=== PATIENT | male | born 1960 | race Caucasian/White ===

== ENCOUNTER 2017-03-17 09:36 | Inpatient (IN) | payer MEDICAID, MEDICARE ==
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
[2017-03-17] MEDS ORDERED: NORMAL SALINE 1000 ML 1,000 ML IV ONE (09:59)
[2017-03-17] MEDS ORDERED: VANCOMYCIN HCL INJ 1000 MG VIAL IV ONE (09:59)
[2017-03-17] MEDS ORDERED: PIPERACILLIN/TAZOBACTAM 3.375 GM VIAL IV ONE (10:00)
[2017-03-17 10:11] LABS: ABSOLUTE LYMPHOCYTES (AUTO) 0.8 10^3/uL (0.5-4.7); ABSOLUTE MONOCYTES (AUTO) 0.9 10^3/uL (0.1-1.4); ABSOLUTE NEUT (AUTO) 5.6 10^3/uL (1.7-8.2); BASOPHILS % (AUTO) 0.4 % (0-2); EOSINOPHILS % (AUTO) 0.5 % (0-6); HEMATOCRIT 39.9 % (37.9-51.0); HEMOGLOBIN 13.1 g/dL (13.5-17.0); LYMPHOCYTES % (AUTO) 10.9 % (13-45); MEAN CORPUSCULAR HEMOGLOBIN 31.7 pg (27.0-33.4); MEAN CORPUSCULAR HGB CONC 32.9 g/dL (32.0-36.0); MEAN CORPUSCULAR VOLUME 96 fl (80-97); MONOCYTES % (AUTO) 11.7 % (3-13); PLATELET COUNT 305 10^3/uL (150-450); RED BLOOD COUNT 4.14 10^6/uL (4.35-5.55); RED CELL DISTRIBUTION WIDTH 16.6 % (11.5-14.0); SEGMENTED NEUTROPHILS % (AUTO) 76.5 % (42-78); TOTAL CELLS COUNTED % (AUTO) 100 %; WHITE BLOOD COUNT 7.3 10^3/uL (4.0-10.5)
[2017-03-17 10:13] LABS: VENOUS BLOOD BASE EXCESS 2.6 mmol/L; VENOUS BLOOD HCO3 27.2 mmol/L (20-32); VENOUS BLOOD PCO2 41.7 mmHg (35-63); VENOUS BLOOD PH 7.43 (7.30-7.42)
--- NOTE | 2017-03-17 10:14 | RADIOLOGY REPORT (SQ) ---
EXAM DESCRIPTION: CHEST SINGLE VIEW COMPLETED DATE/TIME: 03/17/2017 10:05 am REASON FOR STUDY: bed t2 sepsis protocol COMPARISON: None. EXAM PARAMETERS: NUMBER OF VIEWS: One view. TECHNIQUE: Single frontal radiographic view of the chest acquired. RADIATION DOSE: NA LIMITATIONS: None. FINDINGS: LUNGS AND PLEURA: Elevated left hemidiaphragm. Indistinct basilar densities, particularly on the left. MEDIASTINUM AND HILAR STRUCTURES: No masses. Contour normal. HEART AND VASCULAR STRUCTURES: Heart normal in size. Normal vasculature. BONES: No acute findings. HARDWARE: Tracheostomy tube. OTHER: No other significant finding. IMPRESSION: INDISTINCT BASILAR DENSITIES, SOMEWHAT CONCERNING FOR PNEUMONIA, PARTICULARLY ON THE LEF T. TECHNICAL DOCUMENTATION: JOB ID: [id number] [employer]- All Rights Reserved
[2017-03-17 10:20] LABS: INTERNATIONAL RATION (INR) 0.98; PROTHROMBIN TIME 13.7 SEC (11.4-15.4)
[2017-03-17 10:21] LABS: APPEARANCE,URINE SLIGHTLY-CLOUDY; BILIRUBIN,URINE NEGATIVE (NEGATIVE); COLOR,URINE AMBER; GLUCOSE, URINE NEGATIVE (NEGATIVE); KETONES,URINE NEGATIVE (NEGATIVE); LEUKOCYTE ESTERASE,URINE NEGATIVE (NEGATIVE); NITRITE,URINE NEGATIVE (NEGATIVE); PROTEIN,URINE NEGATIVE (NEGATIVE); URINE SPECIFIC GRAVITY 1.031; UROBILINOGEN,URINE NEGATIVE mg/dL (<2.0)
[2017-03-17 10:33] LABS: ALANINE AMINOTRANSFERASE 213 U/L (21-72); ALBUMIN 3.3 g/dL (3.5-5.0); ALKALINE PHOSPHATASE 146 U/L (38-126); ANION GAP 13 (5-19); ASPARTATE AMINO TRANSFERASE 39 U/L (17-59); BILIRUBIN,DIRECT 0.3 mg/dL (0.0-0.4); BILIRUBIN,TOTAL 0.4 mg/dL (0.2-1.3); BLOOD UREA NITROGEN 21 mg/dL (7-20); CALCIUM 9.7 mg/dL (8.4-10.2); CARBON DIOXIDE 26 mmol/L (22-30); CHLORIDE 102 mmol/L (98-107); GLUCOSE 102 mg/dL (75-110); POTASSIUM 4.4 mmol/L (3.6-5.0); SODIUM 140.6 mmol/L (137-145); TOTAL PROTEIN 6.1 g/dL (6.3-8.2)
[2017-03-17] MEDS ORDERED: NORMAL SALINE 1000 ML 1,000 ML IV PRN (11:19)
[2017-03-17] MEDS ORDERED: ONDANSETRON HCL INJ/PF 4 MG/2 ML SDV IV PRN (11:19)
[2017-03-17] MEDS ORDERED: OXYCODONE-ACETAMINOPHEN 5-325 MG TABLET PO PRN (11:19)
[2017-03-17 11:28] LABS: A TYPE INFLUENZA AG NEGATIVE (NEGATIVE); B INFLUENZA AG NEGATIVE (NEGATIVE)
[2017-03-17] MEDS: LEVOFLOXACIN 750 MG/D5W RTU 750 MG/150 ML RTUPB IV SCH (12:33)
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
[2017-03-17 13:51] LABS: A TYPE INFLUENZA AG NEGATIVE (NEGATIVE); B INFLUENZA AG NEGATIVE (NEGATIVE)
[2017-03-17] MEDS ORDERED: ENOXAPARIN SODIUM INJ 40 MG/0.4 ML DISP.SYRIN SUBCUT ONE (14:00)
--- NOTE | 2017-03-17 15:13 | EKG REPORT ---
SEVERITY:- OTHERWISE NORMAL ECG - SINUS TACHYCARDIA : Confirmed by: Erick Bella MD 17-Mar-2017 15:12:34
[2017-03-17] MEDS ORDERED: NYSTATIN 500000 UNIT/5 ML UDCUP PO PRN (15:46)
[2017-03-17] MEDS ORDERED: (PENDING PHARMACY ID) (Cyanocobalamin (Vitamin B-12) [Vitamin B-12 100 Mcg Tablet] 100 MCG PEG SCH (16:00)
[2017-03-17] MEDS ORDERED: ARIPIPRAZOLE 5 MG TABLET PEG ONE ×2 (17:00→18:00)
[2017-03-17] MEDS: LINEZOLID 300 ML IV SCH (18:04)
[2017-03-17] MEDS: BACLOFEN 10 MG TABLET PEG PRN (18:05)
[2017-03-17] MEDS: NORMAL SALINE 1000 ML 1,000 ML IV PRN (23:53)
[2017-03-18] MEDS ORDERED: INFLUENZA ADLT QUAD (36MOS+) 2017-18 VAC 0.5 ML SYR IM PRN (00:35)
[2017-03-18 05:04] LABS: ABSOLUTE EOSINOPHILS # (AUTO) 0.1 10^3/uL (0.0-0.6); ABSOLUTE MONOCYTES (AUTO) 0.6 10^3/uL (0.1-1.4); ABSOLUTE NEUT (AUTO) 3.7 10^3/uL (1.7-8.2); BASOPHILS % (AUTO) 0.5 % (0-2); EOSINOPHILS % (AUTO) 1.6 % (0-6); HEMATOCRIT 34.7 % (37.9-51.0); HEMOGLOBIN 11.5 g/dL (13.5-17.0); LYMPHOCYTES % (AUTO) 18.4 % (13-45); MEAN CORPUSCULAR HEMOGLOBIN 31.9 pg (27.0-33.4); MEAN CORPUSCULAR HGB CONC 33.1 g/dL (32.0-36.0); MEAN CORPUSCULAR VOLUME 97 fl (80-97); MONOCYTES % (AUTO) 10.7 % (3-13); PLATELET COUNT 208 10^3/uL (150-450); RED CELL DISTRIBUTION WIDTH 16.2 % (11.5-14.0); SEGMENTED NEUTROPHILS % (AUTO) 68.8 % (42-78); TOTAL CELLS COUNTED % (AUTO) 100 %; WHITE BLOOD COUNT 5.4 10^3/uL (4.0-10.5)
[2017-03-18] MEDS: LINEZOLID 300 ML IV SCH ×2 (05:07→18:23)
[2017-03-18 05:24] LABS: ANION GAP 9 (5-19); BLOOD UREA NITROGEN 16 mg/dL (7-20); CARBON DIOXIDE 25 mmol/L (22-30); CHLORIDE 106 mmol/L (98-107); GLUCOSE 108 mg/dL (75-110); MAGNESIUM 1.8 mg/dL (1.6-2.3); POTASSIUM 4.2 mmol/L (3.6-5.0); SODIUM 139.6 mmol/L (137-145)
[2017-03-18] MEDS ORDERED: ONDANSETRON HCL INJ/PF 4 MG/2 ML SDV IV PRN (10:00)
[2017-03-18] MEDS: ENOXAPARIN SODIUM INJ 40 MG/0.4 ML DISP.SYRIN SUBCUT SCH (11:03)
[2017-03-18] MEDS: FLUOXETINE HCL 20 MG/5 ML UDCUP PEG SCH (11:04)
[2017-03-18] MEDS: ARIPIPRAZOLE 5 MG TABLET PEG SCH (11:05)
--- NOTE | 2017-03-18 12:29 | PDOC PROGRESS REPORT ---
Subjective Progress Note for:: 03/18/17 Subjective:: Sleeping in bed, opens eyes, non verbal. No overnight events per RN. Reason For Visit: BACTERIAL PNEUMONIA Physical Exam Vital Signs: Temp Pulse Resp BP Pulse Ox 98.9 F 101 H 37 H 121/65 99 03/18/17 07:57 03/18/17 07:57 03/18/17 07:57 03/18/17 07:57 03/18/17 07:57 Intake & Output 03/17/17 03/18/17 03/19/17 06:59 06:59 06:59 Intake Total 1400 Balance 1400 Weight 74.1 kg General appearance: PRESENT: no acute distress, well-developed, well-nourished Mouth exam: PRESENT: moist Throat exam: PRESENT: other - Trach in place Respiratory exam: PRESENT: rhonchi. ABSENT: wheezes Cardiovascular exam: PRESENT: +S1, +S2. ABSENT: tachycardia GI/Abdominal exam: PRESENT: soft, other - PEG in place. Neurological exam: PRESENT: awake, other - unable to perform neuro exam due history Results Laboratory Results: 03/18/17 04:15 03/18/17 04:15 03/18/17 03/18/17 04:15 04:15 WBC 5.4 RBC 3.60 L Hgb 11.5 L Hct 34.7 L MCV 97 MCH 31.9 MCHC 33.1 RDW 16.2 H Plt Count 208 Seg Neutrophils % 68.8 Lymphocytes % 18.4 Monocytes % 10.7 Eosinophils % 1.6 Basophils % 0.5 Absolute Neutrophils 3.7 Absolute Lymphocytes 1.0 Absolute Monocytes 0.6 Absolute Eosinophils 0.1 Absolute Basophils 0.0 Sodium 139.6 Potassium 4.2 Chloride 106 Carbon Dioxide 25 Anion Gap 9 BUN 16 Creatinine 0.73 Est GFR ( Amer) > 60 Est GFR (Non-Af Amer) > 60 Glucose 108 Calcium 9.0 Magnesium 1.8 Impressions: Chest X-Ray 03/17/17 09:38 IMPRESSION: INDISTINCT BASILAR DENSITIES, SOMEWHAT CONCERNING FOR PNEUMONIA, PARTICULARLY ON THE LEFT. Assessment & Plan - Diagnosis (1) Bacterial pneumonia Is this a current diagnosis for this admission?: Yes Plan: Treating for HCAP: CXR concerning for PNA. Rapid Flu negative * 2 - Currently on Zyvox and Levaquin - Blood cultures positive for GPC in clusters (1/2 bottle), sputum also positive for GPC - Will repeat cx on 03/18 at 1800 (will have received abx for 36 hours) to document clearance - Will need 14 days of antibiotics, will tailor based on speciation and sensitivities (2) Chronic respiratory failure Is this a current diagnosis for this admission?: Yes Plan: Patient on chronic tracheostomy. - Continue nebulizer treatments - Code status: DNI - Family involved with care and decision making (3) Traumatic brain injury Qualifiers: Encounter type: sequela Loss of consciousness presence/duration: with LOC of unspecified duration Qualified Code(s): S06.9X9S - Unspecified intracranial injury with loss of consciousness of unspecified duration, sequela Is this a current diagnosis for this admission?: Yes Plan: Supportive care, currently trach/PEG - Time Time Spent with patient: Less than 15 minutes Anticipated discharge: SNF - Plan Summary Plan Summary: Continue inpatient care.
[2017-03-18] MEDS: LEVOFLOXACIN 750 MG/D5W RTU 750 MG/150 ML RTUPB IV SCH (12:57)
[2017-03-19] MEDS: LINEZOLID 300 ML IV SCH ×2 (06:06→17:54)
[2017-03-19] MEDS: NORMAL SALINE 1000 ML 1,000 ML IV PRN (09:14)
[2017-03-19] MEDS: ENOXAPARIN SODIUM INJ 40 MG/0.4 ML DISP.SYRIN SUBCUT SCH (11:13)
[2017-03-19] MEDS: FLUOXETINE HCL 20 MG/5 ML UDCUP PEG SCH (11:13)
[2017-03-19] MEDS: ARIPIPRAZOLE 5 MG TABLET PEG SCH (11:14)
[2017-03-19] MEDS: LEVOFLOXACIN 750 MG/D5W RTU 750 MG/150 ML RTUPB IV SCH (12:36)
--- NOTE | 2017-03-19 15:13 | PDOC PROGRESS REPORT ---
Subjective Progress Note for:: 03/19/17 Subjective:: Patient opens his eyes but otherwise does not respond. Reason For Visit: FEVER, PNA Physical Exam Vital Signs: Temp Pulse Resp BP Pulse Ox 97.8 F 88 30 H 127/76 H 99 03/19/17 12:34 03/19/17 12:34 03/19/17 12:34 03/19/17 12:34 03/19/17 12:34 Intake & Output 03/18/17 03/19/17 03/20/17 06:59 06:59 06:59 Intake Total 1400 1650 0 Balance 1400 1650 0 Weight 74.1 kg General appearance: PRESENT: no acute distress Eye exam: PRESENT: conjunctiva pink. ABSENT: scleral icterus Mouth exam: PRESENT: moist, tongue midline Neck exam: ABSENT: JVD Respiratory exam: PRESENT: rhonchi. ABSENT: rales, wheezes Cardiovascular exam: PRESENT: RRR. ABSENT: diastolic murmur, rubs, systolic murmur GI/Abdominal exam: PRESENT: normal bowel sounds, soft. ABSENT: distended, guarding, mass, organolmegaly, rebound, tenderness Extremities exam: ABSENT: calf tenderness, clubbing, pedal edema Neurological exam: PRESENT: awake Psychiatric exam: PRESENT: flat affect Skin exam: PRESENT: dry, intact, warm. ABSENT: cyanosis, rash Results Laboratory Results: 03/18/17 04:15 03/18/17 04:15 Impressions: Chest X-Ray 03/17/17 09:38 IMPRESSION: INDISTINCT BASILAR DENSITIES, SOMEWHAT CONCERNING FOR PNEUMONIA, PARTICULARLY ON THE LEFT. Assessment & Plan - Diagnosis (1) Bacterial pneumonia Is this a current diagnosis for this admission?: Yes Plan: Patient is growing gram-positive cocci from blood culture 1 as well as sputum. 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 (3) Traumatic brain injury Qualifiers: Encounter type: sequela Loss of consciousness presence/duration: with LOC of unspecified duration Qualified Code(s): S06.9X9S - Unspecified intracranial injury with loss of consciousness of unspecified duration, sequela Is this a current diagnosis for this admission?: Yes - Time Time Spent with patient: 25-34 minutes - Inpatient Certification Medical Necessity: Need for IV Antibiotics
[2017-03-20 05:02] LABS: ABSOLUTE MONOCYTES (AUTO) 0.4 10^3/uL (0.1-1.4); ABSOLUTE NEUT (AUTO) 5.2 10^3/uL (1.7-8.2); BASOPHILS % (AUTO) 0.6 % (0-2); EOSINOPHILS % (AUTO) 0.7 % (0-6); HEMATOCRIT 38.6 % (37.9-51.0); HEMOGLOBIN 13.2 g/dL (13.5-17.0); LYMPHOCYTES % (AUTO) 15.1 % (13-45); MEAN CORPUSCULAR HEMOGLOBIN 32.2 pg (27.0-33.4); MEAN CORPUSCULAR HGB CONC 34.3 g/dL (32.0-36.0); MEAN CORPUSCULAR VOLUME 94 fl (80-97); MONOCYTES % (AUTO) 6.6 % (3-13); PLATELET COUNT 270 10^3/uL (150-450); RED CELL DISTRIBUTION WIDTH 16.1 % (11.5-14.0); TOTAL CELLS COUNTED % (AUTO) 100 %; WHITE BLOOD COUNT 6.7 10^3/uL (4.0-10.5)
[2017-03-20 05:28] LABS: ANION GAP 7 (5-19); BLOOD UREA NITROGEN 9 mg/dL (7-20); CALCIUM 9.4 mg/dL (8.4-10.2); CARBON DIOXIDE 26 mmol/L (22-30); CHLORIDE 101 mmol/L (98-107); GLUCOSE 89 mg/dL (75-110); POTASSIUM 4.4 mmol/L (3.6-5.0); SODIUM 134.4 mmol/L (137-145)
[2017-03-20] MEDS: LINEZOLID 300 ML IV SCH ×2 (05:33→17:16)
--- NOTE | 2017-03-20 10:24 | PDOC PROGRESS REPORT ---
Subjective Progress Note for:: 03/20/17 Subjective:: Patient opens his eyes but otherwise does not respond. Reason For Visit: FEVER, PNA Physical Exam Vital Signs: Temp Pulse Resp BP Pulse Ox 97.9 F 90 27 H 120/70 100 03/20/17 08:01 03/20/17 08:01 03/20/17 08:01 03/20/17 08:01 03/20/17 08:01 Intake & Output 03/19/17 03/20/17 03/21/17 06:59 06:59 06:59 Intake Total 1650 2270 Output Total 1 Balance 1650 2269 Weight 77.4 kg General appearance: PRESENT: no acute distress Eye exam: PRESENT: conjunctiva pink. ABSENT: scleral icterus Mouth exam: PRESENT: moist, tongue midline Neck exam: PRESENT: tracheostomy. ABSENT: JVD Respiratory exam: PRESENT: clear to auscultation [place]. ABSENT: rales, rhonchi, wheezes Cardiovascular exam: PRESENT: RRR. ABSENT: diastolic murmur, rubs, systolic murmur GI/Abdominal exam: PRESENT: normal bowel sounds, soft, other - G-tube present. ABSENT: distended, guarding, mass, organolmegaly, rebound, tenderness Extremities exam: ABSENT: calf tenderness, clubbing, pedal edema Neurological exam: PRESENT: awake Psychiatric exam: PRESENT: flat affect Skin exam: PRESENT: dry, intact, warm. ABSENT: cyanosis, rash Results Laboratory Results: 03/20/17 04:03 03/20/17 04:03 03/20/17 03/20/17 04:03 04:03 WBC 6.7 RBC 4.10 L Hgb 13.2 L Hct 38.6 MCV 94 MCH 32.2 MCHC 34.3 RDW 16.1 H Plt Count 270 Seg Neutrophils % 77.0 Lymphocytes % 15.1 Monocytes % 6.6 Eosinophils % 0.7 Basophils % 0.6 Absolute Neutrophils 5.2 Absolute Lymphocytes 1.0 Absolute Monocytes 0.4 Absolute Eosinophils 0.0 Absolute Basophils 0.0 Sodium 134.4 L Potassium 4.4 Chloride 101 Carbon Dioxide 26 Anion Gap 7 BUN 9 Creatinine 0.59 Est GFR ( Amer) > 60 Est GFR (Non-Af Amer) > 60 Glucose 89 Calcium 9.4 Impressions: Chest X-Ray 03/17/17 09:38 IMPRESSION: INDISTINCT BASILAR DENSITIES, SOMEWHAT CONCERNING FOR PNEUMONIA, PARTICULARLY ON THE LEFT. Assessment & Plan - Diagnosis (1) Bacterial pneumonia Is this a current diagnosis for this admission?: Yes Plan: Patient is growing staph epi from one blood culture. 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 (3) Traumatic brain injury Qualifiers: Encounter type: sequela Loss of consciousness presence/duration: with LOC of unspecified duration Qualified Code(s): S06.9X9S - Unspecified intracranial injury with loss of consciousness of unspecified duration, sequela Is this a current diagnosis for this admission?: Yes - Time Time Spent with patient: 25-34 minutes - Inpatient Certification Medical Necessity: Need for IV Antibiotics
[2017-03-20] MEDS: FLUOXETINE HCL 20 MG/5 ML UDCUP PEG SCH (11:42)
[2017-03-20] MEDS: ARIPIPRAZOLE 5 MG TABLET PEG SCH (11:42)
[2017-03-20] MEDS: ENOXAPARIN SODIUM INJ 40 MG/0.4 ML DISP.SYRIN SUBCUT SCH (11:43)
[2017-03-20] MEDS: NORMAL SALINE 1000 ML 1,000 ML IV PRN (11:58)
[2017-03-20] MEDS: LEVOFLOXACIN 750 MG/D5W RTU 750 MG/150 ML RTUPB IV SCH (12:00)
[2017-03-21] MEDS: LINEZOLID 300 ML IV SCH (05:43)
[2017-03-21] MEDS: NORMAL SALINE 1000 ML 1,000 ML IV PRN ×3 (05:44→17:57)
[2017-03-21] MEDS: FLUOXETINE HCL 20 MG/5 ML UDCUP PEG SCH (09:53)
[2017-03-21] MEDS: ENOXAPARIN SODIUM INJ 40 MG/0.4 ML DISP.SYRIN SUBCUT SCH (09:54)
[2017-03-21] MEDS: ARIPIPRAZOLE 5 MG TABLET PEG SCH (09:54)
--- NOTE | 2017-03-21 12:47 | PDOC PROGRESS REPORT ---
Subjective Progress Note for:: 03/21/17 Subjective:: Patient opens his eyes but otherwise does not respond. Reason For Visit: FEVER, PNA Physical Exam Vital Signs: Temp Pulse Resp BP Pulse Ox 99.3 F 104 H 23 H 124/74 97 03/21/17 07:25 03/21/17 07:25 03/21/17 07:25 03/21/17 07:25 03/21/17 12:12 Intake & Output 03/20/17 03/21/17 03/22/17 06:59 06:59 06:59 Intake Total 2270 1484 Output Total 1 Balance 2269 1484 Weight 77.4 kg 79.8 kg General appearance: PRESENT: no acute distress Eye exam: PRESENT: conjunctiva pink. ABSENT: scleral icterus Mouth exam: PRESENT: moist, tongue midline Neck exam: PRESENT: tracheostomy. ABSENT: JVD Respiratory exam: PRESENT: clear to auscultation [place]. ABSENT: rales, rhonchi, wheezes Cardiovascular exam: PRESENT: RRR. ABSENT: diastolic murmur, rubs, systolic murmur GI/Abdominal exam: PRESENT: normal bowel sounds, soft, other - G-tube in place. ABSENT: distended, guarding, mass, organolmegaly, rebound, tenderness Extremities exam: ABSENT: calf tenderness, clubbing, pedal edema Neurological exam: PRESENT: other - Patient does not respond or interact. Psychiatric exam: PRESENT: flat affect Skin exam: PRESENT: dry, intact, warm. ABSENT: cyanosis, rash Results Laboratory Results: 03/20/17 04:03 03/20/17 04:03 Impressions: Chest X-Ray 03/17/17 09:38 IMPRESSION: INDISTINCT BASILAR DENSITIES, SOMEWHAT CONCERNING FOR PNEUMONIA, PARTICULARLY ON THE LEFT. Assessment & Plan - Diagnosis (1) Bacterial pneumonia Is this a current diagnosis for this admission?: Yes Plan: Patient is growing staph epi from one blood culture. 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 (3) Traumatic brain injury Qualifiers: Encounter type: sequela Loss of consciousness presence/duration: with LOC of unspecified duration Qualified Code(s): S06.9X9S - Unspecified intracranial injury with loss of consciousness of unspecified duration, sequela Is this a current diagnosis for this admission?: Yes - Time Time Spent with patient: 15-24 minutes - Inpatient Certification Medical Necessity: Need for IV Antibiotics
[2017-03-21] MEDS: LEVOFLOXACIN 750 MG/D5W RTU 750 MG/150 ML RTUPB IV SCH (14:13)
[2017-03-21] MEDS: LINEZOLID 600 MG TABLET PEG SCH (17:42)
[2017-03-21] MEDS: BACLOFEN 10 MG TABLET PEG PRN (18:04)
[2017-03-21] MEDS: OXYCODONE-ACETAMINOPHEN 5-325 MG TABLET PEG PRN ×2 (18:04→23:02)
[2017-03-22] MEDS: NORMAL SALINE 1000 ML 1,000 ML IV PRN ×2 (01:59→11:52)
[2017-03-22] MEDS: BACLOFEN 10 MG TABLET PEG PRN ×2 (01:59→11:01)
[2017-03-22 05:27] LABS: ABSOLUTE EOSINOPHILS # (AUTO) 0.1 10^3/uL (0.0-0.6); ABSOLUTE LYMPHOCYTES (AUTO) 1.1 10^3/uL (0.5-4.7); ABSOLUTE MONOCYTES (AUTO) 0.4 10^3/uL (0.1-1.4); ABSOLUTE NEUT (AUTO) 3.8 10^3/uL (1.7-8.2); BASOPHILS % (AUTO) 0.4 % (0-2); EOSINOPHILS % (AUTO) 1.2 % (0-6); HEMATOCRIT 37.1 % (37.9-51.0); HEMOGLOBIN 12.6 g/dL (13.5-17.0); LYMPHOCYTES % (AUTO) 20.2 % (13-45); MEAN CORPUSCULAR VOLUME 94 fl (80-97); PLATELET COUNT 282 10^3/uL (150-450); RED BLOOD COUNT 3.95 10^6/uL (4.35-5.55); RED CELL DISTRIBUTION WIDTH 16.1 % (11.5-14.0); SEGMENTED NEUTROPHILS % (AUTO) 70.2 % (42-78); TOTAL CELLS COUNTED % (AUTO) 100 %; WHITE BLOOD COUNT 5.4 10^3/uL (4.0-10.5)
[2017-03-22] MEDS: OXYCODONE-ACETAMINOPHEN 5-325 MG TABLET PEG PRN ×4 (05:50→18:22)
[2017-03-22 05:51] LABS: ANION GAP 8 (5-19); BLOOD UREA NITROGEN 9 mg/dL (7-20); CALCIUM 9.1 mg/dL (8.4-10.2); CARBON DIOXIDE 27 mmol/L (22-30); CHLORIDE 102 mmol/L (98-107); GLUCOSE 109 mg/dL (75-110); POTASSIUM 4.4 mmol/L (3.6-5.0); SODIUM 137.2 mmol/L (137-145)
[2017-03-22] MEDS: LINEZOLID 600 MG TABLET PEG SCH ×2 (05:51→18:21)
[2017-03-22] MEDS: ARIPIPRAZOLE 5 MG TABLET PEG SCH (11:00)
[2017-03-22] MEDS: ENOXAPARIN SODIUM INJ 40 MG/0.4 ML DISP.SYRIN SUBCUT SCH (11:02)
--- NOTE | 2017-03-22 13:06 | PDOC PROGRESS REPORT ---
Subjective Progress Note for:: 03/22/17 Subjective:: Patient opens his eyes but otherwise does not respond. Reason For Visit: FEVER, PNA Physical Exam Vital Signs: Temp Pulse Resp BP Pulse Ox 98.0 F 102 H 20 129/90 H 98 03/22/17 07:52 03/22/17 07:52 03/22/17 07:52 03/22/17 07:52 03/22/17 08:00 Intake & Output 03/21/17 03/22/17 03/23/17 06:59 06:59 06:59 Intake Total 1484 2650 Balance 1484 2650 Weight 79.8 kg 82.6 kg General appearance: PRESENT: no acute distress Eye exam: PRESENT: conjunctiva pink. ABSENT: scleral icterus Ear exam: PRESENT: normal external ear exam Mouth exam: PRESENT: moist, tongue midline Neck exam: PRESENT: tracheostomy. ABSENT: JVD Respiratory exam: PRESENT: clear to auscultation [place]. ABSENT: rales, rhonchi, wheezes Cardiovascular exam: PRESENT: RRR. ABSENT: diastolic murmur, rubs, systolic murmur GI/Abdominal exam: PRESENT: normal bowel sounds, soft, other - G-tube in place. ABSENT: distended, guarding, mass, organolmegaly, rebound, tenderness Extremities exam: ABSENT: calf tenderness, clubbing, pedal edema Psychiatric exam: PRESENT: flat affect Skin exam: PRESENT: dry, intact, warm. ABSENT: cyanosis, rash Results Laboratory Results: 03/22/17 04:35 03/22/17 04:35 03/22/17 03/22/17 04:35 04:35 WBC 5.4 RBC 3.95 L Hgb 12.6 L Hct 37.1 L MCV 94 MCH 32.0 MCHC 34.0 RDW 16.1 H Plt Count 282 Seg Neutrophils % 70.2 Lymphocytes % 20.2 Monocytes % 8.0 Eosinophils % 1.2 Basophils % 0.4 Absolute Neutrophils 3.8 Absolute Lymphocytes 1.1 Absolute Monocytes 0.4 Absolute Eosinophils 0.1 Absolute Basophils 0.0 Sodium 137.2 Potassium 4.4 Chloride 102 Carbon Dioxide 27 Anion Gap 8 BUN 9 Creatinine 0.60 Est GFR ( Amer) > 60 Est GFR (Non-Af Amer) > 60 Glucose 109 Calcium 9.1 Impressions: Chest X-Ray 03/17/17 09:38 IMPRESSION: INDISTINCT BASILAR DENSITIES, SOMEWHAT CONCERNING FOR PNEUMONIA, PARTICULARLY ON THE LEFT. Assessment & Plan - Diagnosis (1) Bacterial pneumonia Is this a current diagnosis for this admission?: Yes Plan: Patient is growing staph epi from one blood culture. 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 (3) Traumatic brain injury Qualifiers: Encounter type: sequela Loss of consciousness presence/duration: with LOC of unspecified duration Qualified Code(s): S06.9X9S - Unspecified intracranial injury with loss of consciousness of unspecified duration, sequela Is this a current diagnosis for this admission?: Yes - Time Time Spent with patient: 25-34 minutes
[2017-03-22] MEDS: LEVOFLOXACIN 750 MG TABLET PEG SCH (15:40)
[2017-03-23] MEDS: OXYCODONE-ACETAMINOPHEN 5-325 MG TABLET PEG PRN ×3 (00:02→23:43)
[2017-03-23] MEDS: BACLOFEN 10 MG TABLET PEG PRN ×2 (03:00→23:43)
[2017-03-23] MEDS ORDERED: LINEZOLID IV ONE (05:33)
[2017-03-23] MEDS ORDERED: LINEZOLID 600 MG TABLET ONE (06:11)
[2017-03-23] MEDS: LINEZOLID 600 MG TABLET PEG SCH ×2 (06:54→17:55)
[2017-03-23] MEDS: ENOXAPARIN SODIUM INJ 40 MG/0.4 ML DISP.SYRIN SUBCUT SCH (09:28)
--- NOTE | 2017-03-23 10:32 | PDOC PROGRESS REPORT ---
Subjective Progress Note for:: 03/23/17 Subjective:: Patient is agitated this morning Reason For Visit: FEVER, PNA Physical Exam Vital Signs: Temp Pulse Resp BP Pulse Ox 98.2 F 103 H 20 126/68 H 93 03/23/17 07:36 03/23/17 07:36 03/23/17 07:36 03/23/17 07:36 03/23/17 08:00 Intake & Output 03/22/17 03/23/17 03/24/17 06:59 06:59 06:59 Intake Total 2650 2863 Balance 2650 2863 Weight 82.6 kg 70.1 kg General appearance: PRESENT: no acute distress Eye exam: PRESENT: conjunctiva pink. ABSENT: scleral icterus Mouth exam: PRESENT: moist, tongue midline Neck exam: PRESENT: tracheostomy. ABSENT: JVD Respiratory exam: PRESENT: rhonchi. ABSENT: rales, wheezes Cardiovascular exam: PRESENT: RRR. ABSENT: diastolic murmur, rubs, systolic murmur GI/Abdominal exam: PRESENT: normal bowel sounds, soft, other - G-tube in place.. ABSENT: distended, guarding, mass, organolmegaly, rebound, tenderness Extremities exam: ABSENT: calf tenderness, clubbing, pedal edema Neurological exam: PRESENT: awake Psychiatric exam: PRESENT: agitated Skin exam: PRESENT: dry, intact, warm. ABSENT: cyanosis, rash Results Laboratory Results: 03/22/17 04:35 03/22/17 04:35 Impressions: Chest X-Ray 03/17/17 09:38 IMPRESSION: INDISTINCT BASILAR DENSITIES, SOMEWHAT CONCERNING FOR PNEUMONIA, PARTICULARLY ON THE LEFT. Assessment & Plan - Diagnosis (1) Bacterial pneumonia Is this a current diagnosis for this admission?: Yes Plan: Patient is growing staph epi from one blood culture. 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 (3) Traumatic brain injury Qualifiers: Encounter type: sequela Loss of consciousness presence/duration: with LOC of unspecified duration Qualified Code(s): S06.9X9S - Unspecified intracranial injury with loss of consciousness of unspecified duration, sequela Is this a current diagnosis for this admission?: Yes - Time Time Spent with patient: 25-34 minutes
[2017-03-23] MEDS: ARIPIPRAZOLE 5 MG TABLET PEG SCH (12:35)
[2017-03-23] MEDS: LEVOFLOXACIN 750 MG TABLET PEG SCH (12:35)
[2017-03-24] MEDS: LINEZOLID 600 MG TABLET PEG SCH (06:44)
[2017-03-24] MEDS: NORMAL SALINE 1000 ML 1,000 ML IV PRN (06:44)
[2017-03-24] MEDS: OXYCODONE-ACETAMINOPHEN 5-325 MG TABLET PEG PRN ×3 (06:44→22:47)
[2017-03-24] MEDS: ENOXAPARIN SODIUM INJ 40 MG/0.4 ML DISP.SYRIN SUBCUT SCH (11:59)
[2017-03-24] MEDS: BACLOFEN 10 MG TABLET PEG PRN ×2 (12:00→22:47)
[2017-03-24] MEDS: ARIPIPRAZOLE 5 MG TABLET PEG SCH (12:01)
[2017-03-24] MEDS ORDERED: OXYCODONE-ACETAMINOPHEN 5-325 MG TABLET ONE (12:08)
--- NOTE | 2017-03-24 13:00 | PDOC PROGRESS REPORT ---
Subjective Progress Note for:: 03/24/17 Subjective:: Patient opens his eyes but does not otherwise interact. Reason For Visit: FEVER, PNA Physical Exam Vital Signs: Temp Pulse Resp BP Pulse Ox 97.2 F 101 H 21 H 135/88 H 99 03/24/17 11:32 03/24/17 11:32 03/24/17 11:32 03/24/17 11:32 03/24/17 11:32 Intake & Output 03/23/17 03/24/17 03/25/17 06:59 06:59 06:59 Intake Total 2863 4159 50 Balance 2863 4159 50 Weight 70.1 kg 81.6 kg General appearance: PRESENT: no acute distress Eye exam: PRESENT: conjunctiva pink. ABSENT: scleral icterus Mouth exam: PRESENT: moist, tongue midline Neck exam: PRESENT: tracheostomy. ABSENT: JVD Respiratory exam: PRESENT: rhonchi. ABSENT: rales, wheezes Cardiovascular exam: PRESENT: RRR. ABSENT: diastolic murmur, rubs, systolic murmur GI/Abdominal exam: PRESENT: normal bowel sounds, soft, other - PEG tube in place.. ABSENT: distended, guarding, mass, organolmegaly, rebound, tenderness Extremities exam: ABSENT: calf tenderness, clubbing, pedal edema Psychiatric exam: PRESENT: flat affect Skin exam: PRESENT: dry, intact, warm. ABSENT: cyanosis, rash Results Laboratory Results: 03/22/17 04:35 03/22/17 04:35 03/18/17 18:36 Blood Blood Culture - Final NO GROWTH IN 5 DAYS Impressions: Chest X-Ray 03/17/17 09:38 IMPRESSION: INDISTINCT BASILAR DENSITIES, SOMEWHAT CONCERNING FOR PNEUMONIA, PARTICULARLY ON THE LEFT. Assessment & Plan - Diagnosis (1) Bacterial pneumonia Is this a current diagnosis for this admission?: Yes Plan: Patient is growing staph epi from one blood culture. 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 (3) Traumatic brain injury Qualifiers: Encounter type: sequela Loss of consciousness presence/duration: with LOC of unspecified duration Qualified Code(s): S06.9X9S - Unspecified intracranial injury with loss of consciousness of unspecified duration, sequela Is this a current diagnosis for this admission?: Yes - Time Time Spent with patient: 25-34 minutes - Inpatient Certification Medical Necessity: Need Close Monitoring Due to Risk of Patient Decompensation
[2017-03-25 05:04] LABS: ABSOLUTE EOSINOPHILS # (AUTO) 0.1 10^3/uL (0.0-0.6); ABSOLUTE LYMPHOCYTES (AUTO) 1.2 10^3/uL (0.5-4.7); ABSOLUTE MONOCYTES (AUTO) 0.6 10^3/uL (0.1-1.4); ABSOLUTE NEUT (AUTO) 6.5 10^3/uL (1.7-8.2); BASOPHILS % (AUTO) 0.4 % (0-2); EOSINOPHILS % (AUTO) 1.1 % (0-6); HEMATOCRIT 39.6 % (37.9-51.0); HEMOGLOBIN 13.1 g/dL (13.5-17.0); LYMPHOCYTES % (AUTO) 14.2 % (13-45); MEAN CORPUSCULAR HEMOGLOBIN 31.5 pg (27.0-33.4); MEAN CORPUSCULAR VOLUME 95 fl (80-97); MONOCYTES % (AUTO) 7.1 % (3-13); PLATELET COUNT 299 10^3/uL (150-450); RED BLOOD COUNT 4.15 10^6/uL (4.35-5.55); RED CELL DISTRIBUTION WIDTH 16.1 % (11.5-14.0); SEGMENTED NEUTROPHILS % (AUTO) 77.2 % (42-78); TOTAL CELLS COUNTED % (AUTO) 100 %; WHITE BLOOD COUNT 8.5 10^3/uL (4.0-10.5)
[2017-03-25 05:26] LABS: ANION GAP 11 (5-19); BLOOD UREA NITROGEN 11 mg/dL (7-20); CALCIUM 9.7 mg/dL (8.4-10.2); CARBON DIOXIDE 25 mmol/L (22-30); CHLORIDE 100 mmol/L (98-107); GLUCOSE 95 mg/dL (75-110); POTASSIUM 4.7 mmol/L (3.6-5.0); SODIUM 135.5 mmol/L (137-145)
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
[2017-03-25] MEDS ORDERED: LINEZOLID 600 MG TABLET PO ONE (11:30)
[2017-03-25] MEDS: ENOXAPARIN SODIUM INJ 40 MG/0.4 ML DISP.SYRIN SUBCUT SCH (12:49)
[2017-03-25] MEDS: ARIPIPRAZOLE 5 MG TABLET PEG SCH (12:53)
[2017-03-25] MEDS: BACLOFEN 10 MG TABLET PEG PRN (12:53)
[2017-03-25 21:29] VITALS: BP 136/87
[2017-03-25] MEDS ORDERED: LINEZOLID 600 MG TABLET PO SCH (22:00)
== END 2017-03-25 20:50 | DRG 178 ==
LOC: ER 09:36 → EH 13:23 → 3N 18:44 → 5 03-22 21:43
PROVIDERS: ADMIT Emergency Medicine; ATTEND Emergency Medicine
DX: J15.211 Pneumonia due to Methicillin susceptible Staphylococcus aureus (principal); J96.10 Chronic respiratory failure, unspecified whether with hypoxia or hypercapnia; Z66 Do not resuscitate; F20.9 Schizophrenia, unspecified; Z87.820 Personal history of traumatic brain injury; Z93.0 Tracheostomy status
CPT/HCPCS: 36415; 71045; 80048; 80053; 81001; 82803; 82962; 83605; 83735; 85025; 85610; 87040; 87070; 87077; 87086; 87186; 87205; 87804; 93005; 93010; 96365; 96367; 99291; J1650; J1956; J2020; J2543; J3370; J3490; J7030

== ENCOUNTER 2017-03-26 09:41 | Emergency (ER) | payer MEDICAID, MEDICARE ==
[2017-03-26 10:29] LABS: ABSOLUTE EOSINOPHILS # (AUTO) 0.1 10^3/uL (0.0-0.6); ABSOLUTE LYMPHOCYTES (AUTO) 1.2 10^3/uL (0.5-4.7); ABSOLUTE MONOCYTES (AUTO) 0.7 10^3/uL (0.1-1.4); ABSOLUTE NEUT (AUTO) 5.8 10^3/uL (1.7-8.2); BASOPHILS % (AUTO) 0.6 % (0-2); HEMATOCRIT 39.6 % (37.9-51.0); HEMOGLOBIN 13.4 g/dL (13.5-17.0); LYMPHOCYTES % (AUTO) 15.1 % (13-45); MEAN CORPUSCULAR HEMOGLOBIN 31.8 pg (27.0-33.4); MEAN CORPUSCULAR HGB CONC 33.9 g/dL (32.0-36.0); MEAN CORPUSCULAR VOLUME 94 fl (80-97); MONOCYTES % (AUTO) 8.7 % (3-13); PLATELET COUNT 331 10^3/uL (150-450); RED BLOOD COUNT 4.23 10^6/uL (4.35-5.55); RED CELL DISTRIBUTION WIDTH 16.2 % (11.5-14.0); SEGMENTED NEUTROPHILS % (AUTO) 74.6 % (42-78); TOTAL CELLS COUNTED % (AUTO) 100 %; VENOUS BLOOD BASE EXCESS 7.5 mmol/L; VENOUS BLOOD HCO3 32.8 mmol/L (20-32); VENOUS BLOOD PCO2 48.9 mmHg (35-63); VENOUS BLOOD PH 7.45 (7.30-7.42); WHITE BLOOD COUNT 7.7 10^3/uL (4.0-10.5)
[2017-03-26 10:52] LABS: ALANINE AMINOTRANSFERASE 76 U/L (21-72); ALBUMIN 3.7 g/dL (3.5-5.0); ALKALINE PHOSPHATASE 119 U/L (38-126); ANION GAP 9 (5-19); ASPARTATE AMINO TRANSFERASE 46 U/L (17-59); BILIRUBIN,DIRECT 0.2 mg/dL (0.0-0.4); BILIRUBIN,TOTAL 0.5 mg/dL (0.2-1.3); BLOOD UREA NITROGEN 14 mg/dL (7-20); CALCIUM 9.8 mg/dL (8.4-10.2); CARBON DIOXIDE 29 mmol/L (22-30); CHLORIDE 97 mmol/L (98-107); GLUCOSE 100 mg/dL (75-110); POTASSIUM 4.3 mmol/L (3.6-5.0); SODIUM 134.7 mmol/L (137-145); TOTAL PROTEIN 6.7 g/dL (6.3-8.2)
--- NOTE | 2017-03-26 11:45 | RADIOLOGY REPORT (SQ) ---
EXAM DESCRIPTION: CHEST SINGLE VIEW COMPLETED DATE/TIME: 03/26/2017 11:31 am REASON FOR STUDY: sob COMPARISON: AP chest 03/17/2017 EXAM PARAMETERS: NUMBER OF VIEWS: One view. TECHNIQUE: Single frontal radiographic view of the chest acquired. RADIATION DOSE: NA LIMITATIONS: None. FINDINGS: LUNGS AND PLEURA: Minimal stable left retrocardiac airspace disease atelectasis versus pne umonia There is mild pulmonary vascular prominence. No fluffy perihilar pulmonary edema. No pleural effusi ons. MEDIASTINUM AND HILAR STRUCTURES: No masses. Contour normal. HEART AND VASCULAR STRUCTURES: No cardiomegaly BONES: Multiple old right rib fractures HARDWARE: Tracheostomy tube tip midtrachea OTHER: No other significant finding. IMPRESSION: Stable minimal left retrocardiac consolidation atelectasis versus pneumonia TECHNICAL DOCUMENTATION: JOB ID: [id number] [employer]- All Rights Reserved
--- NOTE | 2017-03-26 12:13 | ER Document Report ---
ED General - General Chief Complaint: Breathing Difficulty Stated Complaint: DIFFICULTY BREATHING Time Seen by Provider: 03/26/17 09:51 TRAVEL OUTSIDE OF THE [place] IN LAST 30 DAYS: No - HPI Patient complains to provider of: Difficulty breathing Notes: Patient was hospitalized discharged at the local [facility] facility came in today for difficulty breathing according EMS during tracheal suctioning the patient had a brief period of hypoxia therefore came into the ER for further evaluation patient has a history of a brain injury has a tracheostomy in place otherwise patient is nonverbal mostly in a catatonic state unable to give any information for his HPI - Related Data Allergies/Adverse Reactions: No Known Allergies Allergy (Verified 03/17/17 10:28) Past Medical History - Social History Smoking Status: Unknown if Ever Smoked Family History: Other - Unable to obtain secondary to patient's condition Patient has suicidal ideation: No Patient has homicidal ideation: No Renal/ Medical History: Denies: Hx Peritoneal Dialysis Psychiatric Medical History: Reports: Hx Depression Traumatic Medical History: Reports: Hx Traumatic Brain Injury Past Surgical History: Reports: Other - Tracheostomy Review of Systems - Review of Systems -: Yes ROS unobtainable due to patient's medical condition - Brain injury nonverbal Physical Exam - Vital signs Vitals: Resp BP Pulse Ox 30 H 130/90 H 100 03/26/17 09:55 03/26/17 09:55 03/26/17 09:55 - General General appearance: Appears well - HEENT Head: Normocephalic Eyes: Normal Conjunctiva: Normal Cornea: Normal Eyelashes: Normal Neck: Other - Tracheostomy placed no signs of bleeding is infection - Respiratory Respiratory status: No respiratory distress Chest status: Nontender Breath sounds: Normal Chest palpation: Normal - Cardiovascular Rhythm: Regular Heart sounds: Normal auscultation - Abdominal Inspection: Normal Distension: No distension Bowel sounds: Normal Tenderness: Nontender - Was this - Extremities General upper extremity: Normal inspection, Nontender General lower extremity: Normal inspection, Nontender - Skin Skin Temperature: Warm Skin Moisture: Dry Course - Re-evaluation Re-evalutation: 03/26/17 15:44 Patient was evaluated and monitor with no signs of hypoxia on his trach shield here in the ER. Chest x-ray showed improvement. Laboratory studies showed no acute pathology therefore patient will be sent back to his [facility] facility. - Vital Signs Vital signs: Temp Pulse Resp BP Pulse Ox 99.5 F 19 112/75 94 03/26/17 13:30 03/26/17 13:01 03/26/17 13:01 03/26/17 13:01 - Laboratory Result Diagrams: 03/26/17 10:06 03/26/17 10:06 Laboratory results interpreted by me: 03/26/17 03/26/17 03/26/17 10:06 10:06 10:06 RBC 4.23 L Hgb 13.4 L RDW 16.2 H VBG pH 7.45 H VBG HCO3 32.8 H Sodium 134.7 L Chloride 97 L ALT 76 H Discharge - Discharge Clinical Impression: Bacterial pneumonia Traumatic brain injury Qualifiers: Encounter type: initial encounter Loss of consciousness presence/duration: without LOC Qualified Code(s): S06.9X0A - Unspecified intracranial injury without loss of consciousness, initial encounter Disposition: HOME-SNF (ED ONLY) Additional Instructions: Patient was seen and evaluated today. Patient had no episodes of hypoxia while here in the ER. Blood gases does not show any signs of hypercapnia or respiratory acidosis. Patient's chest x-ray shows improvement please continue medications as directed per hospitalizations discharge instructions.. You can expect very brief periods of hypoxia with deep suctioning the patient. Please continue to clear secretions per facility protocol. Have patient follow- up primary care physician Referrals: RALEIGH GARCIA, DO [Primary Care Provider] - Follow up as needed
[2017-03-26 13:12] VITALS: BP 112/75
== END 2017-03-26 13:59 ==
LOC: ER 09:41
DX: J15.9 Unspecified bacterial pneumonia (principal); R06.02 Shortness of breath; R09.02 Hypoxemia
CPT/HCPCS: 36415; 71045; 80053; 82803; 85025; 99285

== ENCOUNTER 2017-06-15 16:27 | Inpatient (IN) | payer MEDICARE, MEDICAID ==
[~2017-06-15 16:27] MED LIST: ROCURONIUM BROMIDE INJ 50 MG/5 ML VIAL IV ONE
[2017-06-15] MEDS: PROPOFOL 100 ML IV PRN ×2 (16:32→23:44)
[2017-06-15] MEDS ORDERED: ETOMIDATE INJ/PF 20 MG/10 ML SDV IV ONE ×2 (16:36→16:38)
[2017-06-15] MEDS ORDERED: PROPOFOL 100 ML IV ONE (16:36)
[2017-06-15] MEDS ORDERED: ROCURONIUM BROMIDE INJ 50 MG/5 ML VIAL IV ONE (16:38)
[2017-06-15] MEDS ORDERED: PIPERACILLIN/TAZOBACTAM 3.375 GM VIAL IV ONE (16:38)
[2017-06-15] MEDS ORDERED: VANCOMYCIN HCL INJ 1000 MG VIAL IV ONE (16:38)
[2017-06-15] MEDS ORDERED: NORMAL SALINE 1000 ML 1,000 ML IV ONE (16:38)
[2017-06-15] MEDS ORDERED: ACETAMINOPHEN 650 MG SUPP.RECT PR ONE (16:39)
[2017-06-15] MEDS: DEXTROSE 5%-WATER 250 ML with NOREPINEPHRINE BITARTRATE 4 MG IV PRN ×2 (16:42)
[2017-06-15] MEDS ORDERED: NOREPINEPHRINE BITARTRATE INJ/PF 4 MG/4 ML SDV IV ONE ×2 (16:45→22:06)
[2017-06-15 16:58] LABS: VENOUS BLOOD BASE EXCESS 3.6 mmol/L; VENOUS BLOOD HCO3 28.7 mmol/L (20-32); VENOUS BLOOD PCO2 44.9 mmHg (35-63); VENOUS BLOOD PH 7.42 (7.30-7.42)
[2017-06-15 17:07] LABS: HEMATOCRIT 43.4 % (37.9-51.0); HEMOGLOBIN 14.4 g/dL (13.5-17.0); MEAN CORPUSCULAR HEMOGLOBIN 30.6 pg (27.0-33.4); MEAN CORPUSCULAR HGB CONC 33.1 g/dL (32.0-36.0); MEAN CORPUSCULAR VOLUME 93 fl (80-97); PLATELET COUNT 479 10^3/uL (150-450); WHITE BLOOD COUNT 23.1 10^3/uL (4.0-10.5)
--- NOTE | 2017-06-15 17:07 | ER Document Report ---
ED Respiratory Problem - General Chief Complaint: Shortness Of Breath Stated Complaint: DIFFICULTY BREATHING Time Seen by Provider: 06/15/17 16:37 Cannot obtain history due to: Unstable vital signs Notes: The patient is a 56-year-old male, past medical history TBI, presents by EMS in respiratory distress from [facility]. He was found to be tachypneic with respiratory rate of 80 and satting 77% on a nonrebreather mask when EMS arrived. He was discharged a few days ago from [facility] after he was found to be in severe sepsis from a pneumonia. He had a trach removed about 2 weeks ago and had vomiting through the small residual trach wound. Patient unable to provide any additional history. TRAVEL OUTSIDE OF THE [place] IN LAST 30 DAYS: No - Related Data Allergies/Adverse Reactions: No Known Allergies Allergy (Verified 06/06/17 07:51) Past Medical History - General Information source: Emergency Med Personnel Cannot obtain history due to: Unstable vital signs - Social History Smoking Status: Unknown if Ever Smoked Family History: Other - Unable to obtain secondary to patient's condition Pulmonary Medical History: Reports: Hx Pneumonia, Hx Respiratory Failure Renal/ Medical History: Denies: Hx Peritoneal Dialysis Psychiatric Medical History: Reports: Hx Depression Traumatic Medical History: Reports: Hx Traumatic Brain Injury Past Surgical History: Reports: Other - Tracheostomy Review of Systems - Review of Systems -: Yes ROS unobtainable due to patient's medical condition Physical Exam - Vital signs Vitals: Pulse Ox 93 06/15/17 16:30 - Notes Notes: PHYSICAL EXAMINATION: GENERAL: Severe respiratory distress. HEAD: Atraumatic, normocephalic. EYES: Pupils equal round and reactive to light, extraocular movements intact, sclera anicteric, conjunctiva are normal. ENT: nares patent, oropharynx clear without exudates. Moist mucous membranes. NECK: Trach scar with small residual opening and vomitus out of scar. LUNGS: Tachypnea. Crackles in RLL and LLL. HEART: Tachycardia, regular rhythm. ABDOMEN: Soft, nontender, normoactive bowel sounds. No guarding, no rebound. No masses appreciated. EXTREMITIES: Cyanotic peripheral extremities. SKIN: Warm, Dry, normal turgor, no rashes or lesions noted. Course - Re-evaluation Re-evalutation: Patient seen immediately on arrival due to respiratory distress and patient immediately intubated due to satting 80% on a nonrebreather mask. Blood pressure dropped after intubation and peripheral Levophed was started. He is found to have a right lower lobe pneumonia with tachycardia, tachypnea and fever. Broad-spectrum antibiotics started due to his recent hospitalization, along with 30 cc/kg IV fluids. 06/15/17 17:[address] Stephanie Bran (Hospitalist) and she will admit patient as Inpatient to ICU. - Vital Signs Vital signs: Temp Pulse Resp BP Pulse Ox 22 H 103/77 98 06/15/17 19:00 06/15/17 18:46 06/15/17 19:00 - Laboratory Result Diagrams: 06/15/17 16:18 06/15/17 16:18 Laboratory results interpreted by me: 06/15/17 06/15/17 16:18 16:18 WBC 23.1 H RDW 15.0 H Plt Count 479 H Seg Neuts % (Manual) 91 H Lymphocytes % (Manual) 3 L Abs Neuts (Manual) 21.0 H Chloride 96 L Glucose 144 H Calcium 10.3 H - Diagnostic Test Radiology reviewed: Image reviewed, Reports reviewed Radiology results interpreted by me: CXR: New diffuse right-sided airspace disease, edema versus pneumonia. Persistent left lower lobe partial collapse unchanged from 06/06/2017. Superimposed pneumonia could not be excluded Endotracheal tube, nasogastric tube in good positioning. - EKG Interpretation by Me EKG shows normal: Sinus rhythm, [place], Intervals, QRS Complexes, ST-T Waves Rate: Tachycardia Procedures - Central Line Left Internal jugular Time completed: 18:45 Consent obtained: No - Emergent consent implied Central line pre-insertion: Sterile PPE donned, Betadine prep applied, Chloraprep applied, Sterile drapes applied Central line size (Fr.): 20 Central line lumen type: Triple Anesthetic type: 1% Lidocaine mL's of anesthesia: 5 Ultrasound guided: Yes CM at insertion site: 16 Line secured with sutures: Yes Central line post-insertion: Blood return from lumens, Biopatch applied, Sutured , Sterile dressing applied, Position confirmed w/ CXR Number of attempts: 1 Complications: No - Intubation Orotracheal Time of Intubation: 16:55 Airway evaluation: Normal anatomy Mallampati Classification: Class 1 Medications: Etomidate, Other - Rocuronium Intubation method: Orotracheal Blade type: Dannie Blade size: 4 Equipment used: Glidescope ETT size: 7.5 ETT secured at: Teeth ETT secured at (cm): 25 End tidal CO2 confirmed: Yes Ventilator settings: AC Post Intubation Xray: Yes Intubation Complications: Vomited. No: O2 saturation decreased - Prior to intubation Critical Care Note - Critical Care Note Total time excluding time spent on procedures (mins): 55 Discharge - Discharge Clinical Impression: Acute respiratory failure with hypoxia, Septic shock Pneumonia Qualifiers: Pneumonia type: due to unspecified organism Laterality: right Lung location: lower lobe of lung Qualified Code(s): J18.1 - Lobar pneumonia, unspecified organism Condition: Critical Disposition: ADMITTED INPATIENT Admitting Provider: Hospitalist - May Unit Admitted: ICU
--- NOTE | 2017-06-15 17:15 | RADIOLOGY REPORT (SQ) ---
EXAM DESCRIPTION: CHEST SINGLE VIEW COMPLETED DATE/TIME: 06/15/2017 5:04 pm REASON FOR STUDY: intubated COMPARISON: Chest films 06/06/2017, 03/26/2017, 03/17/2017 EXAM PARAMETERS: NUMBER OF VIEWS: One view. TECHNIQUE: Single frontal radiographic view of the chest acquired. RADIATION DOSE: NA LIMITATIONS: None. FINDINGS: LUNGS AND PLEURA: Diffuse consolidation throughout the right lung is now present, asymmetr ic edema versus pneumonia. There is partial collapse of the left lower lobe. Superimposed pneumonia could not be excluded. Thi s is similar compared to 06/06/2017. No pleural effusions. No pneumothorax. MEDIASTINUM AND HILAR STRUCTURES: No masses. Contour normal. HEART AND VASCULAR STRUCTURES: No cardiomegaly BONES: Multiple old healed right posterior rib fractures HARDWARE: Endotracheal tube tip 3 cm above the madan. Nasogastric tube tip and side port in the sto mach. OTHER: No other significant finding. IMPRESSION: New diffuse right-sided airspace disease, edema versus pneumonia. Persistent left lower lobe partial collapse unchanged from 06/06/2017. Superimposed pneumonia could no t be excluded Endotracheal tube, nasogastric tube in good positioning. TECHNICAL DOCUMENTATION: JOB ID: [id number] [employer]- All Rights Reserved Reading location - IP/workstation name: [email or web address]
[2017-06-15 17:19] LABS: ALANINE AMINOTRANSFERASE 39 U/L (21-72); ALBUMIN 3.8 g/dL (3.5-5.0); ALKALINE PHOSPHATASE 85 U/L (38-126); ANION GAP 14 (5-19); ASPARTATE AMINO TRANSFERASE 26 U/L (17-59); BILIRUBIN,DIRECT 0.4 mg/dL (0.0-0.4); BILIRUBIN,TOTAL 0.7 mg/dL (0.2-1.3); BLOOD UREA NITROGEN 18 mg/dL (7-20); CALCIUM 10.3 mg/dL (8.4-10.2); CARBON DIOXIDE 30 mmol/L (22-30); CHLORIDE 96 mmol/L (98-107); GLUCOSE 144 mg/dL (75-110); POTASSIUM 4.8 mmol/L (3.6-5.0); SODIUM 139.5 mmol/L (137-145); TOTAL PROTEIN 6.6 g/dL (6.3-8.2)
[2017-06-15] MEDS ORDERED: FENTANYL CITRATE INJ/PF 100 MCG/2 ML AMPUL IV ONE (17:19)
[2017-06-15 17:32] LABS: ABSOLUTE LYMPHOCYTES# (MANUAL) 0.7 10^3/uL (0.5-4.7); ABSOLUTE MONOCYTES # (MANUAL) 1.4 10^3/uL (0.1-1.4); BASOPHILS % (MANUAL) 0 % (0-2); EOSINOPHILS % (MANUAL) 0 % (0-6); LYMPHOCYTES % (MANUAL) 3 % (13-45); MONOCYTES % (MANUAL) 6 % (3-13); SEGMENTED NEUTROPHILS % (MAN) 91 % (42-78); TOTAL CELLS COUNTED 100
[2017-06-15 17:35] LABS: ANISOCYTOSIS SLIGHT; PLATELET COMMENT INCREASED; POLYCHROMASIA 1+
[2017-06-15 17:36] LABS: PLATELET CLUMPS PRESENT
[2017-06-15] MEDS ORDERED: ONDANSETRON HCL INJ/PF 4 MG/2 ML SDV IV PRN (18:25)
--- NOTE | 2017-06-15 18:43 | PDOC H&P ---
History of Present Illness Admission Date/PCP: RALEIGH GARCIA, DO 06/15/17 History of Present Illness: CECILIA MARTINEZ is a 56 year old male history of traumatic brain injury who resides at [facility]. Past medical history includes Traumatic brain injury status post PEG tube. Tracheostomy, tracheostomy tube was recently discontinued. Schizophrenia Outpatient medications Prozac 40 mg daily Vitamin B12 100 mcg daily Multivitamin daily Abilify 20 mg daily Artificial tears 3 times a day Simvastatin 20 mg daily Tracheal suction every shift and as needed He was sent to the emergency room from the long-term with respiratory distress fever. Per the emergency room physician Dr. Damon, the patient had a temperature of 104 F and was satting in the 70s and was in respiratory distress and was therefore intubated. He was started on vancomycin and Zosyn for right lower lobe infiltrate seen on chest x-ray and also started on propofol and Levophed. His legal guardian is Mr. Chaka Young. I called [place] [facility] and got his phone number: [phone] and [phone]. I was unable to get through to him. Upon reviewing the patient's recent history and physical and discharge summary from earlier this month there is Acute mentation that he is a DO NOT RESUSCITATE. Upon discharge there was also documentation regarding duration for possible hospice. Past Medical History Pulmonary Medical History: Reports: Pneumonia, Respiratory Failure Psychiatric Medical History: Reports: Depression Traumatic Medical History: Reports: Traumatic Brain Injury Hematology: Reports: Anemia Past Surgical History Past Surgical History: Reports: Other - Tracheostomy Social History Smoking Status: Unknown if Ever Smoked Frequency of Alcohol Use: None Hx Recreational Drug Use: No Drugs: None Hx Prescription Drug Abuse: No - Advance Directive Surrogate healthcare decision maker:: Chaka Young, Family History Family History: Other - Unable to obtain secondary to patient's condition Parental Family History Reviewed: No - Unable to obtain, patient intubated Children Family History Reviewed: No Sibling(s) Family History Reviewed.: No Medication/Allergy Home Medications: Aripiprazole [Abilify 5 mg Tablet] 20 mg PEG DAILY 03/17/17 Baclofen [Baclofen 10 mg Tablet] 10 mg PEG Q8HP PRN 03/17/17 Cyanocobalamin (Vitamin B-12) [Vitamin B-12 100 mcg Tablet] 100 mcg PEG DAILY Fluoxetine HCl [Prozac] 40 mg PEG DAILY 03/17/17 Guaifenesin [Robitussin Syrup 200 mg/10 ml Ud Cup] 10 ml PO Q4HP PRN 03/17/17 Multivitamin [Tab-A-Joie (Multiple Vitamin) Tablet] 1 tab PEG DAILY 03/17/17 Nystatin [Mycostatin 500,000 Unit/5 ml Susp Udcup] 2 ml PO QIDP PRN 03/17/17 Simvastatin [Zocor 20 mg Tablet] 20 mg PEG QHS 03/17/17 Ipratropium/Albuterol Sulfate [Duoneb 3 ml Ampul] 3 ml NEB RTQ4HP PRN 06/06/17 Ondansetron HCl [Zofran 4 mg Tablet] 4 mg PEG Q6HP PRN 06/06/17 Polyvinyl Alcohol [Liquitears] 1 drop OU TID 06/06/17 Acetylcysteine [Mucomist 20% Soln 800 mg/4 mL] 600 mg NEB RTBID vial 06/11/17 Amox Tr/Potassium Clavulanate [Augmentin Es 600 mg-42.9 mg Susp 75 ml] 600 mg PO Q12 bottle 06/11/17 Levofloxacin [Levaquin 500 mg Tablet] 500 mg PO NOON tablet 06/11/17 Allergies/Adverse Reactions: No Known Allergies Allergy (Verified 06/06/17 07:51) Review of Systems ROS unobtainable: Due to endotracheal tube, Due to mental status Physical Exam Vital Signs: Temp Pulse Resp BP Pulse Ox 22 H 100/72 99 06/15/17 17:46 06/15/17 17:46 06/15/17 17:46 General appearance: PRESENT: disheveled Eye exam: PRESENT: PERRLA. ABSENT: scleral icterus Ear exam: PRESENT: normal external ear exam Neck exam: PRESENT: other - Tracheostomy opening with yellow phlegm discharge Respiratory exam: PRESENT: crackles, rhonchi, symmetrical Cardiovascular exam: PRESENT: RRR, tachycardia GI/Abdominal exam: PRESENT: normal bowel sounds, soft. ABSENT: tenderness Rectal exam: PRESENT: deferred Extremities exam: ABSENT: calf tenderness, pedal edema Neurological exam: PRESENT: other - sedated on vent Psychiatric exam: PRESENT: other - sedated on vent Skin exam: ABSENT: rash Results Laboratory Results: 06/15/17 16:18 06/15/17 16:18 06/15/17 06/15/17 06/15/17 16:18 16:18 16:40 WBC 23.1 H RBC 4.70 Hgb 14.4 Hct 43.4 MCV 93 MCH 30.6 MCHC 33.1 RDW 15.0 H Plt Count 479 H Seg Neutrophils % Not Reportable Lymphocytes % Not Reportable Monocytes % Not Reportable Eosinophils % Not Reportable Basophils % Not Reportable Absolute Neutrophils Not Reportable Absolute Lymphocytes Not Reportable Absolute Monocytes Not Reportable Absolute Eosinophils Not Reportable Absolute Basophils Not Reportable VBG pH VBG pCO2 VBG HCO3 VBG Base Excess Sodium 139.5 Potassium 4.8 Chloride 96 L Carbon Dioxide 30 Anion Gap 14 BUN 18 Creatinine 0.65 Est GFR ( Amer) > 60 Est GFR (Non-Af Amer) > 60 Glucose 144 H Lactic Acid 1.8 Calcium 10.3 H Total Bilirubin 0.7 AST 26 ALT 39 Alkaline Phosphatase 85 Total Protein 6.6 Albumin 3.8 06/15/17 16:40 WBC RBC Hgb Hct MCV MCH MCHC RDW Plt Count Seg Neutrophils % Lymphocytes % Monocytes % Eosinophils % Basophils % Absolute Neutrophils Absolute Lymphocytes Absolute Monocytes Absolute Eosinophils Absolute Basophils VBG pH 7.42 VBG pCO2 44.9 VBG HCO3 28.7 VBG Base Excess 3.6 Sodium Potassium Chloride Carbon Dioxide Anion Gap BUN Creatinine Est GFR ( Amer) Est GFR (Non-Af Amer) Glucose Lactic Acid Calcium Total Bilirubin AST ALT Alkaline Phosphatase Total Protein Albumin Impressions: Chest X-Ray 06/15/17 16:38 IMPRESSION: New diffuse right-sided airspace disease, edema versus pneumonia. Persistent left lower lobe partial collapse unchanged from 06/06/2017. Superimposed pneumonia could not be excluded Endotracheal tube, nasogastric tube in good positioning. Assessment & Plan - Diagnosis (1) Acute respiratory failure with hypoxia Is this a current diagnosis for this admission?: Yes Plan: Likely due to pneumonia. He was intubated in the emergency room. Tried to contact his guardian Mr. Chaka murray him phone #[phone]. There was no portable DNR. History and physical as well as discharge summary from last week mentioned that the patient is a DO NOT RESUSCITATE. We will continue current management in the ICU for sepsis with IV fluids antibiotics and pressors until we can contact his legal guardian regarding other plan of care. (2) Pneumonia Qualifiers: Pneumonia type: due to unspecified organism Laterality: right Lung location: lower lobe of lung Qualified Code(s): J18.1 - Lobar pneumonia, unspecified organism Is this a current diagnosis for this admission?: Yes Plan: Continue antibiotics. Follow-up on cultures. (3) Septic shock Is this a current diagnosis for this admission?: Yes Plan: Due to pneumonia. Continue antibiotics, IV fluids, pressors. (4) Fever Is this a current diagnosis for this admission?: Yes Plan: Due to pneumonia. (5) Tachycardia Is this a current diagnosis for this admission?: Yes Plan: Sinus tachycardia due to sepsis. - Time Critical Time spent with patient: 35 or more minutes - Inpatient Certification Medical Necessity: Need Close Monitoring Due to Risk of Patient Decompensation, Need For IV Fluids, Need For Continuous Telemetry Monitoring, Need for IV Antibiotics
[2017-06-15] MEDS ORDERED: VANCOMYCIN HCL 0 MG in DEXTROSE 5%-WATER 250 ML IV NR (18:45)
[2017-06-15] MEDS ORDERED: LEVOFLOXACIN 750 MG/D5W RTU 750 MG/150 ML RTUPB IV ONE (19:30)
--- NOTE | 2017-06-15 19:37 | RADIOLOGY REPORT (SQ) ---
EXAM DESCRIPTION: CHEST SINGLE VIEW COMPLETED DATE/TIME: 06/15/2017 7:17 pm REASON FOR STUDY: central line COMPARISON: AP chest 06/15/2017 1658 hours EXAM PARAMETERS: NUMBER OF VIEWS: One view. TECHNIQUE: Single frontal radiographic view of the chest acquired. RADIATION DOSE: NA LIMITATIONS: None. FINDINGS: Interval placement of a left-sided jugular central line with the tip in the superior vena cava. No pneumothorax. Endotracheal tube tip midtrachea. Nasogastric tube tip and side port in the stomach. LUNGS AND PLEURA: Dense consolidation in the right middle lobe and lower lobe, and left lower lobe. This is increased compared to 06/15/2017, 1658 hours. No gross pleural effusion. No pneumothorax. MEDIASTINUM AND HILAR STRUCTURES: No masses. Contour normal. HEART AND VASCULAR STRUCTURES: No cardiomegaly BONES: No acute findings. HARDWARE: As above OTHER: No other significant finding. IMPRESSION: Interval placement of a left jugular central line with the tip in the superior vena cava . No pneumothorax. Increasing consolidation in the right middle and lower lobe, and left lower lobe. TECHNICAL DOCUMENTATION: JOB ID: [id number] [employer]- All Rights Reserved Reading location - IP/workstation name: [email or web address]
[2017-06-15] MEDS ORDERED: LORAZEPAM INJ 2 MG/1 ML VIAL IV ONE (20:11)
[2017-06-15] MEDS: ALBUTEROL SULFATE 0.083% NEB 2.5 MG/3 ML AMPUL NEB SCH ×2 (20:13→23:41)
[2017-06-15 21:02] LABS: AMORPHOUS SEDIMENT,URINE TRACE /HPF; APPEARANCE,URINE CLOUDY; BILIRUBIN,URINE NEGATIVE (NEGATIVE); COLOR,URINE YELLOW; GLUCOSE, URINE NEGATIVE (NEGATIVE); KETONES,URINE NEGATIVE (NEGATIVE); LEUKOCYTE ESTERASE,URINE NEGATIVE (NEGATIVE); NITRITE,URINE NEGATIVE (NEGATIVE); PROTEIN,URINE NEGATIVE (NEGATIVE); URINE SPECIFIC GRAVITY 1.029; UROBILINOGEN,URINE NEGATIVE mg/dL (<2.0)
--- NOTE | 2017-06-15 21:34 | EKG REPORT ---
SEVERITY:- BORDERLINE ECG - SINUS TACHYCARDIA PROMINENT P WAVES, NONDIAGNOSTIC BORDERLINE PROLONGED QT INTERVAL : Confirmed by: Erick Bella MD 15-Jun-2017 21:33:59
[2017-06-16] MEDS: PANTOPRAZOLE SODIUM 40 MG VIAL IV SCH ×3 (00:19→21:30)
[2017-06-16] MEDS ORDERED: PIPERACILLIN/TAZOBACTAM 4.5 GM VIAL IV ONE (00:26)
[2017-06-16] MEDS: PIPERACILLIN SODIUM/TAZOBACTAM 4.5 GM in NORMAL SALINE 100 ML IV SCH ×4 (00:55→17:29)
[2017-06-16] MEDS: NORMAL SALINE 1000 ML 1,000 ML IV PRN ×3 (00:56→08:26)
[2017-06-16] MEDS: DEXTROSE 5%-WATER 250 ML with NOREPINEPHRINE BITARTRATE 4 MG IV PRN ×6 (00:57→17:37)
[2017-06-16] MEDS ORDERED: ACETAMINOPHEN 650 MG SUPP.RECT PR PRN (02:06)
[2017-06-16] MEDS: ALBUTEROL SULFATE 0.083% NEB 2.5 MG/3 ML AMPUL NEB SCH ×3 (03:49→11:38)
[2017-06-16] MEDS: PROPOFOL 100 ML IV PRN ×4 (04:05→21:29)
[2017-06-16] MEDS ORDERED: NOREPINEPHRINE BITARTRATE INJ/PF 4 MG/4 ML SDV IV ONE (06:07)
[2017-06-16 06:15] LABS: ARTERIAL BLOOD BASE EXCESS -0.2 mmol/L; ARTERIAL BLOOD H2CO3 1.19 mmol/L (1.05-1.35); ARTERIAL BLOOD HCO3 24.4 mmol/L (20-26); ARTERIAL BLOOD O2 SATURATION 99.8 % (94-98); ARTERIAL BLOOD PCO2 39.6 mmHg (35-45); ARTERIAL BLOOD PH 7.41 (7.35-7.45); ARTERIAL BLOOD PO2 341.4 mmHg (80-100); ARTERIAL BLOOD TOTAL CO2 25.6 mmol/L (23-27)
[2017-06-16 06:32] LABS: ABSOLUTE LYMPHOCYTES (AUTO) 1.1 10^3/uL (0.5-4.7); ABSOLUTE MONOCYTES (AUTO) 0.8 10^3/uL (0.1-1.4); ABSOLUTE NEUT (AUTO) 14.8 10^3/uL (1.7-8.2); BASOPHILS % (AUTO) 0.1 % (0-2); HEMATOCRIT 31.9 % (37.9-51.0); HEMOGLOBIN 10.6 g/dL (13.5-17.0); LYMPHOCYTES % (AUTO) 6.7 % (13-45); MEAN CORPUSCULAR HGB CONC 33.4 g/dL (32.0-36.0); MEAN CORPUSCULAR VOLUME 93 fl (80-97); MONOCYTES % (AUTO) 4.6 % (3-13); PLATELET COUNT 340 10^3/uL (150-450); RED BLOOD COUNT 3.43 10^6/uL (4.35-5.55); SEGMENTED NEUTROPHILS % (AUTO) 88.6 % (42-78); TOTAL CELLS COUNTED % (AUTO) 100 %; WHITE BLOOD COUNT 16.7 10^3/uL (4.0-10.5)
[2017-06-16 06:34] LABS: ARTERIAL BLOOD FIO2 90%
[2017-06-16 06:42] LABS: ALANINE AMINOTRANSFERASE 33 U/L (21-72); ALBUMIN 2.5 g/dL (3.5-5.0); ALKALINE PHOSPHATASE 52 U/L (38-126); ANION GAP 9 (5-19); ASPARTATE AMINO TRANSFERASE 16 U/L (17-59); BILIRUBIN,DIRECT 0.2 mg/dL (0.0-0.4); BILIRUBIN,TOTAL 0.4 mg/dL (0.2-1.3); BLOOD UREA NITROGEN 14 mg/dL (7-20); CALCIUM 8.5 mg/dL (8.4-10.2); CARBON DIOXIDE 28 mmol/L (22-30); CHLORIDE 105 mmol/L (98-107); CREATINE KINASE 90 U/L (55-170); GLUCOSE 158 mg/dL (75-110); PHOSPHORUS 3.2 mg/dL (2.5-4.5); POTASSIUM 4.1 mmol/L (3.6-5.0); SODIUM 141.7 mmol/L (137-145); TOTAL PROTEIN 4.4 g/dL (6.3-8.2)
[2017-06-16] MEDS: MAGNESIUM SULFATE/D5W 1 GM/100 ML RTUPB IV SCH ×2 (08:25→10:03)
--- NOTE | 2017-06-16 09:11 | RADIOLOGY REPORT (SQ) ---
EXAM DESCRIPTION: CHEST SINGLE VIEW COMPLETED DATE/TIME: 06/16/2017 8:46 am REASON FOR STUDY: pneumonia hypoxia COMPARISON: 06/15/2017 EXAM PARAMETERS: NUMBER OF VIEWS: One view. TECHNIQUE: Single frontal radiographic view of the chest acquired. RADIATION DOSE: NA LIMITATIONS: None. FINDINGS: LUNGS AND PLEURA: Stable multifocal airspace disease most notably involving the left lower lobe. No pneumothorax. MEDIASTINUM AND HILAR STRUCTURES: Stable in size and contour. HEART AND VASCULAR STRUCTURES: Stable. BONES: No acute findings. Multiple old right-sided rib fractures. HARDWARE: Stable. OTHER: No other significant finding. IMPRESSION: STABLE APPEARANCE OF THE CHEST WITH MULTIFOCAL AIRSPACE DISEASE IN LINES/TUBES ABOVE. TECHNICAL DOCUMENTATION: JOB ID: [id number] [employer]- All Rights Reserved Reading location - IP/workstation name: [email or web address]
[2017-06-16] MEDS: LEVOFLOXACIN 750 MG/D5W RTU 750 MG/150 ML RTUPB IV SCH (10:03)
[2017-06-16] MEDS: LACTOBACILLUS ACIDOPHILUS 250 MG TAB PEG SCH ×2 (10:04→17:29)
[2017-06-16] MEDS: ENOXAPARIN SODIUM INJ 40 MG/0.4 ML DISP.SYRIN SUBCUT SCH (10:10)
[2017-06-16] MEDS ORDERED: NORMAL SALINE 1000 ML 1,000 ML IV PRN (12:16)
[2017-06-16] MEDS ORDERED: VANCOMYCIN HCL 1,500 MG in DEXTROSE 5%-WATER 250 ML IV ONE (12:30)
--- NOTE | 2017-06-16 13:50 | PDOC PROGRESS REPORT ---
Subjective Progress Note for:: 06/16/17 Subjective:: 56 yr old male with h/o traumatic brain injury, PEG and trach lives at [facility] presented with acute hypoxic respiratory failure and sepsis due to aspiration pneumonia. He was intubated and started on IV fluids, antibiotics and Levophed gtt. I have been unable to contact his legal guardian, but paperwork on SNF papers indicate that he is a full code. Orders were updated accordingly. Tube feeds will be started and uptitrated to goal rate as tolerated. Cultures are pending Tracheostomy tube was discontinued last week Reason For Visit: SEPSIS DUE TO ASPIRATION PNEUMONIA Physical Exam Vital Signs: Temp Pulse Resp BP Pulse Ox 100.6 F H 82 18 94/61 L 97 06/16/17 04:00 06/16/17 11:37 06/16/17 11:52 06/16/17 11:52 06/16/17 11:52 Intake & Output 06/15/17 06/16/17 06/17/17 06:59 06:59 06:59 Intake Total 1948 Output Total 640 345 Balance 1308 -345 Weight 62.4 kg General appearance: PRESENT: no acute distress, other - sedated intubated, NG tube present Head exam: PRESENT: normocephalic Eye exam: ABSENT: scleral icterus Ear exam: PRESENT: normal external ear exam Neck exam: PRESENT: tracheostomy Respiratory exam: PRESENT: rhonchi, unlabored Cardiovascular exam: PRESENT: RRR GI/Abdominal exam: PRESENT: normal bowel sounds, soft, other - PEG present Rectal exam: PRESENT: deferred Extremities exam: ABSENT: calf tenderness, pedal edema Neurological exam: PRESENT: other - sedated on vent Skin exam: ABSENT: rash Results Laboratory Results: 06/16/17 05:45 06/16/17 05:45 06/15/17 06/16/17 06/16/17 20:01 05:45 05:45 WBC 16.7 H RBC 3.43 L Hgb 10.6 L D Hct 31.9 L MCV 93 MCH 31.0 MCHC 33.4 RDW 15.0 H Plt Count 340 Seg Neutrophils % 88.6 H Lymphocytes % 6.7 L Monocytes % 4.6 Eosinophils % 0.0 Basophils % 0.1 Absolute Neutrophils 14.8 H Absolute Lymphocytes 1.1 Absolute Monocytes 0.8 Absolute Eosinophils 0.0 Absolute Basophils 0.0 Carbonic Acid HCO3/H2CO3 Ratio ABG pH ABG pCO2 ABG pO2 ABG HCO3 ABG O2 Saturation ABG Base Excess FiO2 Sodium 141.7 Potassium 4.1 Chloride 105 Carbon Dioxide 28 Anion Gap 9 BUN 14 Creatinine 0.63 Est GFR ( Amer) > 60 Est GFR (Non-Af Amer) > 60 Glucose 158 H Calcium 8.5 Phosphorus 3.2 Magnesium 1.7 Total Bilirubin 0.4 AST 16 L ALT 33 Alkaline Phosphatase 52 Total Protein 4.4 L Albumin 2.5 L Triglycerides Lipase 11.0 L TSH Urine Color YELLOW Urine Appearance CLOUDY Urine pH 5.0 Ur Specific [place] 1.029 Urine Protein NEGATIVE Urine Glucose (UA) NEGATIVE Urine Ketones NEGATIVE Urine Blood NEGATIVE Urine Nitrite NEGATIVE Ur Leukocyte Esterase NEGATIVE Urine WBC (Auto) 5 Urine RBC (Auto) 4 06/16/17 06/16/17 06/16/17 05:45 05:45 05:45 WBC RBC Hgb Hct MCV MCH MCHC RDW Plt Count Seg Neutrophils % Lymphocytes % Monocytes % Eosinophils % Basophils % Absolute Neutrophils Absolute Lymphocytes Absolute Monocytes Absolute Eosinophils Absolute Basophils Carbonic Acid 1.19 HCO3/H2CO3 Ratio 20:1 ABG pH 7.41 ABG pCO2 39.6 ABG pO2 341.4 H ABG HCO3 24.4 ABG O2 Saturation 99.8 H ABG Base Excess -0.2 FiO2 90% Sodium Potassium Chloride Carbon Dioxide Anion Gap BUN Creatinine Est GFR ( Amer) Est GFR (Non-Af Amer) Glucose Calcium Phosphorus Magnesium Total Bilirubin AST ALT Alkaline Phosphatase Total Protein Albumin Triglycerides 115 Lipase TSH 1.26 Urine Color Urine Appearance Urine pH Ur Specific [place] Urine Protein Urine Glucose (UA) Urine Ketones Urine Blood Urine Nitrite Ur Leukocyte Esterase Urine WBC (Auto) Urine RBC (Auto) 06/16/17 06/16/17 05:45 05:45 Creatine Kinase 90 NT-Pro-B Natriuret Pep 168 Impressions: Chest X-Ray 06/16/17 00:00 IMPRESSION: STABLE APPEARANCE OF THE CHEST WITH MULTIFOCAL AIRSPACE DISEASE IN LINES/TUBES ABOVE. Assessment & Plan - Diagnosis (1) Acute respiratory failure with hypoxia Is this a current diagnosis for this admission?: Yes Plan: Likely due to pneumonia. He was intubated in the emergency room. Tried to contact his guardian Mr. Chaka murray him phone #[phone]. There was no portable DNR. History and physical as well as discharge summary from last week mentioned that the patient is a DO NOT RESUSCITATE. We will continue current management in the ICU for sepsis with IV fluids antibiotics and pressors until we can contact his legal guardian regarding other plan of care. (2) Pneumonia Qualifiers: Pneumonia type: due to unspecified organism Laterality: right Lung location: lower lobe of lung Qualified Code(s): J18.1 - Lobar pneumonia, unspecified organism Is this a current diagnosis for this admission?: Yes Plan: day 2 of antibiotics- vanc, Levaquin, Zosyn Follow-up on cultures. (3) Septic shock Is this a current diagnosis for this admission?: Yes Plan: Due to pneumonia. Continue antibiotics, IV fluids, pressors. (4) Fever Is this a current diagnosis for this admission?: Yes Plan: Due to pneumonia. (5) Tachycardia Is this a current diagnosis for this admission?: Yes Plan: Sinus tachycardia due to sepsis. (6) Traumatic brain injury Is this a current diagnosis for this admission?: Yes Plan: Chronic, stable - Time Time Spent with patient: 35 or more minutes
--- NOTE | 2017-06-16 15:49 | PDOC CONSULTATION ---
Consultation Consult Date: 06/16/17 Attending physician:: AJAY HILLIARD Consult reason:: pna/resp failure History of Present Illness Admission Date/PCP: 06/15/17 18:39 RALEIGH GARCIA DO History of Present Illness: CECILIA MARTINEZ is a 56 year old male resident of [facility] recently dc for pna returns today hypoxic and subsequently intubated,copious fellow phlegm per ET tube Past Medical History Pulmonary Medical History: Reports: Pneumonia, Respiratory Failure Psychiatric Medical History: Reports: Depression Traumatic Medical History: Reports: Traumatic Brain Injury Hematology: Reports: Anemia Past Surgical History Past Surgical History: Reports: Other - Tracheostomy Social History Information Source: [facility] Records Smoking Status: Unknown if Ever Smoked Frequency of Alcohol Use: None Hx Recreational Drug Use: No Drugs: None Hx Prescription Drug Abuse: No Family History Family History: Other - Unable to obtain secondary to patient's condition Parental Family History Reviewed: No Children Family History Reviewed: No Sibling(s) Family History Reviewed.: No Medication/Allergy Home Medications: Aripiprazole [Abilify 5 mg Tablet] 20 mg PEG DAILY 03/17/17 Baclofen [Baclofen 10 mg Tablet] 10 mg PEG Q8HP PRN 03/17/17 Cyanocobalamin (Vitamin B-12) [Vitamin B-12 100 mcg Tablet] 100 mcg PEG DAILY Fluoxetine HCl [Prozac] 40 mg PEG DAILY 03/17/17 Guaifenesin [Robitussin Syrup 200 mg/10 ml Ud Cup] 10 ml PO Q4HP PRN 03/17/17 Multivitamin [Tab-A-Joie (Multiple Vitamin) Tablet] 1 tab PEG DAILY 03/17/17 Nystatin [Mycostatin 500,000 Unit/5 ml Susp Udcup] 2 ml PO QIDP PRN 03/17/17 Simvastatin [Zocor 20 mg Tablet] 20 mg PEG QHS 03/17/17 Ipratropium/Albuterol Sulfate [Duoneb 3 ml Ampul] 3 ml NEB RTQ4HP PRN 06/06/17 Ondansetron HCl [Zofran 4 mg Tablet] 4 mg PEG Q6HP PRN 06/06/17 Polyvinyl Alcohol [Liquitears] 1 drop OU TID 06/06/17 Allergies/Adverse Reactions: No Known Allergies Allergy (Verified 06/06/17 07:51) Review of Systems ROS unobtainable: Due to endotracheal tube Physical Exam Vital Signs: Temp Pulse Resp BP Pulse Ox 100.6 F H 82 18 94/61 L 97 06/16/17 04:00 06/16/17 11:37 06/16/17 11:52 06/16/17 11:52 06/16/17 11:52 Intake & Output 06/15/17 06/16/17 06/17/17 06:59 06:59 06:59 Intake Total 1948 Output Total 640 345 Balance 1308 -345 Weight 62.4 kg General appearance: PRESENT: no acute distress, disheveled. ABSENT: cooperative Head exam: PRESENT: atraumatic, normocephalic Eye exam: PRESENT: conjunctiva pale. ABSENT: EOMI, nystagmus, periorbital swelling, PERRLA Mouth exam: PRESENT: dry mucosa, neck supple, tongue midline, other - ET tube Neck exam: ABSENT: carotid bruit, JVD, lymphadenopathy, thyromegaly, tracheal deviation, tracheostomy Respiratory exam: PRESENT: decreased breath sounds, prolonged expiratory phas, rales, rhonchi, symmetrical, unlabored, wheezes. ABSENT: retraction, stridor, tachypnea Cardiovascular exam: PRESENT: RRR, +S1, +S2, tachycardia Pulses: PRESENT: normal radial pulses GI/Abdominal exam: PRESENT: diminished bowel sounds, soft, other - PEG tube Extremities exam: ABSENT: clubbing, joint swelling Musculoskeletal exam: ABSENT: deformity, dislocation Neurological exam: ABSENT: awake, oriented to person Skin exam: PRESENT: dry, warm Results Laboratory Results: 06/16/17 05:45 06/16/17 05:45 06/15/17 06/16/17 06/16/17 20:01 05:45 05:45 WBC 16.7 H RBC 3.43 L Hgb 10.6 L D Hct 31.9 L MCV 93 MCH 31.0 MCHC 33.4 RDW 15.0 H Plt Count 340 Seg Neutrophils % 88.6 H Lymphocytes % 6.7 L Monocytes % 4.6 Eosinophils % 0.0 Basophils % 0.1 Absolute Neutrophils 14.8 H Absolute Lymphocytes 1.1 Absolute Monocytes 0.8 Absolute Eosinophils 0.0 Absolute Basophils 0.0 Carbonic Acid HCO3/H2CO3 Ratio ABG pH ABG pCO2 ABG pO2 ABG HCO3 ABG O2 Saturation ABG Base Excess FiO2 Sodium 141.7 Potassium 4.1 Chloride 105 Carbon Dioxide 28 Anion Gap 9 BUN 14 Creatinine 0.63 Est GFR ( Amer) > 60 Est GFR (Non-Af Amer) > 60 Glucose 158 H Calcium 8.5 Phosphorus 3.2 Magnesium 1.7 Total Bilirubin 0.4 AST 16 L ALT 33 Alkaline Phosphatase 52 Total Protein 4.4 L Albumin 2.5 L Triglycerides Lipase 11.0 L TSH Urine Color YELLOW Urine Appearance CLOUDY Urine pH 5.0 Ur Specific [place] 1.029 Urine Protein NEGATIVE Urine Glucose (UA) NEGATIVE Urine Ketones NEGATIVE Urine Blood NEGATIVE Urine Nitrite NEGATIVE Ur Leukocyte Esterase NEGATIVE Urine WBC (Auto) 5 Urine RBC (Auto) 4 06/16/17 06/16/17 06/16/17 05:45 05:45 05:45 WBC RBC Hgb Hct MCV MCH MCHC RDW Plt Count Seg Neutrophils % Lymphocytes % Monocytes % Eosinophils % Basophils % Absolute Neutrophils Absolute Lymphocytes Absolute Monocytes Absolute Eosinophils Absolute Basophils Carbonic Acid 1.19 HCO3/H2CO3 Ratio 20:1 ABG pH 7.41 ABG pCO2 39.6 ABG pO2 341.4 H ABG HCO3 24.4 ABG O2 Saturation 99.8 H ABG Base Excess -0.2 FiO2 90% Sodium Potassium Chloride Carbon Dioxide Anion Gap BUN Creatinine Est GFR ( Amer) Est GFR (Non-Af Amer) Glucose Calcium Phosphorus Magnesium Total Bilirubin AST ALT Alkaline Phosphatase Total Protein Albumin Triglycerides 115 Lipase TSH 1.26 Urine Color Urine Appearance Urine pH Ur Specific [place] Urine Protein Urine Glucose (UA) Urine Ketones Urine Blood Urine Nitrite Ur Leukocyte Esterase Urine WBC (Auto) Urine RBC (Auto) 06/16/17 06/16/17 05:45 05:45 Creatine Kinase 90 NT-Pro-B Natriuret Pep 168 Impressions: Chest X-Ray 06/16/17 00:00 IMPRESSION: STABLE APPEARANCE OF THE CHEST WITH MULTIFOCAL AIRSPACE DISEASE IN LINES/TUBES ABOVE. Assessment & Plan - Diagnosis (1) Acute respiratory failure with hypoxia Is this a current diagnosis for this admission?: Yes Plan: Labs- All tests 24 hr 06/16/17 05:45 ABG pH 7.41 ABG pCO2 39.6 ABG pO2 341.4 H ABG O2 Saturation 99.8 H FiO2 90% 06/15/17 23:10 Gram Stain - Preliminary Tracheal Aspirate Sputum Culture - Preliminary Gram Negative Rods Normal Hannah Absent (2) Pneumonia Qualifiers: Pneumonia type: due to unspecified organism Laterality: right Lung location: lower lobe of lung Qualified Code(s): J18.1 - Lobar pneumonia, unspecified organism Is this a current diagnosis for this admission?: Yes Plan: 06/15/17 23:10 Gram Stain - Preliminary Tracheal Aspirate Sputum Culture - Preliminary Gram Negative Rods Normal Hannah Absent neb tobramycin (3) Septic shock Is this a current diagnosis for this admission?: Yes (4) Traumatic brain injury Is this a current diagnosis for this admission?: Yes - Time Total Critical Time (Minutes): 55
[2017-06-16] MEDS: TOBRAMYCIN SULFATE NEB 40 MG/ML 30 ML NEB SCH (19:42)
[2017-06-16] MEDS: IPRATROPIUM/ALBUTEROL 0.5-2.5 MG/3 ML AMPUL NEB SCH (19:42)
[2017-06-16] MEDS ORDERED: TOBRAMYCIN SULFATE INJ 80 MG/2 ML VIAL NEB SCH (20:00)
[2017-06-16] MEDS: VANCOMYCIN HCL 1,000 MG in DEXTROSE 5%-WATER 250 ML IV SCH (21:27)
[2017-06-17] MEDS: PIPERACILLIN SODIUM/TAZOBACTAM 4.5 GM in NORMAL SALINE 100 ML IV SCH ×5 (00:40→23:50)
[2017-06-17] MEDS: IPRATROPIUM/ALBUTEROL 0.5-2.5 MG/3 ML AMPUL NEB SCH ×4 (02:08→20:02)
[2017-06-17] MEDS: PROPOFOL 100 ML IV PRN ×4 (02:13→21:18)
[2017-06-17 05:55] LABS: ABSOLUTE MONOCYTES (AUTO) 0.7 10^3/uL (0.1-1.4); ABSOLUTE NEUT (AUTO) 10.1 10^3/uL (1.7-8.2); BASOPHILS % (AUTO) 0.2 % (0-2); EOSINOPHILS % (AUTO) 0.2 % (0-6); HEMATOCRIT 27.2 % (37.9-51.0); HEMOGLOBIN 9.2 g/dL (13.5-17.0); LYMPHOCYTES % (AUTO) 8.2 % (13-45); MEAN CORPUSCULAR HEMOGLOBIN 31.1 pg (27.0-33.4); MEAN CORPUSCULAR HGB CONC 33.7 g/dL (32.0-36.0); MEAN CORPUSCULAR VOLUME 92 fl (80-97); MONOCYTES % (AUTO) 5.7 % (3-13); PLATELET COUNT 264 10^3/uL (150-450); RED BLOOD COUNT 2.95 10^6/uL (4.35-5.55); RED CELL DISTRIBUTION WIDTH 14.7 % (11.5-14.0); SEGMENTED NEUTROPHILS % (AUTO) 85.7 % (42-78); TOTAL CELLS COUNTED % (AUTO) 100 %; WHITE BLOOD COUNT 11.8 10^3/uL (4.0-10.5)
[2017-06-17 05:57] LABS: ARTERIAL BLOOD BASE EXCESS 1.3 mmol/L; ARTERIAL BLOOD H2CO3 1.08 mmol/L (1.05-1.35); ARTERIAL BLOOD HCO3 24.9 mmol/L (20-26); ARTERIAL BLOOD O2 SATURATION 98.4 % (94-98); ARTERIAL BLOOD PCO2 35.8 mmHg (35-45); ARTERIAL BLOOD PH 7.46 (7.35-7.45)
[2017-06-17 06:19] LABS: ARTERIAL BLOOD FIO2 45%
[2017-06-17 06:41] LABS: ANION GAP 8 (5-19); BLOOD UREA NITROGEN 6 mg/dL (7-20); CALCIUM 8.8 mg/dL (8.4-10.2); CARBON DIOXIDE 27 mmol/L (22-30); CHLORIDE 107 mmol/L (98-107); GLUCOSE 97 mg/dL (75-110); PHOSPHORUS 2.7 mg/dL (2.5-4.5); POTASSIUM 3.5 mmol/L (3.6-5.0); SODIUM 142.1 mmol/L (137-145)
--- NOTE | 2017-06-17 07:12 | RADIOLOGY REPORT (SQ) ---
EXAM DESCRIPTION: CHEST SINGLE VIEW CLINICAL HISTORY: 56 years Male, resp failure/pna COMPARISON: 06/16/17. NUMBER OF VIEWS/TECHNIQUE: 1/AP LIMITATIONS: None. FINDINGS: Moderate mixed airspace and interstitial opacity worse at the left lung base, right apical bullous disease pattern, normal cardiac silhouette, adequate appearing endotracheal tube is 2.9 cm from the madan, left jugular central line tip at the SVC, and adequate appearing enteric tube. No pneumothorax. No acute bone defect. IMPRESSION: Interval worsening includes moderate bilateral airspace opacity.
[2017-06-17] MEDS: TOBRAMYCIN SULFATE NEB 40 MG/ML 30 ML NEB SCH ×2 (08:38→20:02)
[2017-06-17] MEDS: DEXTROSE 5%-WATER 250 ML with NOREPINEPHRINE BITARTRATE 4 MG IV PRN ×2 (09:03)
[2017-06-17] MEDS: VANCOMYCIN HCL 1,000 MG in DEXTROSE 5%-WATER 250 ML IV SCH ×2 (11:13→21:18)
[2017-06-17] MEDS: LACTOBACILLUS ACIDOPHILUS 250 MG TAB PEG SCH ×2 (11:14→17:04)
[2017-06-17] MEDS: PANTOPRAZOLE SODIUM 40 MG VIAL IV SCH ×2 (11:15→21:17)
[2017-06-17] MEDS: LEVOFLOXACIN 750 MG/D5W RTU 750 MG/150 ML RTUPB IV SCH (11:16)
[2017-06-17] MEDS: ENOXAPARIN SODIUM INJ 40 MG/0.4 ML DISP.SYRIN SUBCUT SCH (11:16)
--- NOTE | 2017-06-17 11:38 | PDOC PROGRESS REPORT ---
Subjective Progress Note for:: 06/17/17 Subjective:: Intubated and sedated unchanged Reason For Visit: SEPSIS DUE TO ASPIRATION PNEUMONIA Physical Exam Vital Signs: Temp Pulse Resp BP Pulse Ox 100.6 F H 81 18 118/70 99 06/16/17 04:00 06/17/17 02:10 06/17/17 06:00 06/17/17 05:57 06/17/17 06:00 Intake & Output 06/16/17 06/17/17 06/18/17 06:59 06:59 06:59 Intake Total 1948 5637 Output Total 640 2240 Balance 1308 3397 Weight 62.4 kg 68.3 kg General appearance: PRESENT: no acute distress, disheveled, well-developed, well -nourished. ABSENT: cooperative Head exam: PRESENT: atraumatic, normocephalic Eye exam: PRESENT: conjunctiva pale. ABSENT: EOMI, nystagmus, periorbital swelling, scleral icterus Mouth exam: PRESENT: dry mucosa, neck supple, tongue midline, other - ET tube in place Neck exam: ABSENT: carotid bruit, JVD, lymphadenopathy, thyromegaly, tracheal deviation, tracheostomy Respiratory exam: PRESENT: decreased breath sounds, prolonged expiratory phas, rales, rhonchi, symmetrical, unlabored. ABSENT: retraction, stridor, tachypnea Cardiovascular exam: PRESENT: RRR, +S1, +S2, tachycardia Pulses: PRESENT: normal radial pulses GI/Abdominal exam: PRESENT: diminished bowel sounds, soft Extremities exam: ABSENT: clubbing, joint swelling, pedal edema Musculoskeletal exam: ABSENT: ambulatory Neurological exam: ABSENT: awake, oriented to person Skin exam: PRESENT: dry, warm Results Laboratory Results: 06/17/17 05:33 06/17/17 05:33 06/16/17 06/17/17 06/17/17 05:45 05:33 05:33 WBC RBC Hgb Hct MCV MCH MCHC RDW Plt Count Seg Neutrophils % Lymphocytes % Monocytes % Eosinophils % Basophils % Absolute Neutrophils Absolute Lymphocytes Absolute Monocytes Absolute Eosinophils Absolute Basophils Carbonic Acid 1.08 HCO3/H2CO3 Ratio 23:1 ABG pH 7.46 H ABG pCO2 35.8 ABG pO2 113.0 H ABG HCO3 24.9 ABG O2 Saturation 98.4 H ABG Base Excess 1.3 FiO2 45% Sodium 142.1 Potassium 3.5 L Chloride 107 Carbon Dioxide 27 Anion Gap 8 BUN 6 L Creatinine 0.54 Est GFR ( Amer) > 60 Est GFR (Non-Af Amer) > 60 Glucose 97 Calcium 8.8 Phosphorus 2.7 Magnesium 1.9 Triglycerides 115 06/17/17 05:33 WBC 11.8 H RBC 2.95 L Hgb 9.2 L Hct 27.2 L MCV 92 MCH 31.1 MCHC 33.7 RDW 14.7 H Plt Count 264 Seg Neutrophils % 85.7 H Lymphocytes % 8.2 L Monocytes % 5.7 Eosinophils % 0.2 Basophils % 0.2 Absolute Neutrophils 10.1 H Absolute Lymphocytes 1.0 Absolute Monocytes 0.7 Absolute Eosinophils 0.0 Absolute Basophils 0.0 Carbonic Acid HCO3/H2CO3 Ratio ABG pH ABG pCO2 ABG pO2 ABG HCO3 ABG O2 Saturation ABG Base Excess FiO2 Sodium Potassium Chloride Carbon Dioxide Anion Gap BUN Creatinine Est GFR ( Amer) Est GFR (Non-Af Amer) Glucose Calcium Phosphorus Magnesium Triglycerides 06/16/17 06/16/17 05:45 05:45 Creatine Kinase 90 NT-Pro-B Natriuret Pep 168 Impressions: Chest X-Ray 06/17/17 06:00 IMPRESSION: Interval worsening includes moderate bilateral airspace opacity. Assessment & Plan - Diagnosis (1) Acute respiratory failure with hypoxia Is this a current diagnosis for this admission?: Yes Plan: Improving (2) Pneumonia Qualifiers: Pneumonia type: due to unspecified organism Laterality: right Lung location: lower lobe of lung Qualified Code(s): J18.1 - Lobar pneumonia, unspecified organism Is this a current diagnosis for this admission?: Yes Plan: Continue as below 06/15/17 23:10 Gram Stain - Preliminary Tracheal Aspirate Sputum Culture - Preliminary Gram Negative Rods Normal Hannah Absent neb tobramycin (3) Septic shock Is this a current diagnosis for this admission?: Yes (4) Traumatic brain injury Is this a current diagnosis for this admission?: Yes - Time Total Critical Time (Minutes): 35
--- NOTE | 2017-06-17 11:50 | PDOC PROGRESS REPORT ---
Subjective Progress Note for:: 06/17/17 Subjective:: 56 yr old male with h/o traumatic brain injury, PEG and trach lives at [facility] presented with acute hypoxic respiratory failure and sepsis due to aspiration pneumonia. He was intubated and started on IV fluids, antibiotics and Levophed gtt. I have been unable to contact his legal guardian, but paperwork on SNF papers indicate that he is a full code. Orders were updated accordingly. Tube feeds were started and he is tolerating them well. Tracheostomy tube was discontinued last week. 1 out of 2 blood cultures growing gram-positive cocci. He is on vancomycin. Repeat blood cultures will be drawn. Sputum cultures growing gram-negative rods. Identification pending. I spoke to his guardian from [facility] [employer] Ms. Chaka Young, phone #[phone]. She told me that is to be intubated if needed but no CPR. I gave her an update on the patient's condition and plan of care. Reason For Visit: SEPSIS DUE TO ASPIRATION PNEUMONIA Physical Exam Vital Signs: Temp Pulse Resp BP Pulse Ox 100.6 F H 84 19 112/73 100 06/16/17 04:00 06/17/17 08:38 06/17/17 11:11 06/17/17 11:11 06/17/17 11:11 Intake & Output 06/16/17 06/17/17 06/18/17 06:59 06:59 06:59 Intake Total 1948 5637 Output Total 640 2240 275 Balance 1308 3397 -275 Weight 62.4 kg 68.3 kg General appearance: PRESENT: other - Intubated on vent Eye exam: ABSENT: scleral icterus Ear exam: PRESENT: normal external ear exam Neck exam: ABSENT: tracheal deviation Respiratory exam: PRESENT: rhonchi, symmetrical Cardiovascular exam: PRESENT: RRR GI/Abdominal exam: PRESENT: normal bowel sounds, soft, other - PEG tube present. ABSENT: tenderness Rectal exam: PRESENT: deferred Extremities exam: ABSENT: pedal edema Neurological exam: PRESENT: other - Sedated Skin exam: ABSENT: petechiae Results Laboratory Results: 06/17/17 05:33 06/17/17 05:33 06/17/17 06/17/17 06/17/17 05:33 05:33 05:33 WBC 11.8 H RBC 2.95 L Hgb 9.2 L Hct 27.2 L MCV 92 MCH 31.1 MCHC 33.7 RDW 14.7 H Plt Count 264 Seg Neutrophils % 85.7 H Lymphocytes % 8.2 L Monocytes % 5.7 Eosinophils % 0.2 Basophils % 0.2 Absolute Neutrophils 10.1 H Absolute Lymphocytes 1.0 Absolute Monocytes 0.7 Absolute Eosinophils 0.0 Absolute Basophils 0.0 Carbonic Acid 1.08 HCO3/H2CO3 Ratio 23:1 ABG pH 7.46 H ABG pCO2 35.8 ABG pO2 113.0 H ABG HCO3 24.9 ABG O2 Saturation 98.4 H ABG Base Excess 1.3 FiO2 45% Sodium 142.1 Potassium 3.5 L Chloride 107 Carbon Dioxide 27 Anion Gap 8 BUN 6 L Creatinine 0.54 Est GFR ( Amer) > 60 Est GFR (Non-Af Amer) > 60 Glucose 97 Calcium 8.8 Phosphorus 2.7 Magnesium 1.9 06/15/17 20:01 Catheterized Urine Urine Culture - Final NO GROWTH 2 DAYS 06/16/17 06/16/17 05:45 05:45 Creatine Kinase 90 NT-Pro-B Natriuret Pep 168 Impressions: Chest X-Ray 06/17/17 06:00 IMPRESSION: Interval worsening includes moderate bilateral airspace opacity. Assessment & Plan - Diagnosis (1) Acute respiratory failure with hypoxia Is this a current diagnosis for this admission?: Yes Plan: Likely due to pneumonia. Continue vent management His legal guardian is Ms. Chaka Young ([facility]) #[phone] (2) Pneumonia Qualifiers: Pneumonia type: due to unspecified organism Laterality: right Lung location: lower lobe of lung Qualified Code(s): J18.1 - Lobar pneumonia, unspecified organism Is this a current diagnosis for this admission?: Yes Plan: Day 3 of antibiotics- vanc, Levaquin, Zosyn Follow-up on cultures. (3) Septic shock Is this a current diagnosis for this admission?: Yes Plan: Due to pneumonia. Continue antibiotics, IV fluids, pressors. (4) Fever Is this a current diagnosis for this admission?: Yes Plan: Due to pneumonia. (5) Tachycardia Is this a current diagnosis for this admission?: Yes Plan: Sinus tachycardia due to sepsis. (6) Traumatic brain injury Is this a current diagnosis for this admission?: Yes Plan: Chronic, stable - Time Time Spent with patient: 35 or more minutes
[2017-06-17] MEDS ORDERED: ONDANSETRON HCL INJ/PF 4 MG/2 ML SDV IV PRN (14:30)
[2017-06-17] MEDS: POTASSI CL 20 MEQ/50 ML RIDER 20 MEQ/50 ML RTUPB IV SCH ×2 (14:32→16:41)
[2017-06-17] MEDS: NORMAL SALINE 1000 ML 1,000 ML IV PRN (20:25)
--- NOTE | 2017-06-17 23:53 | Progress Note ---
Provider Note Provider Note: Palliative Care Visit 06/17/17 1:00 PM Brief visit for palliative consult . Patient has traumatic brain injury and is nonresponsive. Nurse tells me he is doing better, but this is his baseline for responsiveness per history. [facility] and has a court appointed guardian. Guardian has called hospital to state instructions that use of mechanical ventilator is acceptable, but not to perform CPR on patient if his heart should stop. No symptoms to manage an no question about code status since guardian has made her directions known. Please call again if any needs arise. Nonbillable visit.
[2017-06-18] MEDS: IPRATROPIUM/ALBUTEROL 0.5-2.5 MG/3 ML AMPUL NEB SCH ×4 (02:06→19:54)
[2017-06-18] MEDS: PIPERACILLIN SODIUM/TAZOBACTAM 4.5 GM in NORMAL SALINE 100 ML IV SCH ×3 (05:23→18:02)
[2017-06-18 05:53] LABS: ABSOLUTE EOSINOPHILS # (AUTO) 0.1 10^3/uL (0.0-0.6); ABSOLUTE LYMPHOCYTES (AUTO) 0.8 10^3/uL (0.5-4.7); ABSOLUTE MONOCYTES (AUTO) 0.5 10^3/uL (0.1-1.4); ABSOLUTE NEUT (AUTO) 5.9 10^3/uL (1.7-8.2); BASOPHILS % (AUTO) 0.6 % (0-2); EOSINOPHILS % (AUTO) 0.8 % (0-6); HEMATOCRIT 26.3 % (37.9-51.0); HEMOGLOBIN 8.7 g/dL (13.5-17.0); LYMPHOCYTES % (AUTO) 11.5 % (13-45); MEAN CORPUSCULAR HEMOGLOBIN 30.8 pg (27.0-33.4); MEAN CORPUSCULAR HGB CONC 33.2 g/dL (32.0-36.0); MEAN CORPUSCULAR VOLUME 93 fl (80-97); MONOCYTES % (AUTO) 6.5 % (3-13); PLATELET COUNT 262 10^3/uL (150-450); RED BLOOD COUNT 2.84 10^6/uL (4.35-5.55); RED CELL DISTRIBUTION WIDTH 15.1 % (11.5-14.0); SEGMENTED NEUTROPHILS % (AUTO) 80.6 % (42-78); TOTAL CELLS COUNTED % (AUTO) 100 %; WHITE BLOOD COUNT 7.4 10^3/uL (4.0-10.5)
[2017-06-18 06:12] LABS: ARTERIAL BLOOD BASE EXCESS 1.8 mmol/L; ARTERIAL BLOOD H2CO3 1.18 mmol/L (1.05-1.35); ARTERIAL BLOOD O2 SATURATION 85.7 % (94-98); ARTERIAL BLOOD PCO2 39.3 mmHg (35-45); ARTERIAL BLOOD PH 7.44 (7.35-7.45); ARTERIAL BLOOD PO2 48.5 mmHg (80-100); ARTERIAL BLOOD TOTAL CO2 27.2 mmol/L (23-27)
[2017-06-18 06:14] LABS: ARTERIAL BLOOD FIO2 30%
[2017-06-18] MEDS: PROPOFOL 100 ML IV PRN (06:20)
[2017-06-18] MEDS: NORMAL SALINE 1000 ML 1,000 ML IV PRN ×2 (06:20→18:01)
[2017-06-18 06:24] LABS: ANION GAP 5 (5-19); BLOOD UREA NITROGEN 4 mg/dL (7-20); CALCIUM 8.4 mg/dL (8.4-10.2); CARBON DIOXIDE 29 mmol/L (22-30); CHLORIDE 105 mmol/L (98-107); GLUCOSE 89 mg/dL (75-110)
--- NOTE | 2017-06-18 06:27 | RADIOLOGY REPORT (SQ) ---
EXAM DESCRIPTION: CHEST SINGLE VIEW CLINICAL HISTORY: Mechanical ventilation. Respiratory failure. Endotracheal tube. COMPARISON: 06/17/2017 FINDINGS: Single frontal view of the chest. Endotracheal tube and left IJ central venous catheter are stable. Interval removal of NG tube. Leads overlie the chest. Cardia mediastinal silhouette is stable. Right upper lobe bulla is stable. Bilateral airspace opacities are stable. No acute osseous abnormalities. Upper abdominal soft tissues are unremarkable. IMPRESSION: 1. No significant interval change.
[2017-06-18] MEDS: TOBRAMYCIN SULFATE NEB 40 MG/ML 30 ML NEB SCH ×2 (08:37→19:54)
[2017-06-18] MEDS: PANTOPRAZOLE SODIUM 40 MG VIAL IV SCH ×2 (09:44→21:30)
[2017-06-18] MEDS: ENOXAPARIN SODIUM INJ 40 MG/0.4 ML DISP.SYRIN SUBCUT SCH (09:44)
[2017-06-18] MEDS: LACTOBACILLUS ACIDOPHILUS 250 MG TAB PEG SCH ×2 (09:44→18:02)
[2017-06-18] MEDS: VANCOMYCIN HCL 1,000 MG in DEXTROSE 5%-WATER 250 ML IV SCH (09:45)
[2017-06-18] MEDS: LEVOFLOXACIN 750 MG/D5W RTU 750 MG/150 ML RTUPB IV SCH (09:45)
[2017-06-18 10:54] LABS: VANCOMYCIN,TROUGH 10.7 ug/mL (5.0-20.0)
--- NOTE | 2017-06-18 17:12 | PDOC PROGRESS REPORT ---
Subjective Progress Note for:: 06/18/17 Subjective:: 56 yr old male with h/o traumatic brain injury, PEG and trach lives at [facility] presented with acute hypoxic respiratory failure and sepsis due to aspiration pneumonia. He was intubated and started on IV fluids, antibiotics and Levophed gtt. I have been unable to contact his legal guardian, but paperwork on SNF papers indicate that he is a full code. Orders were updated accordingly. Tube feeds were started and he is tolerating them well. Tracheostomy tube was discontinued last week. 1 out of 2 blood cultures growing gram-positive cocci. He is on vancomycin. Repeat blood cultures will be drawn. Sputum cultures growing gram-negative rods. Identification pending. His guardian is Ms. Chaka Young, from the [facility], phone #[phone]. She told me that is to be intubated if needed but no CPR. He continues to be sedated on the vent. No longer on pressors. Continue antibiotics and folow up on cultures Reason For Visit: SEPSIS DUE TO ASPIRATION PNEUMONIA Physical Exam Vital Signs: Temp Pulse Resp BP Pulse Ox 100.6 F H 94 18 121/71 99 06/16/17 04:00 06/18/17 13:45 06/18/17 13:45 06/18/17 09:57 06/18/17 16:04 Intake & Output 06/17/17 06/18/17 06/19/17 06:59 06:59 06:59 Intake Total 5637 4902 Output Total 2240 3255 700 Balance 3397 1647 -700 Weight 68.3 kg 69.8 kg General appearance: PRESENT: well-developed Head exam: PRESENT: normocephalic Eye exam: PRESENT: PERRLA. ABSENT: scleral icterus Ear exam: PRESENT: normal external ear exam Mouth exam: PRESENT: other - intubated Neck exam: PRESENT: tracheostomy Respiratory exam: PRESENT: rhonchi, symmetrical, wheezes Cardiovascular exam: PRESENT: RRR GI/Abdominal exam: PRESENT: normal bowel sounds, soft, other - PEG tube. ABSENT : tenderness Rectal exam: PRESENT: deferred Extremities exam: ABSENT: calf tenderness, pedal edema Neurological exam: PRESENT: other - sedated on vent Skin exam: ABSENT: petechiae, rash Results Laboratory Results: 06/18/17 05:45 06/18/17 09:43 06/18/17 06/18/17 06/18/17 05:45 05:45 05:45 WBC 7.4 RBC 2.84 L Hgb 8.7 L Hct 26.3 L MCV 93 MCH 30.8 MCHC 33.2 RDW 15.1 H Plt Count 262 Seg Neutrophils % 80.6 H Lymphocytes % 11.5 L Monocytes % 6.5 Eosinophils % 0.8 Basophils % 0.6 Absolute Neutrophils 5.9 Absolute Lymphocytes 0.8 Absolute Monocytes 0.5 Absolute Eosinophils 0.1 Absolute Basophils 0.0 Carbonic Acid 1.18 HCO3/H2CO3 Ratio 22:1 ABG pH 7.44 ABG pCO2 39.3 ABG pO2 48.5 L ABG HCO3 26.0 ABG O2 Saturation 85.7 L ABG Base Excess 1.8 FiO2 30% Sodium 139.0 Potassium 4.0 Chloride 105 Carbon Dioxide 29 Anion Gap 5 BUN 4 L Creatinine 0.60 Est GFR ( Amer) > 60 Est GFR (Non-Af Amer) > 60 Glucose 89 Calcium 8.4 Phosphorus 3.0 Magnesium 1.8 06/18/17 09:43 WBC RBC Hgb Hct MCV MCH MCHC RDW Plt Count Seg Neutrophils % Lymphocytes % Monocytes % Eosinophils % Basophils % Absolute Neutrophils Absolute Lymphocytes Absolute Monocytes Absolute Eosinophils Absolute Basophils Carbonic Acid HCO3/H2CO3 Ratio ABG pH ABG pCO2 ABG pO2 ABG HCO3 ABG O2 Saturation ABG Base Excess FiO2 Sodium Potassium Chloride Carbon Dioxide Anion Gap BUN Creatinine 0.53 Est GFR ( Amer) > 60 Est GFR (Non-Af Amer) > 60 Glucose Calcium Phosphorus Magnesium 06/15/17 23:10 Tracheal Aspirate Gram Stain - Final 06/16/17 06/16/17 05:45 05:45 Creatine Kinase 90 NT-Pro-B Natriuret Pep 168 Impressions: Chest X-Ray 06/18/17 06:00 IMPRESSION: 1. No significant interval change. Assessment & Plan - Diagnosis (1) Acute respiratory failure with hypoxia Is this a current diagnosis for this admission?: Yes Plan: Likely due to pneumonia. Continue vent management, daily sedation and vacation and trial of wean His legal guardian is Ms. Chkaa Young ([facility]) #[phone] (2) Pneumonia Qualifiers: Pneumonia type: due to unspecified organism Laterality: right Lung location: lower lobe of lung Qualified Code(s): J18.1 - Lobar pneumonia, unspecified organism Is this a current diagnosis for this admission?: Yes Plan: Day 4 of antibiotics- vanc, Levaquin, Zosyn Follow-up on cultures. (3) Septic shock Is this a current diagnosis for this admission?: Yes Plan: Due to pneumonia. Continue management as above (4) Fever Is this a current diagnosis for this admission?: Yes Plan: Due to pneumonia. (5) Tachycardia Is this a current diagnosis for this admission?: Yes Plan: Sinus tachycardia due to sepsis. (6) Traumatic brain injury Is this a current diagnosis for this admission?: Yes (7) On tube feeding diet Is this a current diagnosis for this admission?: Yes - Time Time Spent with patient: 35 or more minutes
[2017-06-18] MEDS: VANCOMYCIN HCL 1,250 MG in DEXTROSE 5%-WATER 250 ML IV SCH ×2 (18:02→21:31)
[2017-06-19] MEDS: PIPERACILLIN SODIUM/TAZOBACTAM 4.5 GM in NORMAL SALINE 100 ML IV SCH ×2 (00:26→05:38)
[2017-06-19] MEDS: VANCOMYCIN HCL 1,250 MG in DEXTROSE 5%-WATER 250 ML IV SCH ×4 (01:00→17:43)
[2017-06-19] MEDS: PROPOFOL 100 ML IV PRN ×4 (01:01→23:48)
[2017-06-19] MEDS: IPRATROPIUM/ALBUTEROL 0.5-2.5 MG/3 ML AMPUL NEB SCH ×4 (01:40→19:59)
[2017-06-19 05:36] LABS: ABSOLUTE EOSINOPHILS # (AUTO) 0.1 10^3/uL (0.0-0.6); ABSOLUTE LYMPHOCYTES (AUTO) 0.6 10^3/uL (0.5-4.7); ABSOLUTE MONOCYTES (AUTO) 0.6 10^3/uL (0.1-1.4); ABSOLUTE NEUT (AUTO) 6.5 10^3/uL (1.7-8.2); ARTERIAL BLOOD BASE EXCESS 2.1 mmol/L; ARTERIAL BLOOD FIO2 30%; ARTERIAL BLOOD H2CO3 1.15 mmol/L (1.05-1.35); ARTERIAL BLOOD HCO3 26.1 mmol/L (20-26); ARTERIAL BLOOD O2 SATURATION 97.3 % (94-98); ARTERIAL BLOOD PCO2 38.3 mmHg (35-45); ARTERIAL BLOOD PH 7.45 (7.35-7.45); ARTERIAL BLOOD PO2 90.6 mmHg (80-100); ARTERIAL BLOOD TOTAL CO2 27.3 mmol/L (23-27); BASOPHILS % (AUTO) 0.3 % (0-2); EOSINOPHILS % (AUTO) 0.8 % (0-6); HEMATOCRIT 27.5 % (37.9-51.0); HEMOGLOBIN 9.3 g/dL (13.5-17.0); LYMPHOCYTES % (AUTO) 8.2 % (13-45); MEAN CORPUSCULAR HEMOGLOBIN 31.2 pg (27.0-33.4); MEAN CORPUSCULAR HGB CONC 33.8 g/dL (32.0-36.0); MEAN CORPUSCULAR VOLUME 92 fl (80-97); MONOCYTES % (AUTO) 7.4 % (3-13); PLATELET COUNT 284 10^3/uL (150-450); RED BLOOD COUNT 2.98 10^6/uL (4.35-5.55); SEGMENTED NEUTROPHILS % (AUTO) 83.3 % (42-78); TOTAL CELLS COUNTED % (AUTO) 100 %; WHITE BLOOD COUNT 7.9 10^3/uL (4.0-10.5)
[2017-06-19 05:50] LABS: ALANINE AMINOTRANSFERASE 27 U/L (21-72); ALBUMIN 2.4 g/dL (3.5-5.0); ALKALINE PHOSPHATASE 60 U/L (38-126); ANION GAP 6 (5-19); ASPARTATE AMINO TRANSFERASE 12 U/L (17-59); BILIRUBIN,DIRECT 0.1 mg/dL (0.0-0.4); BILIRUBIN,TOTAL 0.1 mg/dL (0.2-1.3); BLOOD UREA NITROGEN 4 mg/dL (7-20); CALCIUM 8.5 mg/dL (8.4-10.2); CARBON DIOXIDE 27 mmol/L (22-30); CHLORIDE 104 mmol/L (98-107); GLUCOSE 104 mg/dL (75-110); SODIUM 136.8 mmol/L (137-145); TOTAL PROTEIN 4.7 g/dL (6.3-8.2); TRIGLYCERIDES 90 mg/dL (<150)
[2017-06-19 05:54] LABS: POTASSIUM 4.1 mmol/L (3.6-5.0)
[2017-06-19] MEDS: NORMAL SALINE 1000 ML 1,000 ML IV PRN ×2 (06:58→17:43)
--- NOTE | 2017-06-19 07:20 | RADIOLOGY REPORT (SQ) ---
EXAM DESCRIPTION: CHEST SINGLE VIEW CLINICAL HISTORY: pna COMPARISON: 06/18/2017 FINDINGS: Single frontal view of the chest. Endotracheal tube and left IJ central venous catheter are stable. Leads overlie the chest. Cardiomediastinal silhouette is stable. Right upper lobe bulla is stable. Bilateral airspace opacities are stable. No acute osseous abnormalities. Likely left pleural effusion. Upper abdominal soft tissues are unremarkable. IMPRESSION: 1. Stable appearance of the chest. Electronically signed by: Jeffry Lakhani 06/19/2017 6:18 AM
[2017-06-19] MEDS: TOBRAMYCIN SULFATE NEB 40 MG/ML 30 ML NEB SCH ×2 (08:12→19:59)
[2017-06-19] MEDS ORDERED: MAGNESIUM SULFATE/D5W 1 GM/100 ML RTUPB IV ONE (10:00)
[2017-06-19] MEDS ORDERED: VANCOMYCIN HCL 1,000 MG in NORMAL SALINE 250 ML IV SCH (10:00)
[2017-06-19] MEDS: LACTOBACILLUS ACIDOPHILUS 250 MG TAB PEG SCH ×2 (10:04→17:53)
[2017-06-19] MEDS: PANTOPRAZOLE SODIUM 40 MG VIAL IV SCH ×2 (10:04→21:15)
[2017-06-19] MEDS: MAGNESIUM OXIDE 400 MG TABLET PEG SCH (10:04)
[2017-06-19] MEDS: ENOXAPARIN SODIUM INJ 40 MG/0.4 ML DISP.SYRIN SUBCUT SCH (10:05)
[2017-06-19] MEDS: MEROPENEM 1 GM in NORMAL SALINE 50 ML IV SCH ×2 (10:30→17:43)
--- NOTE | 2017-06-19 11:21 | PDOC PROGRESS REPORT ---
Subjective Progress Note for:: 06/19/17 Subjective:: 56 yr old male with h/o traumatic brain injury, PEG and trach lives at [facility] presented with acute hypoxic respiratory failure and sepsis due to aspiration pneumonia. He was intubated and started on IV fluids, antibiotics and Levophed gtt. I have been unable to contact his legal guardian, but paperwork on SNF papers indicate that he is a full code. Orders were updated accordingly. Tube feeds were started and he is tolerating them well. Tracheostomy tube was discontinued last week. 1 out of 2 blood cultures growing gram-positive cocci. He is on vancomycin. Repeat blood cultures will be drawn. Sputum cultures growing gram-negative rods. Identification pending. His guardian is Ms. Chaka Young, from the [facility], phone #[phone]. She told me that is to be intubated if needed but no CPR. Is sedated on the Vent. 1 out of 2 sets of blood cultures on admission growing staph epidermidis. Sputum cultures growing ESBL positive E. coli. Reason For Visit: SEPSIS DUE TO ASPIRATION PNEUMONIA Physical Exam Vital Signs: Temp Pulse Resp BP Pulse Ox 98.8 F 97 21 H 124/83 97 06/19/17 10:00 06/19/17 10:00 06/19/17 10:00 06/19/17 10:00 06/19/17 10:00 Intake & Output 06/18/17 06/19/17 06/20/17 06:59 06:59 06:59 Intake Total 4902 3906 Output Total 3255 4475 550 Balance 1647 -569 -550 Weight 69.8 kg 69.2 kg General appearance: PRESENT: no acute distress Eye exam: ABSENT: scleral icterus Ear exam: PRESENT: normal external ear exam Neck exam: PRESENT: tracheostomy Respiratory exam: PRESENT: crackles, rhonchi, symmetrical Cardiovascular exam: PRESENT: RRR GI/Abdominal exam: PRESENT: normal bowel sounds, soft, other - PEG present. ABSENT: tenderness Rectal exam: PRESENT: deferred Extremities exam: ABSENT: calf tenderness Neurological exam: PRESENT: other - sedated on vent Psychiatric exam: PRESENT: other - sedated on vent Skin exam: ABSENT: petechiae Results Laboratory Results: 06/19/17 05:25 06/19/17 05:25 06/19/17 06/19/1718 05:25 05:25 05:25 WBC 7.9 RBC 2.98 L Hgb 9.3 L Hct 27.5 L MCV 92 MCH 31.2 MCHC 33.8 RDW 15.0 H Plt Count 284 Seg Neutrophils % 83.3 H Lymphocytes % 8.2 L Monocytes % 7.4 Eosinophils % 0.8 Basophils % 0.3 Absolute Neutrophils 6.5 Absolute Lymphocytes 0.6 Absolute Monocytes 0.6 Absolute Eosinophils 0.1 Absolute Basophils 0.0 Carbonic Acid 1.15 HCO3/H2CO3 Ratio 22:1 ABG pH 7.45 ABG pCO2 38.3 ABG pO2 90.6 ABG HCO3 26.1 H ABG O2 Saturation 97.3 ABG Base Excess 2.1 FiO2 30% Sodium 136.8 L Potassium 4.1 Chloride 104 Carbon Dioxide 27 Anion Gap 6 BUN 4 L Creatinine 0.54 Est GFR ( Amer) > 60 Est GFR (Non-Af Amer) > 60 Glucose 104 Calcium 8.5 Magnesium 1.7 Total Bilirubin 0.1 L AST 12 L ALT 27 Alkaline Phosphatase 60 Total Protein 4.7 L Albumin 2.4 L Triglycerides 90 06/15/17 23:10 Tracheal Aspirate Gram Stain - Final 06/15/17 23:10 Tracheal Aspirate Sputum Culture - Final Escherichia Coli Esbl Normal Hannah Absent 06/16/17 06/16/17 05:45 05:45 Creatine Kinase 90 NT-Pro-B Natriuret Pep 168 Impressions: Chest X-Ray 06/19/17 06:00 IMPRESSION: 1. Stable appearance of the chest. Assessment & Plan - Diagnosis (1) Acute respiratory failure with hypoxia Is this a current diagnosis for this admission?: Yes Plan: Due to pneumonia. Continue vent management, daily sedation and vacation and trial of wean His legal guardian is Ms. Chaka Young ([facility]) #[phone] (2) Pneumonia Qualifiers: Pneumonia type: due to unspecified organism Laterality: right Lung location: lower lobe of lung Qualified Code(s): J18.1 - Lobar pneumonia, unspecified organism Is this a current diagnosis for this admission?: Yes Plan: Day 5 of antibiotics- Changed Zosyn to Meropenem. Levaquin stopped. Continue Vanc since repeat blood cultures show GPC in clusters (3) Septic shock Is this a current diagnosis for this admission?: Yes Plan: Due to pneumonia. Continue management as above. Off pressors now. (4) Fever Is this a current diagnosis for this admission?: Yes Plan: Due to pneumonia- resolved with antibiotics (5) Tachycardia Is this a current diagnosis for this admission?: Yes Plan: Sinus tachycardia due to sepsis- resolved (6) Traumatic brain injury Is this a current diagnosis for this admission?: Yes Plan: Chronic, stable. (7) On tube feeding diet Is this a current diagnosis for this admission?: Yes - Time Time Spent with patient: 35 or more minutes
--- NOTE | 2017-06-19 17:46 | Progress Note ---
Provider Note Provider Note: ID Consult Note Asked to review the patient's chart by Pharmacy. Pt not seen and examined. Chart review perform and case discussed with pharmacist. Mr. Richmond is a 56 yo male SNF resident with pmh notable for TBI. He is s/p PEG tube placement and trach, which was removed on 06/05. He was hospitalized on 06/06 with fever, hypoxia , and CXR showing L sided basilar opacity. He was treated for pneumonia empirically with Zosyn that was then transitioned to Augmentin and Levaquin. Mr. Richmond returned to the hospital on 06/15 (current admission) with fever to 100.9 F, adventitious lung sounds, acute hypoxemic respiratory failure requiring intubation, leukocytosis to 23k. CXR read as showing new right-sided airspace disease diffusely with differential considerations including pneumonia versus edema. Described as having copious yellow secretions from ETT. He had L IJ placed for vasopressor support. While awaiting culture results, he was treated with vancomycin and Zosyn initially. Tracheal aspirate obtained on 06/15 had rare GNRs on Gram stain and grew 1+ ESBL E. coli. Zosyn was subsequently changed to Levaquin and then to meropenem plus tobramycin nebs. The ESBL E coli was reported as susceptible to amikacin, tetracycline, and Bactrim. Meropenem was also reported as susceptible, but the MACEY was 4, and resistance was reported to imipenem and ertapenem. Blood cultures from 06/15 showed growth of methicillin-resistant Staph epidermidis (MRSE) in 1 set of 2 that is also resistant to Bactrim. Repeat BCx on 06/17 show GPCs in clusters in 1 set of 2. Pt also has had Staph epi with a different susceptibility profile in 1 of 2 sets of BCx from the prior admission on 06/06. WBC count improved from 23k to normal range. Fever resolved. Pt remains intubated. Impression/Recommendations 1. ESBL E. coli pneumonia - presented with acute hypoxemic respiratory failure, leukocytosis, copious purulent secretions, fever; had recent broad spectrum antibiotic exposure that may have helped select for a resistant organism - the susceptibility profile for this isolate does not leave many options at our disposal (sensitive to Bactrim, tetracycline, amikacin) - recommend discontinuing tobramycin nebs since the isolate was resistant to tobramycin - recommend discontinuing meropenem; although reported as susceptible, isolates with an MACEY greater than or equal to 4 are actually considered resistant according to the most recent CLSI breakpoints. The fact that the meropenem MACEY is 4 and the isolate was also reported as resistant to other carbapenems ( ertapenem and imipenem) raises the possibility of this being a carbapenemase producing organism. - As the isolate was susceptible to Bactrim and the patient has a working gut and PEG tube, I recommend treating the patient with Bactrim 2 DS BID per tube. - Aim for 7-8 days treatment with Bactrim 2. Staph epidermidis bacteremia vs pseudobacteremia - Unclear if this is a contaminate. Pt had GPCs in clusters reported from 1 of 2 in a repeat set from 06/17, not only from 1 of 2 sets on admission. This may or may not be the same organism. Until this is known, continue vancomycin. - If the isolate from 06/17 is a different species of coagulase negative Staph ( other than Staph epidermidis), I think that it supports that his intial blood cultures were likely due to contamination. - If the isolate from 06/17 is the same Staph epidermidis, continue vancomycin for 7 days. Per chart review, there is no documentation that the patient has prosthetic valves, an cardiac implantable electronic device, or a alf central line/port that might be a complicating factor. - Remove CVL whenever possible Quan Ambrocio MD, [facility] Infectious Diseases pager [phone]
[2017-06-20] MEDS: VANCOMYCIN HCL 1,250 MG in DEXTROSE 5%-WATER 250 ML IV SCH ×2 (01:15→11:27)
[2017-06-20] MEDS: MEROPENEM 1 GM in NORMAL SALINE 50 ML IV SCH ×3 (01:15→18:04)
[2017-06-20] MEDS: IPRATROPIUM/ALBUTEROL 0.5-2.5 MG/3 ML AMPUL NEB SCH ×4 (02:10→19:59)
[2017-06-20] MEDS: PROPOFOL 100 ML IV PRN ×5 (04:19→23:57)
[2017-06-20] MEDS: NORMAL SALINE 1000 ML 1,000 ML IV PRN ×3 (05:50→18:03)
[2017-06-20] MEDS: TOBRAMYCIN SULFATE NEB 40 MG/ML 30 ML NEB SCH ×2 (07:52→19:59)
[2017-06-20 08:33] LABS: ARTERIAL BLOOD BASE EXCESS 2.2 mmol/L; ARTERIAL BLOOD FIO2 30%; ARTERIAL BLOOD H2CO3 1.12 mmol/L (1.05-1.35); ARTERIAL BLOOD HCO3 25.9 mmol/L (20-26); ARTERIAL BLOOD O2 SATURATION 94.8 % (94-98); ARTERIAL BLOOD PCO2 37.2 mmHg (35-45); ARTERIAL BLOOD PH 7.46 (7.35-7.45); ARTERIAL BLOOD PO2 68.9 mmHg (80-100); ARTERIAL BLOOD TOTAL CO2 27.1 mmol/L (23-27)
[2017-06-20 08:48] LABS: ABSOLUTE EOSINOPHILS # (AUTO) 0.1 10^3/uL (0.0-0.6); ABSOLUTE LYMPHOCYTES (AUTO) 1.2 10^3/uL (0.5-4.7); ABSOLUTE MONOCYTES (AUTO) 0.6 10^3/uL (0.1-1.4); BASOPHILS % (AUTO) 0.6 % (0-2); EOSINOPHILS % (AUTO) 2.2 % (0-6); HEMATOCRIT 27.7 % (37.9-51.0); HEMOGLOBIN 9.4 g/dL (13.5-17.0); LYMPHOCYTES % (AUTO) 19.9 % (13-45); MEAN CORPUSCULAR HEMOGLOBIN 31.2 pg (27.0-33.4); MEAN CORPUSCULAR HGB CONC 33.9 g/dL (32.0-36.0); MEAN CORPUSCULAR VOLUME 92 fl (80-97); MONOCYTES % (AUTO) 10.7 % (3-13); PLATELET COUNT 320 10^3/uL (150-450); RED BLOOD COUNT 3.01 10^6/uL (4.35-5.55); RED CELL DISTRIBUTION WIDTH 15.2 % (11.5-14.0); SEGMENTED NEUTROPHILS % (AUTO) 66.6 % (42-78); TOTAL CELLS COUNTED % (AUTO) 100 %
--- NOTE | 2017-06-20 09:08 | RADIOLOGY REPORT (SQ) ---
EXAM DESCRIPTION: CHEST SINGLE VIEW COMPLETED DATE/TIME: 06/20/2017 8:35 am REASON FOR STUDY: [facility] ventilator COMPARISON: 06/19/2017 NUMBER OF VIEWS: One view. TECHNIQUE: Single frontal radiographic image of the chest acquired. LIMITATIONS: None. FINDINGS: LUNGS AND PLEURA: Small pleural effusions, left greater than right with associated airspac e disease not significantly changed. Large bulla right upper lobe. No definite pneumothorax. MEDIASTINUM AND HEART: Stable heart size and mediastinal structures. SUPPORT DEVICES: Appropriate location without change. BONY STRUCTURES: No acute findings. HARDWARE: None. OTHER: No other significant finding. IMPRESSION: Pneumonia or asymmetric edema. No significant change. Reading location - IP/workstation name: [email or web address]
[2017-06-20 09:09] LABS: ANION GAP 7 (5-19); BLOOD UREA NITROGEN 5 mg/dL (7-20); CALCIUM 8.5 mg/dL (8.4-10.2); CARBON DIOXIDE 28 mmol/L (22-30); CHLORIDE 105 mmol/L (98-107); GLUCOSE 102 mg/dL (75-110); SODIUM 139.6 mmol/L (137-145)
[2017-06-20] MEDS: PANTOPRAZOLE SODIUM 40 MG VIAL IV SCH ×2 (10:46→21:16)
[2017-06-20] MEDS: ENOXAPARIN SODIUM INJ 40 MG/0.4 ML DISP.SYRIN SUBCUT SCH (10:47)
[2017-06-20] MEDS: MAGNESIUM OXIDE 400 MG TABLET PEG SCH (10:49)
[2017-06-20] MEDS: LACTOBACILLUS ACIDOPHILUS 250 MG TAB PEG SCH ×2 (10:49→18:50)
[2017-06-20 11:38] LABS: VANCOMYCIN,TROUGH 24.2 ug/mL (5.0-20.0)
--- NOTE | 2017-06-20 11:54 | PDOC PROGRESS REPORT ---
Subjective Progress Note for:: 06/20/17 Subjective:: 56 yr old male with h/o traumatic brain injury, PEG and trach lives at [facility] presented with acute hypoxic respiratory failure and sepsis due to aspiration pneumonia. He was intubated and started on IV fluids, antibiotics and Levophed gtt. I have been unable to contact his legal guardian, but paperwork on SNF papers indicate that he is a full code. Orders were updated accordingly. Tube feeds were started and he is tolerating them well. Tracheostomy tube was discontinued last week. 1 out of 2 blood cultures growing gram-positive cocci. He is on vancomycin. Repeat blood cultures will be drawn. Sputum cultures growing gram-negative rods. Identification pending. His guardian is Ms. Chaka Young, from the [facility] of [place], phone #[phone]. She told me that he is to be intubated if needed but no CPR. 1 out of 2 sets of blood cultures on admission growing staph epidermidis. Sputum cultures growing ESBL positive E. coli. Repeat blood cultures growing 1 out of 2 gram-positive cocci in clusters. He remains sedated on the vent. Not on pressors anymore. Reason For Visit: SEPSIS DUE TO ASPIRATION PNEUMONIA Physical Exam Vital Signs: Temp Pulse Resp BP Pulse Ox 98.6 F 84 24 H 99/63 L 98 06/20/17 06:00 06/20/17 10:00 06/20/17 10:30 06/20/17 10:30 06/20/17 11:32 Intake & Output 06/19/17 06/20/17 06/21/17 06:59 06:59 06:59 Intake Total 3906 4088 Output Total 1975 4215 350 Balance -569 -127 -350 Weight 69.2 kg 69.5 kg General appearance: PRESENT: other - sedated on vent Head exam: PRESENT: atraumatic Eye exam: ABSENT: scleral icterus Ear exam: PRESENT: normal external ear exam Mouth exam: PRESENT: other - sedated on vent Teeth exam: PRESENT: other - sedated on vent Neck exam: PRESENT: tracheostomy, other - sedated on vent Respiratory exam: PRESENT: rhonchi, symmetrical, unlabored Cardiovascular exam: PRESENT: RRR GI/Abdominal exam: PRESENT: normal bowel sounds, soft, other - PEG Rectal exam: PRESENT: deferred Gentrourinary exam: PRESENT: indwelling catheter Extremities exam: ABSENT: pedal edema Neurological exam: PRESENT: other - sedated on vent Psychiatric exam: PRESENT: other - sedated on vent Results Laboratory Results: 06/20/17 08:30 06/20/17 08:30 06/20/17 06/20/17 06/20/17 08:22 08:30 08:30 WBC 6.0 RBC 3.01 L Hgb 9.4 L Hct 27.7 L MCV 92 MCH 31.2 MCHC 33.9 RDW 15.2 H Plt Count 320 Seg Neutrophils % 66.6 Lymphocytes % 19.9 Monocytes % 10.7 Eosinophils % 2.2 Basophils % 0.6 Absolute Neutrophils 4.0 Absolute Lymphocytes 1.2 Absolute Monocytes 0.6 Absolute Eosinophils 0.1 Absolute Basophils 0.0 Carbonic Acid 1.12 HCO3/H2CO3 Ratio 23:1 ABG pH 7.46 H ABG pCO2 37.2 ABG pO2 68.9 L ABG HCO3 25.9 ABG O2 Saturation 94.8 ABG Base Excess 2.2 FiO2 30% Sodium 139.6 Potassium 4.0 Chloride 105 Carbon Dioxide 28 Anion Gap 7 BUN 5 L Creatinine 0.52 Est GFR ( Amer) > 60 Est GFR (Non-Af Amer) > 60 Glucose 102 Calcium 8.5 06/15/17 23:10 Tracheal Aspirate Gram Stain - Final 06/15/17 23:10 Tracheal Aspirate Sputum Culture - Final Escherichia Coli Esbl Normal Hannah Absent 06/16/17 06/16/17 05:45 05:45 Creatine Kinase 90 NT-Pro-B Natriuret Pep 168 Impressions: Chest X-Ray 06/20/17 07:56 IMPRESSION: Pneumonia or asymmetric edema. No significant change. Assessment & Plan - Diagnosis (1) Acute respiratory failure with hypoxia Is this a current diagnosis for this admission?: Yes Plan: Due to pneumonia. Continue vent management, daily sedation vacation and trial of wean His legal guardian is Ms. Chaka Young ([facility]) #[phone] (2) Pneumonia Qualifiers: Pneumonia type: due to unspecified organism Laterality: right Lung location: lower lobe of lung Qualified Code(s): J18.1 - Lobar pneumonia, unspecified organism Is this a current diagnosis for this admission?: Yes Plan: Day 6 of antibiotics- Vancomycin and Meropenem. Most likely due to aspiration (3) Septic shock Is this a current diagnosis for this admission?: Yes Plan: Due to pneumonia. Continue management as above. Off pressors now. (4) Fever Is this a current diagnosis for this admission?: Yes Plan: Due to pneumonia- resolved with antibiotics (5) Tachycardia Is this a current diagnosis for this admission?: Yes Plan: Sinus tachycardia due to sepsis- resolved (6) Traumatic brain injury Is this a current diagnosis for this admission?: Yes Plan: Chronic, stable. (7) On tube feeding diet Is this a current diagnosis for this admission?: Yes - Time Time Spent with patient: 35 or more minutes
--- NOTE | 2017-06-20 22:01 | PDOC PROGRESS REPORT ---
Subjective Progress Note for:: 06/18/17 Subjective:: Intubated and sedated unchanged Reason For Visit: SEPSIS DUE TO ASPIRATION PNEUMONIA Physical Exam Vital Signs: Temp Pulse Resp BP Pulse Ox 100.6 F H 98 18 106/62 98 06/16/17 04:00 06/18/17 02:06 06/18/17 06:00 06/18/17 05:57 06/18/17 06:00 Intake & Output 06/17/17 06/18/17 06/19/17 06:59 06:59 06:59 Intake Total 5637 4902 Output Total 2240 3255 Balance 3397 1647 Weight 68.3 kg 69.8 kg General appearance: PRESENT: no acute distress, cooperative, disheveled Head exam: PRESENT: atraumatic, normocephalic Eye exam: PRESENT: conjunctiva pale. ABSENT: EOMI, nystagmus, periorbital swelling, scleral icterus Mouth exam: PRESENT: dry mucosa, neck supple, tongue midline, other - ET tube Neck exam: PRESENT: tracheostomy - old closing wound. ABSENT: carotid bruit, JVD, lymphadenopathy, thyromegaly, tracheal deviation Respiratory exam: PRESENT: decreased breath sounds, prolonged expiratory phas, rales, rhonchi, symmetrical, unlabored, wheezes. ABSENT: stridor, tachypnea Cardiovascular exam: PRESENT: RRR, +S1, +S2, tachycardia Pulses: PRESENT: normal radial pulses GI/Abdominal exam: PRESENT: diminished bowel sounds, soft Extremities exam: ABSENT: clubbing, joint swelling Musculoskeletal exam: ABSENT: deformity, dislocation Neurological exam: ABSENT: awake, oriented to person Skin exam: PRESENT: dry, warm Results Laboratory Results: 06/18/17 05:45 06/18/17 05:45 06/18/17 06/18/17 06/18/17 05:45 05:45 05:45 WBC 7.4 RBC 2.84 L Hgb 8.7 L Hct 26.3 L MCV 93 MCH 30.8 MCHC 33.2 RDW 15.1 H Plt Count 262 Seg Neutrophils % 80.6 H Lymphocytes % 11.5 L Monocytes % 6.5 Eosinophils % 0.8 Basophils % 0.6 Absolute Neutrophils 5.9 Absolute Lymphocytes 0.8 Absolute Monocytes 0.5 Absolute Eosinophils 0.1 Absolute Basophils 0.0 Carbonic Acid 1.18 HCO3/H2CO3 Ratio 22:1 ABG pH 7.44 ABG pCO2 39.3 ABG pO2 48.5 L ABG HCO3 26.0 ABG O2 Saturation 85.7 L ABG Base Excess 1.8 FiO2 30% Sodium 139.0 Potassium 4.0 Chloride 105 Carbon Dioxide 29 Anion Gap 5 BUN 4 L Creatinine 0.60 Est GFR ( Amer) > 60 Est GFR (Non-Af Amer) > 60 Glucose 89 Calcium 8.4 Phosphorus 3.0 Magnesium 1.8 06/15/17 20:01 Catheterized Urine Urine Culture - Final NO GROWTH 2 DAYS 06/16/17 06/16/17 05:45 05:45 Creatine Kinase 90 NT-Pro-B Natriuret Pep 168 Impressions: Chest X-Ray 06/18/17 06:00 IMPRESSION: 1. No significant interval change. Assessment & Plan - Diagnosis (1) Acute respiratory failure with hypoxia Is this a current diagnosis for this admission?: Yes Plan: Improving (2) Pneumonia Qualifiers: Pneumonia type: due to unspecified organism Laterality: right Lung location: lower lobe of lung Qualified Code(s): J18.1 - Lobar pneumonia, unspecified organism Is this a current diagnosis for this admission?: Yes Plan: Continue as below 06/15/17 23:10 Gram Stain - Preliminary Tracheal Aspirate Sputum Culture - Preliminary Gram Negative Rods Normal Hannah Absent neb tobramycin (3) Septic shock Is this a current diagnosis for this admission?: Yes (4) Traumatic brain injury Is this a current diagnosis for this admission?: Yes - Time Total Critical Time (Minutes): 40
--- NOTE | 2017-06-20 22:03 | PDOC PROGRESS REPORT ---
Subjective Progress Note for:: 06/19/17 Subjective:: Intubated and sedated unchanged Reason For Visit: SEPSIS DUE TO ASPIRATION PNEUMONIA Physical Exam Vital Signs: Temp Pulse Resp BP Pulse Ox 98.6 F 95 21 H 102/67 98 06/19/17 07:51 06/19/17 07:51 06/19/17 07:51 06/19/17 07:51 06/19/17 07:51 Intake & Output 06/18/17 06/19/17 06/20/17 06:59 06:59 06:59 Intake Total 4902 3906 Output Total 3255 4475 150 Balance 1647 -569 -150 Weight 69.8 kg 69.2 kg General appearance: PRESENT: no acute distress, disheveled. ABSENT: cooperative Head exam: PRESENT: atraumatic, normocephalic Eye exam: PRESENT: conjunctiva pale. ABSENT: EOMI, nystagmus, periorbital swelling, scleral icterus Mouth exam: PRESENT: dry mucosa, neck supple, tongue midline, other - ET tube Neck exam: PRESENT: tracheostomy - old wound closing purulent. ABSENT: carotid bruit, JVD, lymphadenopathy, thyromegaly, tracheal deviation Respiratory exam: PRESENT: decreased breath sounds, prolonged expiratory phas, rales, rhonchi, symmetrical, unlabored, wheezes. ABSENT: retraction, stridor, tachypnea Cardiovascular exam: PRESENT: RRR, +S1, +S2, tachycardia Pulses: PRESENT: normal radial pulses GI/Abdominal exam: PRESENT: diminished bowel sounds, soft Extremities exam: ABSENT: clubbing, joint swelling Musculoskeletal exam: ABSENT: deformity, dislocation Neurological exam: ABSENT: awake, oriented to person Skin exam: PRESENT: dry, warm Results Laboratory Results: 06/19/17 05:25 06/19/17 05:25 06/18/17 06/19/17 06/19/17 09:43 05:25 05:25 WBC 7.9 RBC 2.98 L Hgb 9.3 L Hct 27.5 L MCV 92 MCH 31.2 MCHC 33.8 RDW 15.0 H Plt Count 284 Seg Neutrophils % 83.3 H Lymphocytes % 8.2 L Monocytes % 7.4 Eosinophils % 0.8 Basophils % 0.3 Absolute Neutrophils 6.5 Absolute Lymphocytes 0.6 Absolute Monocytes 0.6 Absolute Eosinophils 0.1 Absolute Basophils 0.0 Carbonic Acid 1.15 HCO3/H2CO3 Ratio 22:1 ABG pH 7.45 ABG pCO2 38.3 ABG pO2 90.6 ABG HCO3 26.1 H ABG O2 Saturation 97.3 ABG Base Excess 2.1 FiO2 30% Sodium Potassium Chloride Carbon Dioxide Anion Gap BUN Creatinine 0.53 Est GFR ( Amer) > 60 Est GFR (Non-Af Amer) > 60 Glucose Calcium Magnesium Total Bilirubin AST ALT Alkaline Phosphatase Total Protein Albumin Triglycerides 06/19/17 05:25 WBC RBC Hgb Hct MCV MCH MCHC RDW Plt Count Seg Neutrophils % Lymphocytes % Monocytes % Eosinophils % Basophils % Absolute Neutrophils Absolute Lymphocytes Absolute Monocytes Absolute Eosinophils Absolute Basophils Carbonic Acid HCO3/H2CO3 Ratio ABG pH ABG pCO2 ABG pO2 ABG HCO3 ABG O2 Saturation ABG Base Excess FiO2 Sodium 136.8 L Potassium 4.1 Chloride 104 Carbon Dioxide 27 Anion Gap 6 BUN 4 L Creatinine 0.54 Est GFR ( Amer) > 60 Est GFR (Non-Af Amer) > 60 Glucose 104 Calcium 8.5 Magnesium 1.7 Total Bilirubin 0.1 L AST 12 L ALT 27 Alkaline Phosphatase 60 Total Protein 4.7 L Albumin 2.4 L Triglycerides 90 06/15/17 23:10 Tracheal Aspirate Gram Stain - Final 06/15/17 23:10 Tracheal Aspirate Sputum Culture - Final Escherichia Coli Esbl Normal Hannah Absent 06/16/17 06/16/17 05:45 05:45 Creatine Kinase 90 NT-Pro-B Natriuret Pep 168 Impressions: Chest X-Ray 06/19/17 06:00 IMPRESSION: 1. Stable appearance of the chest. Assessment & Plan - Diagnosis (1) Acute respiratory failure with hypoxia Is this a current diagnosis for this admission?: Yes Plan: Improving (2) Pneumonia Qualifiers: Pneumonia type: due to unspecified organism Laterality: right Lung location: lower lobe of lung Qualified Code(s): J18.1 - Lobar pneumonia, unspecified organism Is this a current diagnosis for this admission?: Yes Plan: Continue as below 06/15/17 23:10 Gram Stain - Preliminary Tracheal Aspirate Sputum Culture - Preliminary Gram Negative Rods Normal Hannah Absent neb tobramycin (3) Septic shock Is this a current diagnosis for this admission?: Yes (4) Traumatic brain injury Is this a current diagnosis for this admission?: Yes - Time Total Critical Time (Minutes): 45
--- NOTE | 2017-06-20 22:04 | PDOC PROGRESS REPORT ---
Subjective Progress Note for:: 06/20/17 Subjective:: Intubated and sedated unchanged Reason For Visit: SEPSIS DUE TO ASPIRATION PNEUMONIA Physical Exam Vital Signs: Temp Pulse Resp BP Pulse Ox 98.6 F 84 24 H 99/63 L 95 06/20/17 06:00 06/20/17 10:00 06/20/17 10:30 06/20/17 10:30 06/20/17 10:30 Intake & Output 06/19/17 06/20/17 06/21/17 06:59 06:59 06:59 Intake Total 3906 4088 Output Total 4475 4215 350 Balance -569 -127 -350 Weight 69.2 kg 69.5 kg General appearance: PRESENT: no acute distress, disheveled, well-developed, well -nourished. ABSENT: cooperative Head exam: PRESENT: atraumatic, normocephalic Eye exam: PRESENT: conjunctiva pale. ABSENT: EOMI, nystagmus, periorbital swelling, scleral icterus Mouth exam: PRESENT: dry mucosa, neck supple, tongue midline, other - ET tube Neck exam: PRESENT: tracheostomy - old closing wound. ABSENT: carotid bruit, JVD, lymphadenopathy, thyromegaly, tracheal deviation Respiratory exam: PRESENT: decreased breath sounds, prolonged expiratory phas, rales, rhonchi, symmetrical, unlabored. ABSENT: retraction, stridor, tachypnea Cardiovascular exam: PRESENT: RRR, +S1, +S2, tachycardia Pulses: PRESENT: normal radial pulses GI/Abdominal exam: PRESENT: diminished bowel sounds, soft Extremities exam: ABSENT: clubbing, joint swelling Musculoskeletal exam: ABSENT: deformity, dislocation Neurological exam: ABSENT: awake, oriented to person Skin exam: PRESENT: dry, warm Results Laboratory Results: 06/20/17 08:30 06/20/17 08:30 06/20/17 06/20/17 06/20/17 08:22 08:30 08:30 WBC 6.0 RBC 3.01 L Hgb 9.4 L Hct 27.7 L MCV 92 MCH 31.2 MCHC 33.9 RDW 15.2 H Plt Count 320 Seg Neutrophils % 66.6 Lymphocytes % 19.9 Monocytes % 10.7 Eosinophils % 2.2 Basophils % 0.6 Absolute Neutrophils 4.0 Absolute Lymphocytes 1.2 Absolute Monocytes 0.6 Absolute Eosinophils 0.1 Absolute Basophils 0.0 Carbonic Acid 1.12 HCO3/H2CO3 Ratio 23:1 ABG pH 7.46 H ABG pCO2 37.2 ABG pO2 68.9 L ABG HCO3 25.9 ABG O2 Saturation 94.8 ABG Base Excess 2.2 FiO2 30% Sodium 139.6 Potassium 4.0 Chloride 105 Carbon Dioxide 28 Anion Gap 7 BUN 5 L Creatinine 0.52 Est GFR ( Amer) > 60 Est GFR (Non-Af Amer) > 60 Glucose 102 Calcium 8.5 06/15/17 23:10 Tracheal Aspirate Gram Stain - Final 06/15/17 23:10 Tracheal Aspirate Sputum Culture - Final Escherichia Coli Esbl Normal Hannah Absent 06/16/17 06/16/17 05:45 05:45 Creatine Kinase 90 NT-Pro-B Natriuret Pep 168 Impressions: Chest X-Ray 06/20/17 07:56 IMPRESSION: Pneumonia or asymmetric edema. No significant change. Assessment & Plan - Diagnosis (1) Acute respiratory failure with hypoxia Is this a current diagnosis for this admission?: Yes Plan: Improving (2) Pneumonia Qualifiers: Pneumonia type: due to unspecified organism Laterality: right Lung location: lower lobe of lung Qualified Code(s): J18.1 - Lobar pneumonia, unspecified organism Is this a current diagnosis for this admission?: Yes Plan: Continue as below 06/15/17 23:10 Gram Stain - Preliminary Tracheal Aspirate Sputum Culture - Preliminary Gram Negative Rods Normal Hannah Absent neb tobramycin (3) Septic shock Is this a current diagnosis for this admission?: Yes (4) Traumatic brain injury Is this a current diagnosis for this admission?: Yes - Time Total Critical Time (Minutes): 40
[2017-06-21] MEDS: IPRATROPIUM/ALBUTEROL 0.5-2.5 MG/3 ML AMPUL NEB SCH ×4 (01:37→20:17)
[2017-06-21] MEDS: MEROPENEM 1 GM in NORMAL SALINE 50 ML IV SCH ×3 (02:10→16:38)
[2017-06-21] MEDS: NORMAL SALINE 1000 ML 1,000 ML IV PRN ×2 (03:50→16:38)
[2017-06-21 04:03] LABS: HEMATOCRIT 27.2 % (37.9-51.0); HEMOGLOBIN 9.2 g/dL (13.5-17.0); MEAN CORPUSCULAR HEMOGLOBIN 30.9 pg (27.0-33.4); MEAN CORPUSCULAR HGB CONC 33.7 g/dL (32.0-36.0); MEAN CORPUSCULAR VOLUME 92 fl (80-97); PLATELET COUNT 342 10^3/uL (150-450); RED BLOOD COUNT 2.97 10^6/uL (4.35-5.55); RED CELL DISTRIBUTION WIDTH 15.2 % (11.5-14.0)
[2017-06-21 04:21] LABS: ALANINE AMINOTRANSFERASE 28 U/L (21-72); ALBUMIN 2.3 g/dL (3.5-5.0); ALKALINE PHOSPHATASE 69 U/L (38-126); ANION GAP 7 (5-19); ASPARTATE AMINO TRANSFERASE 10 U/L (17-59); BLOOD UREA NITROGEN 6 mg/dL (7-20); CALCIUM 8.6 mg/dL (8.4-10.2); CARBON DIOXIDE 26 mmol/L (22-30); CHLORIDE 107 mmol/L (98-107); GLUCOSE 91 mg/dL (75-110); PHOSPHORUS 3.4 mg/dL (2.5-4.5); SODIUM 140.2 mmol/L (137-145); TOTAL PROTEIN 4.5 g/dL (6.3-8.2)
[2017-06-21 04:26] LABS: BILIRUBIN,TOTAL < 0.1 mg/dL (0.2-1.3)
[2017-06-21] MEDS: PROPOFOL 100 ML IV PRN ×4 (05:19→20:20)
[2017-06-21 08:18] LABS: ARTERIAL BLOOD H2CO3 1.06 mmol/L (1.05-1.35); ARTERIAL BLOOD HCO3 27.1 mmol/L (20-26); ARTERIAL BLOOD O2 SATURATION 96.9 % (94-98); ARTERIAL BLOOD PCO2 35.3 mmHg (35-45); ARTERIAL BLOOD PO2 81.5 mmHg (80-100); ARTERIAL BLOOD TOTAL CO2 28.2 mmol/L (23-27)
[2017-06-21 08:20] LABS: ARTERIAL BLOOD FIO2 30%
[2017-06-21] MEDS: TOBRAMYCIN SULFATE NEB 40 MG/ML 30 ML NEB SCH ×2 (08:24→20:17)
--- NOTE | 2017-06-21 08:38 | RADIOLOGY REPORT (SQ) ---
EXAM DESCRIPTION: CHEST SINGLE VIEW COMPLETED DATE/TIME: 06/21/2017 8:29 am REASON FOR STUDY: intubated/resp. failure COMPARISON: 06/20/2017. EXAM PARAMETERS: NUMBER OF VIEWS: One view. TECHNIQUE: Single frontal radiographic view of the chest acquired. RADIATION DOSE: NA LIMITATIONS: None. FINDINGS: LUNGS AND PLEURA: Basilar densities and small pleural effusions unchanged. MEDIASTINUM AND HILAR STRUCTURES: No masses. Contour normal. HEART AND VASCULAR STRUCTURES: Heart normal in size. Normal vasculature. BONES: No acute findings. Degenerative changes in the spine with scoliosis. HARDWARE: Stable endotracheal tube and central line. Gastrostomy tube. OTHER: No other significant finding. IMPRESSION: NO CHANGE IN APPEARANCE OF THE CHEST. TECHNICAL DOCUMENTATION: JOB ID: [id number] [employer]- All Rights Reserved Reading location - IP/workstation name: [facility]-[email or web address]
[2017-06-21] MEDS: LACTOBACILLUS ACIDOPHILUS 250 MG TAB PEG SCH ×2 (09:32→16:38)
[2017-06-21] MEDS: MAGNESIUM OXIDE 400 MG TABLET PEG SCH (09:32)
[2017-06-21] MEDS: PANTOPRAZOLE SODIUM 40 MG VIAL IV SCH (09:33)
[2017-06-21] MEDS: ENOXAPARIN SODIUM INJ 40 MG/0.4 ML DISP.SYRIN SUBCUT SCH (09:34)
--- NOTE | 2017-06-21 13:41 | PDOC PROGRESS REPORT ---
Subjective Progress Note for:: 06/21/17 Subjective:: Patient has been intubated for acute respiratory failure. His vital signs are stable and his white cell count shows his leukocytosis subsided at admission it was around 17,000 today it is 6000. Reason For Visit: SEPSIS DUE TO ASPIRATION PNEUMONIA Physical Exam Vital Signs: Temp Pulse Resp BP Pulse Ox 99.0 F 94 16 106/67 97 06/21/17 12:00 06/21/17 12:00 06/21/17 12:00 06/21/17 12:00 06/21/17 12:00 Intake & Output 06/20/17 06/21/17 06/22/17 06:59 06:59 06:59 Intake Total 4088 5638 Output Total 4215 3325 1320 Balance -127 2313 -1320 Weight 69.5 kg 69.5 kg Respiratory exam: PRESENT: crackles, rhonchi - Both lung davis Cardiovascular exam: PRESENT: RRR. ABSENT: diastolic murmur, rubs, systolic murmur GI/Abdominal exam: PRESENT: other - PEG tube in situ Results Laboratory Results: 06/21/17 03:47 06/21/17 03:47 06/21/17 06/21/17 06/21/17 03:47 03:47 08:03 WBC 6.0 RBC 2.97 L Hgb 9.2 L Hct 27.2 L MCV 92 MCH 30.9 MCHC 33.7 RDW 15.2 H Plt Count 342 Carbonic Acid 1.06 HCO3/H2CO3 Ratio 25:1 ABG pH 7.50 H ABG pCO2 35.3 ABG pO2 81.5 ABG HCO3 27.1 H ABG O2 Saturation 96.9 ABG Base Excess 4.0 FiO2 30% Sodium 140.2 Potassium 4.0 Chloride 107 Carbon Dioxide 26 Anion Gap 7 BUN 6 L Creatinine 0.52 Est GFR ( Amer) > 60 Est GFR (Non-Af Amer) > 60 Glucose 91 Calcium 8.6 Phosphorus 3.4 Magnesium 1.9 Total Bilirubin < 0.1 L AST 10 L ALT 28 Alkaline Phosphatase 69 Total Protein 4.5 L Albumin 2.3 L 06/19/17 10:30 Trach Site Gram Stain - Final 06/15/17 19:27 Blood Blood Culture - Final NO GROWTH IN 5 DAYS 06/16/17 06/16/17 05:45 05:45 Creatine Kinase 90 NT-Pro-B Natriuret Pep 168 Impressions: Chest X-Ray 06/21/17 00:00 IMPRESSION: NO CHANGE IN APPEARANCE OF THE CHEST. Assessment & Plan - Diagnosis (1) Acute respiratory failure with hypoxia Is this a current diagnosis for this admission?: Yes Plan: Patient intubated and on mechanical ventilation. Gel[employer] Maker Utility is on board (2) Pneumonia Qualifiers: Pneumonia type: due to unspecified organism Laterality: right Lung location: lower lobe of lung Qualified Code(s): J18.1 - Lobar pneumonia, unspecified organism Is this a current diagnosis for this admission?: Yes Plan: Most probably this is healthcare associated pneumonia. His tracheal aspirate also grew E. coli. Patient has been on vancomycin and meropenem. (3) Septic shock Is this a current diagnosis for this admission?: Yes Plan: Resolving.
[2017-06-21] MEDS: VANCOMYCIN HCL 750 MG in DEXTROSE 5%-WATER 250 ML IV SCH (16:37)
[2017-06-22] MEDS: PROPOFOL 100 ML IV PRN ×6 (01:05→22:35)
[2017-06-22] MEDS: MEROPENEM 1 GM in NORMAL SALINE 50 ML IV SCH ×2 (01:07→10:09)
[2017-06-22] MEDS: VANCOMYCIN HCL 750 MG in DEXTROSE 5%-WATER 250 ML IV SCH ×3 (01:08→18:03)
[2017-06-22] MEDS: IPRATROPIUM/ALBUTEROL 0.5-2.5 MG/3 ML AMPUL NEB SCH ×4 (02:01→20:12)
[2017-06-22 04:24] LABS: ABSOLUTE EOSINOPHILS # (AUTO) 0.2 10^3/uL (0.0-0.6); ABSOLUTE LYMPHOCYTES (AUTO) 1.2 10^3/uL (0.5-4.7); ABSOLUTE MONOCYTES (AUTO) 0.6 10^3/uL (0.1-1.4); ABSOLUTE NEUT (AUTO) 3.9 10^3/uL (1.7-8.2); BASOPHILS % (AUTO) 0.7 % (0-2); EOSINOPHILS % (AUTO) 3.4 % (0-6); HEMATOCRIT 27.5 % (37.9-51.0); HEMOGLOBIN 9.4 g/dL (13.5-17.0); MEAN CORPUSCULAR HEMOGLOBIN 31.4 pg (27.0-33.4); MEAN CORPUSCULAR HGB CONC 34.2 g/dL (32.0-36.0); MEAN CORPUSCULAR VOLUME 92 fl (80-97); MONOCYTES % (AUTO) 9.9 % (3-13); PLATELET COUNT 313 10^3/uL (150-450); RED BLOOD COUNT 2.99 10^6/uL (4.35-5.55); RED CELL DISTRIBUTION WIDTH 15.1 % (11.5-14.0); TOTAL CELLS COUNTED % (AUTO) 100 %; WHITE BLOOD COUNT 5.9 10^3/uL (4.0-10.5)
[2017-06-22 04:37] LABS: ANION GAP 9 (5-19); BLOOD UREA NITROGEN 7 mg/dL (7-20); CALCIUM 8.7 mg/dL (8.4-10.2); CARBON DIOXIDE 27 mmol/L (22-30); CHLORIDE 104 mmol/L (98-107); GLUCOSE 107 mg/dL (75-110); PHOSPHORUS 3.4 mg/dL (2.5-4.5); POTASSIUM 3.9 mmol/L (3.6-5.0); SODIUM 140.3 mmol/L (137-145); TRIGLYCERIDES 125 mg/dL (<150)
[2017-06-22 05:26] LABS: ARTERIAL BLOOD FIO2 30%; ARTERIAL BLOOD H2CO3 1.04 mmol/L (1.05-1.35); ARTERIAL BLOOD HCO3 25.3 mmol/L (20-26); ARTERIAL BLOOD O2 SATURATION 96.6 % (94-98); ARTERIAL BLOOD PCO2 34.6 mmHg (35-45); ARTERIAL BLOOD PH 7.48 (7.35-7.45); ARTERIAL BLOOD PO2 80.1 mmHg (80-100); ARTERIAL BLOOD TOTAL CO2 26.4 mmol/L (23-27)
--- NOTE | 2017-06-22 07:23 | RADIOLOGY REPORT (SQ) ---
EXAM DESCRIPTION: CHEST SINGLE VIEW CLINICAL HISTORY: pna/resp failure. Endotracheal tube. COMPARISON: 06/21/2017 FINDINGS: Single frontal view of the chest. Endotracheal tube and left IJ central venous catheter are stable. Leads overlie the chest. Cardiomediastinal silhouette is stable. Right upper lobe bulla is stable. Bilateral airspace opacities are stable. No acute osseous abnormalities. Likely left pleural effusion. Upper abdominal soft tissues are unremarkable. IMPRESSION: 1. Stable appearance of the chest. Electronically signed by: Jeffry Lakhani 06/22/2017 6:21 AM CDT
[2017-06-22] MEDS: TOBRAMYCIN SULFATE NEB 40 MG/ML 30 ML NEB SCH ×2 (08:37→20:12)
[2017-06-22] MEDS: LACTOBACILLUS ACIDOPHILUS 250 MG TAB PEG SCH ×2 (10:08→17:53)
[2017-06-22] MEDS: ENOXAPARIN SODIUM INJ 40 MG/0.4 ML DISP.SYRIN SUBCUT SCH (10:09)
[2017-06-22] MEDS: MAGNESIUM OXIDE 400 MG TABLET PEG SCH (10:09)
[2017-06-22] MEDS: NORMAL SALINE 1000 ML 1,000 ML IV PRN (10:09)
--- NOTE | 2017-06-22 12:21 | PDOC PROGRESS REPORT ---
Subjective Progress Note for:: 06/22/17 Subjective:: Patient has been showing improvement gradually. I have seen him morning, patient still on mechanical ventilator but is awake. His only issue currently is hypertension which might be due to the propofol so the propofol will be discontinued. Reason For Visit: SEPSIS DUE TO ASPIRATION PNEUMONIA Physical Exam Vital Signs: Temp Pulse Resp BP Pulse Ox 98.6 F 73 18 90/57 L 100 06/21/17 22:00 06/22/17 08:41 06/22/17 10:31 06/22/17 10:31 06/22/17 10:31 Intake & Output 06/21/17 06/22/17 06/23/17 06:59 06:59 06:59 Intake Total 5638 4510 Output Total 3325 4045 775 Balance 2313 465 -775 Weight 69.5 kg 69.4 kg General appearance: PRESENT: no acute distress Respiratory exam: PRESENT: crackles - Both lungs, decreased breath sounds Results Laboratory Results: 06/22/17 04:02 06/22/17 04:02 06/22/17 06/22/17 06/22/17 04:02 04:02 05:17 WBC 5.9 RBC 2.99 L Hgb 9.4 L Hct 27.5 L MCV 92 MCH 31.4 MCHC 34.2 RDW 15.1 H Plt Count 313 Seg Neutrophils % 65.0 Lymphocytes % 21.0 Monocytes % 9.9 Eosinophils % 3.4 Basophils % 0.7 Absolute Neutrophils 3.9 Absolute Lymphocytes 1.2 Absolute Monocytes 0.6 Absolute Eosinophils 0.2 Absolute Basophils 0.0 Carbonic Acid 1.04 L HCO3/H2CO3 Ratio 24:1 ABG pH 7.48 H ABG pCO2 34.6 L ABG pO2 80.1 ABG HCO3 25.3 ABG O2 Saturation 96.6 ABG Base Excess 2.0 FiO2 30% Sodium 140.3 Potassium 3.9 Chloride 104 Carbon Dioxide 27 Anion Gap 9 BUN 7 Creatinine 0.53 Est GFR ( Amer) > 60 Est GFR (Non-Af Amer) > 60 Glucose 107 Calcium 8.7 Phosphorus 3.4 Magnesium 1.9 Triglycerides 125 06/17/17 09:26 Blood Blood Culture - Final NO GROWTH IN 5 DAYS 06/17/17 09:18 Blood Blood Culture - Final Staphylococcus Epidermidis 06/19/17 10:30 Trach Site Gram Stain - Final 06/19/17 10:30 Trach Site Wound Culture - Final Escherichia Coli Esbl Skin Hannah 06/16/17 06/16/17 05:45 05:45 Creatine Kinase 90 NT-Pro-B Natriuret Pep 168 Impressions: Chest X-Ray 06/22/17 06:00 IMPRESSION: 1. Stable appearance of the chest. Assessment & Plan - Diagnosis (1) Acute respiratory failure with hypoxia Is this a current diagnosis for this admission?: Yes Plan: Patient intubated and on mechanical ventilation. Back End Engineer is on board (2) Pneumonia Qualifiers: Pneumonia type: due to unspecified organism Laterality: right Lung location: lower lobe of lung Qualified Code(s): J18.1 - Lobar pneumonia, unspecified organism Is this a current diagnosis for this admission?: Yes Plan: Most probably this is healthcare associated pneumonia. His tracheal aspirate also grew E. coli. And his blood culture grew staph epidermidis and abdominal facilities through pathogen or contaminant. It is sensitive to vancomycin. (3) Septic shock Is this a current diagnosis for this admission?: Yes Plan: Resolving.
[2017-06-22] MEDS: NORMAL SALINE INJ/PF 0.9% 10 ML SDV IV PRN (14:24)
[2017-06-22 18:09] LABS: VANCOMYCIN,TROUGH 18.2 ug/mL (5.0-20.0)
[2017-06-23] MEDS: IPRATROPIUM/ALBUTEROL 0.5-2.5 MG/3 ML AMPUL NEB SCH ×4 (01:58→19:40)
[2017-06-23] MEDS: VANCOMYCIN HCL 750 MG in DEXTROSE 5%-WATER 250 ML IV SCH (02:02)
[2017-06-23] MEDS: PROPOFOL 100 ML IV PRN ×3 (04:42→22:17)
[2017-06-23] MEDS: NORMAL SALINE 1000 ML 1,000 ML IV PRN ×2 (04:43→21:30)
[2017-06-23] MEDS: NORMAL SALINE INJ/PF 0.9% 10 ML SDV IV PRN ×2 (04:44→13:18)
[2017-06-23 05:18] LABS: ARTERIAL BLOOD H2CO3 1.07 mmol/L (1.05-1.35); ARTERIAL BLOOD HCO3 25.4 mmol/L (20-26); ARTERIAL BLOOD PCO2 35.6 mmHg (35-45); ARTERIAL BLOOD PH 7.47 (7.35-7.45); ARTERIAL BLOOD PO2 75.7 mmHg (80-100); ARTERIAL BLOOD TOTAL CO2 26.5 mmol/L (23-27)
[2017-06-23 05:19] LABS: ARTERIAL BLOOD FIO2 30%
[2017-06-23 05:20] LABS: ABSOLUTE EOSINOPHILS # (AUTO) 0.2 10^3/uL (0.0-0.6); ABSOLUTE LYMPHOCYTES (AUTO) 1.3 10^3/uL (0.5-4.7); ABSOLUTE MONOCYTES (AUTO) 0.6 10^3/uL (0.1-1.4); ABSOLUTE NEUT (AUTO) 4.3 10^3/uL (1.7-8.2); BASOPHILS % (AUTO) 0.7 % (0-2); EOSINOPHILS % (AUTO) 2.7 % (0-6); HEMATOCRIT 29.8 % (37.9-51.0); HEMOGLOBIN 10.2 g/dL (13.5-17.0); LYMPHOCYTES % (AUTO) 20.1 % (13-45); MEAN CORPUSCULAR HEMOGLOBIN 31.1 pg (27.0-33.4); MEAN CORPUSCULAR HGB CONC 34.1 g/dL (32.0-36.0); MEAN CORPUSCULAR VOLUME 91 fl (80-97); PLATELET COUNT 449 10^3/uL (150-450); RED BLOOD COUNT 3.27 10^6/uL (4.35-5.55); RED CELL DISTRIBUTION WIDTH 15.1 % (11.5-14.0); SEGMENTED NEUTROPHILS % (AUTO) 67.5 % (42-78); TOTAL CELLS COUNTED % (AUTO) 100 %; WHITE BLOOD COUNT 6.4 10^3/uL (4.0-10.5)
[2017-06-23 05:35] LABS: ALANINE AMINOTRANSFERASE 22 U/L (21-72); ALBUMIN 2.6 g/dL (3.5-5.0); ALKALINE PHOSPHATASE 85 U/L (38-126); ANION GAP 9 (5-19); ASPARTATE AMINO TRANSFERASE 13 U/L (17-59); BLOOD UREA NITROGEN 7 mg/dL (7-20); CALCIUM 8.9 mg/dL (8.4-10.2); CARBON DIOXIDE 27 mmol/L (22-30); CHLORIDE 103 mmol/L (98-107); GLUCOSE 93 mg/dL (75-110); PHOSPHORUS 4.1 mg/dL (2.5-4.5); POTASSIUM 4.3 mmol/L (3.6-5.0); SODIUM 139.3 mmol/L (137-145)
[2017-06-23 05:42] LABS: BILIRUBIN,TOTAL < 0.1 mg/dL (0.2-1.3)
--- NOTE | 2017-06-23 07:02 | RADIOLOGY REPORT (SQ) ---
EXAM DESCRIPTION: CHEST SINGLE VIEW CLINICAL HISTORY: resp failure. Endotracheal tube. COMPARISON: 06/21/2017 FINDINGS: Single frontal view of the chest. Endotracheal tube and left IJ central venous catheter are stable. Leads overlie the chest. Cardiomediastinal silhouette is stable. Right upper lobe bulla is stable. Left basilar airspace opacities are stable. Bibasilar airspace opacities are slightly increased. No acute osseous abnormalities. Likely left pleural effusion. Upper abdominal soft tissues are unremarkable. IMPRESSION: 1. Slight interval increase in right basilar airspace opacity. Otherwise stable appearance of the chest. Electronically signed by: Jeffry Lakhani 06/23/2017 6:01 AM CDT
[2017-06-23] MEDS ORDERED: SUCCINYLCHOLINE CHLORIDE INJ 200 MG/10 ML VIAL ONE (07:53)
[2017-06-23] MEDS: TOBRAMYCIN SULFATE NEB 40 MG/ML 30 ML NEB SCH (08:24)
[2017-06-23] MEDS: ACETYLCYSTEINE 20% SOLN 800 MG/4 ML VIAL.NEB NEB SCH ×2 (08:26→19:40)
[2017-06-23] MEDS: ENOXAPARIN SODIUM INJ 40 MG/0.4 ML DISP.SYRIN SUBCUT SCH (09:20)
[2017-06-23] MEDS: MAGNESIUM OXIDE 400 MG TABLET PEG SCH (09:24)
[2017-06-23] MEDS: LACTOBACILLUS ACIDOPHILUS 250 MG TAB PEG SCH ×2 (09:24→18:23)
[2017-06-23] MEDS ORDERED: ERTAPENEM SODIUM 1 GM in NORMAL SALINE 50 ML IV SCH (10:00)
[2017-06-23] MEDS: MEROPENEM 1 GM in NORMAL SALINE 50 ML IV SCH ×2 (10:20→18:23)
[2017-06-23] MEDS: NYSTATIN TOPICAL POWDER 15 GM TP SCH ×2 (13:14→18:24)
[2017-06-23] MEDS ORDERED: DEXAMETHASONE SOD PHOSPHATE INJ 4 MG/1 ML VIAL IV ONE (13:30)
--- NOTE | 2017-06-23 14:16 | PDOC PROGRESS REPORT ---
Subjective Progress Note for:: 06/23/17 Subjective:: Mr. Richmond is a very pleasant but unfortunate 56 years old male patient with history of traumatic brain injury and schizophrenia brought from group home for respiratory distress. Patient has been intubated for acute respiratory failure. Currently patient has been doing well his vital signs and labs are stable. His tracheal aspirate grew 2 strains of E. coli both ESBL. One of the strain is sensitive for both meropenem and postoperative the second strain sensitive only to meropenem. Reason For Visit: SEPSIS DUE TO ASPIRATION PNEUMONIA Physical Exam Vital Signs: Temp Pulse Resp BP Pulse Ox 99.0 F 101 H 32 H 123/77 100 06/23/17 05:30 06/23/17 13:10 06/23/17 13:10 06/23/17 13:10 06/23/17 13:10 Intake & Output 06/22/17 06/23/17 06/24/17 06:59 06:59 06:59 Intake Total 4510 5281 83 Output Total 4045 4025 1260 Balance 465 1256 -1177 Weight 69.4 kg 68.2 kg General appearance: PRESENT: no acute distress Respiratory exam: PRESENT: clear to auscultation everett. ABSENT: rales, rhonchi, wheezes Cardiovascular exam: PRESENT: RRR. ABSENT: diastolic murmur, rubs, systolic murmur Neurological exam: PRESENT: awake Results Laboratory Results: 06/23/17 05:00 06/23/17 05:00 06/23/17 06/23/17 06/23/17 05:00 05:00 05:00 WBC 6.4 RBC 3.27 L Hgb 10.2 L Hct 29.8 L MCV 91 MCH 31.1 MCHC 34.1 RDW 15.1 H Plt Count 449 Seg Neutrophils % 67.5 Lymphocytes % 20.1 Monocytes % 9.0 Eosinophils % 2.7 Basophils % 0.7 Absolute Neutrophils 4.3 Absolute Lymphocytes 1.3 Absolute Monocytes 0.6 Absolute Eosinophils 0.2 Absolute Basophils 0.0 Carbonic Acid 1.07 HCO3/H2CO3 Ratio 23:1 ABG pH 7.47 H ABG pCO2 35.6 ABG pO2 75.7 L ABG HCO3 25.4 ABG O2 Saturation 96.0 ABG Base Excess 2.0 FiO2 30% Sodium 139.3 Potassium 4.3 Chloride 103 Carbon Dioxide 27 Anion Gap 9 BUN 7 Creatinine 0.49 L Est GFR ( Amer) > 60 Est GFR (Non-Af Amer) > 60 Glucose 93 Calcium 8.9 Phosphorus 4.1 Total Bilirubin < 0.1 L AST 13 L ALT 22 Alkaline Phosphatase 85 Total Protein 5.0 L Albumin 2.6 L 06/19/17 10:30 Trach Site Gram Stain - Final 06/19/17 10:30 Trach Site Wound Culture - Final Escherichia Coli Esbl Escherichia Coli Esbl#2 Skin Hannah 06/16/17 06/16/17 05:45 05:45 Creatine Kinase 90 NT-Pro-B Natriuret Pep 168 Impressions: Chest X-Ray 06/23/17 06:00 IMPRESSION: 1. Slight interval increase in right basilar airspace opacity. Otherwise stable appearance of the chest. Assessment & Plan - Diagnosis (1) Acute respiratory failure with hypoxia Is this a current diagnosis for this admission?: Yes Plan: Patient intubated and on mechanical ventilation. Access Rn is on board (2) Pneumonia Qualifiers: Pneumonia type: due to unspecified organism Laterality: right Lung location: lower lobe of lung Qualified Code(s): J18.1 - Lobar pneumonia, unspecified organism Is this a current diagnosis for this admission?: Yes Plan: Most probably this is healthcare associated pneumonia. His tracheal aspirate also grew E. coli. And his blood culture grew staph epidermidis and abdominal facilities through pathogen or contaminant. It is sensitive to vancomycin. (3) Septic shock Is this a current diagnosis for this admission?: Yes Plan: Resolving.
--- NOTE | 2017-06-23 16:07 | PDOC PROGRESS REPORT ---
Subjective Progress Note for:: 06/21/17 Subjective:: Intubated and sedated Reason For Visit: SEPSIS DUE TO ASPIRATION PNEUMONIA Physical Exam Vital Signs: Temp Pulse Resp BP Pulse Ox 99.1 F 89 17 102/66 96 06/21/17 07:52 06/21/17 07:52 06/21/17 07:52 06/21/17 07:52 06/21/17 07:52 Intake & Output 06/20/17 06/21/17 06/22/17 06:59 06:59 06:59 Intake Total 4088 5638 Output Total 4215 3325 125 Balance -127 2313 -125 Weight 69.5 kg 69.5 kg General appearance: PRESENT: no acute distress, disheveled, thin. ABSENT: cooperative Head exam: PRESENT: atraumatic, normocephalic Eye exam: PRESENT: conjunctiva pale. ABSENT: EOMI, nystagmus, periorbital swelling, scleral icterus Mouth exam: PRESENT: dry mucosa, neck supple, tongue midline, other - ET tube in place Neck exam: PRESENT: tracheostomy - Old wound still patent. Exudate. ABSENT: carotid bruit, JVD, lymphadenopathy, thyromegaly, tracheal deviation Respiratory exam: PRESENT: decreased breath sounds, prolonged expiratory phas, rales, rhonchi, symmetrical, unlabored. ABSENT: retraction, stridor, tachypnea Cardiovascular exam: PRESENT: RRR, +S1, +S2 Pulses: PRESENT: normal radial pulses GI/Abdominal exam: PRESENT: diminished bowel sounds, soft Extremities exam: ABSENT: calf tenderness, clubbing, joint swelling Musculoskeletal exam: ABSENT: deformity, dislocation Neurological exam: ABSENT: awake, oriented to person Skin exam: PRESENT: dry, warm Results Laboratory Results: 06/21/17 03:47 06/21/17 03:47 06/20/17 06/20/17 06/21/17 08:30 08:30 03:47 WBC 6.0 6.0 RBC 3.01 L 2.97 L Hgb 9.4 L 9.2 L Hct 27.7 L 27.2 L MCV 92 92 MCH 31.2 30.9 MCHC 33.9 33.7 RDW 15.2 H 15.2 H Plt Count 320 342 Seg Neutrophils % 66.6 Lymphocytes % 19.9 Monocytes % 10.7 Eosinophils % 2.2 Basophils % 0.6 Absolute Neutrophils 4.0 Absolute Lymphocytes 1.2 Absolute Monocytes 0.6 Absolute Eosinophils 0.1 Absolute Basophils 0.0 Carbonic Acid HCO3/H2CO3 Ratio ABG pH ABG pCO2 ABG pO2 ABG HCO3 ABG O2 Saturation ABG Base Excess FiO2 Sodium 139.6 Potassium 4.0 Chloride 105 Carbon Dioxide 28 Anion Gap 7 BUN 5 L Creatinine 0.52 Est GFR ( Amer) > 60 Est GFR (Non-Af Amer) > 60 Glucose 102 Calcium 8.5 Phosphorus Magnesium Total Bilirubin AST ALT Alkaline Phosphatase Total Protein Albumin 06/21/17 06/21/17 03:47 08:03 WBC RBC Hgb Hct MCV MCH MCHC RDW Plt Count Seg Neutrophils % Lymphocytes % Monocytes % Eosinophils % Basophils % Absolute Neutrophils Absolute Lymphocytes Absolute Monocytes Absolute Eosinophils Absolute Basophils Carbonic Acid 1.06 HCO3/H2CO3 Ratio 25:1 ABG pH 7.50 H ABG pCO2 35.3 ABG pO2 81.5 ABG HCO3 27.1 H ABG O2 Saturation 96.9 ABG Base Excess 4.0 FiO2 30% Sodium 140.2 Potassium 4.0 Chloride 107 Carbon Dioxide 26 Anion Gap 7 BUN 6 L Creatinine 0.52 Est GFR ( Amer) > 60 Est GFR (Non-Af Amer) > 60 Glucose 91 Calcium 8.6 Phosphorus 3.4 Magnesium 1.9 Total Bilirubin < 0.1 L AST 10 L ALT 28 Alkaline Phosphatase 69 Total Protein 4.5 L Albumin 2.3 L 06/15/17 19:27 Blood Blood Culture - Final NO GROWTH IN 5 DAYS 06/16/17 06/16/17 05:45 05:45 Creatine Kinase 90 NT-Pro-B Natriuret Pep 168 Impressions: Chest X-Ray 06/21/17 00:00 IMPRESSION: NO CHANGE IN APPEARANCE OF THE CHEST. Assessment & Plan - Diagnosis (1) Acute respiratory failure with hypoxia Is this a current diagnosis for this admission?: Yes Plan: Improving (2) Pneumonia Qualifiers: Pneumonia type: due to unspecified organism Laterality: right Lung location: lower lobe of lung Qualified Code(s): J18.1 - Lobar pneumonia, unspecified organism Is this a current diagnosis for this admission?: Yes Plan: 06/19/17 10:30 Gram Stain - Final Trach Site Wound Culture - Final Escherichia Coli Esbl Escherichia Coli Esbl#2 Skin Hannah 06/17/17 09:18 Blood Culture - Final Blood Staphylococcus Epidermidis 06/15/17 23:10 Gram Stain - Final Tracheal Aspirate Sputum Culture - Final Escherichia Coli Esbl Normal Hannah Absent 06/15/17 16:40 Blood Culture - Final Blood Staphylococcus Epidermidis (3) Septic shock Is this a current diagnosis for this admission?: Yes Plan: 06/19/17 10:30 Gram Stain - Final Trach Site Wound Culture - Final Escherichia Coli Esbl Escherichia Coli Esbl#2 Skin Hannah 06/17/17 09:18 Blood Culture - Final Blood Staphylococcus Epidermidis 06/15/17 23:10 Gram Stain - Final Tracheal Aspirate Sputum Culture - Final Escherichia Coli Esbl Normal Hannah Absent 06/15/17 16:40 Blood Culture - Final Blood Staphylococcus Epidermidis (4) Traumatic brain injury Is this a current diagnosis for this admission?: Yes - Time Total Critical Time (Minutes): 45
[2017-06-23 16:09] LABS: ARTERIAL BLOOD BASE EXCESS 3.5 mmol/L; ARTERIAL BLOOD FIO2 40%; ARTERIAL BLOOD H2CO3 1.07 mmol/L (1.05-1.35); ARTERIAL BLOOD HCO3 26.6 mmol/L (20-26); ARTERIAL BLOOD O2 SATURATION 93.6 % (94-98); ARTERIAL BLOOD PCO2 35.4 mmHg (35-45); ARTERIAL BLOOD PH 7.49 (7.35-7.45); ARTERIAL BLOOD TOTAL CO2 27.6 mmol/L (23-27)
--- NOTE | 2017-06-23 16:09 | PDOC PROGRESS REPORT ---
Subjective Progress Note for:: 06/22/17 Subjective:: Intubated and sedated Reason For Visit: SEPSIS DUE TO ASPIRATION PNEUMONIA Physical Exam Vital Signs: Temp Pulse Resp BP Pulse Ox 98.6 F 73 28 H 89/60 L 96 06/21/17 22:00 06/22/17 08:41 06/22/17 08:37 06/22/17 07:31 06/22/17 08:37 Intake & Output 06/21/17 06/22/17 06/23/17 06:59 06:59 06:59 Intake Total 5638 4510 Output Total 3325 4045 575 Balance 8937 465 -575 Weight 69.5 kg 69.4 kg General appearance: PRESENT: no acute distress, disheveled. ABSENT: cooperative Head exam: PRESENT: atraumatic, normocephalic Eye exam: PRESENT: conjunctiva pale. ABSENT: EOMI, nystagmus, periorbital swelling, scleral icterus Mouth exam: PRESENT: dry mucosa, neck supple, tongue midline, other - ET tube in place Neck exam: PRESENT: tracheostomy - Old wound patent still purulent exudate. ABSENT: carotid bruit, JVD, lymphadenopathy, thyromegaly, tracheal deviation Respiratory exam: PRESENT: decreased breath sounds, rales, rhonchi, symmetrical , unlabored. ABSENT: retraction, stridor, tachypnea Cardiovascular exam: PRESENT: RRR, +S1, +S2 Pulses: PRESENT: normal radial pulses GI/Abdominal exam: PRESENT: diminished bowel sounds, soft Extremities exam: ABSENT: clubbing, joint swelling Musculoskeletal exam: ABSENT: deformity, dislocation Neurological exam: ABSENT: awake, oriented to person Skin exam: PRESENT: dry, warm Results Laboratory Results: 06/22/17 04:02 06/22/17 04:02 06/22/17 06/22/17 06/22/17 04:02 04:02 05:17 WBC 5.9 RBC 2.99 L Hgb 9.4 L Hct 27.5 L MCV 92 MCH 31.4 MCHC 34.2 RDW 15.1 H Plt Count 313 Seg Neutrophils % 65.0 Lymphocytes % 21.0 Monocytes % 9.9 Eosinophils % 3.4 Basophils % 0.7 Absolute Neutrophils 3.9 Absolute Lymphocytes 1.2 Absolute Monocytes 0.6 Absolute Eosinophils 0.2 Absolute Basophils 0.0 Carbonic Acid 1.04 L HCO3/H2CO3 Ratio 24:1 ABG pH 7.48 H ABG pCO2 34.6 L ABG pO2 80.1 ABG HCO3 25.3 ABG O2 Saturation 96.6 ABG Base Excess 2.0 FiO2 30% Sodium 140.3 Potassium 3.9 Chloride 104 Carbon Dioxide 27 Anion Gap 9 BUN 7 Creatinine 0.53 Est GFR ( Amer) > 60 Est GFR (Non-Af Amer) > 60 Glucose 107 Calcium 8.7 Phosphorus 3.4 Magnesium 1.9 Triglycerides 125 06/17/17 09:26 Blood Blood Culture - Final NO GROWTH IN 5 DAYS 06/17/17 09:18 Blood Blood Culture - Final Staphylococcus Epidermidis 06/19/17 10:30 Trach Site Gram Stain - Final 06/19/17 10:30 Trach Site Wound Culture - Final Escherichia Coli Esbl Skin Hannah 06/16/17 06/16/17 05:45 05:45 Creatine Kinase 90 NT-Pro-B Natriuret Pep 168 Impressions: Chest X-Ray 06/22/17 06:00 IMPRESSION: 1. Stable appearance of the chest. Assessment & Plan - Diagnosis (1) Acute respiratory failure with hypoxia Is this a current diagnosis for this admission?: Yes Plan: Improving (2) Pneumonia Qualifiers: Pneumonia type: due to unspecified organism Laterality: right Lung location: lower lobe of lung Qualified Code(s): J18.1 - Lobar pneumonia, unspecified organism Is this a current diagnosis for this admission?: Yes Plan: 06/19/17 10:30 Gram Stain - Final Trach Site Wound Culture - Final Escherichia Coli Esbl Escherichia Coli Esbl#2 Skin Hannah 06/17/17 09:18 Blood Culture - Final Blood Staphylococcus Epidermidis 06/15/17 23:10 Gram Stain - Final Tracheal Aspirate Sputum Culture - Final Escherichia Coli Esbl Normal Hannah Absent 06/15/17 16:40 Blood Culture - Final Blood Staphylococcus Epidermidis (3) Septic shock Is this a current diagnosis for this admission?: Yes Plan: 06/19/17 10:30 Gram Stain - Final Trach Site Wound Culture - Final Escherichia Coli Esbl Escherichia Coli Esbl#2 Skin Hannah 06/17/17 09:18 Blood Culture - Final Blood Staphylococcus Epidermidis 06/15/17 23:10 Gram Stain - Final Tracheal Aspirate Sputum Culture - Final Escherichia Coli Esbl Normal Hannah Absent 06/15/17 16:40 Blood Culture - Final Blood Staphylococcus Epidermidis (4) Traumatic brain injury Is this a current diagnosis for this admission?: Yes - Time Total Critical Time (Minutes): 40
--- NOTE | 2017-06-23 16:12 | PDOC PROGRESS REPORT ---
Subjective Progress Note for:: 06/23/17 Subjective:: Intubated sedated arousable Reason For Visit: SEPSIS DUE TO ASPIRATION PNEUMONIA Physical Exam Vital Signs: Temp Pulse Resp BP Pulse Ox 99.0 F 88 18 102/70 98 06/23/17 05:30 06/23/17 07:29 06/23/17 06:00 06/23/17 05:57 06/23/17 06:00 Intake & Output 06/22/17 06/23/17 06/24/17 06:59 06:59 06:59 Intake Total 4510 5281 Output Total 4045 4025 Balance 465 1256 Weight 69.4 kg 68.2 kg General appearance: PRESENT: no acute distress, disheveled, obese Head exam: PRESENT: atraumatic, normocephalic Eye exam: PRESENT: conjunctiva pale, EOMI. ABSENT: nystagmus, periorbital swelling, scleral icterus Mouth exam: PRESENT: dry mucosa, neck supple, tongue midline, other - ET tube in place Neck exam: PRESENT: tracheal deviation, tracheostomy - Overall tracheostomy-year -old remains slightly patent with purulent exudate. ABSENT: carotid bruit, JVD , lymphadenopathy, thyromegaly Respiratory exam: PRESENT: decreased breath sounds, prolonged expiratory phas, rales, rhonchi, symmetrical, unlabored. ABSENT: retraction, stridor, tachypnea Cardiovascular exam: PRESENT: RRR, +S1, +S2 Pulses: PRESENT: normal radial pulses GI/Abdominal exam: PRESENT: diminished bowel sounds, soft Extremities exam: ABSENT: clubbing, joint swelling Musculoskeletal exam: ABSENT: deformity, dislocation Neurological exam: PRESENT: awake Psychiatric exam: PRESENT: flat affect Skin exam: PRESENT: dry, warm Results Laboratory Results: 06/23/17 05:00 06/23/17 05:00 06/23/17 06/23/17 06/23/17 05:00 05:00 05:00 WBC 6.4 RBC 3.27 L Hgb 10.2 L Hct 29.8 L MCV 91 MCH 31.1 MCHC 34.1 RDW 15.1 H Plt Count 449 Seg Neutrophils % 67.5 Lymphocytes % 20.1 Monocytes % 9.0 Eosinophils % 2.7 Basophils % 0.7 Absolute Neutrophils 4.3 Absolute Lymphocytes 1.3 Absolute Monocytes 0.6 Absolute Eosinophils 0.2 Absolute Basophils 0.0 Carbonic Acid 1.07 HCO3/H2CO3 Ratio 23:1 ABG pH 7.47 H ABG pCO2 35.6 ABG pO2 75.7 L ABG HCO3 25.4 ABG O2 Saturation 96.0 ABG Base Excess 2.0 FiO2 30% Sodium 139.3 Potassium 4.3 Chloride 103 Carbon Dioxide 27 Anion Gap 9 BUN 7 Creatinine 0.49 L Est GFR ( Amer) > 60 Est GFR (Non-Af Amer) > 60 Glucose 93 Calcium 8.9 Phosphorus 4.1 Total Bilirubin < 0.1 L AST 13 L ALT 22 Alkaline Phosphatase 85 Total Protein 5.0 L Albumin 2.6 L 06/19/17 10:30 Trach Site Gram Stain - Final 06/19/17 10:30 Trach Site Wound Culture - Final Escherichia Coli Esbl Escherichia Coli Esbl#2 Skin Hannah 06/17/17 09:26 Blood Blood Culture - Final NO GROWTH IN 5 DAYS 06/17/17 09:18 Blood Blood Culture - Final Staphylococcus Epidermidis 06/16/17 06/16/17 05:45 05:45 Creatine Kinase 90 NT-Pro-B Natriuret Pep 168 Impressions: Chest X-Ray 06/23/17 06:00 IMPRESSION: 1. Slight interval increase in right basilar airspace opacity. Otherwise stable appearance of the chest. Assessment & Plan - Diagnosis (1) Acute respiratory failure with hypoxia Is this a current diagnosis for this admission?: Yes Plan: Minute ventilation, respiratory rate, FiO2, airway pressures all suggest successful extubation will proceed with extubation (2) Pneumonia Qualifiers: Pneumonia type: due to unspecified organism Laterality: right Lung location: lower lobe of lung Qualified Code(s): J18.1 - Lobar pneumonia, unspecified organism Is this a current diagnosis for this admission?: Yes Plan: 06/19/17 10:30 Gram Stain - Final Trach Site Wound Culture - Final Escherichia Coli Esbl Escherichia Coli Esbl#2 Skin Hannah 06/17/17 09:18 Blood Culture - Final Blood Staphylococcus Epidermidis 06/15/17 23:10 Gram Stain - Final Tracheal Aspirate Sputum Culture - Final Escherichia Coli Esbl Normal Hannah Absent 06/15/17 16:40 Blood Culture - Final Blood Staphylococcus Epidermidis (3) Septic shock Is this a current diagnosis for this admission?: Yes Plan: 06/19/17 10:30 Gram Stain - Final Trach Site Wound Culture - Final Escherichia Coli Esbl Escherichia Coli Esbl#2 Skin Hannah 06/17/17 09:18 Blood Culture - Final Blood Staphylococcus Epidermidis 06/15/17 23:10 Gram Stain - Final Tracheal Aspirate Sputum Culture - Final Escherichia Coli Esbl Normal Hannah Absent 06/15/17 16:40 Blood Culture - Final Blood Staphylococcus Epidermidis (4) Traumatic brain injury Is this a current diagnosis for this admission?: Yes - Time Total Critical Time (Minutes): 55
[2017-06-23] MEDS ORDERED: FUROSEMIDE INJ/PF 20 MG/2 ML SDV IV ONE (17:30)
[2017-06-23] MEDS: SCOPOLAMINE HYDROBROMIDE 1.5 MG PATCH.TD72 TD SCH (18:23)
[2017-06-23] MEDS ORDERED: PROPOFOL INJ 200 MG/20 ML VIAL IV ONE (21:33)
[2017-06-23] MEDS ORDERED: PROPOFOL 100 ML IV ONE (21:35)
[2017-06-23] MEDS: GUAIFENESIN/D-METHORPHAN (200-20 MG) SYRUP 10 ML PO PRN (22:18)
--- NOTE | 2017-06-23 23:25 | RADIOLOGY REPORT (SQ) ---
EXAM DESCRIPTION: CHEST SINGLE VIEW COMPLETED DATE/TIME: 06/23/2017 9:47 pm REASON FOR STUDY: ETT placement COMPARISON: 06/23/2017 0630 hours NUMBER OF VIEWS: One view. TECHNIQUE: Single frontal radiographic image of the chest acquired. LIMITATIONS: None. FINDINGS: ENDOTRACHEAL TUBE: Appropriate location, tip overlying the mid trachea. OTHER SUPPORT DEVICES: Left IJ central venous catheter tip overlies the SVC at the level of the abbie a. CHANGES IN RADIOGRAPHIC FINDINGS: Increasing left basilar airspace disease -effusion. 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 HARDWARE: None in the chest. OTHER: No other significant finding. IMPRESSION: Increasing left basilar airspace disease -effusion. Tubes and lines are stable positio n. TECHNICAL DOCUMENTATION: JOB ID: [id number] [place]-72 2010 [employer]- All Rights Reserved Reading location - IP/workstation name: [email or web address]
[2017-06-24] MEDS: NYSTATIN TOPICAL POWDER 15 GM TP SCH ×4 (00:17→17:15)
[2017-06-24] MEDS: PROPOFOL 100 ML IV PRN ×5 (01:09→22:14)
[2017-06-24] MEDS: MEROPENEM 1 GM in NORMAL SALINE 50 ML IV SCH ×3 (01:09→17:14)
[2017-06-24] MEDS: IPRATROPIUM/ALBUTEROL 0.5-2.5 MG/3 ML AMPUL NEB SCH ×4 (01:33→20:34)
[2017-06-24] MEDS: NORMAL SALINE 1000 ML 1,000 ML IV PRN ×2 (04:59→16:34)
[2017-06-24] MEDS: NORMAL SALINE INJ/PF 0.9% 10 ML SDV IV PRN (05:00)
[2017-06-24 05:47] LABS: ABSOLUTE EOSINOPHILS # (AUTO) 0.1 10^3/uL (0.0-0.6); ABSOLUTE LYMPHOCYTES (AUTO) 1.5 10^3/uL (0.5-4.7); ABSOLUTE MONOCYTES (AUTO) 0.7 10^3/uL (0.1-1.4); BASOPHILS % (AUTO) 0.5 % (0-2); EOSINOPHILS % (AUTO) 1.3 % (0-6); HEMATOCRIT 30.1 % (37.9-51.0); HEMOGLOBIN 10.1 g/dL (13.5-17.0); LYMPHOCYTES % (AUTO) 20.4 % (13-45); MEAN CORPUSCULAR HEMOGLOBIN 30.8 pg (27.0-33.4); MEAN CORPUSCULAR HGB CONC 33.5 g/dL (32.0-36.0); MEAN CORPUSCULAR VOLUME 92 fl (80-97); PLATELET COUNT 462 10^3/uL (150-450); RED BLOOD COUNT 3.28 10^6/uL (4.35-5.55); RED CELL DISTRIBUTION WIDTH 15.6 % (11.5-14.0); SEGMENTED NEUTROPHILS % (AUTO) 68.8 % (42-78); TOTAL CELLS COUNTED % (AUTO) 100 %; WHITE BLOOD COUNT 7.3 10^3/uL (4.0-10.5)
[2017-06-24 06:05] LABS: ARTERIAL BLOOD BASE EXCESS 0.5 mmol/L; ARTERIAL BLOOD O2 SATURATION 96.9 % (94-98); ARTERIAL BLOOD PCO2 29.8 mmHg (35-45); ARTERIAL BLOOD PH 7.51 (7.35-7.45); ARTERIAL BLOOD PO2 80.7 mmHg (80-100); ARTERIAL BLOOD TOTAL CO2 23.9 mmol/L (23-27)
[2017-06-24 06:06] LABS: ARTERIAL BLOOD FIO2 30%
[2017-06-24 06:09] LABS: ANION GAP 11 (5-19); BLOOD UREA NITROGEN 8 mg/dL (7-20); CALCIUM 8.8 mg/dL (8.4-10.2); CARBON DIOXIDE 25 mmol/L (22-30); CHLORIDE 103 mmol/L (98-107); GLUCOSE 88 mg/dL (75-110); POTASSIUM 3.6 mmol/L (3.6-5.0); SODIUM 138.8 mmol/L (137-145)
--- NOTE | 2017-06-24 07:19 | CONSULTATION REPORT E ---
Consultation Report NAME: CECILIA MARTINEZ : 1960 AGE: 56Y DATE: 610 A TO: KAVEH FLETCHER M.D. FROM: AJAY LOPEZ M.D. Requesting Physician REASON FOR CONSULTATION: Impending loss of airway. HISTORY OF PRESENT ILLNESS: Patient is a 56-year-old white male, history of severe head injury, history of tracheostomy 1-1/2 years ago, resident of [facility], who had his operative tracheostomy removed in January 2017 by report. The patient was hospitalized at [facility] on 06/15/2017 for respiratory distress secondary to underlying pneumonia. Patient was orally intubated uneventfully with a 7.5. The patient remained intubated because of multiorgan pneumonia for approximately 10 days. Earlier today, 06/23, the patient was extubated. Over the course of the last 7 hours, the patient developed respiratory distress, copious secretions, and inability to maintain saturations. Dr. Saunders requested surgery and consulted for management of the airway. PAST MEDICAL AND SURGICAL HISTORY: Can be found in his medical record. REVIEW OF SYSTEMS: Could not obtained. PHYSICAL EXAMINATION: Patient is seen in room 610 [facility] ICU. VITAL SIGNS: Heart rate approximately 100, saturations 89% with patient on a face mask, humidified supplemental oxygen. NEUROLOGIC: Patient's eyes are open. There is some tracking. He does not follow commands at this time. RESPIRATORY: Obvious respiratory distress with accessory muscles respirations utilized, significant gurgling with mucous production. NECK: Dressing removed and approximately a 5-7 mm operative tracheotomy present. There is copious mucous secretions. LUNGS: Rhonchi bilaterally. HEART: Without no murmur or gallop. ABDOMEN: Slightly distended. There is a chronic indwelling PEG tube. Remainder of the physical exam is significant for varying degrees of flexor contracture of the extremities. IMPRESSION: 1. Respiratory decompensation following extubation earlier today secondary to uncontrolled airway secretions. 2. History of operative tracheostomy, with decannulation approximately 6 years ago, and non-use of the tracheotomy site. 3. History of severe closed head injury. 4. Polymicrobial pulmonary infection including ESBL. RECOMMENDATIONS: 1. I do not believe that it would be appropriate to attempt to re-cannulate the tracheostomy site at this time, at this hour of the day with inadequate respiratory support. Patient may have an element of granulation tissue false track etc., and furthermore patient received Lovenox earlier today. 2. Therefore, I have consulted the Anesthesia Services to come and intubate the patient; Mr. David Barry is now arriving at bedside and will complete the orotracheal intubation. The tracheostomy can be revisited at a later time during the light of day with adequate support likely in the operating room. DICTATING PHYSICIAN: KAVEH FLETCHER M.D. [id number] [id number] ID: [id number] JOB#: [id number] ACCT: [id number] cc:KAVEH FLETCHER M.D. >
[2017-06-24] MEDS: ACETYLCYSTEINE 20% SOLN 800 MG/4 ML VIAL.NEB NEB SCH ×2 (08:05→20:34)
[2017-06-24] MEDS ORDERED: POTASSIUM CHLORIDE 20 MEQ/15 ML UDCUP PO ONE (08:50)
--- NOTE | 2017-06-24 09:02 | RADIOLOGY REPORT (SQ) ---
EXAM DESCRIPTION: CHEST SINGLE VIEW COMPLETED DATE/TIME: 06/24/2017 6:09 am REASON FOR STUDY: pna/resp failure COMPARISON: 06/23/2017 EXAM PARAMETERS: NUMBER OF VIEWS: One view. TECHNIQUE: Single frontal radiographic view of the chest acquired. RADIATION DOSE: NA LIMITATIONS: None. FINDINGS: LUNGS AND PLEURA: Persistent left perihilar-left lower lung airspace disease and left ple ural effusion. Stable bullous emphysematous changes in the apices and slight scar/fibrosis. MEDIASTINUM AND HILAR STRUCTURES: No masses. Contour normal. HEART AND VASCULAR STRUCTURES: Heart normal in size. Normal vasculature. BONES: No change in the appearance of the healing right rib fractures. HARDWARE: Endotracheal tube and left internal jugular central venous catheter, unchanged finding. OTHER: No other significant finding. IMPRESSION: 1 No significant interval changes since the prior study dated 06/23/2017. Persistent lef t perihilar-left lower lung airspace disease. 2. Support tubes and lines are stable. TECHNICAL DOCUMENTATION: JOB ID: [id number] [employer]- All Rights Reserved Reading location - IP/workstation name: [email or web address]
[2017-06-24] MEDS: LACTOBACILLUS ACIDOPHILUS 250 MG TAB PEG SCH ×2 (09:45→17:14)
[2017-06-24] MEDS: MAGNESIUM OXIDE 400 MG TABLET PEG SCH (09:45)
[2017-06-24] MEDS: ENOXAPARIN SODIUM INJ 40 MG/0.4 ML DISP.SYRIN SUBCUT SCH (09:45)
[2017-06-24] MEDS ORDERED: NOREPINEPHRINE BITARTRATE INJ/PF 4 MG/4 ML SDV IV ONE (11:02)
[2017-06-24] MEDS: DEXTROSE 5%-WATER 250 ML with NOREPINEPHRINE BITARTRATE 4 MG IV PRN ×2 (11:10)
--- NOTE | 2017-06-24 15:48 | PDOC PROGRESS REPORT ---
Subjective Progress Note for:: 06/24/17 Subjective:: Intubated sedated failed extubation on BiPAP because of tachypnea and tachycardia Reason For Visit: SEPSIS DUE TO ASPIRATION PNEUMONIA Physical Exam Vital Signs: Temp Pulse Resp BP Pulse Ox 98.6 F 92 20 102/70 97 06/24/17 08:00 06/24/17 08:07 06/24/17 08:07 06/24/17 08:00 06/24/17 08:07 Intake & Output 06/23/17 06/24/17 06/25/17 06:59 06:59 06:59 Intake Total 5281 3311 Output Total 4025 4485 140 Balance 1256 -1174 -140 Weight 68.2 kg 65.5 kg General appearance: PRESENT: no acute distress, disheveled, well-developed, well -nourished. ABSENT: cooperative Head exam: PRESENT: atraumatic, normocephalic Eye exam: PRESENT: conjunctiva pale. ABSENT: EOMI, nystagmus, periorbital swelling, scleral icterus Mouth exam: PRESENT: dry mucosa, neck supple, tongue midline, other - ET Neck exam: PRESENT: tracheostomy - Purulent exudate from old tracheostomy wound. ABSENT: carotid bruit, JVD, lymphadenopathy, thyromegaly, tracheal deviation Respiratory exam: PRESENT: crackles, decreased breath sounds, prolonged expiratory phas, rhonchi, symmetrical, unlabored. ABSENT: retraction, stridor, tachypnea Cardiovascular exam: PRESENT: RRR, +S1, +S2, tachycardia Pulses: PRESENT: normal radial pulses GI/Abdominal exam: PRESENT: diminished bowel sounds, soft Extremities exam: ABSENT: calf tenderness, clubbing, joint swelling Musculoskeletal exam: ABSENT: deformity, dislocation Neurological exam: ABSENT: awake, oriented to person Skin exam: PRESENT: dry, warm Results Laboratory Results: 06/24/17 05:25 06/24/17 05:25 06/23/17 06/24/17 06/24/17 15:52 05:25 05:25 WBC 7.3 RBC 3.28 L Hgb 10.1 L Hct 30.1 L MCV 92 MCH 30.8 MCHC 33.5 RDW 15.6 H Plt Count 462 H Seg Neutrophils % 68.8 Lymphocytes % 20.4 Monocytes % 9.0 Eosinophils % 1.3 Basophils % 0.5 Absolute Neutrophils 5.0 Absolute Lymphocytes 1.5 Absolute Monocytes 0.7 Absolute Eosinophils 0.1 Absolute Basophils 0.0 Carbonic Acid 1.07 HCO3/H2CO3 Ratio 24:1 ABG pH 7.49 H ABG pCO2 35.4 ABG pO2 62.0 L ABG HCO3 26.6 H ABG O2 Saturation 93.6 L ABG Base Excess 3.5 FiO2 40% Sodium 138.8 Potassium 3.6 Chloride 103 Carbon Dioxide 25 Anion Gap 11 BUN 8 Creatinine 0.46 L Est GFR ( Amer) > 60 Est GFR (Non-Af Amer) > 60 Glucose 88 Calcium 8.8 Magnesium 1.8 06/24/17 05:55 WBC RBC Hgb Hct MCV MCH MCHC RDW Plt Count Seg Neutrophils % Lymphocytes % Monocytes % Eosinophils % Basophils % Absolute Neutrophils Absolute Lymphocytes Absolute Monocytes Absolute Eosinophils Absolute Basophils Carbonic Acid 0.90 L HCO3/H2CO3 Ratio 25:1 ABG pH 7.51 H ABG pCO2 29.8 L ABG pO2 80.7 ABG HCO3 23.0 ABG O2 Saturation 96.9 ABG Base Excess 0.5 FiO2 30% Sodium Potassium Chloride Carbon Dioxide Anion Gap BUN Creatinine Est GFR ( Amer) Est GFR (Non-Af Amer) Glucose Calcium Magnesium 06/16/17 06/16/17 05:45 05:45 Creatine Kinase 90 NT-Pro-B Natriuret Pep 168 Assessment & Plan - Diagnosis (1) Acute respiratory failure with hypoxia Is this a current diagnosis for this admission?: Yes Plan: Failed extubation due to tachypnea & tachycardia re-intubated please see surgical note for possible tracheostomy under anesthesia (2) Pneumonia Qualifiers: Pneumonia type: due to unspecified organism Laterality: right Lung location: lower lobe of lung Qualified Code(s): J18.1 - Lobar pneumonia, unspecified organism Is this a current diagnosis for this admission?: Yes Plan: 06/19/17 10:30 Gram Stain - Final Trach Site Wound Culture - Final Escherichia Coli Esbl Escherichia Coli Esbl#2 Skin Hannah 06/17/17 09:18 Blood Culture - Final Blood Staphylococcus Epidermidis 06/15/17 23:10 Gram Stain - Final Tracheal Aspirate Sputum Culture - Final Escherichia Coli Esbl Normal Hannah Absent 06/15/17 16:40 Blood Culture - Final Blood Staphylococcus Epidermidis (3) Septic shock Is this a current diagnosis for this admission?: Yes (4) Traumatic brain injury Is this a current diagnosis for this admission?: Yes - Time Total Critical Time (Minutes): 40
--- NOTE | 2017-06-24 16:09 | PDOC PROGRESS REPORT ---
Subjective Progress Note for:: 06/24/17 Subjective:: Unable to obtain due to mental status Review of system All organ systems evaluated and negative except as in subjective All significant laboratories and diagnostics have been reviewed Reason For Visit: SEPSIS DUE TO ASPIRATION PNEUMONIA Physical Exam Vital Signs: Temp Pulse Resp BP Pulse Ox 98.6 F 92 20 102/70 97 06/24/17 08:00 06/24/17 08:07 06/24/17 08:07 06/24/17 08:00 06/24/17 08:07 Intake & Output 06/23/17 06/24/17 06/25/17 06:59 06:59 06:59 Intake Total 5281 3311 Output Total 4025 4485 140 Balance 1256 -6624 -140 Weight 68.2 kg 65.5 kg General appearance: PRESENT: other - Sedated Head exam: PRESENT: atraumatic, normocephalic Eye exam: PRESENT: conjunctiva pink, EOMI, PERRLA Ear exam: PRESENT: normal external ear exam Mouth exam: PRESENT: moist Neck exam: ABSENT: full ROM, JVD, lymphadenopathy, tenderness Respiratory exam: PRESENT: clear to auscultation everett Cardiovascular exam: PRESENT: RRR. ABSENT: diastolic murmur, systolic murmur Vascular exam: PRESENT: normal capillary refill GI/Abdominal exam: PRESENT: normal bowel sounds, soft. ABSENT: tenderness Extremities exam: PRESENT: other - Contractures. ABSENT: full ROM Musculoskeletal exam: ABSENT: ambulatory Neurological exam: PRESENT: other - Sedated but mildly arousable Skin exam: PRESENT: normal color Results Laboratory Results: 06/24/17 05:25 06/24/17 05:25 06/23/17 06/24/17 06/24/17 15:52 05:25 05:25 WBC 7.3 RBC 3.28 L Hgb 10.1 L Hct 30.1 L MCV 92 MCH 30.8 MCHC 33.5 RDW 15.6 H Plt Count 462 H Seg Neutrophils % 68.8 Lymphocytes % 20.4 Monocytes % 9.0 Eosinophils % 1.3 Basophils % 0.5 Absolute Neutrophils 5.0 Absolute Lymphocytes 1.5 Absolute Monocytes 0.7 Absolute Eosinophils 0.1 Absolute Basophils 0.0 Carbonic Acid 1.07 HCO3/H2CO3 Ratio 24:1 ABG pH 7.49 H ABG pCO2 35.4 ABG pO2 62.0 L ABG HCO3 26.6 H ABG O2 Saturation 93.6 L ABG Base Excess 3.5 FiO2 40% Sodium 138.8 Potassium 3.6 Chloride 103 Carbon Dioxide 25 Anion Gap 11 BUN 8 Creatinine 0.46 L Est GFR ( Amer) > 60 Est GFR (Non-Af Amer) > 60 Glucose 88 Calcium 8.8 Magnesium 1.8 06/24/17 05:55 WBC RBC Hgb Hct MCV MCH MCHC RDW Plt Count Seg Neutrophils % Lymphocytes % Monocytes % Eosinophils % Basophils % Absolute Neutrophils Absolute Lymphocytes Absolute Monocytes Absolute Eosinophils Absolute Basophils Carbonic Acid 0.90 L HCO3/H2CO3 Ratio 25:1 ABG pH 7.51 H ABG pCO2 29.8 L ABG pO2 80.7 ABG HCO3 23.0 ABG O2 Saturation 96.9 ABG Base Excess 0.5 FiO2 30% Sodium Potassium Chloride Carbon Dioxide Anion Gap BUN Creatinine Est GFR ( Amer) Est GFR (Non-Af Amer) Glucose Calcium Magnesium 06/16/17 06/16/17 05:45 05:45 Creatine Kinase 90 NT-Pro-B Natriuret Pep 168 Assessment & Plan - Diagnosis (1) Acute respiratory failure with hypoxia Is this a current diagnosis for this admission?: Yes Plan: Continues necessitating ventilatory support. To have trach reinserted by surgery (2) Pneumonia Qualifiers: Pneumonia type: due to unspecified organism Laterality: right Lung location: lower lobe of lung Qualified Code(s): J18.1 - Lobar pneumonia, unspecified organism Is this a current diagnosis for this admission?: Yes Plan: Continue present management (3) Septic shock Is this a current diagnosis for this admission?: Yes Plan: Still requiring Levophed. Will add Midodrine (4) Traumatic brain injury Is this a current diagnosis for this admission?: Yes Plan: Supportive. Been informed that family is amenable for patient to be intubated only (5) Anemia Qualifiers: Anemia type: unspecified type Qualified Code(s): D64.9 - Anemia, unspecified Is this a current diagnosis for this admission?: Yes Plan: To trend - Time Time Spent with patient: 15-24 minutes Medications reviewed and adjusted accordingly: Yes Anticipated discharge: SNF - Inpatient Certification Based on my medical assessment, after consideration of the patient's comorbidities, presenting symptoms, or acuity I expect that the services needed warrant INPATIENT care.: Yes I certify that my determination is in accordance with my understanding of Medicare's requirements for reasonable and necessary INPATIENT services [42 CFR 412.3e].: Yes Medical Necessity: Need Close Monitoring Due to Risk of Patient Decompensation, Need For IV Fluids, Need For Continuous Telemetry Monitoring, Need for IV Antibiotics
[2017-06-24] MEDS: MIDODRINE HCL 5 MG TABLET PO SCH (17:14)
[2017-06-25] MEDS: NYSTATIN TOPICAL POWDER 15 GM TP SCH ×4 (00:54→17:28)
[2017-06-25] MEDS: PROPOFOL 100 ML IV PRN ×4 (02:01→19:47)
[2017-06-25] MEDS: MEROPENEM 1 GM in NORMAL SALINE 50 ML IV SCH ×2 (02:01→10:46)
[2017-06-25] MEDS: IPRATROPIUM/ALBUTEROL 0.5-2.5 MG/3 ML AMPUL NEB SCH ×4 (02:12→20:28)
[2017-06-25 05:30] LABS: ABSOLUTE BASOPHILS # (AUTO) 0.1 10^3/uL (0.0-0.2); ABSOLUTE EOSINOPHILS # (AUTO) 0.2 10^3/uL (0.0-0.6); ABSOLUTE LYMPHOCYTES (AUTO) 1.4 10^3/uL (0.5-4.7); ABSOLUTE MONOCYTES (AUTO) 0.5 10^3/uL (0.1-1.4); ABSOLUTE NEUT (AUTO) 4.2 10^3/uL (1.7-8.2); ARTERIAL BLOOD BASE EXCESS -1.2 mmol/L; ARTERIAL BLOOD H2CO3 0.96 mmol/L (1.05-1.35); ARTERIAL BLOOD HCO3 21.9 mmol/L (20-26); ARTERIAL BLOOD PCO2 31.9 mmHg (35-45); ARTERIAL BLOOD PH 7.45 (7.35-7.45); ARTERIAL BLOOD PO2 85.8 mmHg (80-100); ARTERIAL BLOOD TOTAL CO2 22.9 mmol/L (23-27); BASOPHILS % (AUTO) 1.1 % (0-2); EOSINOPHILS % (AUTO) 2.8 % (0-6); HEMATOCRIT 28.8 % (37.9-51.0); HEMOGLOBIN 9.8 g/dL (13.5-17.0); MEAN CORPUSCULAR HEMOGLOBIN 30.9 pg (27.0-33.4); MEAN CORPUSCULAR HGB CONC 34.1 g/dL (32.0-36.0); MEAN CORPUSCULAR VOLUME 91 fl (80-97); MONOCYTES % (AUTO) 7.8 % (3-13); PLATELET COUNT 452 10^3/uL (150-450); RED BLOOD COUNT 3.17 10^6/uL (4.35-5.55); SEGMENTED NEUTROPHILS % (AUTO) 66.3 % (42-78); TOTAL CELLS COUNTED % (AUTO) 100 %; WHITE BLOOD COUNT 6.3 10^3/uL (4.0-10.5)
[2017-06-25 05:31] LABS: ARTERIAL BLOOD FIO2 30%
[2017-06-25 05:49] LABS: ALANINE AMINOTRANSFERASE 24 U/L (21-72); ALBUMIN 2.5 g/dL (3.5-5.0); ALKALINE PHOSPHATASE 60 U/L (38-126); ANION GAP 12 (5-19); ASPARTATE AMINO TRANSFERASE 14 U/L (17-59); BLOOD UREA NITROGEN 6 mg/dL (7-20); CALCIUM 8.8 mg/dL (8.4-10.2); CARBON DIOXIDE 26 mmol/L (22-30); CHLORIDE 106 mmol/L (98-107); GLUCOSE 88 mg/dL (75-110); SODIUM 143.9 mmol/L (137-145); TOTAL PROTEIN 4.8 g/dL (6.3-8.2); TRIGLYCERIDES 193 mg/dL (<150)
[2017-06-25 05:59] LABS: BILIRUBIN,TOTAL < 0.1 mg/dL (0.2-1.3)
[2017-06-25] MEDS: NORMAL SALINE 1000 ML 1,000 ML IV PRN (06:35)
[2017-06-25] MEDS: ACETYLCYSTEINE 20% SOLN 800 MG/4 ML VIAL.NEB NEB SCH ×2 (08:08→20:28)
--- NOTE | 2017-06-25 08:25 | RADIOLOGY REPORT (SQ) ---
EXAM DESCRIPTION: CHEST SINGLE VIEW COMPLETED DATE/TIME: 06/25/2017 6:52 am REASON FOR STUDY: pna COMPARISON: 03/17/2017, 06/06/2017, 06/18/2017, 06/23/2017, 06/24/2017 chest films EXAM PARAMETERS: NUMBER OF VIEWS: One view. TECHNIQUE: Single frontal radiographic view of the chest acquired. RADIATION DOSE: NA LIMITATIONS: None. FINDINGS: LUNGS AND PLEURA: Persistent dense consolidation left lower lobe unchanged from previous s tudies. No significant right-sided infiltrates. No gross pleural effusion or pneumothorax. Right apical bulla or bleb is unchanged. MEDIASTINUM AND HILAR STRUCTURES: No masses. Contour normal. HEART AND VASCULAR STRUCTURES: Heart normal in size. Normal vasculature. BONES: Old right posterolateral rib fractures HARDWARE: Endotracheal tube tip 5 cm above the madan. Left jugular line tip superior vena cava OTHER: No other significant finding. IMPRESSION: Endotracheal tube, left jugular central line in good positioning Dense consolidation left lower lobe, unchanged TECHNICAL DOCUMENTATION: JOB ID: [id number] [employer]- All Rights Reserved Reading location - IP/workstation name: [facility]
[2017-06-25] MEDS: ENOXAPARIN SODIUM INJ 40 MG/0.4 ML DISP.SYRIN SUBCUT SCH (09:36)
[2017-06-25] MEDS: MIDODRINE HCL 5 MG TABLET PO SCH ×3 (10:47→17:32)
[2017-06-25] MEDS: LACTOBACILLUS ACIDOPHILUS 250 MG TAB PEG SCH ×2 (10:47→17:28)
[2017-06-25] MEDS: MAGNESIUM OXIDE 400 MG TABLET PEG SCH (10:47)
[2017-06-25] MEDS ORDERED: VANCOMYCIN HCL 0 MG in DEXTROSE 5%-WATER 250 ML IV NR (13:00)
[2017-06-25] MEDS ORDERED: BACLOFEN 10 MG TABLET PEG PRN (13:00)
--- NOTE | 2017-06-25 13:12 | PDOC PROGRESS REPORT ---
Subjective Progress Note for:: 06/25/17 Subjective:: Unable to obtain due to mental status Review of system All organ systems evaluated and negative except as in subjective All significant laboratories and diagnostics have been reviewed Reason For Visit: SEPSIS DUE TO ASPIRATION PNEUMONIA Physical Exam Vital Signs: Temp Pulse Resp BP Pulse Ox 98.1 F 86 16 106/70 97 06/25/17 05:43 06/25/17 07:40 06/25/17 06:29 06/25/17 06:29 06/25/17 06:29 Intake & Output 06/24/17 06/25/17 06/26/17 06:59 06:59 06:59 Intake Total 3311 3749 Output Total 4485 1900 Balance -1174 1849 Weight 65.5 kg 67.6 kg General appearance: PRESENT: other - sedated Head exam: PRESENT: atraumatic, normocephalic Eye exam: PRESENT: conjunctiva pink, EOMI, PERRLA Ear exam: PRESENT: normal external ear exam Mouth exam: PRESENT: moist Neck exam: ABSENT: full ROM, JVD, lymphadenopathy, tenderness Respiratory exam: PRESENT: rhonchi Cardiovascular exam: PRESENT: RRR. ABSENT: diastolic murmur, systolic murmur Vascular exam: PRESENT: normal capillary refill GI/Abdominal exam: PRESENT: normal bowel sounds, soft. ABSENT: distended Extremities exam: ABSENT: full ROM, joint swelling, pedal edema Musculoskeletal exam: ABSENT: ambulatory, deformity Neurological exam: PRESENT: other - sedated Skin exam: PRESENT: normal color Results Laboratory Results: 06/25/17 05:20 06/25/17 05:20 06/25/17 06/25/17 06/25/17 05:20 05:20 05:20 WBC 6.3 RBC 3.17 L Hgb 9.8 L Hct 28.8 L MCV 91 MCH 30.9 MCHC 34.1 RDW 15.0 H Plt Count 452 H Seg Neutrophils % 66.3 Lymphocytes % 22.0 Monocytes % 7.8 Eosinophils % 2.8 Basophils % 1.1 Absolute Neutrophils 4.2 Absolute Lymphocytes 1.4 Absolute Monocytes 0.5 Absolute Eosinophils 0.2 Absolute Basophils 0.1 Carbonic Acid 0.96 L HCO3/H2CO3 Ratio 22:1 ABG pH 7.45 ABG pCO2 31.9 L ABG pO2 85.8 ABG HCO3 21.9 ABG O2 Saturation 97.0 ABG Base Excess -1.2 FiO2 30% Sodium 143.9 Potassium 4.0 Chloride 106 Carbon Dioxide 26 Anion Gap 12 BUN 6 L Creatinine 0.44 L Est GFR ( Amer) > 60 Est GFR (Non-Af Amer) > 60 Glucose 88 Calcium 8.8 Magnesium 1.8 Total Bilirubin < 0.1 L AST 14 L ALT 24 Alkaline Phosphatase 60 Total Protein 4.8 L Albumin 2.5 L Triglycerides 193 H 06/16/17 06/16/17 05:45 05:45 Creatine Kinase 90 NT-Pro-B Natriuret Pep 168 Assessment & Plan - Diagnosis (1) Acute respiratory failure with hypoxia Is this a current diagnosis for this admission?: Yes Plan: Still requiring ventilatory support. Dr Saunders managing ventilator (2) Pneumonia Qualifiers: Pneumonia type: due to unspecified organism Laterality: right Lung location: lower lobe of lung Qualified Code(s): J18.1 - Lobar pneumonia, unspecified organism Is this a current diagnosis for this admission?: Yes Plan: Continue Meropenem and add vancomycin IV (3) Septic shock Is this a current diagnosis for this admission?: Yes Plan: Hypotension improved with Midodrine (4) Traumatic brain injury Qualifiers: Encounter type: sequela Is this a current diagnosis for this admission?: Yes Plan: Supportive. Been informed that family is amenable for patient to be intubated only (5) Anemia Qualifiers: Anemia type: unspecified type Qualified Code(s): D64.9 - Anemia, unspecified Is this a current diagnosis for this admission?: Yes Plan: Stable (6) Bacteremia due to coagulase-negative Staphylococcus Is this a current diagnosis for this admission?: Yes Plan: To start vancomycin IV since 2 blood culture bottles grew staph epidermidis - Time Time Spent with patient: 15-24 minutes Medications reviewed and adjusted accordingly: Yes Anticipated discharge: SNF Within: Other - unable to tell at this time - Inpatient Certification Based on my medical assessment, after consideration of the patient's comorbidities, presenting symptoms, or acuity I expect that the services needed warrant INPATIENT care.: Yes I certify that my determination is in accordance with my understanding of Medicare's requirements for reasonable and necessary INPATIENT services [42 CFR 412.3e].: Yes Medical Necessity: Need Close Monitoring Due to Risk of Patient Decompensation, Need for Nebulizer Therapy and Monitoring of Response, Need for IV Antibiotics
--- NOTE | 2017-06-25 14:00 | PDOC PROGRESS REPORT ---
Subjective Progress Note for:: 06/25/17 Reason For Visit: SEPSIS DUE TO ASPIRATION PNEUMONIA Physical Exam Vital Signs: Temp Pulse Resp BP Pulse Ox 98.2 F 79 16 117/71 96 06/25/17 12:00 06/25/17 12:00 06/25/17 12:00 06/25/17 12:00 06/25/17 12:00 Intake & Output 06/24/17 06/25/17 06/26/17 06:59 06:59 06:59 Intake Total 3311 3749 Output Total 4485 1900 545 Balance -1174 1849 -545 Weight 65.5 kg 67.6 kg Neck exam: PRESENT: other - old trach site present with a small tract. Results Laboratory Results: 06/25/17 05:20 06/25/17 05:20 06/25/17 06/25/17 06/25/17 05:20 05:20 05:20 WBC 6.3 RBC 3.17 L Hgb 9.8 L Hct 28.8 L MCV 91 MCH 30.9 MCHC 34.1 RDW 15.0 H Plt Count 452 H Seg Neutrophils % 66.3 Lymphocytes % 22.0 Monocytes % 7.8 Eosinophils % 2.8 Basophils % 1.1 Absolute Neutrophils 4.2 Absolute Lymphocytes 1.4 Absolute Monocytes 0.5 Absolute Eosinophils 0.2 Absolute Basophils 0.1 Carbonic Acid 0.96 L HCO3/H2CO3 Ratio 22:1 ABG pH 7.45 ABG pCO2 31.9 L ABG pO2 85.8 ABG HCO3 21.9 ABG O2 Saturation 97.0 ABG Base Excess -1.2 FiO2 30% Sodium 143.9 Potassium 4.0 Chloride 106 Carbon Dioxide 26 Anion Gap 12 BUN 6 L Creatinine 0.44 L Est GFR ( Amer) > 60 Est GFR (Non-Af Amer) > 60 Glucose 88 Calcium 8.8 Magnesium 1.8 Total Bilirubin < 0.1 L AST 14 L ALT 24 Alkaline Phosphatase 60 Total Protein 4.8 L Albumin 2.5 L Triglycerides 193 H 06/16/17 06/16/17 05:45 05:45 Creatine Kinase 90 NT-Pro-B Natriuret Pep 168 Impressions: Chest X-Ray 06/25/17 06:00 IMPRESSION: Endotracheal tube, left jugular central line in good positioning Dense consolidation left lower lobe, unchanged Assessment & Plan - Diagnosis (1) Respiratory failure, [id number] Qualifiers: Respiratory failure complication: hypoxia Qualified Code(s): J96.21 - Acute and chronic respiratory failure with hypoxia Is this a current diagnosis for this admission?: Yes Plan: pt with prior trach that was removed several wks ago. Three prior episodes of pneumonia prior to trach removal. Now back in for pneumonia and respiratory failure requiring prolonged intubation. Primary physician requesting REDO trach. potentially very hazardous procedure.Will consult ENT surgeon for this potentially complicated procedure.
[2017-06-25] MEDS: METHYLPREDNISOLONE INJ 40 MG/1 ML SDV IV SCH ×2 (14:29→22:20)
[2017-06-25] MEDS: POLYVINYL ALCOHOL 1.4% OPH SOLN 15 ML OU SCH ×2 (14:30→17:28)
[2017-06-25] MEDS ORDERED: FLUOXETINE HCL 20 MG/5 ML UDCUP PEG ONE (15:00)
[2017-06-25] MEDS: DOXYCYCLINE HYCLATE 100 MG in DEXTROSE 5%-WATER 250 ML IV SCH (17:27)
--- NOTE | 2017-06-25 18:04 | PDOC PROGRESS REPORT ---
Subjective Reason For Visit: SEPSIS DUE TO ASPIRATION PNEUMONIA Physical Exam Vital Signs: Temp Pulse Resp BP Pulse Ox 98.8 F 98 19 129/83 H 98 06/25/17 17:56 06/25/17 17:56 06/25/17 17:56 06/25/17 17:56 06/25/17 17:56 Intake & Output 06/24/17 06/25/17 06/26/17 06:59 06:59 06:59 Intake Total 3311 6239 1862 Output Total 7915 1900 1180 Balance -1174 1849 682 Weight 65.5 kg 67.6 kg Results Laboratory Results: 06/25/17 05:20 06/25/17 05:20 06/25/17 06/25/17 06/25/17 05:20 05:20 05:20 WBC 6.3 RBC 3.17 L Hgb 9.8 L Hct 28.8 L MCV 91 MCH 30.9 MCHC 34.1 RDW 15.0 H Plt Count 452 H Seg Neutrophils % 66.3 Lymphocytes % 22.0 Monocytes % 7.8 Eosinophils % 2.8 Basophils % 1.1 Absolute Neutrophils 4.2 Absolute Lymphocytes 1.4 Absolute Monocytes 0.5 Absolute Eosinophils 0.2 Absolute Basophils 0.1 Carbonic Acid 0.96 L HCO3/H2CO3 Ratio 22:1 ABG pH 7.45 ABG pCO2 31.9 L ABG pO2 85.8 ABG HCO3 21.9 ABG O2 Saturation 97.0 ABG Base Excess -1.2 FiO2 30% Sodium 143.9 Potassium 4.0 Chloride 106 Carbon Dioxide 26 Anion Gap 12 BUN 6 L Creatinine 0.44 L Est GFR ( Amer) > 60 Est GFR (Non-Af Amer) > 60 Glucose 88 Calcium 8.8 Magnesium 1.8 Total Bilirubin < 0.1 L AST 14 L ALT 24 Alkaline Phosphatase 60 Total Protein 4.8 L Albumin 2.5 L Triglycerides 193 H 06/16/17 06/16/17 05:45 05:45 Creatine Kinase 90 NT-Pro-B Natriuret Pep 168 Impressions: Chest X-Ray 06/25/17 06:00 IMPRESSION: Endotracheal tube, left jugular central line in good positioning Dense consolidation left lower lobe, unchanged Assessment & Plan - Diagnosis (1) Respiratory failure, [id number] Qualifiers: Respiratory failure complication: hypoxia Qualified Code(s): J96.21 - Acute and chronic respiratory failure with hypoxia Is this a current diagnosis for this admission?: Yes Plan: Discussed with the our ENT physician. He recommends transfer to tertiary care center for redo trach.
--- NOTE | 2017-06-25 18:29 | PDOC PROGRESS REPORT ---
Subjective Progress Note for:: 06/25/17 Subjective:: Intubated sedated Reason For Visit: SEPSIS DUE TO ASPIRATION PNEUMONIA Physical Exam Vital Signs: Temp Pulse Resp BP Pulse Ox 98.2 F 96 16 109/70 99 06/25/17 08:00 06/25/17 08:18 06/25/17 08:18 06/25/17 08:00 06/25/17 08:18 Intake & Output 06/24/17 06/25/17 06/26/17 06:59 06:59 06:59 Intake Total 3311 3749 Output Total 4485 1900 100 Balance -1174 1849 -100 Weight 65.5 kg 67.6 kg General appearance: PRESENT: no acute distress, disheveled, well-developed. ABSENT: cooperative Head exam: PRESENT: atraumatic, normocephalic Eye exam: PRESENT: conjunctiva pale. ABSENT: nystagmus, periorbital swelling, scleral icterus Mouth exam: PRESENT: dry mucosa, neck supple, tongue midline, other - ET tube in place Neck exam: PRESENT: tracheostomy - Open wound covered decreased purulent exudate. ABSENT: carotid bruit, JVD, lymphadenopathy, thyromegaly, tracheal deviation Respiratory exam: PRESENT: decreased breath sounds, prolonged expiratory phas, rales, rhonchi, unlabored. ABSENT: retraction, stridor, tachypnea Cardiovascular exam: PRESENT: RRR, +S1, +S2 Pulses: PRESENT: normal radial pulses GI/Abdominal exam: PRESENT: diminished bowel sounds, soft Extremities exam: ABSENT: calf tenderness, clubbing Musculoskeletal exam: ABSENT: deformity, dislocation Neurological exam: ABSENT: awake, oriented to person Skin exam: PRESENT: dry, warm Results Laboratory Results: 06/25/17 05:20 06/25/17 05:20 06/25/17 06/25/17 06/25/17 05:20 05:20 05:20 WBC 6.3 RBC 3.17 L Hgb 9.8 L Hct 28.8 L MCV 91 MCH 30.9 MCHC 34.1 RDW 15.0 H Plt Count 452 H Seg Neutrophils % 66.3 Lymphocytes % 22.0 Monocytes % 7.8 Eosinophils % 2.8 Basophils % 1.1 Absolute Neutrophils 4.2 Absolute Lymphocytes 1.4 Absolute Monocytes 0.5 Absolute Eosinophils 0.2 Absolute Basophils 0.1 Carbonic Acid 0.96 L HCO3/H2CO3 Ratio 22:1 ABG pH 7.45 ABG pCO2 31.9 L ABG pO2 85.8 ABG HCO3 21.9 ABG O2 Saturation 97.0 ABG Base Excess -1.2 FiO2 30% Sodium 143.9 Potassium 4.0 Chloride 106 Carbon Dioxide 26 Anion Gap 12 BUN 6 L Creatinine 0.44 L Est GFR ( Amer) > 60 Est GFR (Non-Af Amer) > 60 Glucose 88 Calcium 8.8 Magnesium 1.8 Total Bilirubin < 0.1 L AST 14 L ALT 24 Alkaline Phosphatase 60 Total Protein 4.8 L Albumin 2.5 L Triglycerides 193 H 06/16/17 06/16/17 05:45 05:45 Creatine Kinase 90 NT-Pro-B Natriuret Pep 168 Impressions: Chest X-Ray 06/25/17 06:00 IMPRESSION: Endotracheal tube, left jugular central line in good positioning Dense consolidation left lower lobe, unchanged Assessment & Plan - Diagnosis (1) Acute respiratory failure with hypoxia Is this a current diagnosis for this admission?: Yes Plan: see surgical note for possible tracheostomy under anesthesia (2) Pneumonia Qualifiers: Pneumonia type: due to unspecified organism Laterality: right Lung location: lower lobe of lung Qualified Code(s): J18.1 - Lobar pneumonia, unspecified organism Is this a current diagnosis for this admission?: Yes Plan: 06/19/17 10:30 Gram Stain - Final Trach Site Wound Culture - Final Escherichia Coli Esbl Escherichia Coli Esbl#2 Skin Hannah 06/17/17 09:18 Blood Culture - Final Blood Staphylococcus Epidermidis 06/15/17 23:10 Gram Stain - Final Tracheal Aspirate Sputum Culture - Final Escherichia Coli Esbl Normal Hannah Absent 06/15/17 16:40 Blood Culture - Final Blood Staphylococcus Epidermidis (3) Septic shock Is this a current diagnosis for this admission?: Yes (4) Traumatic brain injury Qualifiers: Encounter type: sequela Is this a current diagnosis for this admission?: Yes - Time Total Critical Time (Minutes): 40
[2017-06-25] MEDS: SIMVASTATIN 40 MG TABLET PEG SCH (22:20)
[2017-06-26] MEDS: NYSTATIN TOPICAL POWDER 15 GM TP SCH ×5 (00:01→23:42)
[2017-06-26] MEDS: PROPOFOL 100 ML IV PRN ×5 (00:01→22:39)
[2017-06-26] MEDS: IPRATROPIUM/ALBUTEROL 0.5-2.5 MG/3 ML AMPUL NEB SCH ×4 (02:22→20:17)
[2017-06-26] MEDS: METHYLPREDNISOLONE INJ 40 MG/1 ML SDV IV SCH ×3 (06:09→21:52)
[2017-06-26] MEDS: DOXYCYCLINE HYCLATE 100 MG in DEXTROSE 5%-WATER 250 ML IV SCH (06:10)
[2017-06-26 06:17] LABS: ARTERIAL BLOOD BASE EXCESS 0.2 mmol/L; ARTERIAL BLOOD H2CO3 1.04 mmol/L (1.05-1.35); ARTERIAL BLOOD HCO3 23.7 mmol/L (20-26); ARTERIAL BLOOD PCO2 34.6 mmHg (35-45); ARTERIAL BLOOD PH 7.45 (7.35-7.45); ARTERIAL BLOOD TOTAL CO2 24.8 mmol/L (23-27)
[2017-06-26 06:18] LABS: ABSOLUTE LYMPHOCYTES (AUTO) 1.1 10^3/uL (0.5-4.7); ABSOLUTE MONOCYTES (AUTO) 0.3 10^3/uL (0.1-1.4); ABSOLUTE NEUT (AUTO) 4.4 10^3/uL (1.7-8.2); BASOPHILS % (AUTO) 0.7 % (0-2); EOSINOPHILS % (AUTO) 0.1 % (0-6); HEMATOCRIT 29.2 % (37.9-51.0); HEMOGLOBIN 9.9 g/dL (13.5-17.0); LYMPHOCYTES % (AUTO) 17.9 % (13-45); MEAN CORPUSCULAR HEMOGLOBIN 30.8 pg (27.0-33.4); MEAN CORPUSCULAR HGB CONC 33.9 g/dL (32.0-36.0); MEAN CORPUSCULAR VOLUME 91 fl (80-97); MONOCYTES % (AUTO) 5.8 % (3-13); PLATELET COUNT 455 10^3/uL (150-450); RED BLOOD COUNT 3.21 10^6/uL (4.35-5.55); RED CELL DISTRIBUTION WIDTH 15.2 % (11.5-14.0); SEGMENTED NEUTROPHILS % (AUTO) 75.5 % (42-78); TOTAL CELLS COUNTED % (AUTO) 100 %; WHITE BLOOD COUNT 5.9 10^3/uL (4.0-10.5)
[2017-06-26 06:19] LABS: ARTERIAL BLOOD FIO2 30%
[2017-06-26 06:34] LABS: ANION GAP 9 (5-19); BLOOD UREA NITROGEN 6 mg/dL (7-20); CALCIUM 8.7 mg/dL (8.4-10.2); CARBON DIOXIDE 26 mmol/L (22-30); CHLORIDE 103 mmol/L (98-107); GLUCOSE 93 mg/dL (75-110); PHOSPHORUS 3.4 mg/dL (2.5-4.5); POTASSIUM 4.4 mmol/L (3.6-5.0); SODIUM 138.1 mmol/L (137-145)
--- NOTE | 2017-06-26 07:36 | RADIOLOGY REPORT (SQ) ---
EXAM DESCRIPTION: CHEST SINGLE VIEW CLINICAL HISTORY: 56 years Male, pna/resp fail COMPARISON: One day prior. NUMBER OF VIEWS/TECHNIQUE: 1/AP FINDINGS: Moderate opacity of the left lower hemithorax, mild central pulmonary edema pattern, right apical bullous disease, normal cardiac silhouette, adequate appearing endotracheal tube tip is 5 cm from the madan, left jugular central line tip at the SVC. Stable multiple right mid and lower posterior rib deformities. No pneumothorax. No acute bone defect. IMPRESSION: No significant change.
[2017-06-26] MEDS: ACETYLCYSTEINE 20% SOLN 800 MG/4 ML VIAL.NEB NEB SCH ×2 (08:40→20:17)
[2017-06-26] MEDS: SULFAMETHOXAZOLE/TRIMETHOPRIM 800-160 MG TABLET PEG SCH ×2 (09:17→21:52)
[2017-06-26] MEDS: FLUOXETINE HCL 20 MG/5 ML UDCUP PEG SCH (09:17)
[2017-06-26] MEDS: LACTOBACILLUS ACIDOPHILUS 250 MG TAB PEG SCH ×2 (09:17→18:11)
[2017-06-26] MEDS: MAGNESIUM OXIDE 400 MG TABLET PEG SCH (09:18)
[2017-06-26] MEDS: ARIPIPRAZOLE 5 MG TABLET PEG SCH (09:18)
[2017-06-26] MEDS: CYANOCOBALAMIN (VITAMIN B-12) 1,000 MCG TABLET PEG SCH (09:18)
[2017-06-26] MEDS: MIDODRINE HCL 5 MG TABLET PO SCH ×3 (09:19→18:11)
[2017-06-26] MEDS: ENOXAPARIN SODIUM INJ 40 MG/0.4 ML DISP.SYRIN SUBCUT SCH (09:19)
[2017-06-26] MEDS: POLYVINYL ALCOHOL 1.4% OPH SOLN 15 ML OU SCH ×3 (09:20→18:12)
[2017-06-26] MEDS ORDERED: (PENDING PHARMACY ID) (Cyanocobalamin (Vitamin B-12) [Vitamin B-12 100 Mcg Tablet] 100 MCG PEG SCH (10:00)
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
[2017-06-26] MEDS: FUROSEMIDE INJ/PF 20 MG/2 ML SDV IV SCH (18:10)
[2017-06-26] MEDS: SCOPOLAMINE HYDROBROMIDE 1.5 MG PATCH.TD72 TD SCH (18:11)
[2017-06-26] MEDS: SIMVASTATIN 40 MG TABLET PEG SCH (21:52)
[2017-06-27] MEDS: PROPOFOL 100 ML IV PRN ×3 (01:50→10:11)
[2017-06-27] MEDS: IPRATROPIUM/ALBUTEROL 0.5-2.5 MG/3 ML AMPUL NEB SCH ×2 (02:51→08:08)
[2017-06-27] MEDS: NYSTATIN TOPICAL POWDER 15 GM TP SCH (05:06)
[2017-06-27] MEDS: METHYLPREDNISOLONE INJ 40 MG/1 ML SDV IV SCH (05:06)
[2017-06-27] MEDS: FUROSEMIDE INJ/PF 20 MG/2 ML SDV IV SCH (05:06)
[2017-06-27 05:11] LABS: ABSOLUTE LYMPHOCYTES (AUTO) 0.8 10^3/uL (0.5-4.7); ABSOLUTE MONOCYTES (AUTO) 0.3 10^3/uL (0.1-1.4); ABSOLUTE NEUT (AUTO) 4.8 10^3/uL (1.7-8.2); BASOPHILS % (AUTO) 0.6 % (0-2); HEMATOCRIT 29.5 % (37.9-51.0); HEMOGLOBIN 9.8 g/dL (13.5-17.0); LYMPHOCYTES % (AUTO) 12.8 % (13-45); MEAN CORPUSCULAR HEMOGLOBIN 30.2 pg (27.0-33.4); MEAN CORPUSCULAR HGB CONC 33.1 g/dL (32.0-36.0); MEAN CORPUSCULAR VOLUME 91 fl (80-97); MONOCYTES % (AUTO) 5.9 % (3-13); PLATELET COUNT 473 10^3/uL (150-450); RED BLOOD COUNT 3.24 10^6/uL (4.35-5.55); RED CELL DISTRIBUTION WIDTH 15.2 % (11.5-14.0); SEGMENTED NEUTROPHILS % (AUTO) 80.7 % (42-78); TOTAL CELLS COUNTED % (AUTO) 100 %; WHITE BLOOD COUNT 5.9 10^3/uL (4.0-10.5)
[2017-06-27 05:12] LABS: ARTERIAL BLOOD BASE EXCESS 3.1 mmol/L; ARTERIAL BLOOD FIO2 30%; ARTERIAL BLOOD H2CO3 1.11 mmol/L (1.05-1.35); ARTERIAL BLOOD HCO3 26.6 mmol/L (20-26); ARTERIAL BLOOD O2 SATURATION 94.8 % (94-98); ARTERIAL BLOOD PH 7.48 (7.35-7.45); ARTERIAL BLOOD PO2 68.5 mmHg (80-100); ARTERIAL BLOOD TOTAL CO2 27.8 mmol/L (23-27)
[2017-06-27 05:37] LABS: ANION GAP 12 (5-19); BLOOD UREA NITROGEN 8 mg/dL (7-20); CALCIUM 8.9 mg/dL (8.4-10.2); CARBON DIOXIDE 27 mmol/L (22-30); CHLORIDE 105 mmol/L (98-107); GLUCOSE 116 mg/dL (75-110); POTASSIUM 4.3 mmol/L (3.6-5.0); SODIUM 143.6 mmol/L (137-145)
--- NOTE | 2017-06-27 06:44 | RADIOLOGY REPORT (SQ) ---
EXAM DESCRIPTION: CHEST SINGLE VIEW CLINICAL HISTORY: 56 years Male, pna/resp failure COMPARISON: One day prior. NUMBER OF VIEWS/TECHNIQUE: 1/AP FINDINGS: Moderate airspace opacities of the left lower lobe, possible small left effusion, prominent interstitium, normal cardiac silhouette, adequate appearing endotracheal tube, 6.6 cm right upper lobar apical bullous pattern, left jugular central line tip at the SVC, mild dextroconvexity, and right sixth, seventh, and eighth posterior rib deformities. No pneumothorax. No acute bone defect. IMPRESSION: No significant change.
[2017-06-27] MEDS: ACETYLCYSTEINE 20% SOLN 800 MG/4 ML VIAL.NEB NEB SCH (08:08)
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
[2017-06-27 10:00] VITALS: BP 104/67
[2017-06-27] MEDS: ARIPIPRAZOLE 5 MG TABLET PEG SCH (10:11)
[2017-06-27] MEDS: CYANOCOBALAMIN (VITAMIN B-12) 1,000 MCG TABLET PEG SCH (10:12)
[2017-06-27] MEDS: FLUOXETINE HCL 20 MG/5 ML UDCUP PEG SCH (10:12)
[2017-06-27] MEDS: MAGNESIUM OXIDE 400 MG TABLET PEG SCH (10:12)
[2017-06-27] MEDS: GUAIFENESIN/D-METHORPHAN (200-20 MG) SYRUP 10 ML PO PRN (10:12)
[2017-06-27] MEDS: LACTOBACILLUS ACIDOPHILUS 250 MG TAB PEG SCH (10:13)
[2017-06-27] MEDS: SULFAMETHOXAZOLE/TRIMETHOPRIM 800-160 MG TABLET PEG SCH (10:15)
[2017-06-27] MEDS: ENOXAPARIN SODIUM INJ 40 MG/0.4 ML DISP.SYRIN SUBCUT SCH (10:15)
[2017-06-27] MEDS: POLYVINYL ALCOHOL 1.4% OPH SOLN 15 ML OU SCH (10:15)
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
== END 2017-06-27 11:36 | disposition short-term general hospital (02) | DRG 870 ==
LOC: ER 16:27 → EH 18:39 → ICU 22:03
PROVIDERS: ADMIT Internal Medicine; ATTEND Internal Medicine
PROC: 5A1955Z Respiratory Ventilation, Greater than 96 Consecutive Hours (ICD-10-PCS; principal; 2017-06-15)
PROC: 0BH17EZ Insertion of Endotracheal Airway into Trachea, Via Natural or Artificial Opening (ICD-10-PCS; 2017-06-15)
PROC: 02HV33Z Insertion of Infusion Device into Superior Vena Cava, Percutaneous Approach (ICD-10-PCS; 2017-06-15)
PROC: 3E0F73Z Introduction of Anti-inflammatory into Respiratory Tract, Via Natural or Artificial Opening (ICD-10-PCS; 2017-06-15)
PROC: 5A09357 Assistance with Respiratory Ventilation, Less than 24 Consecutive Hours, Continuous Positive Airway Pressure (ICD-10-PCS; 2017-06-23)
DX: A41.9 Sepsis, unspecified organism (principal); J96.21 Acute and chronic respiratory failure with hypoxia; R65.21 Severe sepsis with septic shock; J15.5 Pneumonia due to Escherichia coli; J69.0 Pneumonitis due to inhalation of food and vomit; Z51.5 Encounter for palliative care; Z66 Do not resuscitate; D64.9 Anemia, unspecified; F20.9 Schizophrenia, unspecified; Z93.1 Gastrostomy status; Z78.1 Physical restraint status; Z79.899 Other long term (current) drug therapy
CPT/HCPCS: 31500; 36415; 71045; 80048; 80053; 80076; 80202; 81001; 82533; 82550; 82565; 82803; 82962; 83605; 83690; 83735; 83880; 84100; 84443; 84478; 85025; 85027; 85730; 87040; 87070; 87077; 87086; 87186; 87205; 87493; 93005; 93010; 94002; 94003; 94640; 94667; 94668; 96365; 96368; 99291; C1751; J0330; J1100; J1642; J1650; J1940; J1956; J2185; J2543; J2704; J2920; J3010; J3370; J3475; J3480; J3490; J7030; J7060; J7620; J7685; S0164

== ENCOUNTER 2017-09-03 10:29 | Inpatient (IN) | payer MEDICARE, MEDICAID ==
[2017-09-03] MEDS ORDERED: NORMAL SALINE 1000 ML 1,000 ML IV ONE ×2 (10:43→12:49)
[2017-09-03] MEDS ORDERED: VANCOMYCIN HCL INJ 1000 MG VIAL IV ONE (10:44)
[2017-09-03] MEDS ORDERED: PIPERACILLIN/TAZOBACTAM 3.375 GM VIAL IV ONE (10:45)
[2017-09-03] MEDS ORDERED: ACETAMINOPHEN 325 MG TABLET GT ONE (10:45)
--- NOTE | 2017-09-03 10:50 | ER Document Report ---
ED General - General Chief Complaint: Respiratory Distress Stated Complaint: BREATHING PROBLEMS Time Seen by Provider: 09/03/17 10:40 TRAVEL OUTSIDE OF THE [place] IN LAST 30 DAYS: No - Related Data Allergies/Adverse Reactions: No Known Allergies Allergy (Verified 06/06/17 07:51) Past Medical History - Social History Family History: Other - Unable to obtain secondary to patient's condition Pulmonary Medical History: Reports: Hx Pneumonia, Hx Respiratory Failure Renal/ Medical History: Denies: Hx Peritoneal Dialysis Psychiatric Medical History: Reports: Hx Depression Traumatic Medical History: Reports: Hx Traumatic Brain Injury Past Surgical History: Reports: Other - Tracheostomy Course - Laboratory Result Diagrams: 09/03/17 10:36 09/03/17 10:36 Discharge - Discharge Referrals: RALEIGH GARCIA DO [Primary Care Provider] - Follow up as needed
[2017-09-03 10:53] LABS: ABSOLUTE NEUT (AUTO) 11.3 10^3/uL (1.7-8.2); BASOPHILS % (AUTO) 0.4 % (0-2); HEMATOCRIT 41.6 % (37.9-51.0); HEMOGLOBIN 14.2 g/dL (13.5-17.0); LYMPHOCYTES % (AUTO) 7.2 % (13-45); MEAN CORPUSCULAR HEMOGLOBIN 31.5 pg (27.0-33.4); MEAN CORPUSCULAR HGB CONC 34.2 g/dL (32.0-36.0); MEAN CORPUSCULAR VOLUME 92 fl (80-97); MONOCYTES % (AUTO) 7.5 % (3-13); PLATELET COUNT 327 10^3/uL (150-450); RED BLOOD COUNT 4.51 10^6/uL (4.35-5.55); RED CELL DISTRIBUTION WIDTH 14.7 % (11.5-14.0); SEGMENTED NEUTROPHILS % (AUTO) 84.9 % (42-78); TOTAL CELLS COUNTED % (AUTO) 100 %; WHITE BLOOD COUNT 13.3 10^3/uL (4.0-10.5)
[2017-09-03] MEDS ORDERED: ACETAMINOPHEN SOLN 325 MG/10.15 ML UDCUP GT ONE (10:58)
--- NOTE | 2017-09-03 11:01 | ER Document Report ---
ED General - General Chief Complaint: Respiratory Distress Stated Complaint: BREATHING PROBLEMS Time Seen by Provider: 09/03/17 10:40 Mode of Arrival: Medic Information source: Emergency Med Personnel Notes: 57 year old Male brought to the emergency department by EMS for possible sepsis. Patient is at [facility]. He has a history of traumatic brain injury and is DNR status. [facility] nursing staff noted the patient to have an oxygen saturation in the 70s today. He does have a tracheostomy. EMS was called. Deep suction was performed. Patient's oxygen saturation then went into the mid 90s. His vital signs were remarkable for tachycardia, tachypnea, fever. No recent antibiotics. Hx of aspiration pneumonia. TRAVEL OUTSIDE OF THE [place] IN LAST 30 DAYS: No - HPI Onset: Just prior to arrival Onset/Duration: Sudden Associated symptoms: Fever Similar symptoms previously: Yes Recently seen / treated by doctor: No - Related Data Allergies/Adverse Reactions: No Known Allergies Allergy (Verified 06/06/17 07:51) Past Medical History - General Cannot obtain history due to: Mentally challenged - Social History Smoking Status: Unknown if Ever Smoked Family History: Other - Unable to obtain secondary to patient's condition Pulmonary Medical History: Reports: Hx Pneumonia, Hx Respiratory Failure Renal/ Medical History: Denies: Hx Peritoneal Dialysis Psychiatric Medical History: Reports: Hx Depression Traumatic Medical History: Reports: Hx Traumatic Brain Injury Past Surgical History: Reports: Other - Tracheostomy Review of Systems - Review of Systems -: Yes ROS unobtainable due to patient's medical condition Physical Exam - Vital signs Vitals: Pulse Ox 95 09/03/17 10:30 - Notes Notes: PHYSICAL EXAMINATION: GENERAL: Cachetic, ill appearing, Severe respiratory distress. HEAD: Atraumatic. EYES: Pupils equal round and reactive to light, extraocular movements intact, sclera anicteric, conjunctiva are normal. ENT: Nares patent. Dry mucus membranes. Tracheostomy in place. NECK: Trachestomy in place. LUNGS: Tachypneic. Breath sounds clear to auscultation bilaterally and equal. No wheezes rales or rhonchi. HEART: Tachycardic. ABDOMEN: Soft, nontender, nondistended abdomen. G tube in place. Musculoskeletal: No movement of the extremities. 2+ radial, DP/PT pulses appreciated. SKIN: Warm, Dry, no rashes or lesions noted. Course - Re-evaluation Re-evalutation: 09/03/17 13:41 Crusting around the trach. Stoma replaced. With patient being tachycardic, tachypnea, febrile, sepsis workup started. CXR shows atelectiasis. UA is unremarkable. WBC is elevated. Possible site of infection is stoma vs L lung atelectiasis. Patient given vancomycin and zosyn. 2L of fluids given. Tachycardia and tachypnea resolving. I contacted the hospitalist for admission. Patient admitted. Currently stable. - Vital Signs Vital signs: Temp Pulse Resp BP Pulse Ox 101.2 F H 152 H 46 H 111/77 97 09/03/17 10:51 09/03/17 10:40 09/03/17 12:31 09/03/17 12:31 09/03/17 12:31 - Laboratory Result Diagrams: 09/03/17 10:36 09/03/17 12:27 Laboratory results interpreted by me: 09/03/17 09/03/17 09/03/17 10:36 12:16 12:27 WBC 13.3 H RDW 14.7 H Seg Neutrophils % 84.9 H Lymphocytes % 7.2 L Absolute Neutrophils 11.3 H Chloride 108 H BUN 28 H Glucose 143 H Calcium 8.2 L Total Protein 5.3 L Albumin 3.0 L Urine Glucose (UA) 50 H Urine Ascorbic Acid 40 H - EKG Interpretation by Me Additional EKG results interpreted by me: 09/03/17 11:03 EKG: Ventricular rate 142, GA interval 112, QRS duration 76, QTc 449, sinus tachycardia. No ischemic changes. Discharge - Discharge Clinical Impression: Respiratory distress, Atelectasis Sepsis Qualifiers: Sepsis type: sepsis due to unspecified organism Qualified Code(s): A41.9 - Sepsis, unspecified organism Condition: Stable Disposition: ADMITTED INPATIENT Admitting Provider: Hospitalist Unit Admitted: IMCU Referrals: RALEIGH GARCIA DO [Primary Care Provider] - Follow up as needed
--- NOTE | 2017-09-03 11:31 | RADIOLOGY REPORT (SQ) ---
EXAM DESCRIPTION: CHEST SINGLE VIEW COMPLETED DATE/TIME: 09/03/2017 11:11 am REASON FOR STUDY: sepsis COMPARISON: 03/17/2017, 06/23/2017, 06/25/2017, 06/27/2017 chest films EXAM PARAMETERS: NUMBER OF VIEWS: One view. TECHNIQUE: Single frontal radiographic view of the chest acquired. RADIATION DOSE: NA LIMITATIONS: None. FINDINGS: LUNGS AND PLEURA: Bandlike atelectasis of the left hemidiaphragm, unchanged from prior [place] dies. Right lung well inflated and clear. No pleural effusions. No pneumothorax. MEDIASTINUM AND HILAR STRUCTURES: No masses. Contour normal. HEART AND VASCULAR STRUCTURES: Stable mild cardiomegaly BONES: Osteopenic. Old healed right posterior rib fractures. HARDWARE: Tracheostomy tube tip midtrachea. OTHER: No other significant finding. IMPRESSION: Stable left basilar bandlike scarring or atelectasis. TECHNICAL DOCUMENTATION: JOB ID: [id number] [employer]- All Rights Reserved Reading location - IP/workstation name: [facility]
[2017-09-03 12:20] LABS: ARTERIAL BLOOD BASE EXCESS -0.7 mmol/L; ARTERIAL BLOOD H2CO3 1.28 mmol/L (1.05-1.35); ARTERIAL BLOOD HCO3 24.5 mmol/L (20-26); ARTERIAL BLOOD O2 SATURATION 97.2 % (94-98); ARTERIAL BLOOD PCO2 42.5 mmHg (35-45); ARTERIAL BLOOD PH 7.38 (7.35-7.45); ARTERIAL BLOOD PO2 95.6 mmHg (80-100); ARTERIAL BLOOD TOTAL CO2 25.8 mmol/L (23-27)
[2017-09-03 12:21] LABS: ARTERIAL BLOOD FIO2 8L
[2017-09-03 12:41] LABS: AMORPHOUS SEDIMENT,URINE 3+ /HPF; APPEARANCE,URINE TURBID; BILIRUBIN,URINE NEGATIVE (NEGATIVE); COLOR,URINE YELLOW; GLUCOSE, URINE 50 mg/dL (NEGATIVE); KETONES,URINE NEGATIVE (NEGATIVE); LEUKOCYTE ESTERASE,URINE NEGATIVE (NEGATIVE); NITRITE,URINE NEGATIVE (NEGATIVE); PROTEIN,URINE NEGATIVE (NEGATIVE); URINE SPECIFIC GRAVITY 1.036; UROBILINOGEN,URINE NEGATIVE mg/dL (<2.0)
[2017-09-03 13:08] LABS: ALANINE AMINOTRANSFERASE 32 U/L (21-72); ALKALINE PHOSPHATASE 58 U/L (38-126); ANION GAP 10 (5-19); ASPARTATE AMINO TRANSFERASE 18 U/L (17-59); BILIRUBIN,DIRECT 0.4 mg/dL (0.0-0.4); BILIRUBIN,TOTAL 0.4 mg/dL (0.2-1.3); BLOOD UREA NITROGEN 28 mg/dL (7-20); CALCIUM 8.2 mg/dL (8.4-10.2); CARBON DIOXIDE 26 mmol/L (22-30); CHLORIDE 108 mmol/L (98-107); GLUCOSE 143 mg/dL (75-110); POTASSIUM 4.4 mmol/L (3.6-5.0); TOTAL PROTEIN 5.3 g/dL (6.3-8.2)
--- NOTE | 2017-09-03 13:22 | EKG REPORT ---
SEVERITY:- ABNORMAL ECG - SINUS TACHYCARDIA PROBABLE POSTERIOR INFARCT : Confirmed by: Erick Bella MD 03-Sep-2017 13:21:44
[2017-09-03] MEDS ORDERED: ACETAMINOPHEN 325 MG TABLET GT PRN (14:32)
[2017-09-03] MEDS ORDERED: IPRATROPIUM BROMIDE 0.02% NEB 0.5 MG/2.5 ML AMPUL NEB PRN (14:32)
[2017-09-03] MEDS ORDERED: IPRATROPIUM/ALBUTEROL 0.5-2.5 MG/3 ML AMPUL NEB SCH (16:00)
[2017-09-03 16:51] LABS: ARTERIAL BLOOD BASE EXCESS -2.2 mmol/L; ARTERIAL BLOOD HCO3 22.1 mmol/L (20-26); ARTERIAL BLOOD O2 SATURATION 96.4 % (94-98); ARTERIAL BLOOD PCO2 36.4 mmHg (35-45); ARTERIAL BLOOD PO2 83.8 mmHg (80-100); ARTERIAL BLOOD TOTAL CO2 23.3 mmol/L (23-27)
[2017-09-03 16:53] LABS: ARTERIAL BLOOD FIO2 30%
[2017-09-03] MEDS ORDERED: GUAIFENESIN SYRP 200 MG/10 ML UDC PO SCH (18:00)
[2017-09-03] MEDS: MEROPENEM 1 GM in NORMAL SALINE 50 ML IV SCH (18:34)
[2017-09-03] MEDS: POLYVINYL ALCOHOL 1.4% OPH SOLN 15 ML OU SCH (18:34)
[2017-09-03] MEDS: GUAIFENESIN SYRP 200 MG/10 ML UDC GT SCH ×2 (18:34→21:09)
[2017-09-03] MEDS: NORMAL SALINE 1000 ML 1,000 ML IV PRN (18:39)
[2017-09-03] MEDS: NYSTATIN 500000 UNIT/5 ML UDCUP PO SCH ×2 (19:34→21:09)
--- NOTE | 2017-09-03 20:00 | PDOC H&P ---
History of Present Illness Admission Date/PCP: 09/03/17 13:44 RALEIGH GARCIA DO History of Present Illness: CECILIA MARTINEZ is a 57 year old male with a past medical history significant for recent traumatic TBI (January 2017) resulting in chronic respiratory failure requiring tracheotomy and G-tube (nonverbal, contractures, and does not follow directions at baseline), with multiple admissions for acute respiratory failure secondary to aspiration pneumonitis/pneumonia who presented to the emergency department today with acute respiratory failure with hypoxia (initial pulse ox reading in the mid 70s per EMS) and sepsis evidenced by her (101.2) tachycardia (152), hypotension (93/67), tachypnea (48), and leukocytosis (WBCs 13.3). HPI is limited secondary to baseline mental status; recent illness obtained by EMS and emergency department records. I also spoke with the patient's [facility] publicity writer, Chaka ([phone]) who reports that the patient was discharged from [facility] approximately 2 weeks ago. The patient had remained at [facility] from the time of our transfer there on 06/27/17 for sepsis, bacteremia, PNA, and need for tracheotomy revision. He is seen while in the emergency department; he is found on trach collar with supplemental oxygen 8 L/min. He is currently maintaining oxygen saturations in the mid 90s, but remains tachypneic with a respiratory rate in the mid to high 30s and is noted to have copious purulent sputum with cough. He is referred to the hospitalist service for acute on chronic respiratory failure with hypoxia and sepsis, likely secondary to pneumonia. Past Medical History Pulmonary Medical History: Reports: Intubation, Pneumonia, Respiratory Failure EENT Medical History: Reports: None Neurological Medical History: Reports: Other - TBI Endocrine Medical History: Reports: None Renal/ Medical History: Reports: None Malignancy Medical History: Reports: None GI Medical History: Reports: Other - G-tube Musculoskeltal Medical History: Reports: None Skin Medical History: Reports: None Psychiatric Medical History: Reports: Depression Traumatic Medical History: Reports: Traumatic Brain Injury Hematology: Reports: Anemia Infectious Medical History: Reports: None Past Surgical History Past Surgical History: Reports: Other - Tracheostomy, G-tube Social History Information Source: Emergency Med Personnel, H Records, Outside Facility Records Lives with: Group Home Smoking Status: Unknown if Ever Smoked Frequency of Alcohol Use: None Hx Recreational Drug Use: No Drugs: None Hx Prescription Drug Abuse: No - Advance Directive Resuscitation Status: Do Not Resuscitate - DO intubate/ ventilate Surrogate healthcare decision maker:: [facility] publicity writerChaka, Family History Parental Family History Reviewed: No - Unable to obtain secondary to patient's condition Children Family History Reviewed: Unknown Sibling(s) Family History Reviewed.: Unknown Medication/Allergy Home Medications: Aripiprazole [Abilify] 20 mg PEG DAILY 09/03/17 Baclofen [Baclofen 10 mg Tablet] 10 mg PEG Q8HP PRN 09/03/17 Chlorhexidine Gluconate [Peridex] 15 ml PO BID 09/03/17 Cyanocobalamin (Vitamin B-12) [Vitamin B-12 100 mcg Tablet] 100 mcg PEG DAILY Enoxaparin Sodium [Lovenox Inj 40 mg/0.4 ml Disp.syrin] 40 mg SQ DAILY 09/03/17 Fluoxetine HCl [Prozac] 40 mg PEG DAILY 09/03/17 Glycopyrrolate [Robinul Forte 1 mg Tablet] 2 mg PEG Q8 09/03/17 Guaifenesin [Tussin] 200 mg PEG Q4HP PRN 09/03/17 Ipratropium/Albuterol Sulfate [Iprat-Albut 0.5-3(2.5) mg/3 ml] 3 ml NEB Q4HP PRN 09/03/17 Multivitamin [Tab-A-Joie (Multiple Vitamin) Tablet] 1 tab PEG DAILY 09/03/17 Nystatin [Mycostatin 795697 Unit/1 ml Susp 60 ml Btl] 5 ml PEG DAILYP PRN Ondansetron HCl [Zofran 4 mg Tablet] 4 mg PEG Q6HP PRN 09/03/17 Pantoprazole Sodium [Protonix] 40 mg PEG DAILY 09/03/17 Scopolamine [Transderm-Scop] 1 patch TD Q3D 09/03/17 Allergies/Adverse Reactions: No Known Allergies Allergy (Verified 06/06/17 07:51) Review of Systems ROS unobtainable: Due to mental status Physical Exam Vital Signs: Temp Pulse Resp BP Pulse Ox 98.6 F 152 H 32 H 97/69 L 96 09/03/17 14:00 09/03/17 10:40 09/03/17 14:00 09/03/17 14:00 09/03/17 14:00 General appearance: PRESENT: mild distress, thin, well-developed, other - Cachectic, Ill-appearing Head exam: PRESENT: atraumatic, normocephalic Eye exam: PRESENT: conjunctiva pink, EOMI, PERRLA. ABSENT: scleral icterus Ear exam: PRESENT: normal external ear exam Mouth exam: PRESENT: dry mucosa, tongue midline Neck exam: ABSENT: carotid bruit, JVD, lymphadenopathy, thyromegaly Respiratory exam: PRESENT: clear to auscultation [place], tachypnea, other - Tracheostomy; copious purulent sputum. ABSENT: rales, wheezes Cardiovascular exam: PRESENT: RRR, tachycardia. ABSENT: diastolic murmur, rubs , systolic murmur Pulses: PRESENT: normal dorsalis pedis pul Vascular exam: PRESENT: normal capillary refill GI/Abdominal exam: PRESENT: normal bowel sounds, soft, other - G-tube. ABSENT: distended, guarding, mass, organolmegaly, rebound, tenderness Rectal exam: PRESENT: deferred Extremities exam: PRESENT: other - Contractures bilateral upper extremity; no movement to any extremities. ABSENT: calf tenderness, clubbing, pedal edema Neurological exam: PRESENT: awake, aphasic, other - Grimaces with pain; does not follow commands withdraws to pain, no spontaneous movements. Neuro status at baseline per previous records.. ABSENT: oriented to person, oriented to place, oriented to time, oriented to situation, motor sensory deficit Psychiatric exam: ABSENT: homicidal ideation, suicidal ideation Skin exam: PRESENT: dry, intact, warm. ABSENT: cyanosis, rash Results Impressions: Chest X-Ray 09/03/17 10:41 IMPRESSION: Stable left basilar bandlike scarring or atelectasis. Assessment & Plan - Diagnosis (1) Sepsis Qualifiers: Sepsis type: sepsis due to unspecified organism Qualified Code(s): A41.9 - Sepsis, unspecified organism Is this a current diagnosis for this admission?: Yes Plan: The patient is admitted with sepsis, likely due to gram-negative pneumonia ( based on previous sputum cultures), present on admission, evidenced by fever, tachycardia, tachypnea, hypotension, hypoxia, and leukocytosis. Initial chest x-ray is negative for acute cardiopulmonary processes. Urinalysis is negative for UTI. Blood and sputum cultures are pending. The patient is admitted to ICU on continuous cardiac telemetry. He received 2 L normal saline IV bolus by emergency department; with improvement in blood pressures. We will continue maintenance IV fluids. The patient received IV Zosyn and vancomycin by emergency department provider. I did discuss with infectious disease, Dr. Ambrocio, patient's presentation and previous culture results. 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 Therefore will initiate IV meropenem for likely recurrent pneumonia (given the patient's acute respiratory failure, poor trach care noted by ED staff, frequent admissions for the same, and previous culture results). (2) Acute respiratory failure with hypoxia Is this a current diagnosis for this admission?: Yes Plan: Evidenced by tachypnea (respiratory rate is high as 48) and hypoxia noted by EMS personnel in the low 70s. He is currently maintaining oxygen saturations in the mid 90s while on supplemental oxygen via trach collar, Although remains tachypneic. ABG is reassuring; 7.40/30 6.4/80 3.8/22.1 The patient's CODE STATUS is confirmed; he is a DNR. However, patient and guardian would wish for the patient to be intubated if necessary. Therefore, as there is no availability on [facility] for a ventilator, the patient is admitted to the ICU. Pulmonology has been consulted. Supplemental oxygen is provided as needed to maintain oxygen saturations greater than 90%. He is provided scheduled and as needed nebulizer treatments. He is provided Mucomyst nebulizer treatments for copious sputum production. He is placed on Robitussin per G-tube. Chest physiotherapy twice daily per RT. Repeat CXR in AM. (3) Traumatic brain injury Qualifiers: Encounter type: sequela Is this a current diagnosis for this admission?: Yes Plan: Patient with traumatic brain injury in January 2017 resulting in baseline GCS of 6 with permanent trach, G-tube, and contractures. We will ask the registered dietitian to evaluate and make recommendations for enteral feedings. Every 2 turns. We will continue the patient's home dose baclofen for muscle spasms and Robinul and scopolamine patch for copious oral secretions. - Time Time Spent: Greater than 70 Minutes Medications reviewed and adjusted accordingly: Yes - Inpatient Certification Based on my medical assessment, after consideration of the patient's comorbidities, presenting symptoms, or acuity I expect that the services needed warrant INPATIENT care.: Yes I certify that my determination is in accordance with my understanding of Medicare's requirements for reasonable and necessary INPATIENT services [42 CFR 412.3e].: Yes Medical Necessity: Need Close Monitoring Due to Risk of Patient Decompensation, Need For IV Fluids, Need for Nebulizer Therapy and Monitoring of Response, Need for IV Antibiotics
[2017-09-03] MEDS: IPRATROPIUM/ALBUTEROL 0.5-2.5 MG/3 ML AMPUL NEB SCH (20:52)
[2017-09-03] MEDS: ACETYLCYSTEINE 20% SOLN 800 MG/4 ML VIAL.NEB NEB SCH (20:53)
[2017-09-03] MEDS ORDERED: SCOPOLAMINE HYDROBROMIDE 1.5 MG PATCH.TD72 TD SCH (21:00)
[2017-09-03] MEDS: GLYCOPYRROLATE 1 MG TABLET PEG SCH (21:09)
[2017-09-03] MEDS: HEPARIN SOD (PORCINE) 5,000 UNIT/ML 1 ML SYRINGE SUBCUT SCH (21:09)
[2017-09-04] MEDS: NORMAL SALINE 1000 ML 1,000 ML IV PRN ×3 (00:03→23:03)
[2017-09-04] MEDS: MEROPENEM 1 GM in NORMAL SALINE 50 ML IV SCH ×3 (01:39→18:35)
[2017-09-04] MEDS: IPRATROPIUM/ALBUTEROL 0.5-2.5 MG/3 ML AMPUL NEB SCH ×4 (02:08→21:20)
[2017-09-04] MEDS: BACLOFEN 10 MG TABLET PEG PRN ×2 (02:43→11:49)
[2017-09-04 04:24] LABS: ANION GAP 11 (5-19); BLOOD UREA NITROGEN 20 mg/dL (7-20); CALCIUM 8.6 mg/dL (8.4-10.2); CARBON DIOXIDE 23 mmol/L (22-30); CHLORIDE 111 mmol/L (98-107); GLUCOSE 100 mg/dL (75-110); SODIUM 144.5 mmol/L (137-145)
[2017-09-04 04:29] LABS: ABSOLUTE LYMPHOCYTES (AUTO) 0.8 10^3/uL (0.5-4.7); ABSOLUTE MONOCYTES (AUTO) 0.5 10^3/uL (0.1-1.4); ABSOLUTE NEUT (AUTO) 5.1 10^3/uL (1.7-8.2); BASOPHILS % (AUTO) 0.4 % (0-2); EOSINOPHILS % (AUTO) 0.1 % (0-6); HEMATOCRIT 31.6 % (37.9-51.0); LYMPHOCYTES % (AUTO) 12.5 % (13-45); MEAN CORPUSCULAR HEMOGLOBIN 31.8 pg (27.0-33.4); MEAN CORPUSCULAR HGB CONC 34.4 g/dL (32.0-36.0); MEAN CORPUSCULAR VOLUME 93 fl (80-97); MONOCYTES % (AUTO) 7.5 % (3-13); PLATELET COUNT 215 10^3/uL (150-450); RED BLOOD COUNT 3.41 10^6/uL (4.35-5.55); RED CELL DISTRIBUTION WIDTH 14.5 % (11.5-14.0); SEGMENTED NEUTROPHILS % (AUTO) 79.5 % (42-78); TOTAL CELLS COUNTED % (AUTO) 100 %; WHITE BLOOD COUNT 6.4 10^3/uL (4.0-10.5)
[2017-09-04 04:31] LABS: HEMOGLOBIN 10.9 g/dL (13.5-17.0)
[2017-09-04] MEDS: HEPARIN SOD (PORCINE) 5,000 UNIT/ML 1 ML SYRINGE SUBCUT SCH ×3 (05:22→23:01)
[2017-09-04] MEDS: GLYCOPYRROLATE 1 MG TABLET PEG SCH ×3 (05:22→23:02)
--- NOTE | 2017-09-04 07:52 | RADIOLOGY REPORT (SQ) ---
EXAM DESCRIPTION: CHEST SINGLE VIEW COMPLETED DATE/TIME: 09/04/2017 7:05 am REASON FOR STUDY: Acute resp failure COMPARISON: Chest films 06/15/2017, 06/26/2017, 06/27/2017, 09/03/2017 EXAM PARAMETERS: NUMBER OF VIEWS: One view. TECHNIQUE: Single frontal radiographic view of the chest acquired. RADIATION DOSE: NA LIMITATIONS: None. FINDINGS: LUNGS AND PLEURA: No right-sided acute infiltrates, pleural effusion, or pneumothorax. There is left retrocardiac consolidation atelectasis versus pneumonia unchanged. No left pleural eff usion or pneumothorax. MEDIASTINUM AND HILAR STRUCTURES: No masses. Contour normal. HEART AND VASCULAR STRUCTURES: No cardiomegaly BONES: No acute findings. HARDWARE: Tracheostomy tube tip in the upper trachea. OTHER: No other significant finding. IMPRESSION: Persistent left retrocardiac consolidation similar compared to previous exams. Tracheostomy tube tip in good positioning TECHNICAL DOCUMENTATION: JOB ID: [id number] [employer]- All Rights Reserved Reading location - IP/workstation name: [email or web address]
[2017-09-04] MEDS: ACETYLCYSTEINE 20% SOLN 800 MG/4 ML VIAL.NEB NEB SCH ×2 (08:37→21:20)
--- NOTE | 2017-09-04 11:30 | PDOC CONSULTATION ---
Consultation Consult Date: 09/04/17 Attending physician:: CHANDANA ALEXANDER Consult reason:: respiratory failure History of Present Illness Admission Date/PCP: 09/03/17 13:44 RALEIGH GARCIA DO History of Present Illness: CECILIA MARTINEZ is a unfortunate 57 year old male s/p TBI with chronic resp failure and frquent aspiration pnumonitisis ptresent to ED with tachyoneia Past Medical History Pulmonary Medical History: Reports: Intubation, Pneumonia, Respiratory Failure EENT Medical History: Reports: None Neurological Medical History: Reports: Other - TBI Endocrine Medical History: Reports: None Renal/ Medical History: Reports: None Malignancy Medical History: Reports: None GI Medical History: Reports: Other - G-tube Musculoskeltal Medical History: Reports: None Skin Medical History: Reports: None Psychiatric Medical History: Reports: Depression Traumatic Medical History: Reports: Traumatic Brain Injury Hematology: Reports: Anemia Infectious Medical History: Reports: None Past Surgical History Past Surgical History: Reports: Other - Tracheostomy, G-tube Social History Information Source: [facility] Records Lives with: [facility] Smoking Status: Unknown if Ever Smoked Frequency of Alcohol Use: None Hx Recreational Drug Use: No Drugs: None Hx Prescription Drug Abuse: No - Advance Directive Resuscitation Status: Do Not Resuscitate - DO intubate/ ventilate Family History Family History: Other - Unable to obtain secondary to patient's condition Parental Family History Reviewed: No Children Family History Reviewed: No Sibling(s) Family History Reviewed.: No Medication/Allergy Home Medications: Aripiprazole [Abilify] 20 mg PEG DAILY 09/03/17 Baclofen [Baclofen 10 mg Tablet] 10 mg PEG Q8HP PRN 09/03/17 Chlorhexidine Gluconate [Peridex] 15 ml PO BID 09/03/17 Cyanocobalamin (Vitamin B-12) [Vitamin B-12 100 mcg Tablet] 100 mcg PEG DAILY Enoxaparin Sodium [Lovenox Inj 40 mg/0.4 ml Disp.syrin] 40 mg SQ DAILY 09/03/17 Fluoxetine HCl [Prozac] 40 mg PEG DAILY 09/03/17 Glycopyrrolate [Robinul Forte 1 mg Tablet] 2 mg PEG Q8 09/03/17 Guaifenesin [Tussin] 200 mg PEG Q4HP PRN 09/03/17 Ipratropium/Albuterol Sulfate [Iprat-Albut 0.5-3(2.5) mg/3 ml] 3 ml NEB Q4HP PRN 09/03/17 Multivitamin [Tab-A-Joie (Multiple Vitamin) Tablet] 1 tab PEG DAILY 09/03/17 Nystatin [Mycostatin [id number] Unit/1 ml Susp 60 ml Btl] 5 ml PEG DAILYP PRN Ondansetron HCl [Zofran 4 mg Tablet] 4 mg PEG Q6HP PRN 09/03/17 Pantoprazole Sodium [Protonix] 40 mg PEG DAILY 09/03/17 Scopolamine [Transderm-Scop] 1 patch TD Q3D 09/03/17 Allergies/Adverse Reactions: No Known Allergies Allergy (Unverified 09/04/17 08:51) Review of Systems ROS unobtainable: Due to mental status Physical Exam Vital Signs: Temp Pulse Resp BP Pulse Ox 97.9 F 110 H 21 H 120/78 97 09/03/17 19:43 09/04/17 02:10 09/04/17 06:01 09/04/17 06:01 09/04/17 06:01 Intake & Output 09/03/17 09/04/17 09/05/17 06:59 06:59 06:59 Intake Total 1585 Output Total 500 Balance 1085 Weight 60.3 kg General appearance: PRESENT: no acute distress, disheveled, thin. ABSENT: cooperative Head exam: PRESENT: normocephalic Eye exam: PRESENT: conjunctiva pale. ABSENT: nystagmus, periorbital swelling, scleral icterus Mouth exam: PRESENT: dry mucosa, neck supple, tongue midline Neck exam: PRESENT: tracheostomy. ABSENT: carotid bruit, JVD, lymphadenopathy, thyromegaly, tracheal deviation Respiratory exam: PRESENT: decreased breath sounds, prolonged expiratory phas, rales, rhonchi, unlabored, wheezes. ABSENT: retraction, stridor, tachypnea Cardiovascular exam: PRESENT: RRR, +S1, +S2 Pulses: PRESENT: normal radial pulses GI/Abdominal exam: PRESENT: hypoactive bowel sounds, soft Extremities exam: ABSENT: calf tenderness, clubbing, joint swelling Neurological exam: PRESENT: awake. ABSENT: oriented to person, oriented to place, oriented to time, oriented to situation Skin exam: PRESENT: dry, warm Results Laboratory Results: 09/04/17 03:55 09/04/17 03:55 09/03/17 09/04/17 09/04/17 16:30 03:55 03:55 WBC 6.4 RBC 3.41 L Hgb 10.9 L D Hct 31.6 L MCV 93 MCH 31.8 MCHC 34.4 RDW 14.5 H Plt Count 215 Seg Neutrophils % 79.5 H Lymphocytes % 12.5 L Monocytes % 7.5 Eosinophils % 0.1 Basophils % 0.4 Absolute Neutrophils 5.1 Absolute Lymphocytes 0.8 Absolute Monocytes 0.5 Absolute Eosinophils 0.0 Absolute Basophils 0.0 Carbonic Acid 1.10 HCO3/H2CO3 Ratio 20:1 ABG pH 7.40 ABG pCO2 36.4 ABG pO2 83.8 ABG HCO3 22.1 ABG O2 Saturation 96.4 ABG Base Excess -2.2 FiO2 30% Sodium 144.5 Potassium 4.0 Chloride 111 H Carbon Dioxide 23 Anion Gap 11 BUN 20 Creatinine 0.51 L Est GFR ( Amer) > 60 Est GFR (Non-Af Amer) > 60 Glucose 100 Calcium 8.6 Impressions: Chest X-Ray 09/04/17 06:00 IMPRESSION: Persistent left retrocardiac consolidation similar compared to previous exams. Tracheostomy tube tip in good positioning Assessment & Plan - Diagnosis (1) Respiratory distress Is this a current diagnosis for this admission?: Yes Plan: tachypnea (2) Respiratory failure, [id number] Qualifiers: Respiratory failure complication: hypoxia Qualified Code(s): J96.21 - Acute and chronic respiratory failure with hypoxia Is this a current diagnosis for this admission?: Yes (3) Traumatic brain injury Qualifiers: Encounter type: sequela Is this a current diagnosis for this admission?: Yes Plan: trach/PEG - Time Total Critical Time (Minutes): 55
[2017-09-04] MEDS: CHLORHEXIDINE GLUCONATE 0.12% ORAL RINSE 15 ML UDC PO SCH ×2 (11:48→18:37)
[2017-09-04] MEDS: GUAIFENESIN SYRP 200 MG/10 ML UDC GT SCH ×4 (11:51→23:01)
[2017-09-04] MEDS: PANTOPRAZOLE SODIUM 40 MG VIAL IV SCH (11:52)
[2017-09-04] MEDS: NYSTATIN 500000 UNIT/5 ML UDCUP PO SCH ×3 (11:52→23:02)
[2017-09-04] MEDS: POLYVINYL ALCOHOL 1.4% OPH SOLN 15 ML OU SCH ×3 (11:56→18:37)
[2017-09-04] MEDS ORDERED: OXYCODONE-ACETAMINOPHEN 5-325 MG TABLET ONE (16:00)
--- NOTE | 2017-09-04 17:55 | PDOC PROGRESS REPORT ---
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 Patient is seen on morning rounds. He is currently receiving supplemental oxygen via trach collar and maintaining oxygen saturations in the mid 90s, however remains tachypneic with a respiratory rate in the high 20s to low 30s and tachycardia at 110. He is sleeping when I enter the room, but does open his eyes when I say his name. He does not appear to make eye contact and it is difficult to tell whether or not his blinking and hand twitching are intentional attempts to communicate or simply reflexive. He is nonverbal and does not follow commands. Reason For Visit: ACUTE RESPIRATORY FAILURE WITH HYPOXIA, SEPSIS Physical Exam Vital Signs: Temp Pulse Resp BP Pulse Ox 98.8 F 107 H 31 H 120/76 97 09/04/17 08:00 09/04/17 08:38 09/04/17 16:01 09/04/17 16:01 09/04/17 16:01 Intake & Output 09/03/17 09/04/17 09/05/17 06:59 06:59 06:59 Intake Total 1585 Output Total 500 270 Balance 1085 -270 Weight 60.3 kg General appearance: PRESENT: mild distress, thin, well-developed Head exam: PRESENT: atraumatic, normocephalic Eye exam: PRESENT: conjunctiva pink, EOMI, PERRLA. ABSENT: scleral icterus Ear exam: PRESENT: normal external ear exam Mouth exam: PRESENT: moist, tongue midline Neck exam: ABSENT: carotid bruit, JVD, lymphadenopathy, thyromegaly Respiratory exam: PRESENT: crackles - Bibasilar, decreased breath sounds, rhonchi, symmetrical, tachypnea, other - Tracheostomy; continues to have copious purulent sputum. ABSENT: rales, wheezes Cardiovascular exam: PRESENT: RRR, +S1, +S2, tachycardia. ABSENT: diastolic murmur, rubs, systolic murmur Pulses: PRESENT: normal dorsalis pedis pul Vascular exam: PRESENT: normal capillary refill GI/Abdominal exam: PRESENT: normal bowel sounds, soft. ABSENT: distended, guarding, mass, organolmegaly, rebound, tenderness Rectal exam: PRESENT: deferred Extremities exam: PRESENT: other - Contractures all 4 extremities. ABSENT: calf tenderness, clubbing, pedal edema Musculoskeletal exam: ABSENT: ambulatory Neurological exam: PRESENT: alert, awake, aphasic, other - Grimaces with pain; does not follow commands or make clearly intentional movements. Neuro status appears to be at baseline per previous records.. ABSENT: motor sensory deficit Skin exam: PRESENT: dry, intact, warm. ABSENT: cyanosis, rash Results Laboratory Results: 09/04/17 03:55 09/04/17 03:55 09/04/17 09/04/17 03:55 03:55 WBC 6.4 RBC 3.41 L Hgb 10.9 L D Hct 31.6 L MCV 93 MCH 31.8 MCHC 34.4 RDW 14.5 H Plt Count 215 Seg Neutrophils % 79.5 H Lymphocytes % 12.5 L Monocytes % 7.5 Eosinophils % 0.1 Basophils % 0.4 Absolute Neutrophils 5.1 Absolute Lymphocytes 0.8 Absolute Monocytes 0.5 Absolute Eosinophils 0.0 Absolute Basophils 0.0 Sodium 144.5 Potassium 4.0 Chloride 111 H Carbon Dioxide 23 Anion Gap 11 BUN 20 Creatinine 0.51 L Est GFR ( Amer) > 60 Est GFR (Non-Af Amer) > 60 Glucose 100 Calcium 8.6 Impressions: Chest X-Ray 09/04/17 06:00 IMPRESSION: Persistent left retrocardiac consolidation similar compared to previous exams. Tracheostomy tube tip in good positioning Assessment & Plan - Diagnosis (1) Sepsis Qualifiers: Sepsis type: sepsis due to unspecified organism Qualified Code(s): A41.9 - Sepsis, unspecified organism Is this a current diagnosis for this admission?: Yes Plan: Improved; leukocytosis has resolved, T-max last 24 hours is 99.9, heart rate is trending down although remains tachycardic (110-120). He does remain tachypneic and with increased oxygen requirement. Blood pressures have normalized. The patient is admitted with sepsis, likely due to gram-negative pneumonia ( based on previous sputum cultures), present on admission, evidenced by fever, tachycardia, tachypnea, hypotension, hypoxia, and leukocytosis. Initial chest x-ray is negative for acute cardiopulmonary processes. Repeat chest x-ray today shows left retrocardiac consolidation suggestive of atelectasis versus pneumonia. Urinalysis is negative for UTI. Blood cultures have no growth at 24 hours. Sputum cultures growing gram-negative rods. The patient is admitted to ICU on continuous cardiac telemetry. He received 2 L normal saline IV bolus by emergency department; with improvement in blood pressures. We will continue maintenance IV fluids. The patient received IV Zosyn and vancomycin by emergency department provider. Infectious disease consulted yesterday; appreciate Dr. Ambrocio's assistance. 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 Continue IV meropenem for likely recurrent pneumonia (given the patient's acute respiratory failure, poor trach care noted by ED staff, frequent admissions for the same, and previous culture results). (2) Acute respiratory failure with hypoxia Is this a current diagnosis for this admission?: Yes Plan: Slight improvement today; leukocytosis and fever have resolved, tachycardia is somewhat improved, however, patient remains tachypneic with increased oxygen demand. ABG on trach collar is reassuring; 7.40/30 6.4/80 3.8/22.1 Chest x-ray demonstrating left retrocardiac consolidation. Blood cultures negative at 24 hours. Sputum culture growing gram-negative rods. Patient initially admitted to ICU; now stable for downgrade to IMCU. The patient's CODE STATUS is confirmed; he is a DNR. However, family and guardian would wish for the patient to be intubated if necessary. Pulmonology has been consulted. Supplemental oxygen is provided as needed to maintain oxygen saturations greater than 90%. He is provided scheduled and as needed nebulizer treatments. He is provided Mucomyst nebulizer treatments for copious sputum production. He is placed on Robitussin per G-tube. Chest physiotherapy twice daily per RT. Con IV meropenem based on previous sputum culture results. (3) Pneumonia Qualifiers: Pneumonia type: due to other aerobic Gram-negative bacteria Laterality: left Lung location: unspecified part of lung Qualified Code(s): J15.6 - Pneumonia due to other Gram-negative bacteria Is this a current diagnosis for this admission?: Yes Plan: Plan as above. (4) Traumatic brain injury Qualifiers: Encounter type: sequela Is this a current diagnosis for this admission?: Yes Plan: Patient with traumatic brain injury in January 2017 resulting in baseline GCS of 6 with permanent trach, G-tube, and contractures. We have resumed tube feedings. Every 2 turns; strict aspiration precautions. We will continue the patient's home dose baclofen for muscle spasms and Robinul and scopolamine patch for copious oral secretions. Resumed patient's home dosed abilify and prozac. Discussed with discharge planning; recommend LTAC at discharge is the patient's guardian confirms that he has not had successful stays at SNF (readmitted to acute inpatient hospital within 1-2 weeks of discharge to SNF). (5) Tachycardia Is this a current diagnosis for this admission?: Yes Plan: Likely secondary to acute on chronic respiratory failure. Sinus tachycardia on EKG; no evidence of ST segment elevation or depression. Initial troponin was negative. We will address respiratory status and continue to monitor on telemetry. - Time Time Spent with patient: 25-34 minutes Medications reviewed and adjusted accordingly: Yes Anticipated discharge: Other - LTAC
[2017-09-04] MEDS: OXYCODONE-ACETAMINOPHEN 5-325 MG TABLET PEG PRN (23:03)
[2017-09-05] MEDS: MEROPENEM 1 GM in NORMAL SALINE 50 ML IV SCH ×2 (02:01→16:55)
[2017-09-05] MEDS: IPRATROPIUM/ALBUTEROL 0.5-2.5 MG/3 ML AMPUL NEB SCH ×4 (02:48→20:06)
[2017-09-05] MEDS: HEPARIN SOD (PORCINE) 5,000 UNIT/ML 1 ML SYRINGE SUBCUT SCH ×3 (05:08→22:40)
[2017-09-05] MEDS: OXYCODONE-ACETAMINOPHEN 5-325 MG TABLET PEG PRN ×2 (05:10→11:43)
[2017-09-05] MEDS: LANSOPRAZOLE 30 MG TAB.RAP.DR PO SCH (05:11)
[2017-09-05] MEDS: GLYCOPYRROLATE 1 MG TABLET PEG SCH ×3 (05:11→22:40)
[2017-09-05 06:43] LABS: ABSOLUTE LYMPHOCYTES (AUTO) 0.8 10^3/uL (0.5-4.7); ABSOLUTE MONOCYTES (AUTO) 0.4 10^3/uL (0.1-1.4); ABSOLUTE NEUT (AUTO) 4.7 10^3/uL (1.7-8.2); BASOPHILS % (AUTO) 0.2 % (0-2); EOSINOPHILS % (AUTO) 0.2 % (0-6); HEMATOCRIT 29.6 % (37.9-51.0); HEMOGLOBIN 10.3 g/dL (13.5-17.0); LYMPHOCYTES % (AUTO) 13.9 % (13-45); MEAN CORPUSCULAR HEMOGLOBIN 32.3 pg (27.0-33.4); MEAN CORPUSCULAR HGB CONC 34.9 g/dL (32.0-36.0); MEAN CORPUSCULAR VOLUME 93 fl (80-97); MONOCYTES % (AUTO) 6.8 % (3-13); PLATELET COUNT 207 10^3/uL (150-450); SEGMENTED NEUTROPHILS % (AUTO) 78.9 % (42-78); TOTAL CELLS COUNTED % (AUTO) 100 %; WHITE BLOOD COUNT 5.9 10^3/uL (4.0-10.5)
[2017-09-05 06:54] LABS: ANION GAP 7 (5-19); BLOOD UREA NITROGEN 13 mg/dL (7-20); CALCIUM 8.5 mg/dL (8.4-10.2); CARBON DIOXIDE 26 mmol/L (22-30); CHLORIDE 107 mmol/L (98-107); GLUCOSE 90 mg/dL (75-110); POTASSIUM 3.7 mmol/L (3.6-5.0); SODIUM 140.4 mmol/L (137-145)
[2017-09-05] MEDS: ACETYLCYSTEINE 20% SOLN 800 MG/4 ML VIAL.NEB NEB SCH ×2 (08:31→20:06)
[2017-09-05] MEDS: POLYVINYL ALCOHOL 1.4% OPH SOLN 15 ML OU SCH ×3 (10:00→16:55)
[2017-09-05] MEDS: ARIPIPRAZOLE 5 MG TABLET PEG SCH (10:00)
[2017-09-05] MEDS: CHLORHEXIDINE GLUCONATE 0.12% ORAL RINSE 15 ML UDC PO SCH ×2 (10:00→16:58)
[2017-09-05] MEDS: PANTOPRAZOLE SODIUM 40 MG VIAL IV SCH (10:00)
[2017-09-05] MEDS: FLUOXETINE HCL 20 MG CAPSULE PEG SCH (10:00)
--- NOTE | 2017-09-05 11:02 | PDOC PROGRESS REPORT ---
Subjective Progress Note for:: 09/05/17 Subjective:: Unchanged Reason For Visit: ACUTE RESPIRATORY FAILURE WITH HYPOXIA, SEPSIS Physical Exam Vital Signs: Temp Pulse Resp BP Pulse Ox 98.1 F 93 24 H 101/65 100 09/05/17 08:00 09/05/17 08:00 09/05/17 08:00 09/05/17 08:00 09/05/17 08:00 Intake & Output 09/04/17 09/05/17 09/06/17 06:59 06:59 06:59 Intake Total 1585 2068 Output Total 500 970 100 Balance 1085 1098 -100 Weight 60.3 kg 61.1 kg General appearance: PRESENT: no acute distress, disheveled. ABSENT: cooperative Head exam: PRESENT: atraumatic, normocephalic Eye exam: PRESENT: conjunctiva pale. ABSENT: nystagmus, periorbital swelling, scleral icterus Mouth exam: PRESENT: dry mucosa, neck supple, tongue midline Neck exam: PRESENT: tracheostomy. ABSENT: carotid bruit, JVD, lymphadenopathy, thyromegaly, tracheal deviation Respiratory exam: PRESENT: decreased breath sounds, prolonged expiratory phas, rales, rhonchi, unlabored. ABSENT: crackles, retraction, stridor Cardiovascular exam: PRESENT: irregular rhythm Pulses: PRESENT: normal radial pulses GI/Abdominal exam: PRESENT: normal bowel sounds, soft Gentrourinary exam: PRESENT: indwelling catheter Extremities exam: ABSENT: calf tenderness, clubbing, joint swelling Musculoskeletal exam: ABSENT: deformity, dislocation Neurological exam: ABSENT: awake, oriented to person, oriented to place Skin exam: PRESENT: dry, warm Results Laboratory Results: 09/05/17 06:30 09/05/17 06:30 09/05/17 09/05/17 09/05/17 05:25 06:30 06:30 WBC 5.9 RBC 3.20 L Hgb 10.3 L Hct 29.6 L MCV 93 MCH 32.3 MCHC 34.9 RDW 14.0 Plt Count 207 Seg Neutrophils % 78.9 H Lymphocytes % 13.9 Monocytes % 6.8 Eosinophils % 0.2 Basophils % 0.2 Absolute Neutrophils 4.7 Absolute Lymphocytes 0.8 Absolute Monocytes 0.4 Absolute Eosinophils 0.0 Absolute Basophils 0.0 Sodium Cancelled 140.4 Potassium Cancelled 3.7 Chloride Cancelled 107 Carbon Dioxide Cancelled 26 Anion Gap Cancelled 7 BUN Cancelled 13 Creatinine Cancelled 0.43 L Est GFR ( Amer) Cancelled > 60 Est GFR (Non-Af Amer) Cancelled > 60 Glucose Cancelled 90 Calcium Cancelled 8.5 Impressions: Chest X-Ray 09/04/17 06:00 IMPRESSION: Persistent left retrocardiac consolidation similar compared to previous exams. Tracheostomy tube tip in good positioning Assessment & Plan - Diagnosis (1) Respiratory distress Is this a current diagnosis for this admission?: Yes Plan: Significantly improved 09/03/17 10:36 Gram Stain - Preliminary Tracheal Aspirate Sputum Culture - Preliminary Gram Negative Rods Start nebulized tobramycin (2) Respiratory failure, [id number] Qualifiers: Respiratory failure complication: hypoxia Qualified Code(s): J96.21 - Acute and chronic respiratory failure with hypoxia Is this a current diagnosis for this admission?: Yes Plan: Probably near baseline (3) Traumatic brain injury Qualifiers: Encounter type: sequela Is this a current diagnosis for this admission?: Yes - Time Total Critical Time (Minutes): 45
[2017-09-05] MEDS ORDERED: TOBRAMYCIN SULFATE INJ 80 MG/2 ML VIAL NEB SCH (11:15)
[2017-09-05] MEDS: BACLOFEN 10 MG TABLET PEG PRN (11:43)
[2017-09-05] MEDS ORDERED: TOBRAMYCIN SULFATE NEB 40 MG/ML 30 ML NEB ONE (13:00)
[2017-09-05] MEDS ORDERED: ACETYLCYSTEINE 10% NEB 400 MG/4 ML VIAL NEB SCH (14:00)
[2017-09-05] MEDS: NYSTATIN 500000 UNIT/5 ML UDCUP PO SCH ×3 (14:00→22:40)
[2017-09-05] MEDS: TOBRAMYCIN SULFATE NEB 40 MG/ML 30 ML NEB SCH (20:06)
--- NOTE | 2017-09-05 21:00 | PDOC PROGRESS REPORT ---
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 The patient was seen this morning on rounds. Eyes open spontaneously. Purposeful movement with RUE, does not follow commands. Contracted in all other extremities. Lung sounds coarse in all davis. Nursing staff reports thick/ tenacious secretions, but only requires suctioning ~ twice per shift. Oxygen requirements have not changed, still remains on 35% trach collar. Leukocytosis resolved. Patient remains afebrile. Reason For Visit: ACUTE RESPIRATORY FAILURE WITH HYPOXIA, SEPSIS Physical Exam Vital Signs: Temp Pulse Resp BP Pulse Ox 99.2 F 111 H 24 H 134/74 H 97 09/05/17 20:09 09/05/17 20:09 09/05/17 20:09 09/05/17 20:09 09/05/17 20:14 Pulse Oximeter Continuous Start: 09/03/17 14: 34 Freq: RTQ4 Status: Active Document 09/05/17 20:06 CMI (Rec: 09/05/17 20:19 [email or web address] [email or web address]) Pulse Oximetry Assessment Oxygen Saturation (92-100) 97 Oxygen Flow Rate (L/min) 7 Oxygen Delivery Method Trach Collar Fraction of Inspired Oxygen (FIO2) 35 Equipment Usage Equipment in Use Continuous Pulse Oximeter 24 Hour Charge Charge Now Continuous SpO2 Machine # 9 Intake & Output 09/04/17 09/05/17 09/06/17 06:59 06:59 06:59 Intake Total 1585 2068 Output Total 500 970 250 Balance 1085 1098 -250 Weight 60.3 kg 61.1 kg General appearance: PRESENT: no acute distress, thin Eye exam: PRESENT: conjunctiva pink, PERRLA Mouth exam: PRESENT: moist Neck exam: PRESENT: tracheostomy. ABSENT: full ROM Respiratory exam: PRESENT: decreased breath sounds, symmetrical, other - coarse lung sounds Cardiovascular exam: PRESENT: +S1, +S2 Pulses: PRESENT: normal radial pulses, +1 pedal pulses bilateral Vascular exam: PRESENT: pallor GI/Abdominal exam: PRESENT: normal bowel sounds, soft, other - enteral feeding via PEG Rectal exam: PRESENT: deferred Gentrourinary exam: PRESENT: indwelling catheter Extremities exam: ABSENT: full ROM - limited ROM to RUE +spontaneous movement. All other extremities contracted. Musculoskeletal exam: ABSENT: ambulatory, full ROM Neurological exam: PRESENT: awake. ABSENT: oriented to person, oriented to place, oriented to time, oriented to situation Skin exam: PRESENT: dry, pallor, warm Results Laboratory Results: 09/05/17 06:30 09/05/17 06:30 09/05/17 09/05/17 09/05/17 05:25 06:30 06:30 WBC 5.9 RBC 3.20 L Hgb 10.3 L Hct 29.6 L MCV 93 MCH 32.3 MCHC 34.9 RDW 14.0 Plt Count 207 Seg Neutrophils % 78.9 H Lymphocytes % 13.9 Monocytes % 6.8 Eosinophils % 0.2 Basophils % 0.2 Absolute Neutrophils 4.7 Absolute Lymphocytes 0.8 Absolute Monocytes 0.4 Absolute Eosinophils 0.0 Absolute Basophils 0.0 Sodium Cancelled 140.4 Potassium Cancelled 3.7 Chloride Cancelled 107 Carbon Dioxide Cancelled 26 Anion Gap Cancelled 7 BUN Cancelled 13 Creatinine Cancelled 0.43 L Est GFR ( Amer) Cancelled > 60 Est GFR (Non-Af Amer) Cancelled > 60 Glucose Cancelled 90 Calcium Cancelled 8.5 Impressions: Chest X-Ray 09/04/17 06:00 IMPRESSION: Persistent left retrocardiac consolidation similar compared to previous exams. Tracheostomy tube tip in good positioning Status: Imported from PACS Assessment & Plan - Diagnosis (1) Sepsis Qualifiers: Sepsis type: sepsis due to unspecified organism Qualified Code(s): A41.9 - Sepsis, unspecified organism Is this a current diagnosis for this admission?: Yes Plan: Improved; leukocytosis has resolved, T-max last 24 hours is 99.9, heart rate is trending down although remains tachycardic (110-120). He does remain tachypneic. Blood pressures have normalized. The patient is admitted with sepsis, likely due to gram-negative pneumonia ( based on previous sputum cultures), present on admission, evidenced by fever, tachycardia, tachypnea, hypotension, hypoxia, and leukocytosis. Initial chest x-ray is negative for acute cardiopulmonary processes. Repeat chest x-ray today shows left retrocardiac consolidation suggestive of atelectasis versus pneumonia. Urinalysis negative for UTI. Blood cultures have no growth at 48 hours. Sputum cultures growing gram-negative rods. The patient is admitted to ICU on continuous cardiac telemetry. Continue maintenance IV fluids. Infectious disease consulted yesterday; appreciate Dr. Ambrocio's assistance. 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 Continue IV meropenem for likely recurrent pneumonia (given the patient's acute respiratory failure, poor trach care noted by ED staff, frequent admissions for the same, and previous culture results). (2) Acute respiratory failure with hypoxia Is this a current diagnosis for this admission?: Yes Plan: Slight improvement today; leukocytosis and fever have resolved, tachycardia is somewhat improved, however, patient remains tachypneic with increased oxygen demand. Chest x-ray demonstrating left retrocardiac consolidation. Blood cultures negative at 48 hours. Sputum culture growing gram-negative rods. Patient initially admitted to ICU; downgraded to IMCU. The patient's CODE STATUS is confirmed; he is a DNR. Family and guardian would wish for the patient to be intubated if necessary - clearly need to be educated about trach/permanent airway negates the need for an ETT Pulmonology has been consulted. Supplemental oxygen is provided as needed to maintain oxygen saturations greater than 90%. He is provided scheduled and as needed nebulizer treatments. He is provided Mucomyst nebulizer treatments for copious sputum production. Chest physiotherapy twice daily per RT. Continue IV meropenem based on previous sputum culture results. (3) Pneumonia Qualifiers: Pneumonia type: due to other aerobic Gram-negative bacteria Laterality: left Lung location: unspecified part of lung Qualified Code(s): J15.6 - Pneumonia due to other Gram-negative bacteria Is this a current diagnosis for this admission?: Yes Plan: Plan as above. (4) Traumatic brain injury Qualifiers: Encounter type: sequela Is this a current diagnosis for this admission?: Yes Plan: Patient with traumatic brain injury in January 2017 resulting in baseline GCS of 6 with permanent trach, G-tube, and contractures. We have resumed tube feedings. Every 2 turns; strict aspiration precautions. We will continue the patient's home dose baclofen for muscle spasms and Robinul and scopolamine patch for copious oral secretions. Resumed patient's home dosed abilify and prozac. Discussed with discharge planning; recommend LTAC at discharge is the patient's guardian confirms that he has not had successful stays at SNF (readmitted to acute inpatient hospital within 1-2 weeks of discharge to SNF). (5) Tachycardia Is this a current diagnosis for this admission?: Yes Plan: Likely secondary to acute on chronic respiratory failure. Sinus tachycardia on EKG; no evidence of ST segment elevation or depression. Serial troponin < 0.012, no longer trending We will address respiratory status (plan as above) and continue to monitor on telemetry. - Time Time Spent with patient: 15-24 minutes Medications reviewed and adjusted accordingly: Yes Anticipated discharge: Acute Rehab - Inpatient Certification Based on my medical assessment, after consideration of the patient's comorbidities, presenting symptoms, or acuity I expect that the services needed warrant INPATIENT care.: Yes I certify that my determination is in accordance with my understanding of Medicare's requirements for reasonable and necessary INPATIENT services [42 CFR 412.3e].: Yes Medical Necessity: Need for IV Antibiotics, Risk of Complication if Not Cared For in Hospital
[2017-09-05] MEDS ORDERED: GLYCOPYRROLATE 1 MG TABLET ONE (22:28)
[2017-09-05] MEDS: NORMAL SALINE 1000 ML 1,000 ML IV PRN (22:40)
[2017-09-06] MEDS: IPRATROPIUM/ALBUTEROL 0.5-2.5 MG/3 ML AMPUL NEB SCH ×4 (02:03→19:54)
[2017-09-06] MEDS: MEROPENEM 1 GM in NORMAL SALINE 50 ML IV SCH ×3 (03:04→17:36)
[2017-09-06] MEDS ORDERED: GLYCOPYRROLATE 1 MG TABLET ONE (05:17)
[2017-09-06] MEDS: GLYCOPYRROLATE 1 MG TABLET PEG SCH ×2 (06:13→15:27)
[2017-09-06] MEDS: LANSOPRAZOLE 30 MG TAB.RAP.DR PO SCH (06:14)
[2017-09-06] MEDS: HEPARIN SOD (PORCINE) 5,000 UNIT/ML 1 ML SYRINGE SUBCUT SCH ×2 (06:14→15:28)
[2017-09-06] MEDS: NORMAL SALINE 1000 ML 1,000 ML IV PRN (07:52)
[2017-09-06] MEDS: TOBRAMYCIN SULFATE NEB 40 MG/ML 30 ML NEB SCH ×2 (08:14→19:54)
[2017-09-06] MEDS: ACETYLCYSTEINE 20% SOLN 800 MG/4 ML VIAL.NEB NEB SCH ×2 (08:15→19:54)
[2017-09-06] MEDS: FLUOXETINE HCL 20 MG CAPSULE PEG SCH (10:08)
[2017-09-06] MEDS: POLYVINYL ALCOHOL 1.4% OPH SOLN 15 ML OU SCH ×3 (10:08→17:35)
[2017-09-06] MEDS: CHLORHEXIDINE GLUCONATE 0.12% ORAL RINSE 15 ML UDC PO SCH ×2 (10:09→17:36)
[2017-09-06] MEDS: NYSTATIN 500000 UNIT/5 ML UDCUP PO SCH ×3 (10:09→17:36)
[2017-09-06] MEDS: ARIPIPRAZOLE 5 MG TABLET PEG SCH (10:09)
[2017-09-06 11:59] LABS: ALANINE AMINOTRANSFERASE 21 U/L (21-72); ALBUMIN 2.7 g/dL (3.5-5.0); ALKALINE PHOSPHATASE 58 U/L (38-126); ANION GAP 12 (5-19); ASPARTATE AMINO TRANSFERASE 14 U/L (17-59); BILIRUBIN,DIRECT 0.4 mg/dL (0.0-0.4); BILIRUBIN,TOTAL 0.5 mg/dL (0.2-1.3); BLOOD UREA NITROGEN 7 mg/dL (7-20); CALCIUM 8.5 mg/dL (8.4-10.2); CARBON DIOXIDE 24 mmol/L (22-30); CHLORIDE 101 mmol/L (98-107); GLUCOSE 90 mg/dL (75-110); POTASSIUM 3.9 mmol/L (3.6-5.0); SODIUM 136.9 mmol/L (137-145)
[2017-09-06 12:16] LABS: HEMATOCRIT 29.9 % (37.9-51.0); HEMOGLOBIN 10.3 g/dL (13.5-17.0); MEAN CORPUSCULAR HEMOGLOBIN 31.6 pg (27.0-33.4); MEAN CORPUSCULAR HGB CONC 34.3 g/dL (32.0-36.0); MEAN CORPUSCULAR VOLUME 92 fl (80-97); PLATELET COUNT 234 10^3/uL (150-450); RED BLOOD COUNT 3.26 10^6/uL (4.35-5.55); RED CELL DISTRIBUTION WIDTH 14.1 % (11.5-14.0); WHITE BLOOD COUNT 6.7 10^3/uL (4.0-10.5)
--- NOTE | 2017-09-06 14:05 | Progress Note ---
Provider Note Provider Note: ID Consult Note Asked to review chart today by Pharmacy. Also spoke with Nataliya Mead NP, on day of admission regarding empiric therapy. Mr Richmond is a 57 year old man who is nonverbal and bedbound since TBI since 2017, s/p trach and PEG, and has had multiple prior admissions secondary to aspiration pneumonitis/pneumonia. He presented on 09/03 to the [facility] with hypoxia, fever up to 101.2 F, tachycardia , hypotension, tachypnea and leukocytosis. Pt was noted to have copious purulent sputum and cough. Pt has a recent history of ESBL infection or colonization. The patient initially had CXR that was negative for acute cardiopulmonary process, but repeat CXR showed a L retrocardiac consolidation suggestive of atelectasis vs. pneumonia, that in the patient's clinical setting is suspicious for pneumonia. He was empirically treated with meropenem given the history of ESBL colonization, while awaiting results of microbiological studies. His blood cultures have been negative. His tracheal aspirate grew 3+ Proteus mirabilis (resistant to Cipro, Levaquin and Bactrim) and 2+ Pseudomonas aeruginosa that was sensitive to all agents tested. Pt has had no further fever. His WBC count has normalized at this point. He is no longer tachypneic. Respiratory distress has resolved. Impression/Recommendations Healthcare associated pneumonia due to Proteus and Pseudomonas aeruginosa - Empirically pt was treated with meropenem given hx of ESBL colonization or infection in the past, but now that susceptibility results are available, his antibiotic therapy can be streamlined to either Zosyn or cefepime to complete the remainder of 7 days of therapy (today is a day 3). - If the patient is otherwise well enough for discharge before completing therapy with either IV Zosyn or cefepime, he could receive Cipro 750 mg BID per tube (tube feeds would have to be held around the time of administration of Cipro for an hour before and after) for the Pseudomonas aeruginosa and amoxicillin 500 mg TID per tube for the Proteus mirabilis. Quna Ambrocio MD [facility] Infectious Diseases pager [phone]
--- NOTE | 2017-09-06 16:16 | PDOC TRANSFER SUMMARY ---
General Admission Date/PCP: 09/03/17 13:44 RALEIGH Coral GARCIA, DO Admission Date: 09/03/17 Transfer Date: 09/06/17 Accepting Facility: Other (Comments) - [facility] Accepting Physician: Dr. Donato Resuscitation Status: Do Not Resuscitate - Transfer Diagnosis (1) Sepsis Is this a current diagnosis for this admission?: Yes Diagnosis Summary: The patient is admitted with sepsis, likely due to gram-negative pneumonia ( based on previous sputum cultures), present on admission, evidenced by fever, tachycardia, tachypnea, hypotension, hypoxia, and leukocytosis. Initial chest x-ray is negative for acute cardiopulmonary processes. Repeat chest x-ray 09/04 shows left retrocardiac consolidation suggestive of atelectasis versus pneumonia. Urinalysis negative for UTI. Blood cultures have no growth Sputum cultures growing MDR pseudomonas and proteus. Maintenance IV fluids. Infectious disease consulted 09/04, recommend meropenem given the patient's history of multiple resistance patterns, but sensitivity to meropenem Recommend continuing IV antibiotics for 11 more days, for a total of 14 days of treatment (final treatment 09/17/2017 @ 2359) (2) Acute respiratory failure with hypoxia Is this a current diagnosis for this admission?: Yes Diagnosis Summary: Patient presented with tachypnea, dyspnea, and rhonci in L lung davis. Chest x-ray demonstrating left retrocardiac consolidation. Blood cultures negative Sputum culture growing MDR pseudomonas and proteus Patient initially admitted to ICU; downgraded to IMCU. The patient's CODE STATUS is confirmed; he is a DNR. Family and guardian would wish for the patient to be placed on a ventilator if necessary, but do not want CPR. Of note, the patient is a moreira of the [facility]. His family can call court appointed medical decision maker and make requests, but the POA is court appointed. Scheduled and as needed nebulizer treatments. Mucomyst nebulizer treatments for copious sputum production. Chest physiotherapy twice daily per RT. Continue IV meropenem based cultures and sensitivities. 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 Every 2hr turns; no evidence of skin breakdown Strict aspiration precautions. Continue the patient's home dose baclofen for muscle spasms Robinul and scopolamine patch for copious oral secretions. Continue home dosed abilify and prozac. Recommend LTAC for placement. The patient's guardian confirms that he has not had successful stays at SNF (readmitted to acute inpatient hospital within 1-2 weeks of discharge to SNF). (5) Tachycardia Is this a current diagnosis for this admission?: Yes Diagnosis Summary: Likely secondary to acute on chronic respiratory failure and sepsis Sinus tachycardia on initial EKG; no evidence of ST segment elevation or depression. Serial troponin < 0.012 Following appropriate treatment with IV fluids and antibiotics, the patient is no longer tachycardic - Transfer Medications Transfer Medications: Current Medications Acetaminophen (Tylenol 325 Mg Tablet) 650 mg GT Q4HP PRN PRN Reason: pain or temp greater than 101F Stop: 10/03/17 14:31 Last Admin: 09/04/17 03:01 Dose: 650 mg Acetylcysteine (Mucomist 20% Soln 800 Mg/4 Ml) 600 mg NEB RTBID TON Stop: 10/03/17 19:59 Last Admin: 09/06/17 08:15 Dose: 600 mg Albuterol/Ipratropium (Duoneb 3 Ml Ampul) 3 ml NEB RTQ6 TON Stop: 10/03/17 19:59 Last Admin: 09/06/17 13:18 Dose: 3 ml Aripiprazole (Abilify 5 Mg Tablet) 10 mg PEG DAILY TON Stop: 10/05/17 09:59 Last Admin: 09/06/17 10:09 Dose: 10 mg Artificial Tears (Liquitears 1.4% Ophth Soln 15 Ml) 1 drop OU TID TON Stop: 10/03/17 17:59 Last Admin: 09/06/17 15:27 Dose: 1 drop Baclofen (Baclofen 10 Mg Tablet) 10 mg PEG Q8HP PRN PRN Reason: FOR MUSCLE SPASMS Stop: 10/03/17 19:55 Last Admin: 09/05/17 11:43 Dose: 10 mg Chlorhexidine Gluconate (Periogard 0.12% Oral Rinse 15 Ml) 15 ml PO BID TON Stop: 10/04/17 09:59 Last Admin: 09/06/17 10:09 Dose: 15 ml Fluoxetine HCl (Prozac 20 Mg Capsule) 40 mg PEG DAILY [facility] Stop: 10/05/17 09:59 Last Admin: 09/06/17 10:08 Dose: 40 mg Glycopyrrolate (Robinul Forte 1 Mg Tablet) 2 mg PEG Q8 [facility] Stop: 10/03/17 21:59 Last Admin: 09/06/17 15:27 Dose: 2 mg Heparin Sodium (Porcine) (Heparin Inj 5,000 Units/Ml 1 Ml Syringe) 5,000 unit SUBCUT Q8 [facility] Stop: 10/03/17 21:59 Last Admin: 09/06/17 15:28 Dose: 5,000 unit Meropenem 1 gm/ Sodium (Chloride) 50 mls @ 100 mls/hr IV Q8A [facility] Stop: 09/10/17 17:59 Last Admin: 09/06/17 10:08 Dose: 1 gm Sodium Chloride (Nacl 0.9% 1000 Ml Iv Soln) 1,000 mls @ 125 mls/hr IV CONTINUOUS PRN PRN Reason: THIS MED IS NOT "PRN" Stop: 10/03/17 14:31 Last Admin: 09/06/17 07:52 Dose: 1,000 ml Ipratropium [place] (Atrovent 0.02% Neb 0.5 Mg/2.5 Ml Ampul) 0.5 mg NEB RTQ4HP PRN PRN Reason: SHORTNESS OF BREATH Stop: 10/03/17 14:31 Lansoprazole (Prevacid 30 Mg Odt Tablet) 30 mg PO Q6AM [facility] Stop: 10/05/17 05:59 Last Admin: 09/06/17 06:14 Dose: 30 mg Nystatin (Mycostatin 500,000 Unit/5 Ml Susp Udcup) 500,000 unit PO QID [facility] Stop: 09/10/17 17:59 Last Admin: 09/06/17 15:27 Dose: 500,000 unit Oxycodone/Acetaminophen (Percocet 5-325 Mg Tablet) 1 tab PEG Q4HP PRN PRN Reason: FOR PAIN SCALE 1-3 Stop: 09/11/17 16:07 Last Admin: 09/05/17 11:43 Dose: 1 tab Pantoprazole Sodium (Protonix Iv Inj 40 Mg Vial) 40 mg IV DAILY [facility] Stop: 09/10/17 09:59 Scopolamine HBr (Transderm-Scop 1.5 Mg Patch) 1 each TD Q3D TON Stop: 10/03/17 20:59 Tobramycin Sulfate (Tobramycin Neb 40 Mg/Ml 30 Ml Vial) 300 mg NEB RTQ12 TON Stop: 09/12/17 19:59 Last Admin: 09/06/17 08:14 Dose: 300 mg - Allergies Allergies/Adverse Reactions: No Known Allergies Allergy (Unverified 09/04/17 08:51) Hospital Course Hospital Course: CECILIA MARTINEZ is a 57 year old male with a past medical history significant for recent traumatic TBI (January 2017) resulting in chronic respiratory failure requiring tracheotomy and G-tube (nonverbal, contractures, and does not follow directions at baseline), with multiple admissions for acute respiratory failure secondary to aspiration pneumonitis/pneumonia who presented to the emergency department today with acute respiratory failure with hypoxia (initial pulse ox reading in the mid 70s per EMS) and sepsis evidenced by her (101.2) tachycardia (152), hypotension (93/67), tachypnea (48), and leukocytosis (WBCs 13.3). Admission HPI is limited secondary to baseline mental status; recent illness obtained by EMS and emergency department records. DSS ed teacher, Chaka ), contacted who reports that the patient was discharged from [facility]) in [place], [place] approximately 2 weeks ago. The patient had remained at [facility] from the time of our transfer there on for sepsis, bacteremia, PNA, and need for tracheotomy revision. The patient was re-admitted to [facility] for tachypnea and respiratory distress. He is referred to the hospitalist service for acute on chronic respiratory failure with hypoxia and sepsis, likely secondary to pneumonia. Of note, the patient has a history of multiple hospital admissions for recurrent pneumonia. Previous records indicate a history of ESBL E. coli with multiple resistance patterns, sensitive to meropenem. The patient was empirically started on meropenem for healthcare associated pneumonia. Sputum cultures and sensitivities confirmed MDR Pseudomonas, sensitive to meropenem. Over the 72 hours of his inpatient admission, the patient's clinical picture began to improve. His leukocytosis has resolved, tachycardia has also resolved, he is no longer febrile, and blood pressure is within normal range. Nursing staff reports the patient only requires trach suctioning twice per shift. He is tolerating his enteral feeding. At this time, he is appropriate for LTAC level of care. Dr. Donato at [facility] has graciously accepted the patient. Plan for transfer later this afternoon. Please read above for a more detailed account of his individual diagnoses. Physical Exam Vital Signs: Temp Pulse Resp BP Pulse Ox 98.1 F 100 16 131/83 H 97 09/06/17 11:41 09/06/17 13:18 09/06/17 13:18 09/06/17 11:41 09/06/17 13:18 Pulse Oximeter Continuous Start: 09/03/17 14: 34 Freq: RTQ4 Status: Active Document 09/06/17 12:41 [employer] (Rec: 09/06/17 12:42 [employer] [email or web address]) Pulse Oximetry Assessment Oxygen Saturation (92-100) 96 Oxygen Flow Rate (L/min) 10 Oxygen Delivery Method Trach Collar Fraction of Inspired Oxygen (FIO2) 35 Equipment Usage Equipment in Use Continuous SpO2 Machine # 9 Intake & Output 09/05/17 09/06/17 09/07/17 06:59 06:59 06:59 Intake Total 2068 1645 0 Output Total 970 1100 400 Balance 1098 545 -400 Weight 61.1 kg 60.4 kg General appearance: PRESENT: thin Eye exam: PRESENT: conjunctiva pink, PERRLA Mouth exam: PRESENT: dry mucosa Teeth exam: PRESENT: poor dentation Neck exam: ABSENT: full ROM, JVD Respiratory exam: PRESENT: symmetrical, unlabored, other - TRACH. CURRENTLY ON TRACH COLLAR 35% FIO2. ABSENT: accessory muscle use Cardiovascular exam: PRESENT: +S1, +S2 Pulses: PRESENT: normal radial pulses, +1 pedal pulses bilateral GI/Abdominal exam: PRESENT: soft, other - ENTERAL FEEDING VIA PEG. ABSENT: tenderness Rectal exam: PRESENT: deferred Gentrourinary exam: PRESENT: indwelling catheter Extremities exam: PRESENT: pedal edema, +1 edema. ABSENT: full ROM, joint swelling Musculoskeletal exam: ABSENT: ambulatory, full ROM Neurological exam: PRESENT: awake, aphasic. ABSENT: oriented to person, oriented to place, oriented to time, oriented to situation Psychiatric exam: PRESENT: appropriate affect Skin exam: PRESENT: dry, intact, normal color, warm Results Laboratory Results: 09/06/17 11:00 09/06/17 11:00 09/06/17 09/06/17 11:00 11:00 WBC 6.7 RBC 3.26 L Hgb 10.3 L Hct 29.9 L MCV 92 MCH 31.6 MCHC 34.3 RDW 14.1 H Plt Count 234 Sodium 136.9 L Potassium 3.9 Chloride 101 Carbon Dioxide 24 Anion Gap 12 BUN 7 Creatinine 0.45 L Est GFR ( Amer) > 60 Est GFR (Non-Af Amer) > 60 Glucose 90 Calcium 8.5 Total Bilirubin 0.5 AST 14 L ALT 21 Alkaline Phosphatase 58 Total Protein 5.0 L Albumin 2.7 L Impressions: Chest X-Ray 09/04/17 06:00 IMPRESSION: Persistent left retrocardiac consolidation similar compared to previous exams. Tracheostomy tube tip in good positioning Status: Imported from PACS Plan Discharge Plan: PATIENT IS A MOREIRA OF THE [facility]. CURRENTLY DNR. TRANSFER FROM [facility] TO LTAC FOR CONTINUED MANAGEMENT OF MDR PNEUMONIA Time Spent: Less than 30 Minutes
[2017-09-06 20:35] VITALS: BP 112/69
[2017-09-07] MEDS ORDERED: PANTOPRAZOLE SODIUM 40 MG VIAL IV SCH (10:00)
== END 2017-09-06 21:08 | DRG 871 ==
LOC: ER 10:29 → EH 13:44 → ICU 16:55 → 3W 09-05 17:51
PROVIDERS: ADMIT Internal Medicine; ATTEND Internal Medicine
PROC: 3E0F73Z Introduction of Anti-inflammatory into Respiratory Tract, Via Natural or Artificial Opening (ICD-10-PCS; principal; 2017-09-03)
DX: A41.9 Sepsis, unspecified organism (principal); J96.21 Acute and chronic respiratory failure with hypoxia; J15.6 Pneumonia due to other Gram-negative bacteria; J15.1 Pneumonia due to Pseudomonas; Z66 Do not resuscitate; Z93.1 Gastrostomy status; Z79.899 Other long term (current) drug therapy; Z87.820 Personal history of traumatic brain injury; F20.9 Schizophrenia, unspecified; Z93.0 Tracheostomy status; F32.9 Major depressive disorder, single episode, unspecified; D64.9 Anemia, unspecified; S06.2X9S Diffuse traumatic brain injury with loss of consciousness of unspecified duration, sequela; V89.2XXS Person injured in unspecified motor-vehicle accident, traffic, sequela; R00.0 Tachycardia, unspecified; Z74.01 Bed confinement status
CPT/HCPCS: 36415; 51701; 51702; 71045; 80048; 80053; 81001; 82803; 83605; 84484; 85025; 85027; 87040; 87070; 87077; 87186; 87205; 93005; 93010; 94640; 94668; 94762; 96365; 96367; 99285; J1644; J2185; J2543; J3370; J3490; J7030; J7620; J7685; S0164

== ENCOUNTER 2017-10-12 12:52 | Inpatient (IN) | payer MEDICARE, MEDICAID ==
[2017-10-12 13:44] LABS: HEMATOCRIT 37.3 % (37.9-51.0); HEMOGLOBIN 12.2 g/dL (13.5-17.0); MEAN CORPUSCULAR HGB CONC 32.6 g/dL (32.0-36.0); MEAN CORPUSCULAR VOLUME 92 fl (80-97); PLATELET COUNT 565 10^3/uL (150-450); RED BLOOD COUNT 4.05 10^6/uL (4.35-5.55); RED CELL DISTRIBUTION WIDTH 15.6 % (11.5-14.0); WHITE BLOOD COUNT 27.8 10^3/uL (4.0-10.5)
[2017-10-12 13:47] LABS: INTERNATIONAL RATION (INR) 1.22
[2017-10-12 13:48] LABS: VENOUS BLOOD BASE EXCESS 5.4 mmol/L; VENOUS BLOOD HCO3 32.1 mmol/L (20-32); VENOUS BLOOD PCO2 55.8 mmHg (35-63); VENOUS BLOOD PH 7.38 (7.30-7.42)
[2017-10-12 13:53] LABS: ALANINE AMINOTRANSFERASE 45 U/L (21-72); ALBUMIN 3.6 g/dL (3.5-5.0); ALKALINE PHOSPHATASE 124 U/L (38-126); ANION GAP 12 (5-19); ASPARTATE AMINO TRANSFERASE 49 U/L (17-59); BILIRUBIN,DIRECT 0.3 mg/dL (0.0-0.4); BILIRUBIN,TOTAL 0.6 mg/dL (0.2-1.3); BLOOD UREA NITROGEN 21 mg/dL (7-20); CALCIUM 9.6 mg/dL (8.4-10.2); CARBON DIOXIDE 30 mmol/L (22-30); CHLORIDE 100 mmol/L (98-107); GLUCOSE 140 mg/dL (75-110); POTASSIUM 4.2 mmol/L (3.6-5.0); SODIUM 142.2 mmol/L (137-145); TOTAL PROTEIN 7.2 g/dL (6.3-8.2)
[2017-10-12 14:00] LABS: ABSOLUTE LYMPHOCYTES# (MANUAL) 1.7 10^3/uL (0.5-4.7); ABSOLUTE MONOCYTES # (MANUAL) 0.8 10^3/uL (0.1-1.4); BASOPHILS % (MANUAL) 0 % (0-2); EOSINOPHILS % (MANUAL) 1 % (0-6); LYMPHOCYTES % (MANUAL) 6 % (13-45); MONOCYTES % (MANUAL) 3 % (3-13); SEGMENTED NEUTROPHILS % (MAN) 90 % (42-78); TOTAL CELLS COUNTED 100
[2017-10-12 14:01] LABS: ANISOCYTOSIS SLIGHT; PLATELET CLUMPS PRESENT; PLATELET COMMENT ADEQUATE; PLATELET GIANT PRESENT; PLATELET LARGE PRESENT
[2017-10-12] MEDS ORDERED: LORAZEPAM INJ 2 MG/1 ML VIAL ONE (14:07)
[2017-10-12] MEDS ORDERED: LORAZEPAM INJ 2 MG/1 ML VIAL IV ONE (14:07)
--- NOTE | 2017-10-12 14:08 | ER Document Report ---
ED General - General Chief Complaint: Respiratory Distress Stated Complaint: DIFFICULTY BREATHING Time Seen by Provider: 10/12/17 13:12 Notes: Patient brought in from a local long term for respiratory distress. Patient was just transferred yesterday to this local facility from the [facility] in [place]. He was sent to [facility] for long-term hospitalization by this hospital staff during the first week of September. 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 He is a [facility] and is a DNR patient. There are no family members here. Patient is unable to provide any information. History provided by EMS personnel who transported the patient here. Patient has a tracheostomy and a feeding tube. He appears to be congested with a cough. Reportedly has had a fever, as well. Admitting vital signs show a heart rate of 145, respiratory rate of 40, blood pressure 100/76, and O2 sat of 85% with attempted bagging of his tracheostomy. TRAVEL OUTSIDE OF THE [place] IN LAST 30 DAYS: No - Related Data Allergies/Adverse Reactions: No Known Allergies Allergy (Unverified 09/04/17 08:51) Past Medical History - Social History Smoking Status: Unknown if Ever Smoked Family History: Reviewed & Not Pertinent, Other - Unable to obtain secondary to patient's condition Patient has suicidal ideation: No Patient has homicidal ideation: No Pulmonary Medical History: Reports: Hx Pneumonia, Hx Intubation, Hx Respiratory Failure Psychiatric Medical History: Reports: Hx Depression Traumatic Medical History: Reports: Hx Traumatic Brain Injury Past Surgical History: Reports: Other - Tracheostomy, G-tube Review of Systems - Review of Systems -: Yes ROS unobtainable due to patient's medical condition Physical Exam - Vital signs Vitals: Resp 24 H 10/12/17 12:55 Interpretation: Hypoxic, Tachypneic - Notes Notes: PHYSICAL EXAMINATION: GENERAL: Patient is unable to follow any commands or answer any questions. He has a tracheostomy and EMSs assisting his ventilations with a bag valve mask. After learning that the patient is a DNR patient, I asked that they stop providing that assistance. HEAD: Atraumatic, normocephalic. EYES: Pupils equal round and reactive to light, extraocular movements intact. ENT: oropharynx clear without exudates. Moist mucous membranes. Tracheostomy.. NECK: Normal range of motion, supple. LUNGS: Breath sounds with rhonchi and a few rales bilaterally. No significant wheezes heard. HEART: Regular rate and rhythm without murmurs. Heart rate of about 150 at bedside by me. ABDOMEN: Soft, nontender. No guarding or rebound. No masses. Feeding G-tube in the left abdomen BACK: No tenderness throughout entire back. EXTREMITIES: Normal range of motion without pain. Contractures of his extremities. NEUROLOGICAL: Unable to assess. Patient looks as if he is awake but that is about his only sign of life. PSYCH: Normal mood, normal affect. SKIN: Warm, dry, no rashes. Course - Re-evaluation Re-evalutation: 10/12/17 14:08 Patient appears to be having a seizure. We will give him 2 mg of Ativan IV. - Vital Signs Vital signs: Temp Pulse Resp BP Pulse Ox 99.5 F 112 H 16 105/59 L 98 10/12/17 19:30 10/12/17 20:39 10/12/17 20:39 10/12/17 19:31 10/12/17 20:39 - Laboratory Result Diagrams: 10/12/17 12:56 10/12/17 12:56 Laboratory results interpreted by me: 10/12/17 10/12/17 10/12/17 12:56 12:56 12:56 WBC 27.8 H RBC 4.05 L Hgb 12.2 L Hct 37.3 L RDW 15.6 H Plt Count 565 H Seg Neuts % (Manual) 90 H Lymphocytes % (Manual) 6 L Abs Neuts (Manual) 25.0 H PT 16.0 H VBG HCO3 BUN 21 H Glucose 140 H POC Glucose Lactic Acid Urine Ketones Urine Urobilinogen Ur Leukocyte Esterase Urine Ascorbic Acid 10/12/17 10/12/17 10/12/17 12:56 12:56 13:30 WBC RBC Hgb Hct RDW Plt Count Seg Neuts % (Manual) Lymphocytes % (Manual) Abs Neuts (Manual) PT VBG HCO3 32.1 H BUN Glucose POC Glucose 136 H Lactic Acid 2.8 H Urine Ketones Urine Urobilinogen Ur Leukocyte Esterase Urine Ascorbic Acid 10/12/17 14:47 WBC RBC Hgb Hct RDW Plt Count Seg Neuts % (Manual) Lymphocytes % (Manual) Abs Neuts (Manual) PT VBG HCO3 BUN Glucose POC Glucose Lactic Acid Urine Ketones TRACE H Urine Urobilinogen 2.0 H Ur Leukocyte Esterase LARGE H Urine Ascorbic Acid 40 H - Diagnostic Test Radiology results interpreted by me: 10/12/17 20:51 Chest x-ray reveals almost complete opacification of the left side of the chest. Tracheostomy tube appears to be in the proper location. Critical Care Note - Critical Care Note Total time excluding time spent on procedures (mins): 30 Discharge - Discharge Clinical Impression: Tachycardia, Respiratory distress, DNR (do not resuscitate) Pneumonia Qualifiers: Pneumonia type: due to other aerobic Gram-negative bacteria Laterality: left Lung location: unspecified part of lung Qualified Code(s): J15.6 - Pneumonia due to other Gram-negative bacteria Condition: Serious Disposition: ADMITTED INPATIENT Admitting Provider: Hospitalist Unit Admitted: Medical Floor
--- NOTE | 2017-10-12 14:24 | RADIOLOGY REPORT (SQ) ---
EXAM DESCRIPTION: CHEST SINGLE VIEW COMPLETED DATE/TIME: 10/12/2017 2:09 pm REASON FOR STUDY: Congested, hypoxia, Hx pneumonia, trach COMPARISON: 09/04/2017 EXAM PARAMETERS: NUMBER OF VIEWS: One view. TECHNIQUE: Single frontal radiographic view of the chest acquired. RADIATION DOSE: NA LIMITATIONS: None. FINDINGS: LUNGS AND PLEURA: Near complete opacification of the left hemithorax. The right lung is c lear and evenly aerated. No pneumothorax. MEDIASTINUM AND HILAR STRUCTURES: Poorly evaluated given pulmonary findings. HEART AND VASCULAR STRUCTURES: Poorly evaluated given pulmonary findings. Right-sided central vascul ature appears normal. BONES: No acute findings. HARDWARE: Tracheostomy sheath projects in the midline overlying the tracheal air shadow. OTHER: No other significant finding. IMPRESSION: Near complete opacification of the left hemithorax. Given patient history, favor progre ssion versus recurrent left-sided pneumonia. TECHNICAL DOCUMENTATION: JOB ID: [id number] [email or web address]- All Rights Reserved Reading location - IP/workstation name: [email or web address]
[2017-10-12] MEDS ORDERED: CEFTRIAXONE 1 GM/D5W RTU 1 GM/50 ML RTUPB IV ONE (14:34)
[2017-10-12] MEDS: NORMAL SALINE 1000 ML 1,000 ML IV PRN ×2 (14:44→15:20)
[2017-10-12] MEDS ORDERED: CEFTRIAXONE INJ 1000 MG VIAL ONE (14:45)
[2017-10-12 15:17] LABS: AMORPHOUS SEDIMENT,URINE TRACE /HPF; APPEARANCE,URINE CLOUDY; BILIRUBIN,URINE NEGATIVE (NEGATIVE); COLOR,URINE YELLOW; GLUCOSE, URINE NEGATIVE (NEGATIVE); KETONES,URINE TRACE mg/dL (NEGATIVE); LEUKOCYTE ESTERASE,URINE LARGE (NEGATIVE); NITRITE,URINE NEGATIVE (NEGATIVE); PROTEIN,URINE NEGATIVE (NEGATIVE); URINE SPECIFIC GRAVITY 1.021
[2017-10-12] MEDS ORDERED: ACETAMINOPHEN 650 MG SUPP.RECT PR ONE (16:00)
[2017-10-12] MEDS ORDERED: METOPROLOL TARTRATE PF/INJ 5 MG/5 ML SDV IV ONE ×2 (16:00→17:20)
[2017-10-12] MEDS ORDERED: VANCOMYCIN HCL 0 MG in DEXTROSE 5%-WATER 250 ML IV NR (16:00)
[2017-10-12] MEDS ORDERED: IPRATROPIUM/ALBUTEROL 0.5-2.5 MG/3 ML AMPUL NEB PRN (16:15)
--- NOTE | 2017-10-12 16:15 | PDOC H&P ---
History of Present Illness Admission Date/PCP: acute respiratory failure with hypoxia. RALEIGH GARCIA DO History of Present Illness: CECILIA MARTINEZ is a 57 year old male. Pt received from [facility] for acute respiratory failure. pt in ed is tachycardic and tachypneic and hypotensive altered mental status. pt is septic with worsening pneumonia on chest x-ray. Patient was admitted [facility] by Dr. Gross for multidrug-resistant pneumonia and transferred to [facility] where patient was further evaluated and found to have multiple PEs. Patient was treated with Lovenox and changed to Eliquis. Med list sent from facility is not clear, looks blank. We will contact facility and obtain current med list. Currently we will treat patient with antibiotics and continue Eliquis. Fortunately patient is a [facility] of the [facility] he has had recurrent pneumonia And PEs which are recently diagnosed putting him at a high risk for survival during this admission. Past Medical History Pulmonary Medical History: Reports: Intubation, Pneumonia, Respiratory Failure Psychiatric Medical History: Reports: Depression Traumatic Medical History: Reports: Traumatic Brain Injury Hematology: Reports: Anemia Past Surgical History Past Surgical History: Reports: Other - Tracheostomy, G-tube Social History Smoking Status: Unknown if Ever Smoked Frequency of Alcohol Use: None Hx Recreational Drug Use: No Drugs: None Hx Prescription Drug Abuse: No - Advance Directive Resuscitation Status: Do Not Resuscitate Family History Family History: Other - Unable to obtain secondary to patient's condition Parental Family History Reviewed: No Children Family History Reviewed: NA Sibling(s) Family History Reviewed.: NA Medication/Allergy Home Medications: Acetylcysteine [Mucomist 20% Soln 800 mg/4 mL] 600 mg NEB RTBID vial 09/06/17 Aripiprazole [Abilify] 20 mg PEG DAILY #30 09/06/17 Baclofen [Baclofen 10 mg Tablet] 10 mg PEG Q8HP PRN #30 09/06/17 Chlorhexidine Gluconate [Peridex] 15 ml PO BID #60 09/06/17 Cyanocobalamin (Vitamin B-12) [Vitamin B-12 100 mcg Tablet] 100 mcg PEG DAILY # 30 tablet 09/06/17 Enoxaparin Sodium [Lovenox Inj 40 mg/0.4 ml Disp.syrin] 40 mg SQ DAILY #30 disp.syrin 09/06/17 Fluoxetine HCl [Prozac] 40 mg PEG DAILY #30 09/06/17 Glycopyrrolate [Robinul Forte 1 mg Tablet] 2 mg PEG Q8 #30 09/06/17 Guaifenesin [Tussin] 200 mg PEG Q4HP PRN #30 liquid 09/06/17 Ipratropium/Albuterol Sulfate [Duoneb 3 ml Ampul] 3 ml NEB RTQ6 vial.neb Ipratropium/Albuterol Sulfate [Iprat-Albut 0.5-3(2.5) mg/3 ml] 3 ml NEB Q4HP PRN #100 ampul.neb 09/06/17 Meropenem 1 gm IV Q8H #33 vial 09/06/17 Multivitamin [Tab-A-Joie (Multiple Vitamin) Tablet] 1 tab PEG DAILY 1 Days #30 tablet 09/06/17 Nystatin [Mycostatin 743285 Unit/1 ml Susp 60 ml Btl] 5 ml PEG DAILYP PRN #30 ml 09/06/17 Ondansetron HCl [Zofran 4 mg Tablet] 4 mg PEG Q6HP PRN #30 tablet 09/06/17 Pantoprazole Sodium [Protonix] 40 mg PEG DAILY #30 tablet. 09/06/17 Scopolamine [Transderm-Scop] 1 patch TD Q3D #5 patch.td.3 09/06/17 Tobramycin Sulfate [Tobramycin Neb 40 mg/ml 30 ml Vial] 300 mg NEB RTQ12 ml 08/19 Tobramycin Sulfate [Tobramycin Neb 40 mg/ml 30 ml Vial] 300 mg NEB RTQ12 #28 ml 09/06/17 Allergies/Adverse Reactions: No Known Allergies Allergy (Unverified 09/04/17 08:51) Review of Systems ROS unobtainable: Due to endotracheal tube, Due to mental status Physical Exam Vital Signs: Temp Pulse Resp BP Pulse Ox 100.8 F H 55 H 112/71 80 L 10/12/17 13:21 10/12/17 13:31 10/12/17 13:31 10/12/17 13:31 Intake & Output 10/11/17 10/12/17 10/13/17 06:59 06:59 06:59 Weight 122 lb 2.177 oz Results Laboratory Results: 10/12/17 12:56 10/12/17 12:56 10/12/17 10/12/17 10/12/17 12:56 12:56 12:56 WBC 27.8 H RBC 4.05 L Hgb 12.2 L Hct 37.3 L MCV 92 MCH 30.0 MCHC 32.6 RDW 15.6 H Plt Count 565 H Seg Neutrophils % Not Reportable Lymphocytes % Not Reportable Monocytes % Not Reportable Eosinophils % Not Reportable Basophils % Not Reportable Absolute Neutrophils Not Reportable Absolute Lymphocytes Not Reportable Absolute Monocytes Not Reportable Absolute Eosinophils Not Reportable Absolute Basophils Not Reportable VBG pH VBG pCO2 VBG HCO3 VBG Base Excess Sodium 142.2 Potassium 4.2 Chloride 100 Carbon Dioxide 30 Anion Gap 12 BUN 21 H Creatinine 0.61 Est GFR ( Amer) > 60 Est GFR (Non-Af Amer) > 60 Glucose 140 H Lactic Acid 2.8 H Calcium 9.6 Total Bilirubin 0.6 AST 49 ALT 45 Alkaline Phosphatase 124 Total Protein 7.2 Albumin 3.6 Urine Color Urine Appearance Urine pH Ur Specific [place] Urine Protein Urine Glucose (UA) Urine Ketones Urine Blood Urine Nitrite Ur Leukocyte Esterase Urine WBC (Auto) Urine RBC (Auto) 10/12/17 10/12/17 12:56 14:47 WBC RBC Hgb Hct MCV MCH MCHC RDW Plt Count Seg Neutrophils % Lymphocytes % Monocytes % Eosinophils % Basophils % Absolute Neutrophils Absolute Lymphocytes Absolute Monocytes Absolute Eosinophils Absolute Basophils VBG pH 7.38 VBG pCO2 55.8 VBG HCO3 32.1 H VBG Base Excess 5.4 Sodium Potassium Chloride Carbon Dioxide Anion Gap BUN Creatinine Est GFR ( Amer) Est GFR (Non-Af Amer) Glucose Lactic Acid Calcium Total Bilirubin AST ALT Alkaline Phosphatase Total Protein Albumin Urine Color YELLOW Urine Appearance CLOUDY Urine pH 7.0 Ur Specific [place] 1.021 Urine Protein NEGATIVE Urine Glucose (UA) NEGATIVE Urine Ketones TRACE H Urine Blood NEGATIVE Urine Nitrite NEGATIVE Ur Leukocyte Esterase LARGE H Urine WBC (Auto) 17 Urine RBC (Auto) 2 Impressions: Chest X-Ray 10/12/17 13:33 IMPRESSION: Near complete opacification of the left hemithorax. Given patient history, favor progression versus recurrent left-sided pneumonia. Assessment & Plan - Diagnosis (1) Acute and chronic respiratory failure with hypoxia Is this a current diagnosis for this admission?: Yes Plan: Patient has a history of gram-negative pneumonia sensitive to meropenem. Attribute acute onset due to aspiration pneumonia as patient has a PEG tube. Patient also has pulmonary embolisms and is on medical regulation with Eliquis. LTAC placement was advised on previous discharge. We will continue oxygen to keep sats above 90 with tracheal care. Patient to receive meropenem and vancomycin. (2) Sepsis Qualifiers: Sepsis type: sepsis due to unspecified organism Qualified Code(s): A41.9 - Sepsis, unspecified organism (3) Traumatic brain injury Qualifiers: Encounter type: sequela Is this a current diagnosis for this admission?: Yes Plan: Patient has traumatic brain injury in January 2017. Patient has contractures. Patient has skin breakdown. (4) Sacral decubitus ulcer Is this a current diagnosis for this admission?: Yes Plan: Continue turning every 2 hours. Barrier cream and hospital bed. (5) Pulmonary embolism Qualifiers: Pulmonary embolism type: other Chronicity: unspecified Is this a current diagnosis for this admission?: Yes Plan: Patient continued on his Eliquis. Patient is at risk for PEs . - Time Critical Time spent with patient: 15-24 minutes Anticipated discharge: Other - Inpatient Certification Based on my medical assessment, after consideration of the patient's comorbidities, presenting symptoms, or acuity I expect that the services needed warrant INPATIENT care.: Yes I certify that my determination is in accordance with my understanding of Medicare's requirements for reasonable and necessary INPATIENT services [42 CFR 412.3e].: Yes Medical Necessity: Need For IV Fluids, Need For Continuous Telemetry Monitoring , Need for Nebulizer Therapy and Monitoring of Response, Need for IV Antibiotics
[2017-10-12] MEDS ORDERED: BACLOFEN 10 MG TABLET PEG PRN (16:27)
[2017-10-12] MEDS ORDERED: (PENDING PHARMACY ID) (Ondansetron Hcl [Zofran 4 Mg Tablet] 4 MG) PEG PRN (16:27)
[2017-10-12] MEDS ORDERED: (PENDING PHARMACY ID) (Nystatin 5 ML) PEG PRN (16:27)
[2017-10-12] MEDS ORDERED: GUAIFENESIN SYRP 200 MG/10 ML UDC PEG PRN (16:27)
[2017-10-12] MEDS ORDERED: (PENDING PHARMACY ID) (Cyanocobalamin (Vitamin B-12) [Vitamin B-12 100 Mcg Tablet] 100 MCG PEG SCH ×2 (16:30→17:00)
[2017-10-12] MEDS ORDERED: (PENDING PHARMACY ID) (Aripiprazole [Abilify] 20 MG) PEG SCH (16:30)
[2017-10-12] MEDS ORDERED: ALBUTEROL SULFATE 0.083% NEB 2.5 MG/3 ML AMPUL NEB ONE (17:00)
[2017-10-12] MEDS ORDERED: FLUOXETINE HCL 20 MG CAPSULE PEG ONE (17:00)
[2017-10-12] MEDS ORDERED: PANTOPRAZOLE SODIUM 40 MG VIAL IV SCH (17:00)
[2017-10-12] MEDS ORDERED: ONDANSETRON ODT 4 MG TAB (6 TAB/ER DISP) PEG PRN (17:01)
[2017-10-12] MEDS ORDERED: ONDANSETRON 4 MG TAB.RAPDIS PEG PRN (17:30)
[2017-10-12 17:51] LABS: PHOSPHORUS 3.8 mg/dL (2.5-4.5)
[2017-10-12] MEDS ORDERED: SENNOSIDES/DOCUSATE 8.6-50 MG 1 EACH TABLET NG PRN (18:15)
[2017-10-12] MEDS: VANCOMYCIN HCL 1,000 MG in DEXTROSE 5%-WATER 250 ML IV SCH (18:23)
[2017-10-12] MEDS: MEROPENEM 1 GM in NORMAL SALINE 50 ML IV SCH (18:44)
[2017-10-12] MEDS: DEXTROSE 5%-NORMAL SALINE 1,000 ML IV PRN (18:56)
[2017-10-12 19:30] LABS: FREE T4 (FREE THYROXINE) 1.65 ng/dL (0.78-2.19)
[2017-10-12 19:44] LABS: THYROID STIMULATING HORMONE 1.86 uIU/mL (0.47-4.68)
[2017-10-12] MEDS ORDERED: ACETYLCYSTEINE 20% SOLN 800 MG/4 ML VIAL.NEB NEB SCH (20:00)
[2017-10-12] MEDS: ALBUTEROL SULFATE 0.083% NEB 2.5 MG/3 ML AMPUL NEB SCH (20:39)
--- NOTE | 2017-10-12 21:06 | EKG REPORT ---
SEVERITY:- BORDERLINE ECG - SINUS TACHYCARDIA BORDERLINE R WAVE PROGRESSION, ANTERIOR LEADS BORDERLINE T ABNORMALITIES, INFERIOR LEADS : Confirmed by: Anastasia Scott MD 12-Oct-2017 21:05:53
[2017-10-12] MEDS ORDERED: GLYCOPYRROLATE 1 MG TABLET ONE (21:09)
[2017-10-12] MEDS: FAMOTIDINE 20 MG TABLET GT SCH (22:43)
[2017-10-12] MEDS: APIXABAN 5 MG TABLET GT SCH (22:43)
[2017-10-12] MEDS: GLYCOPYRROLATE 1 MG TABLET PEG SCH (22:43)
[2017-10-12] MEDS: SCOPOLAMINE HYDROBROMIDE 1.5 MG PATCH.TD72 TD SCH (22:44)
[2017-10-13] MEDS: MEROPENEM 1 GM in NORMAL SALINE 50 ML IV SCH ×2 (02:43→09:56)
[2017-10-13] MEDS: VANCOMYCIN HCL 1,000 MG in DEXTROSE 5%-WATER 250 ML IV SCH ×2 (05:13→16:48)
[2017-10-13] MEDS: GLYCOPYRROLATE 1 MG TABLET PEG SCH (05:13)
[2017-10-13 07:44] LABS: CREATINE KINASE MB 1.14 ng/mL (<4.55)
[2017-10-13 07:52] LABS: TROPONIN I < 0.012 ng/mL
[2017-10-13] MEDS: ALBUTEROL SULFATE 0.083% NEB 2.5 MG/3 ML AMPUL NEB SCH ×4 (08:53→20:37)
[2017-10-13] MEDS: APIXABAN 5 MG TABLET GT SCH ×2 (09:53→22:17)
[2017-10-13] MEDS: FAMOTIDINE 20 MG TABLET GT SCH ×2 (09:53→22:17)
[2017-10-13] MEDS ORDERED: NYSTATIN SUSP 100000 UNIT/1 ML 60 ML BOTTLE PO SCH (10:00)
[2017-10-13] MEDS ORDERED: FLUOXETINE HCL 20 MG CAPSULE PEG SCH (10:00)
[2017-10-13] MEDS ORDERED: ARIPIPRAZOLE 5 MG TABLET PEG SCH (10:00)
[2017-10-13] MEDS ORDERED: ACETYLCYSTEINE 20% SOLN 800 MG/4 ML VIAL.NEB IH ONE (10:30)
[2017-10-13 12:11] LABS: ARTERIAL BLOOD H2CO3 1.24 mmol/L (1.05-1.35); ARTERIAL BLOOD HCO3 27.4 mmol/L (20-26); ARTERIAL BLOOD PCO2 41.1 mmHg (35-45); ARTERIAL BLOOD PH 7.44 (7.35-7.45); ARTERIAL BLOOD PO2 104.9 mmHg (80-100); ARTERIAL BLOOD TOTAL CO2 28.6 mmol/L (23-27)
[2017-10-13 12:12] LABS: ARTERIAL BLOOD FIO2 6L
[2017-10-13 12:22] LABS: ABSOLUTE MONOCYTES (AUTO) 0.7 10^3/uL (0.1-1.4); ABSOLUTE NEUT (AUTO) 13.4 10^3/uL (1.7-8.2); BASOPHILS % (AUTO) 0.3 % (0-2); EOSINOPHILS % (AUTO) 0.1 % (0-6); HEMATOCRIT 26.7 % (37.9-51.0); LYMPHOCYTES % (AUTO) 6.6 % (13-45); MEAN CORPUSCULAR HEMOGLOBIN 30.2 pg (27.0-33.4); MEAN CORPUSCULAR HGB CONC 33.3 g/dL (32.0-36.0); MEAN CORPUSCULAR VOLUME 91 fl (80-97); MONOCYTES % (AUTO) 4.9 % (3-13); PLATELET COUNT 337 10^3/uL (150-450); RED BLOOD COUNT 2.95 10^6/uL (4.35-5.55); RED CELL DISTRIBUTION WIDTH 15.2 % (11.5-14.0); SEGMENTED NEUTROPHILS % (AUTO) 88.1 % (42-78); TOTAL CELLS COUNTED % (AUTO) 100 %; WHITE BLOOD COUNT 15.2 10^3/uL (4.0-10.5)
[2017-10-13 12:26] LABS: ALANINE AMINOTRANSFERASE 35 U/L (21-72); ALBUMIN 2.4 g/dL (3.5-5.0); ALKALINE PHOSPHATASE 81 U/L (38-126); ANION GAP 7 (5-19); ASPARTATE AMINO TRANSFERASE 18 U/L (17-59); BILIRUBIN,DIRECT 0.2 mg/dL (0.0-0.4); BILIRUBIN,TOTAL 0.6 mg/dL (0.2-1.3); BLOOD UREA NITROGEN 19 mg/dL (7-20); CALCIUM 8.3 mg/dL (8.4-10.2); CARBON DIOXIDE 25 mmol/L (22-30); CHLORIDE 106 mmol/L (98-107); GLUCOSE 100 mg/dL (75-110); PHOSPHORUS 2.8 mg/dL (2.5-4.5); POTASSIUM 4.4 mmol/L (3.6-5.0); SODIUM 137.8 mmol/L (137-145); TOTAL PROTEIN 4.8 g/dL (6.3-8.2)
[2017-10-13 12:28] LABS: HEMOGLOBIN 8.9 g/dL (13.5-17.0)
[2017-10-13] MEDS: DEXTROSE 5%-NORMAL SALINE 1,000 ML IV PRN (13:23)
--- NOTE | 2017-10-13 15:18 | PDOC PROGRESS REPORT ---
Subjective Progress Note for:: 10/13/17 Subjective:: Patient is a 57-year-old male with a complicated past medical history admitted with pneumonia. Patient is nonverbal at baseline. Has been started on meropenem for treatment of his pneumonia. Vitals are improving white count has decreased. Mucomyst at home regimen was restarted for tracheal secretions glycopyrrolate discontinued. Ongoing tracheal care per RT. Tobramycin inhalation Q12. Patient's clinical condition is guarded and prognosis is poor. Reason For Visit: PNEUMONIA/ACUTE ON CHRONIC RESPIRATORY FAILURE Physical Exam Vital Signs: Temp Pulse Resp BP Pulse Ox 97.9 F 103 H 20 102/64 100 10/13/17 12:07 10/13/17 12:07 10/13/17 12:07 10/13/17 12:07 10/13/17 12:07 Intake & Output 10/12/17 10/13/17 10/14/17 06:59 06:59 06:59 Intake Total 426 1224 Output Total 400 Balance 26 1224 Weight 274 lb 11.135 oz General appearance: PRESENT: no acute distress Head exam: PRESENT: atraumatic, normocephalic Neck exam: PRESENT: tracheostomy Respiratory exam: PRESENT: rhonchi, wheezes Cardiovascular exam: PRESENT: RRR, tachycardia GI/Abdominal exam: PRESENT: normal bowel sounds, soft Musculoskeletal exam: PRESENT: other - Contractures Neurological exam: PRESENT: altered Results Laboratory Results: 10/13/17 11:39 10/13/17 11:39 10/12/17 10/13/17 10/13/17 18:00 11:39 11:39 WBC 15.2 H RBC 2.95 L Hgb 8.9 L D Hct 26.7 L MCV 91 MCH 30.2 MCHC 33.3 RDW 15.2 H Plt Count 337 Seg Neutrophils % 88.1 H Lymphocytes % 6.6 L Monocytes % 4.9 Eosinophils % 0.1 Basophils % 0.3 Absolute Neutrophils 13.4 H Absolute Lymphocytes 1.0 Absolute Monocytes 0.7 Absolute Eosinophils 0.0 Absolute Basophils 0.0 Carbonic Acid HCO3/H2CO3 Ratio ABG pH ABG pCO2 ABG pO2 ABG HCO3 ABG O2 Saturation ABG Base Excess FiO2 Sodium 137.8 Potassium 4.4 Chloride 106 Carbon Dioxide 25 Anion Gap 7 BUN 19 Creatinine 0.41 L Est GFR ( Amer) > 60 Est GFR (Non-Af Amer) > 60 Glucose 100 Lactic Acid 1.4 Calcium 8.3 L Phosphorus 2.8 Magnesium 1.7 Total Bilirubin 0.6 AST 18 ALT 35 Alkaline Phosphatase 81 Total Protein 4.8 L Albumin 2.4 L 10/13/17 11:44 WBC RBC Hgb Hct MCV MCH MCHC RDW Plt Count Seg Neutrophils % Lymphocytes % Monocytes % Eosinophils % Basophils % Absolute Neutrophils Absolute Lymphocytes Absolute Monocytes Absolute Eosinophils Absolute Basophils Carbonic Acid 1.24 HCO3/H2CO3 Ratio 22:1 ABG pH 7.44 ABG pCO2 41.1 ABG pO2 104.9 H ABG HCO3 27.4 H ABG O2 Saturation 98.0 ABG Base Excess 3.0 FiO2 6L Sodium Potassium Chloride Carbon Dioxide Anion Gap BUN Creatinine Est GFR ( Amer) Est GFR (Non-Af Amer) Glucose Lactic Acid Calcium Phosphorus Magnesium Total Bilirubin AST ALT Alkaline Phosphatase Total Protein Albumin 10/13/17 10/13/17 10/13/17 06:53 06:53 11:39 Creatine Kinase 80 CK-MB (CK-2) 1.14 Troponin I < 0.012 NT-Pro-B Natriuret Pep 183 Impressions: Chest X-Ray 10/12/17 13:33 IMPRESSION: Near complete opacification of the left hemithorax. Given patient history, favor progression versus recurrent left-sided pneumonia. Assessment & Plan - Diagnosis (1) Acute and chronic respiratory failure with hypoxia Is this a current diagnosis for this admission?: Yes Plan: Patient has a history of gram-negative pneumonia sensitive to meropenem. Attribute acute onset due to aspiration pneumonia as patient has a PEG tube. Patient also has pulmonary embolisms and is on medical regulation with [place]. LTAC placement was advised on previous discharge. We will continue oxygen to keep sats above 90 with tracheal care. Patient to receive meropenem and vancomycin. 10/13/17 Patient seen today for follow-up acute respiratory failure. Patient continued on meropenem. Patient started on tobramycin inhalations every 12. Patient started on Mucomyst. (2) Sepsis Qualifiers: Sepsis type: sepsis due to unspecified organism Qualified Code(s): A41.9 - Sepsis, unspecified organism Is this a current diagnosis for this admission?: Yes Plan: Continue current antibiotic therapy with supportive care. Continue tracheal care. Cultures showing gram-positive cocci in blood, gram-negative Rods in urine. We will continue vancomycin and meropenem. (3) Sacral decubitus ulcer Is this a current diagnosis for this admission?: Yes Plan: Continue turning every 2 hours. Barrier cream and hospital bed. (4) Pulmonary embolism Qualifiers: Pulmonary embolism type: other Chronicity: unspecified Is this a current diagnosis for this admission?: Yes Plan: Patient continued on his Eliquis. Patient is at risk for PEs . (5) Traumatic brain injury Qualifiers: Encounter type: sequela Is this a current diagnosis for this admission?: Yes Plan: Patient has traumatic brain injury in January 2017. Patient has contractures. Patient has skin breakdown.
[2017-10-13] MEDS: MEROPENEM 1 GM in NORMAL SALINE 100 ML IV SCH (18:12)
[2017-10-13] MEDS ORDERED: TOBRAMYCIN SULFATE INJ 80 MG/2 ML VIAL NEB SCH (20:00)
[2017-10-13] MEDS ORDERED: ACETYLCYSTEINE 20% SOLN 800 MG/4 ML VIAL.NEB IH SCH (20:00)
[2017-10-13] MEDS: TOBRAMYCIN SULFATE NEB 40 MG/ML 30 ML NEB SCH (20:37)
[2017-10-13] MEDS: ACETYLCYSTEINE 20% SOLN 800 MG/4 ML VIAL.NEB IH SCH (20:38)
[2017-10-14] MEDS: MEROPENEM 1 GM in NORMAL SALINE 100 ML IV SCH ×3 (01:54→18:41)
[2017-10-14] MEDS: DEXTROSE 5%-NORMAL SALINE 1,000 ML IV PRN ×2 (05:22→21:44)
[2017-10-14] MEDS: VANCOMYCIN HCL 1,000 MG in DEXTROSE 5%-WATER 250 ML IV SCH (05:22)
[2017-10-14 06:09] LABS: VANCOMYCIN,TROUGH 10.1 ug/mL (5.0-20.0)
[2017-10-14] MEDS: TOBRAMYCIN SULFATE NEB 40 MG/ML 30 ML NEB SCH ×2 (07:58→19:37)
[2017-10-14] MEDS: ALBUTEROL SULFATE 0.083% NEB 2.5 MG/3 ML AMPUL NEB SCH ×4 (07:58→19:38)
[2017-10-14] MEDS: ACETYLCYSTEINE 20% SOLN 800 MG/4 ML VIAL.NEB IH SCH ×2 (07:58→19:37)
[2017-10-14] MEDS: APIXABAN 5 MG TABLET GT SCH ×2 (10:30→21:43)
[2017-10-14] MEDS: FAMOTIDINE 20 MG TABLET GT SCH ×2 (10:30→21:43)
[2017-10-14] MEDS: VANCOMYCIN HCL 750 MG in DEXTROSE 5%-WATER 250 ML IV SCH ×2 (15:35→21:43)
--- NOTE | 2017-10-14 22:27 | PDOC PROGRESS REPORT ---
Subjective Progress Note for:: 10/14/17 Subjective:: Patient is a 57-year-old male with a complicated past medical history admitted with pneumonia. Patient is nonverbal at baseline. Has been started on meropenem for treatment of his pneumonia. Vitals are improving white count has decreased. Mucomyst at home regimen was restarted for tracheal secretions glycopyrrolate discontinued. Ongoing tracheal care per RT. Tobramycin inhalation Q12. Patient's clinical condition is guarded and prognosis is poor. 10/14/17. pt is seen today for f/u of aspiration pneumonia and sepsis. condition is stable. pulmonology consulted. pt is continued on vancomycin and meropenam. pt is afebrile and his tempreture and heart rate and RR is much better. Reason For Visit: PNEUMONIA/ACUTE ON CHRONIC RESPIRATORY FAILURE Physical Exam Vital Signs: Temp Pulse Resp BP Pulse Ox 97.9 F 83 23 H 116/68 100 10/14/17 19:53 10/14/17 19:53 10/14/17 19:53 10/14/17 19:53 10/14/17 19:53 Intake & Output 10/13/17 10/14/17 10/15/17 06:59 06:59 06:59 Intake Total 426 2924 1350 Output Total 400 560 500 Balance 26 2364 850 Weight 274 lb 11.135 oz 292 lb 12.382 oz 133 lb General appearance: PRESENT: no acute distress, other - pt is nonverbal and has trach however is opening his eyes to touch. Head exam: PRESENT: atraumatic, normocephalic Respiratory exam: PRESENT: rhonchi, wheezes. ABSENT: chest wall tenderness Cardiovascular exam: PRESENT: RRR GI/Abdominal exam: PRESENT: normal bowel sounds, soft Neurological exam: PRESENT: altered. ABSENT: alert, awake Results Laboratory Results: 10/13/17 11:39 10/13/17 11:39 10/13/17 10/13/17 10/13/17 06:53 06:53 11:39 Creatine Kinase 80 CK-MB (CK-2) 1.14 Troponin I < 0.012 NT-Pro-B Natriuret Pep 183 Impressions: Chest X-Ray 10/12/17 13:33 IMPRESSION: Near complete opacification of the left hemithorax. Given patient history, favor progression versus recurrent left-sided pneumonia. Assessment & Plan - Diagnosis (1) Acute and chronic respiratory failure with hypoxia Is this a current diagnosis for this admission?: Yes Plan: Patient has a history of gram-negative pneumonia sensitive to meropenem. Attribute acute onset due to aspiration pneumonia as patient has a PEG tube. Patient also has pulmonary embolisms and is on medical regulation with Eliquis. LTAC placement was advised on previous discharge. We will continue oxygen to keep sats above 90 with tracheal care. Patient to receive meropenem and vancomycin. 10/13/17 Patient seen today for follow-up acute respiratory failure. Patient continued on meropenem. Patient started on tobramycin inhalations every 12. Patient started on Mucomyst. 10/14/17 pt continued on antibiotics. plan same as above. 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 (2) Sepsis Qualifiers: Sepsis type: sepsis due to unspecified organism Qualified Code(s): A41.9 - Sepsis, unspecified organism Is this a current diagnosis for this admission?: Yes Plan: Continue current antibiotic therapy with supportive care. Continue tracheal care. Cultures showing gram-positive cocci in blood, gram-negative Rods in urine. We will continue vancomycin and meropenem. So far urine has shows Proteus mirabilis that is sensitive to meropenem. Blood cultures have shown gram-positive cocci in clusters, tracheal aspirate Showing gram-negative rods culture and sensitivities are pending other cultures (3) Sacral decubitus ulcer Is this a current diagnosis for this admission?: Yes Plan: Continue turning every 2 hours. Barrier cream and hospital bed. (4) Pulmonary embolism Qualifiers: Pulmonary embolism type: other Chronicity: unspecified Is this a current diagnosis for this admission?: Yes Plan: Patient continued on his Eliquis. Patient is at risk for PEs . (5) Traumatic brain injury Qualifiers: Encounter type: sequela Is this a current diagnosis for this admission?: Yes Plan: Patient has traumatic brain injury in January 2017. Patient has contractures. Patient has skin breakdown.
[2017-10-14] MEDS ORDERED: PANTOPRAZOLE SODIUM 40 MG VIAL IV ONE (23:00)
[2017-10-14 23:47] LABS: ABSOLUTE EOSINOPHILS # (AUTO) 0.1 10^3/uL (0.0-0.6); ABSOLUTE MONOCYTES (AUTO) 0.5 10^3/uL (0.1-1.4); ABSOLUTE NEUT (AUTO) 6.1 10^3/uL (1.7-8.2); BASOPHILS % (AUTO) 0.5 % (0-2); EOSINOPHILS % (AUTO) 1.1 % (0-6); HEMATOCRIT 26.9 % (37.9-51.0); HEMOGLOBIN 9.2 g/dL (13.5-17.0); LYMPHOCYTES % (AUTO) 13.1 % (13-45); MEAN CORPUSCULAR HEMOGLOBIN 30.4 pg (27.0-33.4); MEAN CORPUSCULAR HGB CONC 34.1 g/dL (32.0-36.0); MEAN CORPUSCULAR VOLUME 89 fl (80-97); RED BLOOD COUNT 3.02 10^6/uL (4.35-5.55); RED CELL DISTRIBUTION WIDTH 14.9 % (11.5-14.0); SEGMENTED NEUTROPHILS % (AUTO) 78.3 % (42-78); TOTAL CELLS COUNTED % (AUTO) 100 %; WHITE BLOOD COUNT 7.8 10^3/uL (4.0-10.5)
[2017-10-14 23:57] LABS: ALANINE AMINOTRANSFERASE 27 U/L (21-72); ALBUMIN 2.6 g/dL (3.5-5.0); ALKALINE PHOSPHATASE 82 U/L (38-126); ANION GAP 11 (5-19); ASPARTATE AMINO TRANSFERASE 12 U/L (17-59); BILIRUBIN,DIRECT 0.2 mg/dL (0.0-0.4); BILIRUBIN,TOTAL 0.4 mg/dL (0.2-1.3); BLOOD UREA NITROGEN 8 mg/dL (7-20); CALCIUM 8.5 mg/dL (8.4-10.2); CARBON DIOXIDE 25 mmol/L (22-30); CHLORIDE 100 mmol/L (98-107); GLUCOSE 95 mg/dL (75-110); POTASSIUM 3.4 mmol/L (3.6-5.0); SODIUM 135.9 mmol/L (137-145); TOTAL PROTEIN 5.1 g/dL (6.3-8.2)
[2017-10-15 00:09] LABS: PLATELET COUNT 291 10^3/uL (150-450)
[2017-10-15] MEDS: MEROPENEM 1 GM in NORMAL SALINE 100 ML IV SCH ×3 (03:08→17:01)
[2017-10-15 05:38] LABS: ABSOLUTE BASOPHILS # (AUTO) 0.1 10^3/uL (0.0-0.2); ABSOLUTE LYMPHOCYTES (AUTO) 0.6 10^3/uL (0.5-4.7); ABSOLUTE MONOCYTES (AUTO) 0.6 10^3/uL (0.1-1.4); ABSOLUTE NEUT (AUTO) 6.9 10^3/uL (1.7-8.2); BASOPHILS % (AUTO) 0.8 % (0-2); EOSINOPHILS % (AUTO) 0.3 % (0-6); HEMATOCRIT 28.5 % (37.9-51.0); HEMOGLOBIN 9.7 g/dL (13.5-17.0); LYMPHOCYTES % (AUTO) 7.7 % (13-45); MEAN CORPUSCULAR HEMOGLOBIN 30.1 pg (27.0-33.4); MEAN CORPUSCULAR HGB CONC 33.9 g/dL (32.0-36.0); MEAN CORPUSCULAR VOLUME 89 fl (80-97); MONOCYTES % (AUTO) 6.8 % (3-13); PLATELET COUNT 315 10^3/uL (150-450); RED BLOOD COUNT 3.22 10^6/uL (4.35-5.55); SEGMENTED NEUTROPHILS % (AUTO) 84.4 % (42-78); TOTAL CELLS COUNTED % (AUTO) 100 %; WHITE BLOOD COUNT 8.2 10^3/uL (4.0-10.5)
[2017-10-15 06:00] LABS: ALANINE AMINOTRANSFERASE 31 U/L (21-72); ALBUMIN 2.6 g/dL (3.5-5.0); ALKALINE PHOSPHATASE 86 U/L (38-126); ANION GAP 8 (5-19); ASPARTATE AMINO TRANSFERASE 12 U/L (17-59); BILIRUBIN,DIRECT 0.3 mg/dL (0.0-0.4); BILIRUBIN,TOTAL 0.4 mg/dL (0.2-1.3); BLOOD UREA NITROGEN 6 mg/dL (7-20); CALCIUM 8.7 mg/dL (8.4-10.2); CARBON DIOXIDE 28 mmol/L (22-30); CHLORIDE 102 mmol/L (98-107); GLUCOSE 95 mg/dL (75-110); PHOSPHORUS 2.8 mg/dL (2.5-4.5); SODIUM 137.5 mmol/L (137-145); TOTAL PROTEIN 5.2 g/dL (6.3-8.2)
[2017-10-15] MEDS: VANCOMYCIN HCL 750 MG in DEXTROSE 5%-WATER 250 ML IV SCH ×3 (06:06→21:11)
[2017-10-15] MEDS: ALBUTEROL SULFATE 0.083% NEB 2.5 MG/3 ML AMPUL NEB SCH ×4 (08:07→20:06)
[2017-10-15] MEDS: TOBRAMYCIN SULFATE NEB 40 MG/ML 30 ML NEB SCH ×2 (08:07→20:05)
[2017-10-15] MEDS: ACETYLCYSTEINE 20% SOLN 800 MG/4 ML VIAL.NEB IH SCH ×2 (08:07→20:05)
[2017-10-15] MEDS: FAMOTIDINE 20 MG TABLET GT SCH ×2 (11:08→21:11)
[2017-10-15] MEDS: APIXABAN 5 MG TABLET GT SCH ×2 (11:08→21:11)
[2017-10-15] MEDS: PANTOPRAZOLE SODIUM 40 MG VIAL IV SCH ×2 (11:09→21:11)
[2017-10-15] MEDS: DEXTROSE 5%-NORMAL SALINE 1,000 ML IV PRN (17:01)
[2017-10-15] MEDS: SCOPOLAMINE HYDROBROMIDE 1.5 MG PATCH.TD72 TD SCH (17:02)
--- NOTE | 2017-10-15 18:43 | PDOC PROGRESS REPORT ---
Subjective Progress Note for:: 10/15/17 Subjective:: The patient is awake. He cannot communicate or speak. Review of systems could not be obtained. There were no family members at the bedside. Reason For Visit: PNEUMONIA/ACUTE ON CHRONIC RESPIRATORY FAILURE Physical Exam Vital Signs: Temp Pulse Resp BP Pulse Ox 98.3 F 92 16 133/85 H 98 10/15/17 11:36 10/15/17 14:00 10/15/17 11:50 10/15/17 11:36 10/15/17 11:50 Intake & Output 10/14/17 10/15/17 10/16/17 06:59 06:59 06:59 Intake Total 2924 1800 1350 Output Total 560 1325 Balance 2364 475 1350 Weight 132.8 kg 61.3 kg General appearance: PRESENT: thin, other - This is an ill-appearing 57-year-old male. He has contractures and a trach in place. His eyes are open but he does not follow commands or track. He is a phasic Head exam: PRESENT: other - He has bitemporal muscle wasting Eye exam: PRESENT: conjunctiva pink, EOMI, PERRLA. ABSENT: scleral icterus Ear exam: PRESENT: normal external ear exam Throat exam: PRESENT: other - He has a trach collar in place Neck exam: ABSENT: carotid bruit, JVD, lymphadenopathy, thyromegaly Respiratory exam: PRESENT: rhonchi - Coarse upper airway rhonchi bilaterally Cardiovascular exam: PRESENT: RRR. ABSENT: diastolic murmur, rubs, systolic murmur Pulses: PRESENT: normal dorsalis pedis pul Vascular exam: PRESENT: normal capillary refill GI/Abdominal exam: PRESENT: normal bowel sounds, soft, other - He is receiving tube feedings. ABSENT: distended, guarding, mass, organolmegaly, rebound, tenderness Rectal exam: PRESENT: deferred Extremities exam: PRESENT: full ROM. ABSENT: calf tenderness, clubbing, pedal edema Neurological exam: PRESENT: awake, aphasic. ABSENT: alert, oriented to person, oriented to place, oriented to time, oriented to situation, CN II-XII grossly intact, motor sensory deficit Psychiatric exam: ABSENT: agitated Skin exam: PRESENT: dry, intact, warm. ABSENT: cyanosis, rash Results Laboratory Results: 10/15/17 05:00 10/15/17 05:00 10/14/17 10/14/17 10/14/17 22:20 23:25 23:25 WBC 7.8 RBC 3.02 L Hgb 9.2 L Hct 26.9 L MCV 89 MCH 30.4 MCHC 34.1 RDW 14.9 H Plt Count 291 Seg Neutrophils % 78.3 H Lymphocytes % 13.1 Monocytes % 7.0 Eosinophils % 1.1 Basophils % 0.5 Absolute Neutrophils 6.1 Absolute Lymphocytes 1.0 Absolute Monocytes 0.5 Absolute Eosinophils 0.1 Absolute Basophils 0.0 Sodium 135.9 L Potassium 3.4 L Chloride 100 Carbon Dioxide 25 Anion Gap 11 BUN 8 Creatinine 0.39 L Est GFR ( Amer) > 60 Est GFR (Non-Af Amer) > 60 Glucose 95 Calcium 8.5 Phosphorus Magnesium Total Bilirubin 0.4 AST 12 L ALT 27 Alkaline Phosphatase 82 Total Protein 5.1 L Albumin 2.6 L Stool Occult Blood NEGATIVE Blood Type Antibody Screen 10/14/17 10/15/17 10/15/17 23:25 05:00 05:00 WBC 8.2 RBC 3.22 L Hgb 9.7 L Hct 28.5 L MCV 89 MCH 30.1 MCHC 33.9 RDW 15.0 H Plt Count 315 Seg Neutrophils % 84.4 H Lymphocytes % 7.7 L Monocytes % 6.8 Eosinophils % 0.3 Basophils % 0.8 Absolute Neutrophils 6.9 Absolute Lymphocytes 0.6 Absolute Monocytes 0.6 Absolute Eosinophils 0.0 Absolute Basophils 0.1 Sodium 137.5 Potassium 4.0 Chloride 102 Carbon Dioxide 28 Anion Gap 8 BUN 6 L Creatinine 0.40 L Est GFR ( Amer) > 60 Est GFR (Non-Af Amer) > 60 Glucose 95 Calcium 8.7 Phosphorus 2.8 Magnesium 1.6 Total Bilirubin 0.4 AST 12 L ALT 31 Alkaline Phosphatase 86 Total Protein 5.2 L Albumin 2.6 L Stool Occult Blood Blood Type B POSITIVE Antibody Screen NEGATIVE 10/13/17 12:30 Tracheal Aspirate Gram Stain - Final 10/13/17 12:30 Tracheal Aspirate Sputum Culture - Final Proteus Mirabilis Corynebacterium Striatum Greatly Reduced Normal Hannah 10/13/17 10/13/17 10/13/17 06:53 06:53 11:39 Creatine Kinase 80 CK-MB (CK-2) 1.14 Troponin I < 0.012 NT-Pro-B Natriuret Pep 183 Impressions: Chest X-Ray 10/12/17 13:33 IMPRESSION: Near complete opacification of the left hemithorax. Given patient history, favor progression versus recurrent left-sided pneumonia. Assessment & Plan - Diagnosis (1) Acute and chronic respiratory failure with hypoxia Is this a current diagnosis for this admission?: Yes Plan: Continue additional support as needed. His respiratory failure is due to significant pneumonia. (2) Sepsis Is this a current diagnosis for this admission?: Yes Plan: Present on admission secondary to pneumonia and urinary tract infection. Continue treatment as outlined below. His sepsis symptoms have improved. He has 1 out of 2 blood cultures positive for gram-positive cocci. Repeat cultures have not been obtained. This is likely a contaminant. We will repeat blood cultures just to be on the safe side. (3) Pneumonia Is this a current diagnosis for this admission?: Yes Plan: He has Proteus growing in his sputum as well as Corynebacterium. He will continue IV meropenem. Currently his tube feedings are on hold (4) Urinary tract infection Is this a current diagnosis for this admission?: Yes Plan: He has a Proteus urinary tract infection adequately covered with the current regimen. (5) Sacral decubitus ulcer, stage III Is this a current diagnosis for this admission?: Yes Plan: Continue local wound care. If there is any infection he is adequately covered on the current regimen of vancomycin and meropenem. (6) Stage II pressure ulcer of heel Is this a current diagnosis for this admission?: Yes Plan: Continue local wound care (7) Pulmonary embolus Is this a current diagnosis for this admission?: Yes Plan: Continue Eliquis for now (8) Traumatic brain injury Is this a current diagnosis for this admission?: Yes Plan: He unfortunately is a salas of the [facility]. (9) Anemia Is this a current diagnosis for this admission?: Yes Plan: He has an anemia of chronic disease. He is also had a precipitous drop in his hemoglobin due to hemodilution. (11) Hypokalemia Is this a current diagnosis for this admission?: Yes Plan: Repleted and resolved (12) Do not resuscitate Is this a current diagnosis for this admission?: Yes - Time Time Spent with patient: 25-34 minutes - Inpatient Certification Medical Necessity: Need For IV Fluids, Need for IV Antibiotics, Other - Inpatient hospitalization remains necessary. I am going to repeat a chest x- ray today to see what the status of his pneumonia is. Overall he has stabilized somewhat but his prognosis is quite poor. We will try to get in touch with his guardian tomorrow for further discussions. This gentleman is not going to do well no matter what we do. We will likely try to reinitiate some tube feeds tomorrow.
[2017-10-16] MEDS: MEROPENEM 1 GM in NORMAL SALINE 100 ML IV SCH ×3 (05:15→17:52)
[2017-10-16] MEDS: VANCOMYCIN HCL 750 MG in DEXTROSE 5%-WATER 250 ML IV SCH ×3 (05:55→21:49)
[2017-10-16 06:11] LABS: ABSOLUTE LYMPHOCYTES (AUTO) 0.7 10^3/uL (0.5-4.7); ABSOLUTE MONOCYTES (AUTO) 0.5 10^3/uL (0.1-1.4); ABSOLUTE NEUT (AUTO) 4.6 10^3/uL (1.7-8.2); BASOPHILS % (AUTO) 0.5 % (0-2); EOSINOPHILS % (AUTO) 0.8 % (0-6); HEMATOCRIT 26.4 % (37.9-51.0); HEMOGLOBIN 9.2 g/dL (13.5-17.0); LYMPHOCYTES % (AUTO) 11.8 % (13-45); MEAN CORPUSCULAR HEMOGLOBIN 30.9 pg (27.0-33.4); MEAN CORPUSCULAR HGB CONC 34.9 g/dL (32.0-36.0); MEAN CORPUSCULAR VOLUME 89 fl (80-97); MONOCYTES % (AUTO) 8.7 % (3-13); PLATELET COUNT 339 10^3/uL (150-450); RED BLOOD COUNT 2.97 10^6/uL (4.35-5.55); SEGMENTED NEUTROPHILS % (AUTO) 78.2 % (42-78); TOTAL CELLS COUNTED % (AUTO) 100 %; WHITE BLOOD COUNT 5.9 10^3/uL (4.0-10.5)
[2017-10-16 06:39] LABS: VANCOMYCIN,TROUGH 17.3 ug/mL (5.0-20.0)
[2017-10-16 06:57] LABS: ANION GAP 9 (5-19); BLOOD UREA NITROGEN 3 mg/dL (7-20); CALCIUM 8.6 mg/dL (8.4-10.2); CARBON DIOXIDE 26 mmol/L (22-30); CHLORIDE 102 mmol/L (98-107); GLUCOSE 98 mg/dL (75-110); POTASSIUM 3.4 mmol/L (3.6-5.0); SODIUM 137.1 mmol/L (137-145)
[2017-10-16] MEDS: TOBRAMYCIN SULFATE NEB 40 MG/ML 30 ML NEB SCH (07:51)
[2017-10-16] MEDS: ACETYLCYSTEINE 20% SOLN 800 MG/4 ML VIAL.NEB IH SCH ×2 (07:51→20:07)
[2017-10-16] MEDS: ALBUTEROL SULFATE 0.083% NEB 2.5 MG/3 ML AMPUL NEB SCH ×4 (07:51→20:07)
[2017-10-16] MEDS: APIXABAN 5 MG TABLET GT SCH ×2 (09:33→21:47)
[2017-10-16] MEDS: PANTOPRAZOLE SODIUM 40 MG VIAL IV SCH ×2 (09:33→21:48)
[2017-10-16] MEDS: FAMOTIDINE 20 MG TABLET GT SCH ×2 (09:33→21:49)
--- NOTE | 2017-10-16 15:27 | PDOC PROGRESS REPORT ---
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 He has a chronic tracheostomy in place. He is nonverbal and non-responsive does not interact. He does have a stage III decubitus ulcer on his sacrum and a stage II pressure ulcer on his heel. He has had a pulmonary embolus for which he is maintained on Eliquis. He resides at a local nursing facility. He was brought to the emergency room with increasing respiratory distress. He was found to have acute on chronic respiratory failure and evidence of a sepsis felt to be secondary to probable pneumonia as well as a urinary tract infection. He is being maintained on IV vancomycin and meropenem. He is stabilizing somewhat. Initially his tube feedings were held but they are being reinitiated today. The patient is awake. He cannot communicate or speak. Review of systems could not be obtained. There were no family members at the bedside. Reason For Visit: PNEUMONIA/ACUTE ON CHRONIC RESPIRATORY FAILURE Physical Exam Vital Signs: Temp Pulse Resp BP Pulse Ox 98.8 F 84 18 117/70 98 10/16/17 04:40 10/16/17 11:59 10/16/17 11:59 10/16/17 04:40 10/16/17 11:59 Intake & Output 10/15/17 10/16/17 10/17/17 06:59 06:59 06:59 Intake Total 1800 2050 350 Output Total 1325 2375 Balance 475 -325 350 Weight 61.3 kg 60 kg General appearance: PRESENT: no acute distress, thin Head exam: PRESENT: atraumatic, other - He has bitemporal muscle wasting Mouth exam: PRESENT: moist Neck exam: PRESENT: tracheostomy Respiratory exam: PRESENT: other - He has course upper airway rhonchi. Otherwise his lungs sound fairly clear. This is somewhat limited exam as he does not cooperate to take a deep breath Cardiovascular exam: PRESENT: RRR. ABSENT: diastolic murmur, rubs, systolic murmur Pulses: PRESENT: normal dorsalis pedis pul GI/Abdominal exam: PRESENT: normal bowel sounds, soft, other - He has a PEG tube in place.. ABSENT: distended, guarding, mass, organolmegaly, rebound, tenderness Rectal exam: PRESENT: deferred Extremities exam: PRESENT: full ROM. ABSENT: calf tenderness, clubbing, pedal edema Musculoskeletal exam: PRESENT: other - He has contractures in all of his extremities. ABSENT: ambulatory Neurological exam: PRESENT: awake, aphasic, other - He has contractures in all 4 of his extremities.. ABSENT: alert, altered, oriented to person, oriented to place, oriented to time, oriented to situation Psychiatric exam: PRESENT: other - Unable to assess Skin exam: PRESENT: dry, intact, warm, other - His sacrum was not examined today.. ABSENT: cyanosis, rash Results Laboratory Results: 10/16/17 05:53 10/16/17 05:53 10/16/17 10/16/17 05:53 05:53 WBC 5.9 RBC 2.97 L Hgb 9.2 L Hct 26.4 L MCV 89 MCH 30.9 MCHC 34.9 RDW 15.0 H Plt Count 339 Seg Neutrophils % 78.2 H Lymphocytes % 11.8 L Monocytes % 8.7 Eosinophils % 0.8 Basophils % 0.5 Absolute Neutrophils 4.6 Absolute Lymphocytes 0.7 Absolute Monocytes 0.5 Absolute Eosinophils 0.0 Absolute Basophils 0.0 Sodium 137.1 Potassium 3.4 L Chloride 102 Carbon Dioxide 26 Anion Gap 9 BUN 3 L Creatinine 0.38 L Est GFR ( Amer) > 60 Est GFR (Non-Af Amer) > 60 Glucose 98 Calcium 8.6 Magnesium 1.6 10/13/17 12:30 Tracheal Aspirate Gram Stain - Final 10/13/17 12:30 Tracheal Aspirate Sputum Culture - Final Proteus Mirabilis Corynebacterium Striatum Greatly Reduced Normal Hannah 10/13/17 10/13/17 10/13/17 06:53 06:53 11:39 Creatine Kinase 80 CK-MB (CK-2) 1.14 Troponin I < 0.012 NT-Pro-B Natriuret Pep 183 Impressions: Chest X-Ray 10/12/17 13:33 IMPRESSION: Near complete opacification of the left hemithorax. Given patient history, favor progression versus recurrent left-sided pneumonia. Assessment & Plan - Diagnosis (1) Acute and chronic respiratory failure with hypoxia Is this a current diagnosis for this admission?: Yes Plan: Continue current plan of care. Continue additional oxygen support as needed. He will continue Mucomyst and albuterol breathing treatments. I am going to stop his tobramycin breathing treatments as his sputum culture is not growing Pseudomonas. His respiratory failure is due to significant pneumonia. (2) Sepsis Is this a current diagnosis for this admission?: Yes Plan: Present on admission secondary to pneumonia and urinary tract infection. Continue treatment as outlined below. His sepsis symptoms have improved. He has 1 out of 2 blood cultures positive for gram-positive cocci. Repeat cultures have not been obtained. This is likely a contaminant. We will repeat blood cultures just to be on the safe side. (3) Pneumonia Is this a current diagnosis for this admission?: Yes Plan: He has Proteus growing in his sputum as well as Corynebacterium. He will continue IV meropenem and IV vancomycin. (4) Urinary tract infection Is this a current diagnosis for this admission?: Yes Plan: He has a Proteus urinary tract infection adequately covered with the current regimen. (5) Sacral decubitus ulcer, stage III Is this a current diagnosis for this admission?: Yes Plan: Continue local wound care. If there is any infection he is adequately covered on the current regimen of vancomycin and meropenem. (6) Stage II pressure ulcer of heel Is this a current diagnosis for this admission?: Yes Plan: Continue local wound care (7) Pulmonary embolus Is this a current diagnosis for this admission?: Yes Plan: Continue Eliquis for now (8) Traumatic brain injury Is this a current diagnosis for this admission?: Yes Plan: He unfortunately is a salas of the [facility]. (9) Anemia Is this a current diagnosis for this admission?: Yes Plan: He has an anemia of chronic disease. He has also had a precipitous drop in his hemoglobin due to hemodilution. (10) Hyponatremia Is this a current diagnosis for this admission?: Yes Plan: Resolved at this point. (11) Hypokalemia Is this a current diagnosis for this admission?: Yes Plan: Repleted and resolved (12) Do not resuscitate Is this a current diagnosis for this admission?: Yes - Time Time Spent with patient: 25-34 minutes - Inpatient Certification Medical Necessity: Significant Comorbidiites Make Outpatient Treatment Too Risky , Need for Nebulizer Therapy and Monitoring of Response, Need for IV Antibiotics , Other - Inpatient hospitalization remains necessary. Overall the patient is somewhat stabilizing. His prognosis is still quite guarded. He needs ongoing parenteral antibiotics for his pneumonia and urinary tract infection. All of this could have been caused by some aspiration. We are going to cautiously restart his tube feedings today. Timing of disposition will be determined by his clinical course.
[2017-10-17] MEDS: MEROPENEM 1 GM in NORMAL SALINE 100 ML IV SCH ×3 (02:34→10:09)
[2017-10-17] MEDS: DEXTROSE 5%-NORMAL SALINE 1,000 ML IV PRN ×2 (03:25→20:12)
[2017-10-17] MEDS: VANCOMYCIN HCL 750 MG in DEXTROSE 5%-WATER 250 ML IV SCH ×3 (05:23→22:00)
[2017-10-17 06:43] LABS: ABSOLUTE LYMPHOCYTES (AUTO) 0.8 10^3/uL (0.5-4.7); ABSOLUTE MONOCYTES (AUTO) 0.7 10^3/uL (0.1-1.4); ABSOLUTE NEUT (AUTO) 5.1 10^3/uL (1.7-8.2); BASOPHILS % (AUTO) 0.4 % (0-2); EOSINOPHILS % (AUTO) 0.6 % (0-6); HEMOGLOBIN 10.6 g/dL (13.5-17.0); LYMPHOCYTES % (AUTO) 11.7 % (13-45); MEAN CORPUSCULAR HEMOGLOBIN 31.3 pg (27.0-33.4); MEAN CORPUSCULAR HGB CONC 35.3 g/dL (32.0-36.0); MEAN CORPUSCULAR VOLUME 89 fl (80-97); MONOCYTES % (AUTO) 10.8 % (3-13); PLATELET COUNT 377 10^3/uL (150-450); RED BLOOD COUNT 3.38 10^6/uL (4.35-5.55); SEGMENTED NEUTROPHILS % (AUTO) 76.5 % (42-78); TOTAL CELLS COUNTED % (AUTO) 100 %; WHITE BLOOD COUNT 6.7 10^3/uL (4.0-10.5)
[2017-10-17 07:09] LABS: ANION GAP 10 (5-19); BLOOD UREA NITROGEN 2 mg/dL (7-20); CALCIUM 8.4 mg/dL (8.4-10.2); CARBON DIOXIDE 28 mmol/L (22-30); CHLORIDE 101 mmol/L (98-107); GLUCOSE 115 mg/dL (75-110); POTASSIUM 3.1 mmol/L (3.6-5.0); SODIUM 138.5 mmol/L (137-145)
[2017-10-17] MEDS: ACETYLCYSTEINE 20% SOLN 800 MG/4 ML VIAL.NEB IH SCH ×2 (07:45→20:04)
[2017-10-17] MEDS: ALBUTEROL SULFATE 0.083% NEB 2.5 MG/3 ML AMPUL NEB SCH ×4 (07:46→20:04)
[2017-10-17] MEDS: PANTOPRAZOLE SODIUM 40 MG VIAL IV SCH ×2 (10:06→22:00)
[2017-10-17] MEDS: FAMOTIDINE 20 MG TABLET GT SCH ×2 (10:06→22:00)
[2017-10-17] MEDS: APIXABAN 5 MG TABLET GT SCH ×2 (10:06→22:00)
[2017-10-17] MEDS ORDERED: POTASSIUM CHLORIDE 20 MEQ/15 ML UDCUP PO ONE (14:30)
[2017-10-17] MEDS: MEROPENEM 1 GM in NORMAL SALINE 50 ML IV SCH (18:21)
[2017-10-18] MEDS: MEROPENEM 1 GM in NORMAL SALINE 50 ML IV SCH ×3 (01:56→17:44)
[2017-10-18] MEDS: VANCOMYCIN HCL 750 MG in DEXTROSE 5%-WATER 250 ML IV SCH ×2 (05:07→13:47)
[2017-10-18 06:23] LABS: ABSOLUTE MONOCYTES (AUTO) 0.8 10^3/uL (0.1-1.4); ABSOLUTE NEUT (AUTO) 5.8 10^3/uL (1.7-8.2); BASOPHILS % (AUTO) 0.4 % (0-2); EOSINOPHILS % (AUTO) 0.5 % (0-6); HEMATOCRIT 31.7 % (37.9-51.0); HEMOGLOBIN 10.7 g/dL (13.5-17.0); LYMPHOCYTES % (AUTO) 12.7 % (13-45); MEAN CORPUSCULAR HEMOGLOBIN 30.4 pg (27.0-33.4); MEAN CORPUSCULAR HGB CONC 33.7 g/dL (32.0-36.0); MEAN CORPUSCULAR VOLUME 90 fl (80-97); MONOCYTES % (AUTO) 10.9 % (3-13); PLATELET COUNT 371 10^3/uL (150-450); RED BLOOD COUNT 3.52 10^6/uL (4.35-5.55); RED CELL DISTRIBUTION WIDTH 15.1 % (11.5-14.0); SEGMENTED NEUTROPHILS % (AUTO) 75.5 % (42-78); TOTAL CELLS COUNTED % (AUTO) 100 %; WHITE BLOOD COUNT 7.7 10^3/uL (4.0-10.5)
[2017-10-18 06:38] LABS: ANION GAP 10 (5-19); BLOOD UREA NITROGEN 4 mg/dL (7-20); CALCIUM 8.8 mg/dL (8.4-10.2); CARBON DIOXIDE 28 mmol/L (22-30); CHLORIDE 99 mmol/L (98-107); GLUCOSE 111 mg/dL (75-110)
[2017-10-18 06:48] LABS: POTASSIUM 4.1 mmol/L (3.6-5.0)
[2017-10-18] MEDS: ALBUTEROL SULFATE 0.083% NEB 2.5 MG/3 ML AMPUL NEB SCH ×4 (08:06→19:57)
[2017-10-18] MEDS: ACETYLCYSTEINE 20% SOLN 800 MG/4 ML VIAL.NEB IH SCH ×2 (08:06→19:57)
[2017-10-18] MEDS: FAMOTIDINE 20 MG TABLET GT SCH ×2 (10:33→21:38)
[2017-10-18] MEDS: APIXABAN 5 MG TABLET GT SCH ×2 (10:33→21:38)
--- NOTE | 2017-10-18 16:26 | PDOC PROGRESS REPORT ---
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 He has a chronic tracheostomy in place. He is nonverbal and non-responsive does not interact. He does have a stage III decubitus ulcer on his sacrum and a stage II pressure ulcer on his heel. He has had a pulmonary embolus for which he is maintained on Eliquis. He resides at a local nursing facility. He was brought to the emergency room with increasing respiratory distress. He was found to have acute on chronic respiratory failure and evidence of a sepsis felt to be secondary to probable pneumonia as well as a urinary tract infection. He is being maintained on IV vancomycin and meropenem. He is stabilizing somewhat. Initially his tube feedings were held but they are being reinitiated today. 08/17/17 The patient is awake. He cannot communicate or speak. He does not appear to be in any distress. RN reports that family members planning on visiting from [place] over the weekend. Reason For Visit: PNEUMONIA/ACUTE ON CHRONIC RESPIRATORY FAILURE Physical Exam Vital Signs: Temp Pulse Resp BP Pulse Ox 98.7 F 102 H 18 113/73 96 10/17/17 08:15 10/17/17 11:51 10/17/17 11:51 10/17/17 08:15 10/17/17 11:51 Intake & Output 10/16/17 10/17/17 10/18/17 06:59 06:59 06:59 Intake Total 3050 1316 20 Output Total 2375 3050 400 Balance 185 -7408 -380 Weight 60 kg 60.8 kg GEN: NAD, chronically ill-appearing NECK: s/p tracheostomy CV: RRR, NL S1S2 LUNGS: Patient has colitis bilateral upper airways rhonchi ABDOMEN Soft, NT, +BS EXTERMITIES: He has 1+ edema of his feet, he has contractures all 4 extremities NEURO: Awake, aphasic Results Laboratory Results: 10/17/17 05:52 10/17/17 05:52 10/17/17 10/17/17 05:52 05:52 WBC 6.7 RBC 3.38 L Hgb 10.6 L Hct 30.0 L MCV 89 MCH 31.3 MCHC 35.3 RDW 15.0 H Plt Count 377 Seg Neutrophils % 76.5 Lymphocytes % 11.7 L Monocytes % 10.8 Eosinophils % 0.6 Basophils % 0.4 Absolute Neutrophils 5.1 Absolute Lymphocytes 0.8 Absolute Monocytes 0.7 Absolute Eosinophils 0.0 Absolute Basophils 0.0 Sodium 138.5 Potassium 3.1 L Chloride 101 Carbon Dioxide 28 Anion Gap 10 BUN 2 L Creatinine 0.39 L Est GFR ( Amer) > 60 Est GFR (Non-Af Amer) > 60 Glucose 115 H Calcium 8.4 Magnesium 1.6 10/13/17 10/13/17 10/13/17 06:53 06:53 11:39 Creatine Kinase 80 CK-MB (CK-2) 1.14 Troponin I < 0.012 NT-Pro-B Natriuret Pep 183 Impressions: Chest X-Ray 10/12/17 13:33 IMPRESSION: Near complete opacification of the left hemithorax. Given patient history, favor progression versus recurrent left-sided pneumonia. Assessment & Plan - Plan Summary Plan Summary: (1) Acute and chronic respiratory failure with hypoxia Is this a current diagnosis for this admission?: Yes Plan: This is secondary to significant pneumonia. Continue current plan of care and antibiotics as in pneumonia below. Continue oxygen support as needed. We will continue Mucomyst and albuterol breathing treatments. His tobramycin breathing treatments was discontinued 10/16/17 as his sputum culture is not growing Pseudomonas. Besides pseudomonas in urine sensitive to imipenem. (2) Sepsis Is this a current diagnosis for this admission?: Yes Plan: Present on admission secondary to pneumonia and urinary tract infection. Continue treatment as outlined below. His sepsis symptoms have improved. He has 1 out of 2 blood cultures positive for Streptococcus capitis. He is concerned that this may be contaminated, it is sensitive to Vanco. We will continue Vanco for now. Repeat blood cultures pending. (3) Pneumonia Is this a current diagnosis for this admission?: Yes Plan: He has Proteus growing in his sputum as well as Corynebacterium. The corynebacterium is thought to likely be contaminant. We will continue IV meropenem. We will also continue IV vancomycin for now. (4) Urinary tract infection Is this a current diagnosis for this admission?: Yes Plan: He has a Proteus urinary tract infection adequately covered with the current regimen. (5) Sacral decubitus ulcer, stage III Is this a current diagnosis for this admission?: Yes Plan: Continue local wound care. If there is any infection he is adequately covered on the current regimen of vancomycin and meropenem. (6) Stage II pressure ulcer of heel Is this a current diagnosis for this admission?: Yes Plan: Continue local wound care (7) Pulmonary embolus Is this a current diagnosis for this admission?: Yes Plan: Continue Eliquis for now (8) Traumatic brain injury Is this a current diagnosis for this admission?: Yes Plan: He is a salas of the [facility]. Family planning to visit from [place]. (9) Anemia Is this a current diagnosis for this admission?: Yes Plan: He has an anemia of chronic disease. He has also had a precipitous drop in his hemoglobin due to hemodilution. (10) Hyponatremia Is this a current diagnosis for this admission?: Yes Plan: Resolved at this point. (11) Hypokalemia Is this a current diagnosis for this admission?: Yes Plan: Will replete and follow-up level (12) Do not resuscitate Is this a current diagnosis for this admission?: Yes
--- NOTE | 2017-10-18 16:50 | PDOC PROGRESS REPORT ---
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 He has a chronic tracheostomy in place. He is nonverbal and non-responsive does not interact. He does have a stage III decubitus ulcer on his sacrum and a stage II pressure ulcer on his heel. He has had a pulmonary embolus for which he is maintained on Eliquis. He resides at a local nursing facility. He was brought to the emergency room with increasing respiratory distress. He was found to have acute on chronic respiratory failure and evidence of a sepsis felt to be secondary to probable pneumonia as well as a urinary tract infection. He is being maintained on IV vancomycin and meropenem. He is stabilizing somewhat. Initially his tube feedings were held but they are being reinitiated today. 08/17/17 The patient is awake. He cannot communicate or speak. He does not appear to be in any distress. RN reports that family members planning on visiting from [place] over the weekend. 08/18/17 Opens eyes, not responsive to questioning. He is a no apparent distress. Again , patient is a stable, but family apparently visiting from [place] over the weekend. Reason For Visit: PNEUMONIA/ACUTE ON CHRONIC RESPIRATORY FAILURE Physical Exam Vital Signs: Temp Pulse Resp BP Pulse Ox 98.7 F 91 15 113/69 96 10/18/17 11:08 10/18/17 16:04 10/18/17 16:04 10/18/17 11:08 10/18/17 16:04 Intake & Output 10/17/17 10/18/17 10/19/17 06:59 06:59 06:59 Intake Total 1566 3145 170 Output Total 3050 2100 600 Balance -1484 1045 -430 Weight 60.8 kg 60.4 kg GEN: NAD, chronically ill-appearing NECK: s/p tracheostomy CV: RRR, NL S1S2 LUNGS: Patient has bilateral upper airways rhonchi ABDOMEN Soft, NT, +BS EXTERMITIES: He has 2+ edema of his feet, he has contractures all 4 extremities NEURO: Awake, aphasic Results Laboratory Results: 10/18/17 05:41 10/18/17 05:41 10/18/17 10/18/17 05:41 05:41 WBC 7.7 RBC 3.52 L Hgb 10.7 L Hct 31.7 L MCV 90 MCH 30.4 MCHC 33.7 RDW 15.1 H Plt Count 371 Seg Neutrophils % 75.5 Lymphocytes % 12.7 L Monocytes % 10.9 Eosinophils % 0.5 Basophils % 0.4 Absolute Neutrophils 5.8 Absolute Lymphocytes 1.0 Absolute Monocytes 0.8 Absolute Eosinophils 0.0 Absolute Basophils 0.0 Sodium 137.0 Potassium 4.1 D Chloride 99 Carbon Dioxide 28 Anion Gap 10 BUN 4 L Creatinine 0.39 L Est GFR ( Amer) > 60 Est GFR (Non-Af Amer) > 60 Glucose 111 H Calcium 8.8 10/13/17 10/13/17 10/13/17 06:53 06:53 11:39 Creatine Kinase 80 CK-MB (CK-2) 1.14 Troponin I < 0.012 NT-Pro-B Natriuret Pep 183 Impressions: Chest X-Ray 10/12/17 13:33 IMPRESSION: Near complete opacification of the left hemithorax. Given patient history, favor progression versus recurrent left-sided pneumonia. Assessment & Plan - Plan Summary Plan Summary: (1) Acute and chronic respiratory failure with hypoxia Is this a current diagnosis for this admission?: Yes Plan: This is secondary to significant pneumonia. Continue current plan of care and antibiotics as in pneumonia below. Continue oxygen support as needed. We will continue Mucomyst and albuterol breathing treatments. His tobramycin breathing treatments was discontinued 10/16/17 as his sputum culture is not growing Pseudomonas. Besides pseudomonas in urine sensitive to imipenem. (2) Sepsis Is this a current diagnosis for this admission?: Yes Plan: Present on admission secondary to pneumonia and urinary tract infection. Continue treatment as outlined below. His sepsis symptoms have improved. He has 1 out of 2 blood cultures positive for Streptococcus capitis. There is concerned that this may be contaminated, it is sensitive to Vanco. Repeat blood cultures negative 48 hours. We will discontinue Vanco. (3) Pneumonia Is this a current diagnosis for this admission?: Yes Plan: He has Proteus growing in his sputum as well as Corynebacterium. The corynebacterium is thought to likely be contaminant. We will continue IV meropenem. (4) Urinary tract infection Is this a current diagnosis for this admission?: Yes Plan: He has a Proteus urinary tract infection adequately covered with the current regimen. (5) Sacral decubitus ulcer, stage III Is this a current diagnosis for this admission?: Yes Plan: Continue local wound care. (6) Stage II pressure ulcer of heel Is this a current diagnosis for this admission?: Yes Plan: Continue local wound care (7) Pulmonary embolus Is this a current diagnosis for this admission?: Yes Plan: Continue Eliquis for now (8) Traumatic brain injury Is this a current diagnosis for this admission?: Yes Plan: He is a salas of the [facility]. Family planning to visit from [place] over the weekend. (9) Anemia Is this a current diagnosis for this admission?: Yes Plan: He has an anemia of chronic disease. H&H stable. (10) Hyponatremia Is this a current diagnosis for this admission?: Yes Plan: Resolved at this point. (11) Hypokalemia Is this a current diagnosis for this admission?: Yes Plan: Was repleted and has resolved at this time (12) Do not resuscitate Is this a current diagnosis for this admission?: Yes
[2017-10-18] MEDS: SCOPOLAMINE HYDROBROMIDE 1.5 MG PATCH.TD72 TD SCH (17:44)
[2017-10-18] MEDS: DEXTROSE 5%-NORMAL SALINE 1,000 ML IV PRN (18:43)
[2017-10-19] MEDS: MEROPENEM 1 GM in NORMAL SALINE 50 ML IV SCH ×2 (04:27→11:32)
[2017-10-19] MEDS: ALBUTEROL SULFATE 0.083% NEB 2.5 MG/3 ML AMPUL NEB SCH ×4 (07:56→20:17)
[2017-10-19] MEDS: ACETYLCYSTEINE 20% SOLN 800 MG/4 ML VIAL.NEB IH SCH ×2 (07:56→20:17)
[2017-10-19] MEDS: DEXTROSE 5%-NORMAL SALINE 1,000 ML IV PRN ×2 (09:03→22:59)
[2017-10-19] MEDS: APIXABAN 5 MG TABLET GT SCH ×2 (11:32→21:44)
[2017-10-19] MEDS: FAMOTIDINE 20 MG TABLET GT SCH ×2 (11:32→21:44)
--- NOTE | 2017-10-19 13:53 | PDOC PROGRESS REPORT ---
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 He has a chronic tracheostomy in place. He is nonverbal and non-responsive does not interact. He does have a stage III decubitus ulcer on his sacrum and a stage II pressure ulcer on his heel. He has had a pulmonary embolus for which he is maintained on Eliquis. He resides at a local nursing facility. He was brought to the emergency room with increasing respiratory distress. He was found to have acute on chronic respiratory failure and evidence of a sepsis felt to be secondary to probable pneumonia as well as a urinary tract infection. He is being maintained on IV vancomycin and meropenem. He is stabilizing somewhat. Initially his tube feedings were held but they are being reinitiated today. Reason For Visit: PNEUMONIA/ACUTE ON CHRONIC RESPIRATORY FAILURE Physical Exam Vital Signs: Temp Pulse Resp BP Pulse Ox 98.8 F 98 28 H 108/63 100 10/19/17 11:41 10/19/17 11:41 10/19/17 11:41 10/19/17 11:41 10/19/17 11:41 Intake & Output 10/18/17 10/19/17 10/20/17 06:59 06:59 06:59 Intake Total 3145 1520 1050 Output Total 2100 2900 1200 Balance 1045 -1380 -150 Weight 60.4 kg 58.8 kg General appearance: PRESENT: no acute distress Head exam: PRESENT: atraumatic Neck exam: PRESENT: tracheostomy Respiratory exam: PRESENT: crackles, rhonchi Cardiovascular exam: PRESENT: RRR. ABSENT: diastolic murmur, rubs, systolic murmur GI/Abdominal exam: PRESENT: normal bowel sounds, soft, other - PEG. ABSENT: distended, guarding, mass, organolmegaly, rebound, tenderness Rectal exam: PRESENT: deferred Musculoskeletal exam: ABSENT: ambulatory Neurological exam: PRESENT: other - non verbal. ABSENT: oriented to person, oriented to place, oriented to situation Skin exam: PRESENT: other - sacral decubitus ulcer stage 4 Heel ulcer Results Laboratory Results: 10/18/17 05:41 10/18/17 05:41 10/13/17 10/13/17 10/13/17 06:53 06:53 11:39 Creatine Kinase 80 CK-MB (CK-2) 1.14 Troponin I < 0.012 NT-Pro-B Natriuret Pep 183 Impressions: Chest X-Ray 10/12/17 13:33 IMPRESSION: Near complete opacification of the left hemithorax. Given patient history, favor progression versus recurrent left-sided pneumonia. Assessment & Plan - Time Time Spent with patient: 15-24 minutes Medications reviewed and adjusted accordingly: Yes Anticipated discharge: SNF - Inpatient Certification Based on my medical assessment, after consideration of the patient's comorbidities, presenting symptoms, or acuity I expect that the services needed warrant INPATIENT care.: Yes Medical Necessity: Need Close Monitoring Due to Risk of Patient Decompensation, Need for IV Antibiotics, Risk of Complication if Not Cared For in Hospital - Plan Summary Plan Summary: Acute on chronic respiratory failure with hypoxia currently on antibiotics as well as Mucomyst and bronchodilators 2. Sepsis secondary to pneumonia and urinary tract infection. He does have bacteremia positive for Streptococcus capitis although there may be a question of contamination. Repeat blood cultures have been negative and vancomycin discontinued 3. Pneumonia with Proteus as well as corynebacterium which is likely contaminant patient is currently on meropenem 4. Urinary tract infection secondary to Proteus 5. Sacral decubitus ulcer as well as stage II pressure ulcer of heel will continue local wound care 6. Pulmonary embolus currently on Eliquis 7. Traumatic brain injury patient is apparently what of the state 8. Anemia secondary to chronic disease. H&H stable 9. Hyponatremia resolved 10. Hypokalemia 11. Patient is a DO NOT RESUSCITATE
[2017-10-20] MEDS: ALBUTEROL SULFATE 0.083% NEB 2.5 MG/3 ML AMPUL NEB SCH ×4 (08:02→20:27)
[2017-10-20] MEDS: ACETYLCYSTEINE 20% SOLN 800 MG/4 ML VIAL.NEB IH SCH ×2 (08:02→20:27)
[2017-10-20] MEDS: FAMOTIDINE 20 MG TABLET GT SCH ×2 (09:32→22:08)
[2017-10-20] MEDS: APIXABAN 5 MG TABLET GT SCH ×2 (09:32→22:08)
[2017-10-20] MEDS: DEXTROSE 5%-NORMAL SALINE 1,000 ML IV PRN (12:19)
--- NOTE | 2017-10-20 15:20 | PDOC PROGRESS REPORT ---
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 He has a chronic tracheostomy in place. He is nonverbal and non-responsive does not interact. He does have a stage III decubitus ulcer on his sacrum and a stage II pressure ulcer on his heel. He has had a pulmonary embolus for which he is maintained on Eliquis. He resides at a local nursing facility. He was brought to the emergency room with increasing respiratory distress. He was found to have acute on chronic respiratory failure and evidence of a sepsis felt to be secondary to probable pneumonia as well as a urinary tract infection. He is off all antibiotics Reason For Visit: PNEUMONIA/ACUTE ON CHRONIC RESPIRATORY FAILURE Physical Exam Vital Signs: Temp Pulse Resp BP Pulse Ox 98.7 F 81 16 129/61 H 99 10/20/17 11:03 10/20/17 11:33 10/20/17 11:33 10/20/17 11:03 10/20/17 11:33 Intake & Output 10/19/17 10/20/17 10/21/17 06:59 06:59 06:59 Intake Total 1520 3737 1000 Output Total 2900 3225 700 Balance -1380 512 300 Weight 58.8 kg 61.6 kg General appearance: PRESENT: no acute distress, other - chronically ill looking Head exam: PRESENT: atraumatic Respiratory exam: PRESENT: crackles. ABSENT: accessory muscle use Cardiovascular exam: PRESENT: RRR. ABSENT: diastolic murmur, rubs, systolic murmur GI/Abdominal exam: PRESENT: other - PEG tube Rectal exam: PRESENT: deferred Neurological exam: PRESENT: awake Psychiatric exam: PRESENT: other - unable to evaluate Skin exam: PRESENT: other - sacral decubitus and hell ulcer Results Laboratory Results: 10/18/17 05:41 10/18/17 05:41 10/13/17 10/13/17 10/13/17 06:53 06:53 11:39 Creatine Kinase 80 CK-MB (CK-2) 1.14 Troponin I < 0.012 NT-Pro-B Natriuret Pep 183 Impressions: Chest X-Ray 10/12/17 13:33 IMPRESSION: Near complete opacification of the left hemithorax. Given patient history, favor progression versus recurrent left-sided pneumonia. Assessment & Plan - Time Time Spent with patient: 15-24 minutes Medications reviewed and adjusted accordingly: Yes Anticipated discharge: SNF Within: within 72 hours - Inpatient Certification Based on my medical assessment, after consideration of the patient's comorbidities, presenting symptoms, or acuity I expect that the services needed warrant INPATIENT care.: Yes Medical Necessity: Significant Comorbidiites Make Outpatient Treatment Too Risky , Risk of Complication if Not Cared For in Hospital - Plan Summary Plan Summary: 1.Acute on chronic respiratory failure with hypoxia completed 2. Sepsis secondary to pneumonia and urinary tract infection. He does have bacteremia positive for Streptococcus capitis although there may be a question of contamination. Repeat blood cultures have been negative and vancomycin discontinued 3. Pneumonia with Proteus as well as corynebacterium which is likely contaminant p 4. Urinary tract infection secondary to Proteus 5. Sacral decubitus ulcer as well as stage II pressure ulcer of heel will continue local wound care 6. Pulmonary embolus currently on Eliquis 7. Traumatic brain injury patient is apparently what of the state 8. Anemia secondary to chronic disease. H&H stable 9. Hyponatremia resolved 10. Hypokalemia 11. Patient is a DO NOT RESUSCITATE
[2017-10-20] MEDS: NYSTATIN TOPICAL POWDER 15 GM TP SCH (19:14)
[2017-10-21] MEDS: DEXTROSE 5%-NORMAL SALINE 1,000 ML IV PRN ×2 (01:22→14:38)
[2017-10-21] MEDS: ACETYLCYSTEINE 20% SOLN 800 MG/4 ML VIAL.NEB IH SCH ×2 (09:37→20:46)
[2017-10-21] MEDS: ALBUTEROL SULFATE 0.083% NEB 2.5 MG/3 ML AMPUL NEB SCH ×3 (09:37→16:18)
[2017-10-21] MEDS: APIXABAN 5 MG TABLET GT SCH ×2 (11:32→22:03)
[2017-10-21] MEDS: NYSTATIN TOPICAL POWDER 15 GM TP SCH ×2 (11:32→17:29)
[2017-10-21] MEDS: FAMOTIDINE 20 MG TABLET GT SCH ×2 (11:32→22:03)
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
[2017-10-21] MEDS: BACITRACIN ZINC OINTMENT 15 GM TP SCH (17:29)
[2017-10-21] MEDS: SCOPOLAMINE HYDROBROMIDE 1.5 MG PATCH.TD72 TD SCH (18:50)
[2017-10-22] MEDS: DEXTROSE 5%-NORMAL SALINE 1,000 ML IV PRN (03:49)
[2017-10-22] MEDS: APIXABAN 5 MG TABLET GT SCH (09:16)
[2017-10-22] MEDS: FAMOTIDINE 20 MG TABLET GT SCH (09:16)
[2017-10-22] MEDS: BACITRACIN ZINC OINTMENT 15 GM TP SCH (09:18)
[2017-10-22] MEDS: NYSTATIN TOPICAL POWDER 15 GM TP SCH (09:19)
[2017-10-22] MEDS: ALBUTEROL SULFATE 0.083% NEB 2.5 MG/3 ML AMPUL NEB SCH ×3 (09:22→12:48)
[2017-10-22] MEDS: ACETYLCYSTEINE 20% SOLN 800 MG/4 ML VIAL.NEB IH SCH (09:22)
[2017-10-22 11:53] VITALS: BP 141/77
--- NOTE | 2017-10-22 11:58 | PDOC DISCHARGE SUMMARY ---
General - Admit/Disc Date/PCP Admission Date/Primary Care Provider: 10/12/17 16:36 RALEIGH GARCIA, DO Discharge Date: 10/22/17 - Discharge Diagnosis (1) Acute and chronic respiratory failure with hypoxia Is this a current diagnosis for this admission?: Yes (2) Pneumonia Is this a current diagnosis for this admission?: Yes (3) Sacral decubitus ulcer, stage III Is this a current diagnosis for this admission?: Yes (4) Sepsis Is this a current diagnosis for this admission?: Yes (5) Urinary tract infection Is this a current diagnosis for this admission?: Yes (6) Traumatic brain injury Is this a current diagnosis for this admission?: Yes (7) Chronic respiratory failure Is this a current diagnosis for this admission?: Yes (8) Pulmonary embolism Is this a current diagnosis for this admission?: Yes - Additional Information Resuscitation Status: Do Not Resuscitate Discharge Diet: Tube Feeding (Comments) Discharge Activity: Bedrest Home Medications: Glycopyrrolate [Robinul Forte 1 mg Tablet] 2 mg PEG Q8 #30 09/06/17 Ipratropium/Albuterol Sulfate [Duoneb 3 ml Ampul] 3 ml NEB RTQ6 vial.neb Scopolamine [Transderm-Scop] 1 patch TD Q3D #5 patch.td.3 09/06/17 Apixaban [Eliquis 5 mg Tablet] 5 mg PEG BID 10/12/17 Dextran 70/Hypromellose [Artificial Tears] 1 drop OU TID 10/12/17 Famotidine [Pepcid 20 mg Tablet] 20 mg PEG BID 10/12/17 Lactose-Reduced Food/Fiber [Isosource 1.5 Claude Tube Feed Lq] 50 ml PEG CONTINUOUS PRN 10/12/17 Sennosides [Senokot] 17.2 mg PEG BID 10/12/17 Insulin Regular, Human [Novolin R (Reg) Insulin 100 unit/mL] 0 unit SUBCUT Q6 Sodium Bicarbonate [Sodium Bicarbonate 650 mg Tablet] 650 mg PEG PRN PRN Acetylcysteine [Mucomist 20% Soln 800 mg/4 mL] 600 mg IH RTBID vial 10/22/17 Albuterol Sulfate [Ventolin 0.083% Neb 2.5 mg/3 mL Ampul] 2.5 mg NEB [id number] vial.neb 10/22/17 Bacitracin Zinc [Bacitracin Oint 15 gm] 1 applic TP BID tube 10/22/17 Nystatin [Mycostatin Topical Powder 15 gm] 1 applic TP BID bottle 10/22/17 History of Present Illness History of Present Illness: CECILIA MARTINEZ is a 57 year old male Patient was admitted with acute respiratory failure secondary to pneumonia. He was also found to be septic Hospital Course Hospital Course: Patient was admitted with acute respiratory failure secondary to pneumonia. He was also found to be septic. Patient has a chronic respiratory failure with the use of tracheostomy and is a debilitated and at risk for frequent infections. He actually did pretty well in the hospital and responded to his antibiotic regimen. He was also treated for a urinary tract infection secondary to Proteus and Pseudomonas and patient has completed his course of antibiotics at this time. Sputum culture was positive for Proteus as well as urine culture and although he did not grow Staphylococcus capitis in blood this is felt to be a contaminant. Patient has completed his antibiotic course and he has remained hemodynamically stable. Of course he remains at high risk for repeated infections. Physical Exam Vital Signs: Temp Pulse Resp BP Pulse Ox 98.8 F 99 22 H 141/77 H 98 10/22/17 11:06 10/22/17 11:06 10/22/17 11:06 10/22/17 11:06 10/22/17 11:06 Intake & Output 10/21/17 10/22/17 10/23/17 06:59 06:59 06:59 Intake Total 3949 4136 0 Output Total 2250 2150 800 Balance 1699 1985 - Weight 61.2 kg 58 kg General appearance: PRESENT: no acute distress, other - chronically ill looking Head exam: PRESENT: atraumatic Neck exam: PRESENT: tracheostomy Respiratory exam: PRESENT: crackles, unlabored. ABSENT: wheezes Cardiovascular exam: PRESENT: RRR, +S1, +S2. ABSENT: diastolic murmur, rubs, systolic murmur GI/Abdominal exam: PRESENT: normal bowel sounds, soft, other - PEG Tube. ABSENT : distended, guarding, mass, organolmegaly, rebound, tenderness Rectal exam: PRESENT: deferred Extremities exam: PRESENT: other - contractures both extremities resting tremors Neurological exam: PRESENT: alert, awake Skin exam: PRESENT: other - Sacral decubitus ulcer L blister between 4 and 5th toes Results Laboratory Results: 10/18/17 05:41 10/18/17 05:41 10/16/17 15:35 Blood Blood Culture - Final NO GROWTH IN 5 DAYS 10/16/17 14:14 Blood Blood Culture - Final NO GROWTH IN 5 DAYS 10/13/17 10/13/17 10/13/17 06:53 06:53 11:39 Creatine Kinase 80 CK-MB (CK-2) 1.14 Troponin I < 0.012 NT-Pro-B Natriuret Pep 183 Impressions: Chest X-Ray 10/12/17 13:33 IMPRESSION: Near complete opacification of the left hemithorax. Given patient history, favor progression versus recurrent left-sided pneumonia. Qualifiers - * PATIENT BEING DISCHARGED WITH ANY OF THE FOLLOWING DIAGNOSIS: No Plan Time Spent: Greater than 30 Minutes
== END 2017-10-22 14:59 | DRG 870 ==
LOC: ER 12:52 → EH 16:36 → 3W 19:53
PROVIDERS: ADMIT Internal Medicine; ATTEND Internal Medicine
PROC: 3E0F73Z Introduction of Anti-inflammatory into Respiratory Tract, Via Natural or Artificial Opening (ICD-10-PCS; 2017-10-12)
PROC: 5A1955Z Respiratory Ventilation, Greater than 96 Consecutive Hours (ICD-10-PCS; principal; 2017-10-13)
DX: A41.9 Sepsis, unspecified organism (principal); J96.21 Acute and chronic respiratory failure with hypoxia; L89.153 Pressure ulcer of sacral region, stage 3; J18.9 Pneumonia, unspecified organism; I26.99 Other pulmonary embolism without acute cor pulmonale; G82.50 Quadriplegia, unspecified; N39.0 Urinary tract infection, site not specified; E87.1 Hypo-osmolality and hyponatremia; Z66 Do not resuscitate; B96.4 Proteus (mirabilis) (morganii) as the cause of diseases classified elsewhere; B96.5 Pseudomonas (aeruginosa) (mallei) (pseudomallei) as the cause of diseases classified elsewhere; S90.425A Blister (nonthermal), left lesser toe(s), initial encounter; X58.XXXA Exposure to other specified factors, initial encounter; F32.9 Major depressive disorder, single episode, unspecified; D64.9 Anemia, unspecified; L89.602 Pressure ulcer of unspecified heel, stage 2; E87.6 Hypokalemia; D63.8 Anemia in other chronic diseases classified elsewhere; Z87.820 Personal history of traumatic brain injury; Z79.899 Other long term (current) drug therapy; Z93.1 Gastrostomy status
CPT/HCPCS: 36415; 51702; 71045; 80048; 80053; 80202; 81001; 82272; 82550; 82553; 82803; 82962; 83605; 83735; 83880; 84100; 84439; 84443; 84484; 85025; 85610; 86850; 86900; 86901; 87040; 87070; 87077; 87086; 87088; 87186; 87205; 87493; 93005; 93010; 94640; 94667; 94668; 96361; 96374; 96375; 99291; J0696; J2060; J2185; J3370; J3490; J7030; J7060; J7620; J7685; S0164

== ENCOUNTER 2017-10-24 06:20 | Inpatient (IN) | payer MEDICARE, MEDICAID ==
--- NOTE | 2017-10-24 06:57 | ER Document Report ---
ED General - General Mode of Arrival: Ambulatory Information source: Patient TRAVEL OUTSIDE OF THE [place] IN LAST 30 DAYS: No <ALTHEA GREENE - Last Filed: 10/24/17 07:18> <MYNOR COX - Last Filed: 10/24/17 10:00> - General Chief Complaint: Fever Stated Complaint: FEVER Time Seen by Provider: 10/24/17 06:50 Notes: Patient is a 57 year old male with a history of TBI, in a subsequent vegetative state, was sent to the emergency department via EMS from [facility] complaining of a fever and low oxygen rate. Patient was recently hospitalized on 10/12/2017 for pneumonia and COPD and discharged on 10/22/2017. According to correction, patient had a fever of 102.6 and an oxygen saturation rate of 89% and was sent to this ED. According to ED nursing staff, they were able to suction a copious amount of thick light yellowish sputum from tracheostomy. At bedside patient oxygen rate is 100% on 6L of oxygen. Patient is normally on 6L of oxygen at home. (ALTHEA GREENE) - Related Data Allergies/Adverse Reactions: No Known Allergies Allergy (Unverified 09/04/17 08:51) Past Medical History - General Information source: Emergency Med Personnel, [facility] Records - Social History Smoking Status: Unknown if Ever Smoked Family History: Reviewed & Not Pertinent, Other - Unable to obtain secondary to patient's condition Patient has suicidal ideation: No Patient has homicidal ideation: No Pulmonary Medical History: Reports: Hx Pneumonia, Hx Intubation, Hx Respiratory Failure Psychiatric Medical History: Reports: Hx Depression Traumatic Medical History: Reports: Hx Traumatic Brain Injury Past Surgical History: Reports: Other - Tracheostomy, G-tube <ALTHEA GREENE - Last Filed: 10/24/17 07:18> Review of Systems - Review of Systems Constitutional: Fever - Per correction EENT: No symptoms reported Cardiovascular: No symptoms reported Respiratory: See HPI Gastrointestinal: No symptoms reported Genitourinary: No symptoms reported Male Genitourinary: No symptoms reported Musculoskeletal: No symptoms reported Skin: No symptoms reported Hematologic/Lymphatic: No symptoms reported Neurological/Psychological: No symptoms reported -: Yes All other systems reviewed and negative <ALTHEA GREENE - Last Filed: 10/24/17 07:18> <MYNOR COX - Last Filed: 10/24/17 10:00> - Review of Systems Notes: ROS obtained from [facility] staff due to patient's vegetative state. (ALTHEA GREENE) Physical Exam <ALTHEA GREENE - Last Filed: 10/24/17 07:18> <MYNOR COX - Last Filed: 10/24/17 10:00> - Vital signs Vitals: Temp Pulse Resp BP Pulse Ox 101.0 F H 124 H 28 H 117/67 95 10/24/17 06:20 10/24/17 06:20 10/24/17 06:20 10/24/17 06:20 10/24/17 06:20 - Notes Notes: GENERAL: Alert. In a vegetative state. No acute distress. HEAD: Normocephalic, atraumatic. EYES: Pupils equal, round, and reactive to light. Extraocular movements intact. ENT: Oral mucosa moist, tongue midline. NECK: Full range of motion. Supple. Trachea midline. Tracheostomy. LUNGS: Rhonchi, ED nursing staff obtained copious amounts of light yellow sputum from tracheostomy. On 6L of oxygen. No respiratory distress. HEART: Regular rate and rhythm. No murmurs, gallops, or rubs. EXTREMITIES: Contractures of the BUE. NEUROLOGICAL: In a vegetative state. PSYCH: In a vegetative state. SKIN: Warm, dry, normal turgor. No rashes or lesions noted. (ALTHEA GREENE) Course - Laboratory Result Diagrams: 10/24/17 07:30 10/24/17 08:51 - Diagnostic Test Radiology reviewed: Image reviewed, Reports reviewed - Chest x-ray shows a left lower lobe pneumonia with possible cavitary lesion - EKG Interpretation by [facility] EKG shows normal: Sinus rhythm, [place], Intervals, QRS Complexes, ST-T Waves Rate: Tachycardia - 120 <MYNOR COX - Last Filed: 10/24/17 10:00> - Vital Signs Vital signs: Temp Pulse Resp BP Pulse Ox 101.0 F H 124 H 28 H 117/67 95 10/24/17 06:20 10/24/17 06:20 10/24/17 06:20 10/24/17 06:20 10/24/17 06:20 - Laboratory Laboratory results interpreted by me: 10/24/17 10/24/17 10/24/17 07:30 07:30 08:51 WBC 23.5 H RBC 4.01 L Hgb 12.1 L Hct 35.9 L RDW 15.6 H Plt Count 568 H Seg Neuts % (Manual) 92 H Lymphocytes % (Manual) 4 L Abs Neuts (Manual) 21.6 H Potassium 5.1 H Creatinine 0.48 L Glucose 116 H AST 14 L Alkaline Phosphatase 127 H Creatine Kinase 31 L Total Protein 6.0 L Albumin 3.1 L Urine Protein 30 H Ur Leukocyte Esterase LARGE H Urine Ascorbic Acid 40 H Critical Care Note - Critical Care Note Total time excluding time spent on procedures (mins): 40 <MYNOR COX - Last Filed: 10/24/17 10:00> Discharge <ALTHEA GREENE - Last Filed: 10/24/17 07:18> - Discharge Admitting Provider: Hospitalist Unit Admitted: IMCU <MYNOR COX - Last Filed: 10/24/17 10:00> - Discharge Clinical Impression: Bacterial pneumonia, Tachycardia, Acute and chronic respiratory failure with hypoxia, Respiratory distress Fever Qualifiers: Fever type: unspecified Qualified Code(s): R50.9 - Fever, unspecified Urinary tract infection Qualifiers: Urinary tract infection type: catheter-associated UTI Indwelling urinary catheter type: indwelling urethral catheter Encounter type: initial encounter Qualified Code(s): T83.511A - Infection and inflammatory reaction due to indwelling urethral catheter, initial encounter Condition: Fair Disposition: ADMITTED INPATIENT Referrals: RALEIGH GARCIA DO [Primary Care Provider] - Follow up as needed Scribe Attestation: 10/24/17 08:41 I personally performed the services described in the documentation, reviewed and edited the documentation which was dictated to the scribe in my presence, and it accurately records my words and actions. (MYNOR COX) Scribe Documentation - Scribe Written by Noemy:: Noemy Sim, 10/24/2017 07:16 acting as scribe for :: Laurie <ALTHEA GREENE - Last Filed: 10/24/17 07:18>
[2017-10-24] MEDS ORDERED: RINGERS SOLUTION,LACTATED 1,000 ML IV ONE (07:12)
[2017-10-24] MEDS ORDERED: ACETAMINOPHEN 650 MG SUPP.RECT PR ONE ×2 (07:35→07:43)
[2017-10-24 07:51] LABS: HEMATOCRIT 35.9 % (37.9-51.0); HEMOGLOBIN 12.1 g/dL (13.5-17.0); MEAN CORPUSCULAR HEMOGLOBIN 30.1 pg (27.0-33.4); MEAN CORPUSCULAR HGB CONC 33.6 g/dL (32.0-36.0); MEAN CORPUSCULAR VOLUME 90 fl (80-97); PLATELET COUNT 568 10^3/uL (150-450); RED BLOOD COUNT 4.01 10^6/uL (4.35-5.55); RED CELL DISTRIBUTION WIDTH 15.6 % (11.5-14.0); WHITE BLOOD COUNT 23.5 10^3/uL (4.0-10.5)
[2017-10-24] MEDS ORDERED: PIPERACILLIN/TAZOBACTAM 3.375 GM VIAL IV ONE ×2 (08:03→08:11)
[2017-10-24] MEDS ORDERED: VANCOMYCIN HCL INJ 1000 MG VIAL IV ONE (08:03)
[2017-10-24 08:23] LABS: ABSOLUTE LYMPHOCYTES# (MANUAL) 0.9 10^3/uL (0.5-4.7); ABSOLUTE MONOCYTES # (MANUAL) 0.9 10^3/uL (0.1-1.4); ABSOLUTE NEUTROPHILS# (MANUAL) 21.6 10^3/uL (1.7-8.2); BASOPHILS % (MANUAL) 0 % (0-2); EOSINOPHILS % (MANUAL) 0 % (0-6); LYMPHOCYTES % (MANUAL) 4 % (13-45); MONOCYTES % (MANUAL) 4 % (3-13); SEGMENTED NEUTROPHILS % (MAN) 92 % (42-78); TOTAL CELLS COUNTED 100
[2017-10-24 08:24] LABS: ANISOCYTOSIS SLIGHT; OVALOCYTES SLIGHT; PLATELET COMMENT INCREASED; POIKILOCYTOSIS 1+; POLYCHROMASIA SLIGHT; STOMATOCYTES 1+
[2017-10-24 08:39] LABS: AMORPHOUS SEDIMENT,URINE TRACE /HPF; APPEARANCE,URINE TURBID; BILIRUBIN,URINE NEGATIVE (NEGATIVE); GLUCOSE, URINE NEGATIVE (NEGATIVE); KETONES,URINE NEGATIVE (NEGATIVE); LEUKOCYTE ESTERASE,URINE LARGE (NEGATIVE); NITRITE,URINE NEGATIVE (NEGATIVE); PROTEIN,URINE 30 mg/dL (NEGATIVE); URINE SPECIFIC GRAVITY 1.019; UROBILINOGEN,URINE NEGATIVE mg/dL (<2.0)
[2017-10-24 08:42] LABS: COLOR,URINE YELLOW
--- NOTE | 2017-10-24 08:51 | RADIOLOGY REPORT (SQ) ---
EXAM DESCRIPTION: CHEST SINGLE VIEW COMPLETED DATE/TIME: 10/24/2017 7:17 am REASON FOR STUDY: fever, hypoxic COMPARISON: 10/12/2017 NUMBER OF VIEWS: One view. TECHNIQUE: Single frontal radiographic image of the chest acquired. LIMITATIONS: Left costophrenic angle cropped from the film. FINDINGS: LUNGS AND PLEURA: Segmental airspace disease left lower lobe. Gas lucencies overlying lef t heart border with visualized medial aspect of the left diaphragm. This could represent a hernia or pneumonia with cavitation. MEDIASTINUM AND HEART: Stable heart size and mediastinal structures. SUPPORT DEVICES: Appropriate location without change. BONY STRUCTURES: No acute findings. HARDWARE: None. OTHER: No other significant finding. IMPRESSION: Recurrent left lower lobe pneumonia. Possible cavitation. Consider noncontrast chest C T. Reading location - IP/workstation name: [email or web address]
[2017-10-24 09:22] LABS: ALANINE AMINOTRANSFERASE 35 U/L (21-72); ALBUMIN 3.1 g/dL (3.5-5.0); ALKALINE PHOSPHATASE 127 U/L (38-126); ANION GAP 12 (5-19); ASPARTATE AMINO TRANSFERASE 14 U/L (17-59); BILIRUBIN,DIRECT 0.2 mg/dL (0.0-0.4); BILIRUBIN,TOTAL 0.8 mg/dL (0.2-1.3); BLOOD UREA NITROGEN 17 mg/dL (7-20); CALCIUM 9.5 mg/dL (8.4-10.2); CARBON DIOXIDE 25 mmol/L (22-30); CHLORIDE 101 mmol/L (98-107); CREATINE KINASE 31 U/L (55-170); GLUCOSE 116 mg/dL (75-110); POTASSIUM 5.1 mmol/L (3.6-5.0)
[2017-10-24 09:34] LABS: CREATINE KINASE MB 0.82 ng/mL (<4.55)
[2017-10-24 09:36] LABS: TROPONIN I < 0.012 ng/mL
[2017-10-24] MEDS ORDERED: VANCOMYCIN HCL INJ 1000 MG VIAL ONE (09:39)
[2017-10-24] MEDS ORDERED: NORMAL SALINE 1000 ML 1,000 ML IV ONE (10:00)
[2017-10-24 10:28] LABS: VENOUS BLOOD BASE EXCESS 4.9 mmol/L; VENOUS BLOOD HCO3 29.2 mmol/L (20-32); VENOUS BLOOD PH 7.46 (7.30-7.42)
[2017-10-24] MEDS ORDERED: PROMETHAZINE HCL INJ 25 MG/1 ML VIAL IV PRN ×2 (10:33→13:30)
[2017-10-24] MEDS ORDERED: ACETAMINOPHEN 325 MG TABLET PEG PRN (10:33)
[2017-10-24] MEDS ORDERED: VANCOMYCIN HCL 0 MG in DEXTROSE 5%-WATER 250 ML IV NR (10:45)
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
[2017-10-24] MEDS ORDERED: SCOPOLAMINE HYDROBROMIDE 1.5 MG PATCH.TD72 TD SCH (13:00)
[2017-10-24] MEDS ORDERED: LEVOFLOXACIN 750 MG/D5W RTU 750 MG/150 ML RTUPB IV ONE (13:02)
[2017-10-24] MEDS: LEVOFLOXACIN 750 MG/D5W RTU 750 MG/150 ML RTUPB IV SCH (13:05)
[2017-10-24] MEDS ORDERED: VANCOMYCIN HCL 750 MG in DEXTROSE 5%-WATER 250 ML IV SCH (14:00)
[2017-10-24] MEDS: GLYCOPYRROLATE 1 MG TABLET PEG SCH ×2 (14:38→22:45)
[2017-10-24] MEDS: SCOPOLAMINE HYDROBROMIDE 1.5 MG PATCH.TD72 TD SCH (14:38)
[2017-10-24] MEDS: PIPERACILLIN SODIUM/TAZOBACTAM 4.5 GM in NORMAL SALINE 100 ML IV SCH ×2 (14:39→21:40)
[2017-10-24] MEDS: BACITRACIN ZINC OINTMENT 15 GM TP SCH (17:56)
[2017-10-24] MEDS: NYSTATIN TOPICAL POWDER 15 GM TP SCH (17:57)
[2017-10-24] MEDS: VANCOMYCIN HCL 750 MG in DEXTROSE 5%-WATER 250 ML IV SCH (17:58)
[2017-10-24] MEDS: APIXABAN 5 MG TABLET PEG SCH (17:58)
[2017-10-24] MEDS ORDERED: (PENDING PHARMACY ID) (Sennosides [Senokot] 17.2 MG) PEG SCH (18:00)
[2017-10-24] MEDS: ACETYLCYSTEINE 20% SOLN 800 MG/4 ML VIAL.NEB IH SCH (20:13)
[2017-10-24] MEDS: IPRATROPIUM/ALBUTEROL 0.5-2.5 MG/3 ML AMPUL NEB PRN (20:13)
[2017-10-24] MEDS: FAMOTIDINE 20 MG TABLET PEG SCH (22:45)
[2017-10-25] MEDS: VANCOMYCIN HCL 750 MG in DEXTROSE 5%-WATER 250 ML IV SCH ×3 (01:45→18:18)
[2017-10-25] MEDS: PIPERACILLIN SODIUM/TAZOBACTAM 4.5 GM in NORMAL SALINE 100 ML IV SCH ×4 (03:40→21:14)
[2017-10-25] MEDS: GLYCOPYRROLATE 1 MG TABLET PEG SCH ×3 (05:30→21:16)
[2017-10-25 05:40] LABS: ABSOLUTE BASOPHILS # (AUTO) 0.1 10^3/uL (0.0-0.2); ABSOLUTE LYMPHOCYTES (AUTO) 1.1 10^3/uL (0.5-4.7); ABSOLUTE MONOCYTES (AUTO) 0.9 10^3/uL (0.1-1.4); ABSOLUTE NEUT (AUTO) 13.1 10^3/uL (1.7-8.2); BASOPHILS % (AUTO) 0.5 % (0-2); EOSINOPHILS % (AUTO) 0.2 % (0-6); HEMATOCRIT 27.6 % (37.9-51.0); LYMPHOCYTES % (AUTO) 7.4 % (13-45); MEAN CORPUSCULAR HEMOGLOBIN 30.6 pg (27.0-33.4); MEAN CORPUSCULAR HGB CONC 34.4 g/dL (32.0-36.0); MEAN CORPUSCULAR VOLUME 89 fl (80-97); MONOCYTES % (AUTO) 5.7 % (3-13); PLATELET COUNT 424 10^3/uL (150-450); RED BLOOD COUNT 3.11 10^6/uL (4.35-5.55); RED CELL DISTRIBUTION WIDTH 15.7 % (11.5-14.0); SEGMENTED NEUTROPHILS % (AUTO) 86.2 % (42-78); TOTAL CELLS COUNTED % (AUTO) 100 %; WHITE BLOOD COUNT 15.2 10^3/uL (4.0-10.5)
[2017-10-25 05:41] LABS: HEMOGLOBIN 9.5 g/dL (13.5-17.0)
[2017-10-25 05:52] LABS: ANION GAP 9 (5-19); BLOOD UREA NITROGEN 16 mg/dL (7-20); CALCIUM 8.6 mg/dL (8.4-10.2); CARBON DIOXIDE 26 mmol/L (22-30); CHLORIDE 100 mmol/L (98-107); GLUCOSE 106 mg/dL (75-110); POTASSIUM 4.6 mmol/L (3.6-5.0); SODIUM 135.2 mmol/L (137-145)
[2017-10-25] MEDS: ACETYLCYSTEINE 20% SOLN 800 MG/4 ML VIAL.NEB IH SCH ×2 (08:14→19:59)
[2017-10-25] MEDS: IPRATROPIUM/ALBUTEROL 0.5-2.5 MG/3 ML AMPUL NEB PRN ×2 (08:14→19:59)
--- NOTE | 2017-10-25 08:57 | EKG REPORT ---
SEVERITY:- OTHERWISE NORMAL ECG - SINUS TACHYCARDIA : Confirmed by: Obi Swanson 25-Oct-2017 08:57:00
[2017-10-25] MEDS ORDERED: ENOXAPARIN SODIUM INJ 40 MG/0.4 ML DISP.SYRIN SUBCUT SCH (10:00)
[2017-10-25] MEDS: NYSTATIN TOPICAL POWDER 15 GM TP SCH ×2 (10:40→18:17)
[2017-10-25] MEDS: FAMOTIDINE 20 MG TABLET PEG SCH ×2 (10:40→21:15)
[2017-10-25] MEDS: APIXABAN 5 MG TABLET PEG SCH ×2 (10:40→18:16)
[2017-10-25] MEDS: RINGERS SOLUTION,LACTATED 1,000 ML IV PRN (10:47)
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
[2017-10-25 11:31] LABS: VANCOMYCIN,TROUGH 14.1 ug/mL (5.0-20.0)
[2017-10-25] MEDS: BACITRACIN ZINC OINTMENT 15 GM TP SCH ×2 (12:03→18:17)
[2017-10-25] MEDS: LEVOFLOXACIN 750 MG/D5W RTU 750 MG/150 ML RTUPB IV SCH (12:07)
[2017-10-26] MEDS: VANCOMYCIN HCL 750 MG in DEXTROSE 5%-WATER 250 ML IV SCH ×2 (03:29→11:47)
[2017-10-26] MEDS: PIPERACILLIN SODIUM/TAZOBACTAM 4.5 GM in NORMAL SALINE 100 ML IV SCH ×4 (03:30→22:59)
[2017-10-26] MEDS: GLYCOPYRROLATE 1 MG TABLET PEG SCH ×3 (05:33→22:59)
[2017-10-26 06:04] LABS: ABSOLUTE LYMPHOCYTES (AUTO) 0.9 10^3/uL (0.5-4.7); ABSOLUTE MONOCYTES (AUTO) 0.7 10^3/uL (0.1-1.4); ABSOLUTE NEUT (AUTO) 6.1 10^3/uL (1.7-8.2); BASOPHILS % (AUTO) 0.5 % (0-2); EOSINOPHILS % (AUTO) 0.6 % (0-6); HEMATOCRIT 25.8 % (37.9-51.0); HEMOGLOBIN 8.6 g/dL (13.5-17.0); LYMPHOCYTES % (AUTO) 11.5 % (13-45); MEAN CORPUSCULAR HEMOGLOBIN 29.9 pg (27.0-33.4); MEAN CORPUSCULAR HGB CONC 33.4 g/dL (32.0-36.0); MEAN CORPUSCULAR VOLUME 90 fl (80-97); MONOCYTES % (AUTO) 8.6 % (3-13); PLATELET COUNT 326 10^3/uL (150-450); RED BLOOD COUNT 2.88 10^6/uL (4.35-5.55); RED CELL DISTRIBUTION WIDTH 15.9 % (11.5-14.0); SEGMENTED NEUTROPHILS % (AUTO) 78.8 % (42-78); TOTAL CELLS COUNTED % (AUTO) 100 %; WHITE BLOOD COUNT 7.7 10^3/uL (4.0-10.5)
[2017-10-26 06:09] LABS: ANION GAP 8 (5-19); BLOOD UREA NITROGEN 9 mg/dL (7-20); CALCIUM 8.7 mg/dL (8.4-10.2); CARBON DIOXIDE 29 mmol/L (22-30); CHLORIDE 101 mmol/L (98-107); GLUCOSE 115 mg/dL (75-110); SODIUM 137.5 mmol/L (137-145)
[2017-10-26] MEDS: IPRATROPIUM/ALBUTEROL 0.5-2.5 MG/3 ML AMPUL NEB PRN ×2 (08:20→20:19)
[2017-10-26] MEDS: ACETYLCYSTEINE 20% SOLN 800 MG/4 ML VIAL.NEB IH SCH ×2 (08:20→20:19)
[2017-10-26] MEDS: NYSTATIN TOPICAL POWDER 15 GM TP SCH ×2 (10:47→17:47)
[2017-10-26] MEDS: BACITRACIN ZINC OINTMENT 15 GM TP SCH ×2 (10:47→17:46)
[2017-10-26] MEDS: LEVOFLOXACIN 750 MG/D5W RTU 750 MG/150 ML RTUPB IV SCH (10:51)
[2017-10-26] MEDS: FAMOTIDINE 20 MG TABLET PEG SCH ×2 (10:51→22:58)
[2017-10-26] MEDS: APIXABAN 5 MG TABLET PEG SCH ×2 (10:51→17:46)
[2017-10-26] MEDS: RINGERS SOLUTION,LACTATED 1,000 ML IV PRN (13:50)
[2017-10-26] MEDS ORDERED: RINGERS SOLUTION,LACTATED 1,000 ML IV PRN (13:50)
--- NOTE | 2017-10-26 16:26 | PROGRESS NOTE E ---
Progress Note NAME: CECILIA MARTINEZ : 1960 AGE: 57Y DATE: 10/26/2017 ROOM: 308 SUBJECTIVE: The patient is currently lying in bed. The patient appears to be at his baseline. He is unable to voice any concerns at this time. No reported episodes of vomiting or diarrhea. The patient has been afebrile. His blood pressure has been in an acceptable range, and the patient is unable to voice any other specific concern at this time. REVIEW OF SYSTEMS: The rest of the review of systems are unobtainable given the patient's mental status. MEDICATIONS: Medications have been reviewed. OBJECTIVE: GENERAL: The patient is a 67-year-old male who is awake, alert. Unable to fully assess orientation. He does not appear to be distressed. VITAL SIGNS: As follows: Temperature is 98.7, pulse 84, respirations 16, blood pressure is 98/78, oxygen saturation is 100% on 50% FIO2 by Trach collar. SKIN: Pale, dry. No rash. Not diaphoretic. HEENT: Pupils are fixed. The patient is not tracking at this time. NECK: No evidence of JVP. CARDIOVASCULAR SYSTEM: Heart is regular. No rub. CHEST: Diminished, symmetrical, unlabored. ABDOMEN: Soft. EXTREMITIES: Contracted. No evidence of edema. All 4 extremities are appropriately warm to the touch. PSYCHIATRIC: Unable to assess. DIAGNOSTICS: Lab values are as follows: Hematology obtained on 10/26/2017; WBCs are 7.7, hemoglobin is 8.6, hematocrit is 25.8, platelet count is 326,000. Chemistry obtained on 10/26/2017: Sodium is 137, potassium 4.0, chloride is 101, carbon dioxide 29, BUN 9, creatinine is 0.47, glucose 115, calcium is 8.7. IMPRESSION AND PLAN: 1. ASPIRATION PNEUMONIA. Will decrease coverage to Zosyn for now. Will await sputum culture and follow. 2. SEPSIS. Secondary to number 1. The patient appears to be improving. 3. ACUTE ON CHRONIC HYPOXEMIC RESPIRATORY FAILURE. Will continue O2 via Trach collar. 4. SACRAL DECUBITUS ULCER STAGE 3. Continue current wound care measures and rotation. 5. STATUS POST TRAUMATIC BRAIN INJURY. The patient is at baseline. 6. ANEMIA. Possibly of underlying chronic disease. It appears the patient's hemoglobin at baseline is in the 9 range. Will follow. DISPOSITION: The patient is a DO NOT RESUSCITATE/DO NOT INTUBATE. Pending patient's symptomatology and diagnostic findings, will re-evaluate as needed, and the patient's prognosis is extremely grim. Time spent on this followup including assessment, plan, physical examination, patient education, and review of records is 25 minutes. DICTATING PHYSICIAN: CECILIA GOLDMAN NP [id number] PHY#: [id number] ID: [id number] JOB#: [id number] ACCT: [id number] cc:CECILIA GOLDMAN NP >
[2017-10-27] MEDS: PIPERACILLIN SODIUM/TAZOBACTAM 4.5 GM in NORMAL SALINE 100 ML IV SCH ×2 (04:46→09:50)
[2017-10-27] MEDS: GLYCOPYRROLATE 1 MG TABLET PEG SCH ×2 (05:49→13:03)
[2017-10-27 05:55] LABS: ABSOLUTE LYMPHOCYTES (AUTO) 0.9 10^3/uL (0.5-4.7); ABSOLUTE MONOCYTES (AUTO) 0.5 10^3/uL (0.1-1.4); ABSOLUTE NEUT (AUTO) 4.4 10^3/uL (1.7-8.2); BASOPHILS % (AUTO) 0.6 % (0-2); EOSINOPHILS % (AUTO) 0.8 % (0-6); HEMATOCRIT 26.3 % (37.9-51.0); HEMOGLOBIN 9.3 g/dL (13.5-17.0); LYMPHOCYTES % (AUTO) 15.7 % (13-45); MEAN CORPUSCULAR HEMOGLOBIN 31.4 pg (27.0-33.4); MEAN CORPUSCULAR HGB CONC 35.2 g/dL (32.0-36.0); MEAN CORPUSCULAR VOLUME 89 fl (80-97); MONOCYTES % (AUTO) 8.7 % (3-13); PLATELET COUNT 343 10^3/uL (150-450); RED BLOOD COUNT 2.95 10^6/uL (4.35-5.55); RED CELL DISTRIBUTION WIDTH 15.5 % (11.5-14.0); SEGMENTED NEUTROPHILS % (AUTO) 74.2 % (42-78); TOTAL CELLS COUNTED % (AUTO) 100 %
[2017-10-27 06:27] LABS: ANION GAP 10 (5-19); BLOOD UREA NITROGEN 7 mg/dL (7-20); CALCIUM 8.1 mg/dL (8.4-10.2); CARBON DIOXIDE 26 mmol/L (22-30); CHLORIDE 100 mmol/L (98-107); GLUCOSE 96 mg/dL (75-110); POTASSIUM 4.5 mmol/L (3.6-5.0); SODIUM 135.5 mmol/L (137-145)
[2017-10-27] MEDS: ACETYLCYSTEINE 20% SOLN 800 MG/4 ML VIAL.NEB IH SCH ×2 (08:14→20:10)
[2017-10-27] MEDS: IPRATROPIUM/ALBUTEROL 0.5-2.5 MG/3 ML AMPUL NEB PRN ×2 (08:14→20:10)
[2017-10-27] MEDS: APIXABAN 5 MG TABLET PEG SCH ×2 (09:49→18:51)
[2017-10-27] MEDS: SCOPOLAMINE HYDROBROMIDE 1.5 MG PATCH.TD72 TD SCH (09:49)
[2017-10-27] MEDS: FAMOTIDINE 20 MG TABLET PEG SCH (09:49)
[2017-10-27] MEDS: BACITRACIN ZINC OINTMENT 15 GM TP SCH ×2 (09:50→18:52)
[2017-10-27] MEDS: NYSTATIN TOPICAL POWDER 15 GM TP SCH ×2 (09:51→18:51)
[2017-10-27] MEDS: MEROPENEM 1 GM in NORMAL SALINE 50 ML IV SCH ×2 (12:46→18:51)
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
[2017-10-28] MEDS: GLYCOPYRROLATE 1 MG TABLET PEG SCH ×4 (00:15→23:22)
[2017-10-28] MEDS: FAMOTIDINE 20 MG TABLET PEG SCH ×3 (00:16→23:22)
[2017-10-28] MEDS: MEROPENEM 1 GM in NORMAL SALINE 50 ML IV SCH ×3 (01:50→18:29)
[2017-10-28] MEDS: IPRATROPIUM/ALBUTEROL 0.5-2.5 MG/3 ML AMPUL NEB PRN ×2 (08:09→19:45)
[2017-10-28] MEDS: ACETYLCYSTEINE 20% SOLN 800 MG/4 ML VIAL.NEB IH SCH ×2 (08:09→19:45)
[2017-10-28] MEDS: BACITRACIN ZINC OINTMENT 15 GM TP SCH ×2 (10:50→18:29)
[2017-10-28] MEDS: APIXABAN 5 MG TABLET PEG SCH ×2 (10:51→18:29)
[2017-10-28] MEDS: NYSTATIN TOPICAL POWDER 15 GM TP SCH ×2 (10:51→18:30)
[2017-10-28] MEDS: SENNOSIDES/DOCUSATE 8.6-50 MG 1 EACH TABLET PEG SCH ×2 (10:52→18:29)
--- NOTE | 2017-10-28 17:19 | PDOC PROGRESS REPORT ---
Subjective Progress Note for:: 10/28/17 Subjective:: Patient is an vegetative state Eyes open but not participating or responsive Very cachectic with his limb contractures Reason For Visit: ACUTE RESPIRATORY FAILURE,PNEUMONIA,SEPSIS Physical Exam Vital Signs: Temp Pulse Resp BP Pulse Ox 99.2 F 93 33 H 121/72 98 10/28/17 15:17 10/28/17 15:17 10/28/17 15:17 10/28/17 15:17 10/28/17 16:07 Intake & Output 10/27/17 10/28/17 10/29/17 06:59 06:59 06:59 Intake Total 2444 848 Output Total 2075 3100 300 Balance 369 -6312 -300 General appearance: PRESENT: thin Eye exam: ABSENT: conjunctival injection Ear exam: ABSENT: bleeding, drainage Neck exam: ABSENT: meningismus, thyromegaly Respiratory exam: PRESENT: clear to auscultation everett. ABSENT: accessory muscle use Cardiovascular exam: PRESENT: RRR GI/Abdominal exam: PRESENT: normal bowel sounds, soft Extremities exam: PRESENT: other - Contractures. ABSENT: pedal edema Neurological exam: PRESENT: other - Nonresponsive Results Laboratory Results: 10/27/17 05:23 10/27/17 05:23 10/24/17 18:15 Tracheal Aspirate Gram Stain - Final 10/24/17 18:15 Tracheal Aspirate Sputum Culture - Final Escherichia Coli Esbl Proteus Mirabilis Corynebacterium Striatum Greatly Reduced Normal Hannah 10/25/17 04:38 NT-Pro-B Natriuret Pep 128 Impressions: Chest X-Ray 10/24/17 06:57 IMPRESSION: Recurrent left lower lobe pneumonia. Possible cavitation. Consider noncontrast chest CT. Assessment & Plan - Diagnosis (1) Acute and chronic respiratory failure with hypoxia Is this a current diagnosis for this admission?: Yes (2) Bacterial pneumonia Is this a current diagnosis for this admission?: Yes (3) Anemia Qualifiers: Anemia type: unspecified type Qualified Code(s): D64.9 - Anemia, unspecified Is this a current diagnosis for this admission?: Yes (6) Sepsis Qualifiers: Sepsis type: sepsis due to unspecified organism Qualified Code(s): A41.9 - Sepsis, unspecified organism Is this a current diagnosis for this admission?: Yes (7) Traumatic brain injury Qualifiers: Encounter type: sequela Is this a current diagnosis for this admission?: Yes - Plan Summary Plan Summary: Sputum culture positive for ESBL E. coli and Proteus Antibiotics switched to meropenem He will need to continue IV meropenem for 7-10 days Otherwise continue current management Patient is stable and can be discharged to a facility that can administer IV antibiotics
[2017-10-28] MEDS ORDERED: LORAZEPAM INJ 2 MG/1 ML VIAL IV PRN (18:54)
--- NOTE | 2017-10-28 21:25 | RADIOLOGY REPORT (SQ) ---
EXAM DESCRIPTION: CT HEAD WITHOUT COMPLETED DATE/TIME: 10/28/2017 9:15 pm REASON FOR STUDY: seizure COMPARISON: None. TECHNIQUE: Axial images acquired through the brain without intravenous contrast. Images reviewed wi th bone, brain and subdural windows. Images stored on PACS. All CT scanners at this facility use dose modulation, iterative reconstruction, and/or weight based d osing when appropriate to reduce radiation dose to as low as reasonably achievable (ALARA). [facility]: Dose Right [facility]: CareDose [facility]: Dose Right [facility]: Teradose 4D [facility]: Smart BAROnova RADIATION DOSE: CT Rad equipment meets quality standard of care and radiation dose reduction techniq ues were employed. CTDIvol: 23.9 mGy. DLP: 518 mGy-cm.mGy. LIMITATIONS: None. FINDINGS: VENTRICLES: Prominent. CEREBRUM: No hemorrhage. No midline shift. Bilateral frontal lobe atrophy. Areas of low density i n the white matter most likely due to chronic micro-vascular ischemic change. No evidence for acute infarction. CEREBELLUM: No masses. No hemorrhage. No alteration of density. No evidence for acute infarction. EXTRAAXIAL SPACES: Age-related involutional change. No fluid collections. No masses. ORBITS AND GLOBE: No intra- or extraconal masses. Normal contour of globe without masses. CALVARIUM: No fracture. PARANASAL SINUSES: No fluid or mucosal thickening. SOFT TISSUES: No mass or hematoma. OTHER: No other significant finding. IMPRESSION: Hydrocephalus, chronic appearing.No hemorrhage. No midline shift. Bilateral frontal lo be atrophy. Areas of low density in the white matter most likely due to chronic micro-vascular ische karin change. No evidence for acute infarction. EVIDENCE OF ACUTE STROKE: NO. TECHNICAL DOCUMENTATION: JOB ID: [id number] [place]-72 Quality ID # 436: Final reports with documentation of one or more dose reduction techniques (e.g., Au tomated exposure control, adjustment of the mA and/or kV according to patient size, use of iterative reconstruction technique) 2010 [employer]- All Rights Reserved Reading location - IP/workstation name: [email or web address]
[2017-10-29] MEDS: MEROPENEM 1 GM in NORMAL SALINE 50 ML IV SCH ×3 (03:15→17:49)
[2017-10-29] MEDS: GLYCOPYRROLATE 1 MG TABLET PEG SCH ×2 (05:53→14:01)
[2017-10-29] MEDS: ACETYLCYSTEINE 20% SOLN 800 MG/4 ML VIAL.NEB IH SCH ×2 (10:39→20:20)
[2017-10-29] MEDS: IPRATROPIUM/ALBUTEROL 0.5-2.5 MG/3 ML AMPUL NEB PRN ×2 (10:39→20:20)
[2017-10-29] MEDS: FAMOTIDINE 20 MG TABLET PEG SCH (10:47)
[2017-10-29] MEDS: APIXABAN 5 MG TABLET PEG SCH ×2 (10:47→17:52)
[2017-10-29] MEDS: SENNOSIDES/DOCUSATE 8.6-50 MG 1 EACH TABLET PEG SCH ×2 (10:50→17:52)
[2017-10-29] MEDS: NYSTATIN TOPICAL POWDER 15 GM TP SCH ×2 (10:54→17:51)
[2017-10-29] MEDS: BACITRACIN ZINC OINTMENT 15 GM TP SCH ×2 (10:54→17:51)
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
[2017-10-29] MEDS ORDERED: LEVETIRACETAM 500 MG TABLET PO SCH (14:00)
[2017-10-29 20:30] VITALS: BP 122/85
--- NOTE | 2017-10-30 08:08 | RADIOLOGY REPORT (SQ) ---
EXAM DESCRIPTION: PICC INSERTION; U/S GUIDE FOR VASCULAR ACCESS COMPLETED DATE/TIME: 10/29/2017 5:38 pm REASON FOR STUDY: IV abx; IV ABX COMPARISON: AP chest 10/24/2017, 10/12/2017 FLUOROSCOPY TIME: No fluoroscopy time. Study was performed bedside 1 chest film and 1 ultrasound images saved to PACS. TECHNIQUE: Bedside ultrasound guided PICC placement. LIMITATIONS: None. PROCEDURE: After written consent and assessment were obtained, the patient was brought into the fluo roscopy room and place supine on the table. Ultrasound evaluation of potential access sites were perf ormed. After successfully identifying a patent left basilic vein, the left arm was prepped and draped in a sterile fashion along with the ultrasound probe. The entry site was anesthetized with 1% lidoca ine. A 21 gauge 7 cm needle was advanced through the skin and into the basilic vein under live ultras ound guidance. An ultrasound image was saved to PACS confirming access site. A .018 guide wire was then inserted through the needle and into the venous system. The needle was the removed and an 11 jodi de scalpel was used to make a 1cm skin incision. A 5 fr peel-away sheath was advanced over the wire and into the venous system. A measurement was then made using the existing wire and live fluoroscopic guidance. The wire was then removed and the trimmed. The PICC was advanced through the peel-away she ath and into the venous system. The peel-away sheath was removed and the catheter was adhered to the patients arm with a stat lock. The catheter was then aspirated and flushed and a sterile bandage was placed over the access site. A post procedure chest film image was saved to PACS confirming the cath eter tip within the superior vena cava. Post procedure chest film demonstrates left lower lobe colla pse and consolidation with elevation of the left hemidiaphragm unchanged from prior film IMPRESSION: SUCCESSFUL PLACEMENT OF A 5 FR DUAL LUMEN 38 CM PICC IN THE LEFT BASILIC VEIN. COMMENT: Patient medication list reviewed: Yes- Quality ID# 130:Eligible professional attests to doc umenting in the medical record they obtained, updated, or reviewed the patient's current medications. . Quality ID 145: Final reports for procedures using fluoroscopy that document radiation exposure leon jose, or exposure time and number of fluorographic images (if radiation exposure indices are not avail able) Quality ID #76: The patient was prepped and draped using maximum sterile barrier technique including cap, mask, sterile gown, sterile gloves, a large sterile sheet, hand hygiene, and 2% Chlorhexidine fo r cutaneous antisepsis. When ultrasound is used, sterile ultrasound techniques are followed requiring sterile gel and sterile probes. TECHNICAL DOCUMENTATION: JOB ID: [id number] [email or web address]- All Rights Reserved rev-07/19 Reading location - IP/workstation name: [email or web address] [id number]
--- NOTE | 2017-10-30 09:27 | EEG PRO FEE REPORT ---
EEG INTERPRETATION PATIENT NAME: CECILIA MARTINEZ ROOM#: [id number] ORDER#: [id number] DATE OF STUDY: 10/29/2017 : 1960 REFERRING MD: Purvi Merritt MD MEDICATIONS: Mucomyst, Eliquis, Bacitracin ointment, Pepcid, Robinul, Ativan, Nystatin, Transderm Scop, Senna, Docusate sodium History This is 57 year old man with a history of traumatic brain injury, tracheostomy, depression, G-tube, pneumonia with a seizure yesterday. This EEG was requested for seizure. EEG Interpretation This EEG was recorded in the awake state only. The awake EEG is characterized by a disorganized background consisting of a mix of theta and beta with some delta. There was no reactivity to passive eye opening or closing. There was no posterior dominant rhythm noted. Photic stimulation resulted in no significant changes. The patient was noted to have repetitive hand, head, mouth movement throughout much of the recording without any epileptic EEG correlate. There was significant muscle and movement artifact however. There were no epileptiform abnormalities. The EKG showed a regular rhythm in the 120's for the majority of the recording. EEG Classification 1. Disorganization 2. Generalized background slowing 3. Tachycardia EEG Impression This EEG is abnormal and is consistent with diffuse cerebral dysfunction. Beta activity can be seen with certain medications {e.g. Benzodiazepines}. There was no epileptic EEG correlate with repetitive patient movement. There was no epileptiform activity. INTERPRETING PHYSICIAN: PAO PURI M.D. /: MTEFADELA TT: [id number] ID: [id number] /: [id number] TD: [id number] JOB: [id number] cc:Samantha MORALES M.D. > MTDD
== END 2017-10-29 21:04 | DRG 871 ==
LOC: ER 06:20 → EH 10:05 → 3N 12:11
PROVIDERS: ADMIT Internal Medicine; ATTEND Internal Medicine
PROC: 02HV33Z Insertion of Infusion Device into Superior Vena Cava, Percutaneous Approach (ICD-10-PCS; principal; 2017-10-29)
PROC: B548ZZA Ultrasonography of Superior Vena Cava, Guidance (ICD-10-PCS; 2017-10-29)
DX: A41.9 Sepsis, unspecified organism (principal); J15.5 Pneumonia due to Escherichia coli; L89.153 Pressure ulcer of sacral region, stage 3; J96.21 Acute and chronic respiratory failure with hypoxia; J69.0 Pneumonitis due to inhalation of food and vomit; J15.6 Pneumonia due to other Gram-negative bacteria; R40.3 Persistent vegetative state; R64 Cachexia; Z66 Do not resuscitate; F32.9 Major depressive disorder, single episode, unspecified; D64.9 Anemia, unspecified; G40.909 Epilepsy, unspecified, not intractable, without status epilepticus; Z16.12 Extended spectrum beta lactamase (ESBL) resistance; Z87.820 Personal history of traumatic brain injury; Z79.899 Other long term (current) drug therapy; Z93.1 Gastrostomy status; V89.2XXS Person injured in unspecified motor-vehicle accident, traffic, sequela
CPT/HCPCS: 36415; 36569; 70450; 71045; 76937; 77001; 80048; 80053; 80202; 81001; 82550; 82553; 82803; 82962; 83605; 83880; 84484; 85025; 87040; 87070; 87077; 87186; 87205; 93005; 93010; 94640; 95819; 96365; 96367; 99291; J1642; J1956; J2185; J2543; J3370; J3490; J7030; J7060; J7120; J7620

== ENCOUNTER 2017-10-31 15:29 | Emergency (ER) | payer MEDICARE, MEDICAID ==
--- NOTE | 2017-10-31 15:38 | ER Document Report ---
ED General - General Stated Complaint: FEVER Time Seen by Provider: 10/31/17 15:37 Notes: Patient is a 57-year-old male with complex history including tracheostomy, recent diagnosis of sepsis and pneumonia that returns to the emergency department today via EMS for fever, tachycardia, and increased work of breathing at his nursing facility. Patient is unable to provide any significant history, as he has a traumatic brain injury, and has tracheostomy placed. Per nursing report, the patient was noted to have increased work of breathing, noted have a fever of 102, he was given Tylenol prior to ED arrival, and received a dose of antibiotics. According to EMS. TRAVEL OUTSIDE OF THE [place] IN LAST 30 DAYS: No - Related Data Allergies/Adverse Reactions: No Known Allergies Allergy (Verified 10/31/17 17:40) Past Medical History - General Information source: Emergency Med Personnel, Outside Facility Records - Social History Smoking Status: Unknown if Ever Smoked Frequency of alcohol use: None Drug Abuse: None Lives with: Group Home Family History: Reviewed & Not Pertinent, Other - Unable to obtain secondary to patient's condition Pulmonary Medical History: Reports: Hx Pneumonia, Hx Intubation, Hx Respiratory Failure Renal/ Medical History: Denies: Hx Peritoneal Dialysis Psychiatric Medical History: Reports: Hx Depression Traumatic Medical History: Reports: Hx Traumatic Brain Injury Past Surgical History: Reports: Other - Tracheostomy, G-tube Review of Systems - Review of Systems -: Yes ROS unobtainable due to patient's medical condition - Patient is nonverbal at baseline. Physical Exam - Vital signs Vitals: BP 108/75 10/31/17 15:31 - Notes Notes: PHYSICAL EXAMINATION: Vital signs reviewed, nursing notes reviewed. GENERAL: Chronically ill-appearing, in moderate respiratory distress, tachypneic HEAD: Atraumatic, normocephalic. EYES: Pupils equal round and reactive to light, extraocular movements intact, sclera anicteric, conjunctiva are normal. ENT: nares patent, oropharynx clear without exudates. Dry mucous membranes NECK: supple without lymphadenopathy LUNGS: Coarse lung sounds throughout, scattered rhonchi bilaterally. Increased work of breathing, tachypneic HEART: Tachycardic, regular rhythm, sinus tachycardia noted on telemetry, no audible murmurs. ABDOMEN: Soft, not apparently tender, normoactive bowel sounds. No guarding, no rebound. No masses appreciated. PEG tube present, no signs of infection at the site EXTREMITIES: Normal range of motion, no pitting or edema. No cyanosis. Left upper extremity PICC line present, no signs of infection at the site NEUROLOGICAL: Chronic flexion contractures of the upper and lower extremities, at the patient's baseline mental status, which is nonverbal, does not follow commands. PSYCH: Nonverbal, at baseline SKIN: Warm, Dry, normal turgor, no rashes or lesions noted. Course - Re-evaluation Re-evalutation: 10/31/17 15:38 Patient seen and examined, vital signs reviewed. Patient appears critically ill , tachycardic, tachypneic, diaphoretic, with significant increased work of breathing, trach collar on, thick white yellow sputum removed and sent for culture. Sepsis workup and evaluation, suspected source of pneumonia, given recent diagnosis of pneumonia and recent discharge, will start the patient on broad- spectrum antibiotics with vancomycin and meropenem, and bolus the patient with IV lactated Ringer's Blood work reviewed, demonstrated elevated lactic of 2.2, patient already received IV fluids, he is still febrile, therefore we will give the patient 600 mg of Motrin through his PEG tube, his renal function is stable and within normal limits at this time. He did receive Tylenol prior to ED arrival. Patient noted to have markedly elevated leukocytosis, and increased from his discharge level recently. Patient continues to have increased work of breathing, he does have an advanced directive with him, that states he would not like to be placed on the ventilator , or receiving ICU care however was okay with IV antibiotics, and treatment for infection, and artificial nutritional replacement if needed. Patient critically ill from sepsis, secondary to pneumonia, patient will require admission for further evaluation and management, and IV antibiotics and continued fluids, call was placed to the hospitalist for admission. Case discussed with the hospitalist, who recently admitted the patient, we reviewed the patient's prior sputum cultures that grew ESBL producing E. coli, Proteus, and Corynebacterium, given that the patient had worsened despite being on broad-spectrum antibiotics IV after discharge, the hospitalist felt that the patient would be better served to be transferred to a tertiary facility with infectious disease. Patient had been seen at [facility] in the past, this where he had his initial tracheostomy where he was seen after his traumatic brain injury , this was discussed with the caser, who is familiar with the patient, and they agreed with this transfer. A call was placed the transfer center, pending discussion with the hospitalist at [facility]. 10/31/171811 This was discussed with the resident physician Dr. Jane Franklin, who accepted the patient to the stepdown unit, she will discuss this with her attending physician, requested rapid transport due to the patient's borderline hypertension, and severe sepsis, patient accepted to Dr. Lupis Albright service. - Vital Signs Vital signs: Temp Pulse Resp BP Pulse Ox 101.2 F H 34 H 102/63 95 10/31/17 18:04 10/31/17 18:26 10/31/17 18:26 10/31/17 18:26 - Laboratory Result Diagrams: 10/31/17 15:45 10/31/17 15:45 Laboratory results interpreted by me: 10/31/17 10/31/17 10/31/17 15:45 15:45 15:45 WBC 17.4 H RBC 4.04 L Hgb 11.9 L Hct 36.4 L RDW 16.7 H Plt Count 599 H Seg Neuts % (Manual) 82 H Lymphocytes % (Manual) 6 L Abs Neuts (Manual) 14.3 H Abs Monocytes (Manual) 2.1 H PT 16.6 H BUN 21 H Glucose 141 H Lactic Acid Albumin 3.4 L Urine Protein Urine Glucose (UA) Urine Blood Urine Ascorbic Acid 10/31/17 10/31/17 15:45 16:52 WBC RBC Hgb Hct RDW Plt Count Seg Neuts % (Manual) Lymphocytes % (Manual) Abs Neuts (Manual) Abs Monocytes (Manual) PT BUN Glucose Lactic Acid 2.2 H Albumin Urine Protein 30 H Urine Glucose (UA) 50 H Urine Blood LARGE H Urine Ascorbic Acid 40 H - Diagnostic Test Radiology reviewed: Image reviewed - Demonstrates left lower lobe pneumonia, Reports reviewed - Demonstrates left lower lobe pneumonia - EKG Interpretation by Me Additional EKG results interpreted by me: 10/31/17 16:52 EKG demonstrates sinus tachycardia with a ventricular rate of 136 bpm, normal axis, normal intervals, no evidence of acute ischemia, this compared with prior EKG from 10/24/2017, without significant change at that time. Critical Care Note - Critical Care Note Total time excluding time spent on procedures (mins): 45 Comments: Critical care time 45 minutes exclusive from separate billable procedures, for patient is critically ill with severe sepsis, and pneumonia, respiratory distress, discussion with multiple physicians, and multiple reassessments of the patient. Complex medical decision making, and high potential for clinical deterioration, from a cardiovascular, pulmonary standpoint. Discharge - Discharge Clinical Impression: Severe sepsis, Elevated lactic acid level, Tachycardia, Respiratory distress Pneumonia Qualifiers: Pneumonia type: due to unspecified organism Laterality: left Lung location: lower lobe of lung Qualified Code(s): J18.1 - Lobar pneumonia, unspecified organism Leukocytosis Qualifiers: Leukocytosis type: unspecified Qualified Code(s): D72.829 - Elevated white blood cell count, unspecified Condition: Serious Disposition: [facility] Referrals: RALEIGH GARCIA DO [Primary Care Provider] - Follow up as needed
[2017-10-31] MEDS ORDERED: RINGERS SOLUTION,LACTATED 1,000 ML IV ONE ×2 (15:40→15:53)
[2017-10-31] MEDS ORDERED: VANCOMYCIN HCL INJ 1000 MG VIAL IV ONE (15:53)
[2017-10-31] MEDS ORDERED: MEROPENEM 1 GM VIAL IV ONE (15:54)
[2017-10-31 16:19] LABS: VENOUS BLOOD BASE EXCESS 1.9 mmol/L; VENOUS BLOOD HCO3 26.8 mmol/L (20-32); VENOUS BLOOD PCO2 43.1 mmHg (35-63); VENOUS BLOOD PH 7.41 (7.30-7.42)
[2017-10-31 16:21] LABS: HEMATOCRIT 36.4 % (37.9-51.0); HEMOGLOBIN 11.9 g/dL (13.5-17.0); MEAN CORPUSCULAR HEMOGLOBIN 29.6 pg (27.0-33.4); MEAN CORPUSCULAR HGB CONC 32.8 g/dL (32.0-36.0); MEAN CORPUSCULAR VOLUME 90 fl (80-97); PLATELET COUNT 599 10^3/uL (150-450); RED BLOOD COUNT 4.04 10^6/uL (4.35-5.55); RED CELL DISTRIBUTION WIDTH 16.7 % (11.5-14.0); WHITE BLOOD COUNT 17.4 10^3/uL (4.0-10.5)
[2017-10-31 16:24] LABS: INTERNATIONAL RATION (INR) 1.28; PROTHROMBIN TIME 16.6 SEC (11.4-15.4)
--- NOTE | 2017-10-31 16:35 | RADIOLOGY REPORT (SQ) ---
EXAM DESCRIPTION: CHEST SINGLE VIEW COMPLETED DATE/TIME: 10/31/2017 4:25 pm REASON FOR STUDY: bed 18 sepsis protocol COMPARISON: 10/29/2017 EXAM PARAMETERS: NUMBER OF VIEWS: One view. TECHNIQUE: Single frontal radiographic view of the chest acquired. RADIATION DOSE: NA LIMITATIONS: None. FINDINGS: LUNGS AND PLEURA: Elevation the left hemidiaphragm. Residual opacification in the left ba se. There is overall improvement in the appearance of the left lung compared to the earlier study. MEDIASTINUM AND HILAR STRUCTURES: No masses. Contour normal. HEART AND VASCULAR STRUCTURES: Heart normal in size. Normal vasculature. BONES: No acute findings. HARDWARE: None in the chest. OTHER: No other significant finding. IMPRESSION: Residual airspace disease in the left base with improvement in the appearance of the lef t lung. TECHNICAL DOCUMENTATION: JOB ID: [id number] [employer]- All Rights Reserved Reading location - IP/workstation name: [email or web address]
[2017-10-31 16:36] LABS: BLOOD UREA NITROGEN 21 mg/dL (7-20); CALCIUM 9.2 mg/dL (8.4-10.2); GLUCOSE 141 mg/dL (75-110)
[2017-10-31 16:37] LABS: ALANINE AMINOTRANSFERASE 24 U/L (21-72); ALBUMIN 3.4 g/dL (3.5-5.0); ALKALINE PHOSPHATASE 113 U/L (38-126); ANION GAP 14 (5-19); ASPARTATE AMINO TRANSFERASE 20 U/L (17-59); BILIRUBIN,DIRECT 0.3 mg/dL (0.0-0.4); BILIRUBIN,TOTAL 0.4 mg/dL (0.2-1.3); CARBON DIOXIDE 25 mmol/L (22-30); CHLORIDE 101 mmol/L (98-107); POTASSIUM 4.9 mmol/L (3.6-5.0); SODIUM 139.6 mmol/L (137-145); TOTAL PROTEIN 6.5 g/dL (6.3-8.2)
[2017-10-31] MEDS ORDERED: IBUPROFEN 600 MG TABLET PEG ONE (16:41)
[2017-10-31 16:48] LABS: ABSOLUTE MONOCYTES # (MANUAL) 2.1 10^3/uL (0.1-1.4); ABSOLUTE NEUTROPHILS# (MANUAL) 14.3 10^3/uL (1.7-8.2); ANISOCYTOSIS 1+; BASOPHILS % (MANUAL) 0 % (0-2); EOSINOPHILS % (MANUAL) 0 % (0-6); LYMPHOCYTES % (MANUAL) 6 % (13-45); MONOCYTES % (MANUAL) 12 % (3-13); PLATELET COMMENT INCREASED; SEGMENTED NEUTROPHILS % (MAN) 82 % (42-78); TOTAL CELLS COUNTED 100; TOXIC GRANULATION SLIGHT
[2017-10-31 17:08] LABS: APPEARANCE,URINE CLOUDY; BILIRUBIN,URINE NEGATIVE (NEGATIVE); COLOR,URINE YELLOW; GLUCOSE, URINE 50 mg/dL (NEGATIVE); KETONES,URINE NEGATIVE (NEGATIVE); LEUKOCYTE ESTERASE,URINE NEGATIVE (NEGATIVE); NITRITE,URINE NEGATIVE (NEGATIVE); PROTEIN,URINE 30 mg/dL (NEGATIVE); URINE SPECIFIC GRAVITY 1.023; UROBILINOGEN,URINE NEGATIVE mg/dL (<2.0)
--- NOTE | 2017-10-31 17:51 | EKG REPORT ---
SEVERITY:- BORDERLINE ECG - SINUS TACHYCARDIA BORDERLINE T ABNORMALITIES, INFERIOR LEADS : Confirmed by: Erick Bella MD 31-Oct-2017 17:50:22
[2017-10-31] MEDS ORDERED: NORMAL SALINE 1000 ML 1,000 ML IV ONE (18:59)
[2017-11-01 06:30] VITALS: BP 99/66
== END 2017-10-31 22:00 | disposition short-term general hospital (02) ==
LOC: ER 15:29
DX: A41.9 Sepsis, unspecified organism (principal); R65.20 Severe sepsis without septic shock; J15.6 Pneumonia due to other Gram-negative bacteria; J15.5 Pneumonia due to Escherichia coli; Z16.12 Extended spectrum beta lactamase (ESBL) resistance; Z93.0 Tracheostomy status; Z93.1 Gastrostomy status; Z87.820 Personal history of traumatic brain injury
CPT/HCPCS: 93005; 99291; 96361; 51702; 96365; 96368; 36415; 87040; 87070; 87086; 87205; 82962; 83605 ×2; 85025; 85610; 87077; 80053; 81001; 87186; 82803; 71045; 93010; A9270; J7030; J7120; J3370; J2185

== ENCOUNTER 2017-11-14 21:15 | Inpatient (IN) | payer MEDICARE, MEDICAID ==
[2017-11-14] MEDS ORDERED: NORMAL SALINE 1000 ML 1,000 ML IV ONE (21:36)
--- NOTE | 2017-11-14 21:44 | ER Document Report ---
ED General - General Stated Complaint: RESPIRATORY DISTRESS Time Seen by Provider: 11/14/17 21:34 Cannot obtain history due to: Mentally challenged Notes: Patient is a 57yoM w/ a PMHx of traumatic brain injury, trach dependent, presents from [facility] with concerns of apparently not have enough oxygen at the facility but was also noted to be febrile at time of arrival. The patient is nonverbal, unable to provide additional history. He does have a most form with him that limited intervention but does allow for IV fluids and IV antibiotics. TRAVEL OUTSIDE OF THE [place] IN LAST 30 DAYS: No - Related Data Allergies/Adverse Reactions: No Known Allergies Allergy (Verified 11/14/17 22:59) Past Medical History - General Information source: Transfer Record Cannot obtain history due to: Mentally challenged - Social History Smoking Status: Unknown if Ever Smoked Lives with: Residential Family History: Reviewed & Not Pertinent, Other - Unable to obtain secondary to patient's condition Pulmonary Medical History: Reports: Hx Pneumonia, Hx Intubation, Hx Respiratory Failure Renal/ Medical History: Denies: Hx Peritoneal Dialysis Psychiatric Medical History: Reports: Hx Depression Traumatic Medical History: Reports: Hx Traumatic Brain Injury Past Surgical History: Reports: Other - Tracheostomy, G-tube Review of Systems - Review of Systems -: Yes ROS unobtainable due to patient's medical condition Physical Exam - Vital signs Vitals: Temp Pulse Resp BP Pulse Ox 101.7 F H 130 H 33 H 100/72 96 11/14/17 21:25 11/14/17 21:25 11/14/17 21:25 11/14/17 21:25 11/14/17 21:25 Interpretation: Tachycardic, Tachypneic, Febrile Notes: PHYSICAL EXAMINATION: GENERAL: Frail, emaciated, chronically ill in appearance. HEAD: Atraumatic, normocephalic. EYES: Pupils equal round and reactive to light, sclera anicteric, conjunctiva are normal. ENT: nares patent, oropharynx clear without exudates. Dry mucous membranes. NECK: supple without lymphadenopathy LUNGS: Moderate tachypnea, no overt respiratory distress, trach collar in place. Thick, yellow-green sputum from tracheostomy HEART: Regular tachycardia without murmurs ABDOMEN: Limited exam secondary to contractures. Soft, no obvious rebound or guarding. No rigidity. EXTREMITIES: Diffuse contractures in all extremities NEUROLOGICAL: Patient does not move any extremities spontaneously or on command PSYCH: Nonverbal SKIN: Warm, Dry, normal turgor, no rashes or lesions noted. Course - Re-evaluation Re-evalutation: 11/14/17 21:40 Patient presents septic with fever, tachycardia, tachypnea, although apparently per the shelter he is both tachypneic and tachycardic at baseline. Multiple considerations for sources including a possible pneumonia versus a catheter associated urinary tract infection. Patient is a DNR, DNI, limited intervention candidate but does allow for IV antibiotics and IV fluids. I have initiated a liter of fluids, will obtain cultures, lactate, venous blood gas, chest x-ray, urinalysis from a new Colon catheter. - Vital Signs Vital signs: Temp Pulse Resp BP Pulse Ox 99.4 F 114 H 34 H 97/68 L 97 11/14/17 23:30 11/14/17 23:30 11/14/17 23:30 11/14/17 23:30 11/14/17 23:30 - Laboratory Result Diagrams: 11/14/17 23:17 11/14/17 22:11 Laboratory results interpreted by me: 11/14/17 11/14/17 11/14/17 22:11 23:17 23:17 RBC 3.41 L Hgb 10.2 L Hct 30.7 L RDW 18.3 H Plt Count 465 H Lymphocytes % 11.9 L VBG pH 7.44 H Potassium 5.6 H BUN 29 H Creatinine 0.51 L - Diagnostic Test Radiology reviewed: Image reviewed, Reports reviewed Radiology results interpreted by me: 11/15/17 00:19 CXR: LL pneumonia Discharge - Discharge Clinical Impression: DNR (do not resuscitate) Sepsis Qualifiers: Sepsis type: sepsis due to unspecified organism Qualified Code(s): A41.9 - Sepsis, unspecified organism Left lower lobe pneumonia Qualifiers: Pneumonia type: due to unspecified organism Qualified Code(s): J18.1 - Lobar pneumonia, unspecified organism Chronic respiratory failure Qualifiers: Respiratory failure complication: unspecified whether with hypoxia or hypercapnia Qualified Code(s): J96.10 - Chronic respiratory failure, unspecified whether with hypoxia or hypercapnia Condition: Fair Disposition: ADMITTED INPATIENT Referrals: RALEIGH GARCIA DO [Primary Care Provider] - Follow up as needed
[2017-11-14 22:50] LABS: ALANINE AMINOTRANSFERASE 23 U/L (21-72); ALBUMIN 3.5 g/dL (3.5-5.0); ALKALINE PHOSPHATASE 95 U/L (38-126); ANION GAP 11 (5-19); ASPARTATE AMINO TRANSFERASE 40 U/L (17-59); BILIRUBIN,DIRECT 0.4 mg/dL (0.0-0.4); BILIRUBIN,TOTAL 0.7 mg/dL (0.2-1.3); BLOOD UREA NITROGEN 29 mg/dL (7-20); CALCIUM 9.7 mg/dL (8.4-10.2); CARBON DIOXIDE 28 mmol/L (22-30); CHLORIDE 99 mmol/L (98-107); GLUCOSE 106 mg/dL (75-110); POTASSIUM 5.6 mmol/L (3.6-5.0); SODIUM 137.6 mmol/L (137-145)
--- NOTE | 2017-11-14 23:18 | RADIOLOGY REPORT (SQ) ---
EXAM DESCRIPTION: XR CHEST 1 VIEW COMPLETED DATE/TME: 11/14/2017 21:34 CLINICAL HISTORY: 57 years Male, sob, fever COMPARISON: One day prior. NUMBER OF VIEWS/TECHNIQUE: 1/AP FINDINGS: Moderate elevation left hemidiaphragm, moderate left lower retrocardiac opacity-effusion, normal cardiac silhouette, tracheostomy, scoliotic curvature, multiple right mid and lower lateral rib deformities. No pneumothorax. Stable bony thorax. IMPRESSION: Moderate left lower lobar opacity. Interval worsening. Differential etiologies include infectious, inflammatory, and neoplastic processes.
[2017-11-14 23:30] LABS: VENOUS BLOOD BASE EXCESS 3.7 mmol/L; VENOUS BLOOD HCO3 28.2 mmol/L (20-32); VENOUS BLOOD PCO2 42.5 mmHg (35-63); VENOUS BLOOD PH 7.44 (7.30-7.42)
[2017-11-14] MEDS ORDERED: PIPERACILLIN/TAZOBACTAM 3.375 GM VIAL IV ONE (23:40)
[2017-11-14] MEDS ORDERED: VANCOMYCIN HCL INJ 1000 MG VIAL IV ONE (23:40)
[2017-11-14] MEDS ORDERED: AZITHROMYCIN INJ 500 MG VIAL IV ONE (23:42)
[2017-11-14 23:50] LABS: ABSOLUTE BASOPHILS # (AUTO) 0.1 10^3/uL (0.0-0.2); ABSOLUTE LYMPHOCYTES (AUTO) 1.2 10^3/uL (0.5-4.7); ABSOLUTE NEUT (AUTO) 7.5 10^3/uL (1.7-8.2); BASOPHILS % (AUTO) 0.8 % (0-2); HEMATOCRIT 30.7 % (37.9-51.0); HEMOGLOBIN 10.2 g/dL (13.5-17.0); LYMPHOCYTES % (AUTO) 11.9 % (13-45); MEAN CORPUSCULAR HEMOGLOBIN 29.8 pg (27.0-33.4); MEAN CORPUSCULAR HGB CONC 33.1 g/dL (32.0-36.0); MEAN CORPUSCULAR VOLUME 90 fl (80-97); MONOCYTES % (AUTO) 10.1 % (3-13); PLATELET COUNT 465 10^3/uL (150-450); RED BLOOD COUNT 3.41 10^6/uL (4.35-5.55); RED CELL DISTRIBUTION WIDTH 18.3 % (11.5-14.0); SEGMENTED NEUTROPHILS % (AUTO) 77.2 % (42-78); TOTAL CELLS COUNTED % (AUTO) 100 %; WHITE BLOOD COUNT 9.7 10^3/uL (4.0-10.5)
[2017-11-14] MEDS ORDERED: RINGERS SOLUTION,LACTATED 1,000 ML IV ONE (23:59)
[2017-11-15] MEDS ORDERED: IPRATROPIUM/ALBUTEROL 0.5-2.5 MG/3 ML AMPUL NEB PRN (00:31)
[2017-11-15] MEDS ORDERED: ACETAMINOPHEN 325 MG TABLET PO PRN (00:31)
[2017-11-15] MEDS ORDERED: SCOPOLAMINE HYDROBROMIDE 1.5 MG PATCH.TD72 TD SCH (00:45)
[2017-11-15] MEDS ORDERED: NORMAL SALINE 1000 ML 1,000 ML IV SCH (00:45)
[2017-11-15] MEDS ORDERED: VANCOMYCIN HCL 0 MG in DEXTROSE 5%-WATER 250 ML IV NR (00:45)
[2017-11-15] MEDS ORDERED: VANCOMYCIN HCL INJ 1000 MG VIAL IV ONE (01:00)
[2017-11-15] MEDS ORDERED: LACTULOSE SYRUP 20 GM/30 ML UDCUP PEG ONE (01:02)
[2017-11-15] MEDS: IPRATROPIUM/ALBUTEROL 0.5-2.5 MG/3 ML AMPUL NEB SCH ×4 (03:57→20:22)
[2017-11-15] MEDS: PIPERACILLIN SODIUM/TAZOBACTAM 4.5 GM in NORMAL SALINE 100 ML IV SCH ×3 (05:06→17:39)
[2017-11-15] MEDS: NORMAL SALINE 1000 ML 1,000 ML IV PRN ×3 (05:17→14:09)
[2017-11-15 05:30] LABS: ABSOLUTE BASOPHILS # (AUTO) 0.1 10^3/uL (0.0-0.2); ABSOLUTE LYMPHOCYTES (AUTO) 1.4 10^3/uL (0.5-4.7); ABSOLUTE MONOCYTES (AUTO) 1.4 10^3/uL (0.1-1.4); ABSOLUTE NEUT (AUTO) 7.5 10^3/uL (1.7-8.2); BASOPHILS % (AUTO) 0.6 % (0-2); EOSINOPHILS % (AUTO) 0.2 % (0-6); HEMATOCRIT 28.3 % (37.9-51.0); HEMOGLOBIN 9.3 g/dL (13.5-17.0); LYMPHOCYTES % (AUTO) 13.5 % (13-45); MEAN CORPUSCULAR HEMOGLOBIN 30.1 pg (27.0-33.4); MEAN CORPUSCULAR HGB CONC 32.9 g/dL (32.0-36.0); MEAN CORPUSCULAR VOLUME 92 fl (80-97); MONOCYTES % (AUTO) 13.1 % (3-13); PLATELET COUNT 440 10^3/uL (150-450); RED CELL DISTRIBUTION WIDTH 17.6 % (11.5-14.0); SEGMENTED NEUTROPHILS % (AUTO) 72.6 % (42-78); TOTAL CELLS COUNTED % (AUTO) 100 %; WHITE BLOOD COUNT 10.4 10^3/uL (4.0-10.5)
[2017-11-15 05:35] LABS: ANION GAP 7 (5-19); BLOOD UREA NITROGEN 25 mg/dL (7-20); CALCIUM 9.3 mg/dL (8.4-10.2); CARBON DIOXIDE 28 mmol/L (22-30); CHLORIDE 103 mmol/L (98-107); GLUCOSE 97 mg/dL (75-110); SODIUM 137.9 mmol/L (137-145)
[2017-11-15 05:36] LABS: POTASSIUM 4.5 mmol/L (3.6-5.0)
--- NOTE | 2017-11-15 06:44 | PDOC H&P ---
History of Present Illness Admission Date/PCP: 11/15/17 00:43 RALEIGH GARCIA DO Patient complains of: Respiratory distress History of Present Illness: CECILIA MARTINEZ is a 57 year old male [facility] resident with a past medical history of a remote traumatic brain injury, subsequent PEG and trach dependent with flexion contractures 4. He is noted by [facility] staff to have respiratory distress and brought to the emergency room for evaluation where he is found to be poorly responsive with tachypnea and purulent exudate about the tracheostomy, leukocytosis and a left-sided infiltrate on x-ray. He started on empiric antibiotics and referred to the hospitalist for admission. Patient is a nazario of the [facility], unable to provide history. He is also noted to have a large unstageable decubitus eschar to the sacrum. Past Medical History Pulmonary Medical History: Reports: Intubation, Pneumonia, Respiratory Failure Neurological Medical History: Reports: Seizures, Other - Traumatic brain injury with profound debility and unable to protect airway Endocrine Medical History: Reports: None Renal/ Medical History: Reports: None Malignancy Medical History: Reports: None GI Medical History: Reports: None Musculoskeltal Medical History: Reports: Other - Contractures 4 Skin Medical History: Reports: Other - Sacral decubiti Psychiatric Medical History: Reports: Depression Traumatic Medical History: Reports: Traumatic Brain Injury Hematology: Reports: Anemia Past Surgical History Past Surgical History: Reports: Other - Tracheostomy, G-tube Social History Information Source: [facility] Records Lives with: Alf Smoking Status: Unknown if Ever Smoked Frequency of Alcohol Use: None Hx Recreational Drug Use: No Drugs: None Hx Prescription Drug Abuse: No - Advance Directive Resuscitation Status: Do Not Resuscitate Family History Family History: Other - Unable to obtain secondary to patient's condition Parental Family History Reviewed: Yes Children Family History Reviewed: Yes Sibling(s) Family History Reviewed.: Yes Medication/Allergy Home Medications: Scopolamine [Transderm-Scop] 1 patch TD Q3D #5 patch.td.3 09/06/17 Apixaban [Eliquis 5 mg Tablet] 5 mg PEG Q12 10/12/17 Dextran 70/Hypromellose [Artificial Tears] 1 drop OU TID 10/12/17 Sennosides [Senokot] 17.2 mg PEG BID 10/12/17 Sodium Bicarbonate [Sodium Bicarbonate 650 mg Tablet] 650 mg PEG PRN PRN Acetylcysteine [Mucomist 20% Soln 800 mg/4 mL] 600 mg IH RTBID vial 10/22/17 Albuterol Sulfate [Ventolin 0.083% Neb 2.5 mg/3 mL Ampul] 2.5 mg NEB [id number] vial.neb 10/22/17 Bacitracin Zinc [Bacitracin Oint 15 gm] 1 applic TP BID tube 10/22/17 Nystatin [Mycostatin Topical Powder 15 gm] 1 applic TP BID bottle 10/22/17 Famotidine [Pepcid 20 mg Tablet] 20 mg PEG Q12 tablet 10/29/17 Acetaminophen [Tylenol 325 mg Tablet] 650 mg PEG Q4HP PRN 11/14/17 Glycopyrrolate [Robinul Forte] 2 mg GT Q8 11/14/17 Ipratropium/Albuterol Sulfate [Duoneb 3 ml Ampul] 3 ml NEB RTQ6HP PRN 11/14/17 Levetiracetam [Keppra 500 mg Tablet] 500 mg GT Q12 11/14/17 Allergies/Adverse Reactions: No Known Allergies Allergy (Verified 11/14/17 22:59) Review of Systems ROS unobtainable: Due to mental status, Other - Unobtainable Physical Exam Vital Signs: Temp Pulse Resp BP Pulse Ox 98.6 F 94 16 96/59 L 97 11/15/17 02:15 11/15/17 02:15 11/15/17 02:15 11/15/17 02:15 11/15/17 04:25 Intake & Output 11/13/17 11/14/17 11/15/17 11:59 11:59 11:59 Intake Total 1100 Balance 1100 Weight 54.4 kg General appearance: PRESENT: disheveled, mild distress, other - Poorly responsive, profoundly cachectic with temporal wasting Head exam: PRESENT: atraumatic, normocephalic Eye exam: PRESENT: conjunctiva pink, EOMI, PERRLA. ABSENT: scleral icterus Ear exam: PRESENT: normal external ear exam Mouth exam: PRESENT: dry mucosa Neck exam: PRESENT: tracheostomy - Purulent exudate Respiratory exam: PRESENT: accessory muscle use, crackles, rales, tachypnea Cardiovascular exam: PRESENT: +S1, +S2, tachycardia Pulses: PRESENT: normal dorsalis pedis pul Vascular exam: PRESENT: normal capillary refill GI/Abdominal exam: PRESENT: normal bowel sounds, soft. ABSENT: distended, guarding, mass, organolmegaly, rebound, tenderness Rectal exam: PRESENT: deferred Extremities exam: PRESENT: full ROM. ABSENT: calf tenderness, clubbing, pedal edema Neurological exam: PRESENT: alert, altered, oriented to place, CN II-XII grossly intact. ABSENT: motor sensory deficit Psychiatric exam: PRESENT: appropriate affect, normal mood. ABSENT: homicidal ideation, suicidal ideation Skin exam: PRESENT: other - Large sacral eschar Results Laboratory Results: 11/15/17 05:03 11/15/17 05:03 11/15/17 11/15/17 05:03 05:03 WBC 10.4 RBC 3.10 L Hgb 9.3 L Hct 28.3 L MCV 92 MCH 30.1 MCHC 32.9 RDW 17.6 H Plt Count 440 Seg Neutrophils % 72.6 Lymphocytes % 13.5 Monocytes % 13.1 H Eosinophils % 0.2 Basophils % 0.6 Absolute Neutrophils 7.5 Absolute Lymphocytes 1.4 Absolute Monocytes 1.4 Absolute Eosinophils 0.0 Absolute Basophils 0.1 Sodium 137.9 Potassium 4.5 D Chloride 103 Carbon Dioxide 28 Anion Gap 7 BUN 25 H Creatinine 0.57 Est GFR ( Amer) > 60 Est GFR (Non-Af Amer) > 60 Glucose 97 Calcium 9.3 Impressions: Chest X-Ray 11/14/17 21:34 IMPRESSION: Moderate left lower lobar opacity. Interval worsening. Differential etiologies include infectious, inflammatory, and neoplastic processes. Assessment & Plan - Diagnosis (1) Chronic respiratory failure Qualifiers: Respiratory failure complication: unspecified whether with hypoxia or hypercapnia Qualified Code(s): J96.10 - Chronic respiratory failure, unspecified whether with hypoxia or hypercapnia Is this a current diagnosis for this admission?: Yes Plan: Complicated by pneumonia, unable to participate in pulmonary toilet, oxygen mask to trach (2) Do not resuscitate Is this a current diagnosis for this admission?: Yes Plan: Exceedingly poor prognosis anticipate despite aggressive measures, contact [facility] for consideration of comfort measures (3) Left lower lobe pneumonia Qualifiers: Pneumonia type: due to unspecified organism Qualified Code(s): J18.1 - Lobar pneumonia, unspecified organism Is this a current diagnosis for this admission?: Yes Plan: Pneumonia care set, supplemental oxygen, follow-up CBC and blood culture (4) Sepsis Qualifiers: Sepsis type: sepsis due to unspecified organism Qualified Code(s): A41.9 - Sepsis, unspecified organism Is this a current diagnosis for this admission?: Yes Plan: Secondary to pneumonia, complicated by history. IV fluid challenge, follow-up chemistry - Time Time Spent: 50 to 70 Minutes - Inpatient Certification Medical Necessity: Need Close Monitoring Due to Risk of Patient Decompensation
[2017-11-15] MEDS ORDERED: POLYVINYL ALCOHOL 1.4% OPH SOLN 15 ML OU SCH (10:00)
[2017-11-15] MEDS ORDERED: VANCOMYCIN HCL 750 MG in DEXTROSE 5%-WATER 250 ML IV SCH (10:00)
[2017-11-15] MEDS ORDERED: LEVETIRACETAM 500 MG TABLET PO SCH (10:00)
[2017-11-15] MEDS ORDERED: APIXABAN 5 MG TABLET ONE (10:24)
[2017-11-15] MEDS ORDERED: LEVETIRACETAM ORAL SOLN 500 MG/5 ML UDCUP ONE (10:24)
[2017-11-15] MEDS: NYSTATIN TOPICAL POWDER 15 GM TP SCH ×2 (11:05→17:38)
[2017-11-15] MEDS: APIXABAN 5 MG TABLET PEG SCH ×2 (11:05→22:52)
[2017-11-15] MEDS: SCOPOLAMINE HYDROBROMIDE 1.5 MG PATCH.TD72 TD SCH (11:06)
[2017-11-15] MEDS: SENNOSIDES/DOCUSATE 8.6-50 MG 1 EACH TABLET PEG SCH ×2 (11:06→17:40)
[2017-11-15] MEDS: LEVETIRACETAM ORAL SOLN 500 MG/5 ML UDCUP PEG SCH ×2 (11:08→22:52)
[2017-11-15] MEDS ORDERED: IPRATROPIUM/ALBUTEROL 0.5-2.5 MG/3 ML AMPUL NEB ONE (11:59)
[2017-11-15] MEDS ORDERED: SULFAMETHOXAZOLE/TRIMETHOPRIM 320 MG in DEXTROSE 5%-WATER 500 ML IV SCH (12:00)
[2017-11-15] MEDS: DEXTROSE 5% IV SCH ×2 (12:33→18:42)
[2017-11-15] MEDS: WATER IV SCH ×2 (12:33→18:42)
[2017-11-15] MEDS: TRIMETHOPRIM IV SCH ×2 (12:33→18:42)
[2017-11-15] MEDS: SULFAMETHOXAZOLE IV SCH ×2 (12:33→18:42)
[2017-11-15] MEDS: CARBOXYMETHYLCELLULOSE SOD 0.5% 0.4 ML DROPERETTE OU SCH ×2 (14:07→18:41)
[2017-11-15] MEDS: ACETYLCYSTEINE 10% NEB 400 MG/4 ML VIAL NEB SCH ×2 (14:12→20:22)
[2017-11-15] MEDS ORDERED: LIDOCAINE 2% URO-JET 5 ML KIT MM ONE (15:30)
--- NOTE | 2017-11-15 15:40 | OPERATIVE REPORT E ---
Operative Report NAME: CECILIA MARTINEZ : 1960 AGE: 57Y DATE OF SURGERY: 11/15/2017 ROOM: 326 PREOPERATIVE DIAGNOSIS: Failure to place a Colon catheter by the nurses and has some blood clots. POSTOPERATIVE DIAGNOSIS: Failure to place a Colon catheter by the nurses and has some blood clots. OPERATION: Placement of a three-way Colon catheter, Norwegian 18. SURGEON: BINA RUDD M.D. DESCRIPTION OF PROCEDURE: With the patient in the supine position, the penile area was instilled with Uro-Jet for anesthesia through the meatus. Next, a sterile 18 Norwegian three-way Colon catheter was then inserted through the meatus down towards the bladder. It was pushed all the way through the hub . The balloon was then instilled with 5 mL of sterile saline. Next, the main opening of the Colon catheter was then irrigated with 60 mL of saline, and aspirated 60 mL of saline also. Aspirate is just slightly blood tinged. Further aspiration of urine, about 200 mL, was removed through the Colon catheter. The Colon was then connected to a Colon bag. It appears that the patient does not need any irrigation at this time. The third opening of the Colon catheter was then blocked. The patient tolerated the procedure well. DICTATING PHYSICIAN: BINA RUDD M.D. [id number] PHY#: [id number] ID: [id number] JOB#: [id number] ACCT: [id number] cc:BINA RUDD M.D. > [facility]
[2017-11-15 16:29] LABS: APPEARANCE,URINE TURBID; BILIRUBIN,URINE NEGATIVE (NEGATIVE); COLOR,URINE DARK YELLOW; GLUCOSE, URINE NEGATIVE (NEGATIVE); KETONES,URINE NEGATIVE (NEGATIVE); LEUKOCYTE ESTERASE,URINE LARGE (NEGATIVE); NITRITE,URINE NEGATIVE (NEGATIVE); PROTEIN,URINE 30 mg/dL (NEGATIVE); URINE SPECIFIC GRAVITY 1.025; UROBILINOGEN,URINE NEGATIVE mg/dL (<2.0)
--- NOTE | 2017-11-15 17:21 | PDOC PROGRESS REPORT ---
Subjective Progress Note for:: 11/15/17 Subjective:: The patient is a 57-year-old male with a past medical history of remote traumatic brain injury, now PEG and trach dependent is with flexion contractures 4, seizure disorder, sacral decubitus ulcer, depression, and anemia who was admitted 11/15/17 for sepsis due to LLL pneumonia. The patient was seen on morning rounds. He was found resting in bed on supplemental oxygen via trach mask having just received nebulizer treatment. He was noted to still be slightly tachypneic with a respiratory rate of 20-24 and rhonchi throughout. He was noted to have purulent sputum when coughing requiring suctioning by the respiratory therapist to clear. He was also noted to have copious amounts of watery diarrhea while he was in the room. He is awake, but poorly responsive. ROS is limited due to baseline mental status. Nursing is concerned about large blood clots to Colon catheter; difficult to reposition and flush catheter. Reason For Visit: SEPSIS PNEUMONIA Physical Exam Vital Signs: Temp Pulse Resp BP Pulse Ox 98.1 F 79 20 108/63 96 11/15/17 11:25 11/15/17 14:12 11/15/17 14:12 11/15/17 11:25 11/15/17 14:12 Intake & Output 11/14/17 11/15/17 11/16/17 06:59 06:59 06:59 Intake Total 1100 2242.375 Balance 1100 2242.375 Weight 54.4 kg General appearance: PRESENT: disheveled, mild distress, well-developed - Cachectic, other Head exam: PRESENT: atraumatic, normocephalic Eye exam: PRESENT: conjunctiva pink, EOMI, PERRLA. ABSENT: scleral icterus Mouth exam: PRESENT: moist Neck exam: PRESENT: full ROM, tracheostomy - Purulent sputum. ABSENT: carotid bruit, JVD, lymphadenopathy Respiratory exam: PRESENT: decreased breath sounds - Bibasilar, rhonchi - Throughout, symmetrical, tachypnea, other Cardiovascular exam: PRESENT: +S1, +S2, tachycardia Pulses: PRESENT: normal dorsalis pedis pul GI/Abdominal exam: PRESENT: normal bowel sounds, soft. ABSENT: distended, guarding, mass, organolmegaly, rebound, tenderness Rectal exam: PRESENT: deferred Extremities exam: PRESENT: other - Flexion contractures 4 Musculoskeletal exam: ABSENT: ambulatory Neurological exam: PRESENT: awake, aphasic, other - Appears to be at baseline alertness and mental status Skin exam: PRESENT: dry, warm, other - Sacral decubitus ulcer. ABSENT: cyanosis , rash Results Laboratory Results: 11/15/17 05:03 11/15/17 05:03 11/15/17 11/15/17 11/15/17 05:03 05:03 08:44 WBC 10.4 RBC 3.10 L Hgb 9.3 L Hct 28.3 L MCV 92 MCH 30.1 MCHC 32.9 RDW 17.6 H Plt Count 440 Seg Neutrophils % 72.6 Lymphocytes % 13.5 Monocytes % 13.1 H Eosinophils % 0.2 Basophils % 0.6 Absolute Neutrophils 7.5 Absolute Lymphocytes 1.4 Absolute Monocytes 1.4 Absolute Eosinophils 0.0 Absolute Basophils 0.1 Sodium 137.9 Potassium 4.5 D Chloride 103 Carbon Dioxide 28 Anion Gap 7 BUN 25 H Creatinine 0.57 Est GFR ( Amer) > 60 Est GFR (Non-Af Amer) > 60 Glucose 97 Lactic Acid 1.2 Calcium 9.3 Urine Color Urine Appearance Urine pH Ur Specific [place] Urine Protein Urine Glucose (UA) Urine Ketones Urine Blood Urine Nitrite Ur Leukocyte Esterase Urine WBC (Auto) Urine RBC (Auto) Stool for White Cells 11/15/17 11/15/17 09:00 16:08 WBC RBC Hgb Hct MCV MCH MCHC RDW Plt Count Seg Neutrophils % Lymphocytes % Monocytes % Eosinophils % Basophils % Absolute Neutrophils Absolute Lymphocytes Absolute Monocytes Absolute Eosinophils Absolute Basophils Sodium Potassium Chloride Carbon Dioxide Anion Gap BUN Creatinine Est GFR ( Amer) Est GFR (Non-Af Amer) Glucose Lactic Acid Calcium Urine Color DARK YELLOW Urine Appearance TURBID Urine pH 5.0 Ur Specific [place] 1.025 Urine Protein 30 H Urine Glucose (UA) NEGATIVE Urine Ketones NEGATIVE Urine Blood LARGE H Urine Nitrite NEGATIVE Ur Leukocyte Esterase LARGE H Urine WBC (Auto) >182 Urine RBC (Auto) >182 Stool for White Cells NO WBCs SEEN Impressions: Chest X-Ray 11/14/17 21:34 IMPRESSION: Moderate left lower lobar opacity. Interval worsening. Differential etiologies include infectious, inflammatory, and neoplastic processes. Assessment & Plan - Diagnosis (1) Sepsis Qualifiers: Sepsis type: sepsis due to unspecified organism Qualified Code(s): A41.9 - Sepsis, unspecified organism Is this a current diagnosis for this admission?: Yes Plan: Sepsis due to HAP and UTI, present on arrival, evidenced by fever (101.7), hypotension (94/52), tachypnea (40), and left lower lobe pneumonia by chest x- ray. The patient is admitted to [facility] on continuous cardiac telemetry. He is provided IV fluids. He did receive IV azithromycin, Zosyn, and vancomycin by the ED provider. Antibiotics are adjusted to continue IV Zosyn and Bactrim based upon previous sputum and urine culture results. The patient has multidrug resistant E. coli; only sensitive to amikacin, tetracycline, and Bactrim. Repeat blood, urine, sputum cultures are pending; will adjust antibiotics as a result. Will consult infectious disease. (2) Left lower lobe pneumonia Qualifiers: Pneumonia type: due to unspecified organism Qualified Code(s): J18.1 - Lobar pneumonia, unspecified organism Is this a current diagnosis for this admission?: Yes Plan: The patient presented with acute worsening of his chronic respiratory failure. He was found to have a fever, tachypnea, and purulent sputum. CXR reveals moderate left lower pneumonia. Blood and sputum cultures are pending. The patient did receive IV azithromycin, vancomycin, and Zosyn by ED provider. His antibiotic's are adjusted to IV Zosyn and IV Bactrim based upon previous sputum culture results (Sputum culture from 10/2017 revealed multidrug-resistant E. coli sensitive only to amikacin and bactrim). Will consult Infectious Disease. He is provided supplemental oxygen as needed to maintain oxygen saturations. Trach care as needed. Continued scheduled and as needed nebulizer treatments. Mucinex twice daily. Chest physiotherapy by RT. (3) UTI (urinary tract infection) Qualifiers: Urinary tract infection type: catheter-associated UTI Indwelling urinary catheter type: indwelling urethral catheter Is this a current diagnosis for this admission?: Yes Plan: Urinalysis is positive for UTI. Urine cultures pending. Colon catheter has been replaced. The patient has been empirically placed on IV Zosyn based upon previous urine culture results. (4) Hematuria Qualifiers: Hematuria type: gross Qualified Code(s): R31.0 - Gross hematuria Is this a current diagnosis for this admission?: Yes Plan: Likely secondary to traumatic Colon insertion although urinalysis is positive for UTI. Urine culture is pending. Nursing was unable to flush the catheter. Catheter was removed and attempts to replace were unsuccessful. Surgery was consulted; Dr. Roy was able to place a three-way catheter should the patient require CBI. Fortunately it does not appear that he has persistent hematuria at this time. We will continue to monitor and institute CBI as necessary. (5) Diarrhea Qualifiers: Diarrhea type: unspecified type Qualified Code(s): R19.7 - Diarrhea, unspecified Is this a current diagnosis for this admission?: Yes Plan: The patient has had copious, watery stools. Possibly secondary to lactulose provided overnight. C. difficile is negative. Stool WBCs are negative. Stool culture is pending. A rectal tube has been placed due to the volume of watery stools the patient has been having. (6) Chronic respiratory failure Qualifiers: Respiratory failure complication: unspecified whether with hypoxia or hypercapnia Qualified Code(s): J96.10 - Chronic respiratory failure, unspecified whether with hypoxia or hypercapnia Is this a current diagnosis for this admission?: Yes Plan: Poor prognosis; multiple recent admissions for sepsis r/t pneumonia. Will need to discuss with [place] regarding possible transfer to higher level of care at discharge (may benefit from LTAC) versus transition to Hospice services. - Time Time Spent with patient: 25-34 minutes Medications reviewed and adjusted accordingly: Yes Anticipated discharge: SNF - Inpatient Certification Based on my medical assessment, after consideration of the patient's comorbidities, presenting symptoms, or acuity I expect that the services needed warrant INPATIENT care.: Yes I certify that my determination is in accordance with my understanding of Medicare's requirements for reasonable and necessary INPATIENT services [42 CFR 412.3e].: Yes Medical Necessity: Significant Comorbidiites Make Outpatient Treatment Too Risky , Need For IV Fluids, Need For Continuous Telemetry Monitoring, Need for Nebulizer Therapy and Monitoring of Response, Need for IV Antibiotics
[2017-11-15] MEDS: LINEZOLID 600 MG/300 ML RTUPB IV SCH (22:52)
[2017-11-16] MEDS: PIPERACILLIN SODIUM/TAZOBACTAM 4.5 GM in NORMAL SALINE 100 ML IV SCH ×4 (01:00→17:52)
[2017-11-16] MEDS: IPRATROPIUM/ALBUTEROL 0.5-2.5 MG/3 ML AMPUL NEB SCH ×4 (02:02→20:22)
[2017-11-16 05:03] LABS: ABSOLUTE LYMPHOCYTES (AUTO) 1.2 10^3/uL (0.5-4.7); ABSOLUTE MONOCYTES (AUTO) 0.6 10^3/uL (0.1-1.4); ABSOLUTE NEUT (AUTO) 3.7 10^3/uL (1.7-8.2); BASOPHILS % (AUTO) 0.5 % (0-2); EOSINOPHILS % (AUTO) 0.6 % (0-6); HEMATOCRIT 23.9 % (37.9-51.0); LYMPHOCYTES % (AUTO) 21.1 % (13-45); MEAN CORPUSCULAR HEMOGLOBIN 30.3 pg (27.0-33.4); MEAN CORPUSCULAR HGB CONC 33.5 g/dL (32.0-36.0); MEAN CORPUSCULAR VOLUME 91 fl (80-97); MONOCYTES % (AUTO) 10.6 % (3-13); PLATELET COUNT 358 10^3/uL (150-450); RED BLOOD COUNT 2.64 10^6/uL (4.35-5.55); RED CELL DISTRIBUTION WIDTH 17.6 % (11.5-14.0); SEGMENTED NEUTROPHILS % (AUTO) 67.2 % (42-78); TOTAL CELLS COUNTED % (AUTO) 100 %; WHITE BLOOD COUNT 5.6 10^3/uL (4.0-10.5)
[2017-11-16] MEDS: NORMAL SALINE 1000 ML 1,000 ML IV PRN (05:23)
[2017-11-16 05:26] LABS: BLOOD UREA NITROGEN 14 mg/dL (7-20); CALCIUM 8.6 mg/dL (8.4-10.2); CARBON DIOXIDE 27 mmol/L (22-30); CHLORIDE 106 mmol/L (98-107); GLUCOSE 94 mg/dL (75-110); SODIUM 137.3 mmol/L (137-145)
[2017-11-16 05:27] LABS: ANION GAP 4 (5-19)
[2017-11-16] MEDS: ACETYLCYSTEINE 10% NEB 400 MG/4 ML VIAL NEB SCH ×2 (08:15→20:22)
[2017-11-16] MEDS: LEVETIRACETAM ORAL SOLN 500 MG/5 ML UDCUP PEG SCH ×2 (09:38→21:29)
[2017-11-16] MEDS: LINEZOLID 600 MG/300 ML RTUPB IV SCH ×2 (09:38→21:30)
[2017-11-16] MEDS: APIXABAN 5 MG TABLET PEG SCH ×2 (09:38→21:30)
[2017-11-16] MEDS: NYSTATIN TOPICAL POWDER 15 GM TP SCH ×2 (09:38→17:52)
[2017-11-16] MEDS: SENNOSIDES/DOCUSATE 8.6-50 MG 1 EACH TABLET PEG SCH ×2 (09:39→17:26)
[2017-11-16] MEDS: CARBOXYMETHYLCELLULOSE SOD 0.5% 0.4 ML DROPERETTE OU SCH ×3 (09:39→17:53)
[2017-11-16] MEDS ORDERED: NORMAL SALINE 1000 ML 1,000 ML IV PRN (15:46)
--- NOTE | 2017-11-16 15:46 | PDOC PROGRESS REPORT ---
Subjective Progress Note for:: 11/16/17 Subjective:: The patient is a 57-year-old male with a past medical history of remote traumatic brain injury, now PEG and trach dependent is with flexion contractures 4, seizure disorder, sacral decubitus ulcer, depression, and anemia who was admitted 11/15/17 for sepsis due to LLL pneumonia. The patient was seen on morning rounds. He was found resting in bed on supplemental oxygen via trach mask having just received nebulizer treatment. He was noted to be resting comfortably, with even and unlabored breathing. He continues to have watery diarrhea; fecal management system is now in place. ROS is limited due to baseline mental status. No new concerns per nursing. Reason For Visit: SEPSIS PNEUMONIA Physical Exam Vital Signs: Temp Pulse Resp BP Pulse Ox 98.0 F 87 20 102/64 98 11/16/17 08:04 11/16/17 14:00 11/16/17 13:30 11/16/17 08:04 11/16/17 13:30 Intake & Output 11/15/17 11/16/17 11/17/17 06:59 06:59 06:59 Intake Total 1100 4410.375 400 Output Total 580 Balance 1100 3830.375 400 Weight 54.4 kg 58.5 kg General appearance: PRESENT: well-developed, other Head exam: PRESENT: atraumatic, normocephalic Eye exam: PRESENT: conjunctiva pink, EOMI, PERRLA. ABSENT: scleral icterus Ear exam: PRESENT: normal external ear exam Mouth exam: PRESENT: moist, tongue midline Teeth exam: PRESENT: poor dentation Neck exam: PRESENT: tracheostomy. ABSENT: carotid bruit, JVD, lymphadenopathy, thyromegaly Respiratory exam: PRESENT: rhonchi - Improved from yesterday, symmetrical, unlabored, other - Supplemental supplemental oxygen to trach collar. ABSENT: rales, wheezes Cardiovascular exam: PRESENT: RRR, +S1, +S2. ABSENT: diastolic murmur, rubs, systolic murmur Pulses: PRESENT: normal dorsalis pedis pul Vascular exam: PRESENT: normal capillary refill GI/Abdominal exam: PRESENT: normal bowel sounds, soft. ABSENT: distended, guarding, mass, organolmegaly, rebound, tenderness Rectal exam: PRESENT: deferred Gentrourinary exam: PRESENT: erythema, indwelling catheter Extremities exam: PRESENT: other - Flexion contractures 4. ABSENT: calf tenderness, clubbing, pedal edema Neurological exam: PRESENT: other - Wakes when I say his name; does not make eye contact. Aphasic. Appears to be at baseline alertness and mental status. ABSENT: motor sensory deficit Psychiatric exam: PRESENT: appropriate affect, normal mood. ABSENT: homicidal ideation, suicidal ideation Skin exam: PRESENT: dry, intact, warm. ABSENT: cyanosis, rash Results Laboratory Results: 11/16/17 04:46 11/16/17 04:46 11/15/17 11/16/17 11/16/17 16:08 04:46 04:46 WBC 5.6 RBC 2.64 L Hgb 8.0 L Hct 23.9 L MCV 91 MCH 30.3 MCHC 33.5 RDW 17.6 H Plt Count 358 Seg Neutrophils % 67.2 Lymphocytes % 21.1 Monocytes % 10.6 Eosinophils % 0.6 Basophils % 0.5 Absolute Neutrophils 3.7 Absolute Lymphocytes 1.2 Absolute Monocytes 0.6 Absolute Eosinophils 0.0 Absolute Basophils 0.0 Sodium 137.3 Potassium 4.0 Chloride 106 Carbon Dioxide 27 Anion Gap 4 L BUN 14 Creatinine 0.56 Est GFR ( Amer) > 60 Est GFR (Non-Af Amer) > 60 Glucose 94 Calcium 8.6 Urine Color DARK YELLOW Urine Appearance TURBID Urine pH 5.0 Ur Specific [place] 1.025 Urine Protein 30 H Urine Glucose (UA) NEGATIVE Urine Ketones NEGATIVE Urine Blood LARGE H Urine Nitrite NEGATIVE Ur Leukocyte Esterase LARGE H Urine WBC (Auto) >182 Urine RBC (Auto) >182 11/15/17 16:08 Colon Catheter Urine Culture - Final C.albicans/C.dubliniensis Impressions: Chest X-Ray 11/14/17 21:34 IMPRESSION: Moderate left lower lobar opacity. Interval worsening. Differential etiologies include infectious, inflammatory, and neoplastic processes. Assessment & Plan - Diagnosis (1) Sepsis Qualifiers: Sepsis type: sepsis due to unspecified organism Qualified Code(s): A41.9 - Sepsis, unspecified organism Is this a current diagnosis for this admission?: Yes Plan: Improved; patient has remained afebrile 24 hours, blood pressures are improved , lactic acid normal. Sepsis due to HAP and UTI, present on arrival, evidenced by fever (101.7), hypotension (94/52), tachypnea (40), and left lower lobe pneumonia by chest x- ray. Initial blood culture positive for gram-positive cocci recovered from one set ( 2 of 4 bottles). Sputum and stool cultures are pending. Urine culture positive for C albicans. The patient is admitted to [facility] on continuous cardiac telemetry. He is provided IV fluids. He did receive IV azithromycin, Zosyn, and vancomycin by the ED provider. Antibiotics are adjusted to continue IV Zosyn and Bactrim based upon previous sputum and urine culture results. The patient has multidrug resistant E. coli; only sensitive to amikacin, tetracycline, and Bactrim. Repeat blood, urine, sputum cultures are pending; will adjust antibiotics as a result. Will consult infectious disease. (2) Left lower lobe pneumonia Qualifiers: Pneumonia type: due to unspecified organism Qualified Code(s): J18.1 - Lobar pneumonia, unspecified organism Is this a current diagnosis for this admission?: Yes Plan: The patient presented with acute worsening of his chronic respiratory failure. He was found to have a fever, tachypnea, and purulent sputum. CXR reveals moderate left lower pneumonia. Cultures as above. The patient did receive IV azithromycin, vancomycin, and Zosyn by ED provider. His antibiotic's are adjusted to IV Zosyn and IV Bactrim based upon previous sputum culture results (Sputum culture from 10/2017 revealed multidrug-resistant E. coli sensitive only to amikacin and bactrim). Will consult Infectious Disease. He is provided supplemental oxygen as needed to maintain oxygen saturations. Trach care as needed. Continued scheduled and as needed nebulizer treatments. Mucinex twice daily. Chest physiotherapy by RT. (3) UTI (urinary tract infection) Qualifiers: Urinary tract infection type: catheter-associated UTI Indwelling urinary catheter type: indwelling urethral catheter Is this a current diagnosis for this admission?: Yes Plan: Urinalysis is positive for UTI. Urine cultures positive for C albicans.. Colon catheter has been replaced. The patient has been empirically placed on IV Zosyn based upon previous urine culture results. We will add Diflucan 200 mg daily x14 days. (4) Hematuria Qualifiers: Hematuria type: gross Qualified Code(s): R31.0 - Gross hematuria Is this a current diagnosis for this admission?: Yes Plan: Resolved; secondary to traumatic Colon insertion although urinalysis is positive for UTI. Nursing was unable to flush the catheter. Catheter was removed and attempts to replace were unsuccessful. Surgery was consulted; Dr. Roy was able to place a three-way catheter should the patient require CBI. We will continue to monitor and institute CBI as necessary. (5) Diarrhea Qualifiers: Diarrhea type: unspecified type Qualified Code(s): R19.7 - Diarrhea, unspecified Is this a current diagnosis for this admission?: Yes Plan: The patient has had copious, watery stools. C. difficile is negative. Stool WBCs are negative. Stool culture is pending. A rectal tube has been placed due to the volume of watery stools the patient has been having. (6) Chronic respiratory failure Qualifiers: Respiratory failure complication: unspecified whether with hypoxia or hypercapnia Qualified Code(s): J96.10 - Chronic respiratory failure, unspecified whether with hypoxia or hypercapnia Is this a current diagnosis for this admission?: Yes Plan: Poor prognosis; multiple recent admissions for sepsis r/t pneumonia. Will need to discuss with [place] regarding possible transfer to higher level of care at discharge (may benefit from LTAC) versus transition to Hospice services. - Time Time Spent with patient: 15-24 minutes Medications reviewed and adjusted accordingly: Yes Anticipated discharge: SNF - Inpatient Certification Based on my medical assessment, after consideration of the patient's comorbidities, presenting symptoms, or acuity I expect that the services needed warrant INPATIENT care.: Yes I certify that my determination is in accordance with my understanding of Medicare's requirements for reasonable and necessary INPATIENT services [42 CFR 412.3e].: Yes Medical Necessity: Significant Comorbidiites Make Outpatient Treatment Too Risky , Need For IV Fluids, Need for Nebulizer Therapy and Monitoring of Response, Need for IV Antibiotics
[2017-11-17] MEDS: PIPERACILLIN SODIUM/TAZOBACTAM 4.5 GM in NORMAL SALINE 100 ML IV SCH ×4 (00:22→17:19)
[2017-11-17] MEDS: IPRATROPIUM/ALBUTEROL 0.5-2.5 MG/3 ML AMPUL NEB SCH ×4 (02:07→20:10)
[2017-11-17 05:26] LABS: ABSOLUTE EOSINOPHILS # (AUTO) 0.1 10^3/uL (0.0-0.6); ABSOLUTE LYMPHOCYTES (AUTO) 1.1 10^3/uL (0.5-4.7); ABSOLUTE MONOCYTES (AUTO) 0.6 10^3/uL (0.1-1.4); ABSOLUTE NEUT (AUTO) 5.1 10^3/uL (1.7-8.2); BASOPHILS % (AUTO) 0.5 % (0-2); EOSINOPHILS % (AUTO) 0.8 % (0-6); HEMOGLOBIN 8.1 g/dL (13.5-17.0); LYMPHOCYTES % (AUTO) 16.4 % (13-45); MEAN CORPUSCULAR HEMOGLOBIN 30.3 pg (27.0-33.4); MEAN CORPUSCULAR HGB CONC 33.7 g/dL (32.0-36.0); MEAN CORPUSCULAR VOLUME 90 fl (80-97); PLATELET COUNT 351 10^3/uL (150-450); RED BLOOD COUNT 2.67 10^6/uL (4.35-5.55); RED CELL DISTRIBUTION WIDTH 17.7 % (11.5-14.0); SEGMENTED NEUTROPHILS % (AUTO) 73.3 % (42-78); TOTAL CELLS COUNTED % (AUTO) 100 %
[2017-11-17 05:45] LABS: ANION GAP 5 (5-19); BLOOD UREA NITROGEN 9 mg/dL (7-20); CALCIUM 8.6 mg/dL (8.4-10.2); CARBON DIOXIDE 28 mmol/L (22-30); CHLORIDE 101 mmol/L (98-107); GLUCOSE 86 mg/dL (75-110); POTASSIUM 3.5 mmol/L (3.6-5.0); SODIUM 134.3 mmol/L (137-145)
[2017-11-17] MEDS: ACETYLCYSTEINE 10% NEB 400 MG/4 ML VIAL NEB SCH (08:57)
[2017-11-17] MEDS: LINEZOLID 600 MG/300 ML RTUPB IV SCH ×2 (10:26→22:25)
[2017-11-17] MEDS: APIXABAN 5 MG TABLET PEG SCH ×2 (10:26→22:28)
[2017-11-17] MEDS: SENNOSIDES/DOCUSATE 8.6-50 MG 1 EACH TABLET PEG SCH ×2 (10:26→17:06)
[2017-11-17] MEDS: FLUCONAZOLE 100 MG TABLET PO SCH (10:33)
[2017-11-17] MEDS: LEVETIRACETAM ORAL SOLN 500 MG/5 ML UDCUP PEG SCH ×2 (10:33→22:31)
[2017-11-17] MEDS: NYSTATIN TOPICAL POWDER 15 GM TP SCH ×2 (10:43→17:22)
[2017-11-17] MEDS: NORMAL SALINE 1000 ML 1,000 ML IV PRN (10:43)
[2017-11-17] MEDS: CARBOXYMETHYLCELLULOSE SOD 0.5% 0.4 ML DROPERETTE OU SCH ×3 (12:36→17:20)
--- NOTE | 2017-11-17 13:56 | PDOC PROGRESS REPORT ---
Subjective Progress Note for:: 11/17/17 Subjective:: The patient is a 57-year-old male with a past medical history of remote traumatic brain injury, now PEG and trach dependent is with flexion contractures 4, seizure disorder, sacral decubitus ulcer, depression, and anemia who was admitted 11/15/17 for sepsis due to LLL pneumonia. The patient was seen on morning rounds. He was found resting in bed on supplemental oxygen via trach mask. He was noted to be resting comfortably, with even and unlabored breathing. He continues to have diarrhea; though in smaller volume and frequency today. The fecal management system has been removed. ROS is limited due to baseline mental status. No new concerns per nursing. Reason For Visit: SEPSIS PNEUMONIA Physical Exam Vital Signs: Temp Pulse Resp BP Pulse Ox 98.8 F 87 20 117/65 99 11/17/17 11:33 11/17/17 13:26 11/17/17 11:33 11/17/17 11:33 11/17/17 11:33 Intake & Output 11/16/17 11/17/17 11/18/17 06:59 06:59 06:59 Intake Total 4410.375 1741 531 Output Total 580 1950 Balance 3830.375 -209 531 Weight 58.5 kg 58.5 kg General appearance: PRESENT: no acute distress, well-developed, other Head exam: PRESENT: atraumatic, normocephalic Eye exam: PRESENT: conjunctiva pale, EOMI, PERRLA. ABSENT: scleral icterus Ear exam: PRESENT: normal external ear exam Mouth exam: PRESENT: moist, tongue midline Teeth exam: PRESENT: poor dentation Neck exam: ABSENT: carotid bruit, JVD, lymphadenopathy, thyromegaly Respiratory exam: PRESENT: rhonchi, symmetrical, unlabored, other. ABSENT: rales, wheezes Cardiovascular exam: PRESENT: RRR, +S1, +S2. ABSENT: diastolic murmur, rubs, systolic murmur Pulses: PRESENT: normal dorsalis pedis pul Vascular exam: PRESENT: normal capillary refill GI/Abdominal exam: PRESENT: normal bowel sounds, soft. ABSENT: distended, guarding, mass, organolmegaly, rebound, tenderness Rectal exam: PRESENT: deferred Extremities exam: PRESENT: other. ABSENT: calf tenderness, clubbing, pedal edema Neurological exam: PRESENT: awake, aphasic, other. ABSENT: oriented to person, oriented to place, oriented to time, oriented to situation, motor sensory deficit Skin exam: PRESENT: dry, warm, other - Sacral wound with eschar; measures approximately 3 cm round with surrounding erythema and macerated tissue. No drainage present.. ABSENT: cyanosis, rash Results Laboratory Results: 11/17/17 04:57 11/17/17 04:57 11/17/17 11/17/17 04:57 04:57 WBC 7.0 RBC 2.67 L Hgb 8.1 L Hct 24.0 L MCV 90 MCH 30.3 MCHC 33.7 RDW 17.7 H Plt Count 351 Seg Neutrophils % 73.3 Lymphocytes % 16.4 Monocytes % 9.0 Eosinophils % 0.8 Basophils % 0.5 Absolute Neutrophils 5.1 Absolute Lymphocytes 1.1 Absolute Monocytes 0.6 Absolute Eosinophils 0.1 Absolute Basophils 0.0 Sodium 134.3 L Potassium 3.5 L Chloride 101 Carbon Dioxide 28 Anion Gap 5 BUN 9 Creatinine 0.45 L Est GFR ( Amer) > 60 Est GFR (Non-Af Amer) > 60 Glucose 86 Calcium 8.6 11/15/17 16:08 Colon Catheter Urine Culture - Final C.albicans/C.dubliniensis Impressions: Chest X-Ray 11/14/17 21:34 IMPRESSION: Moderate left lower lobar opacity. Interval worsening. Differential etiologies include infectious, inflammatory, and neoplastic processes. Assessment & Plan - Diagnosis (1) Sepsis Qualifiers: Sepsis type: sepsis due to unspecified organism Qualified Code(s): A41.9 - Sepsis, unspecified organism Is this a current diagnosis for this admission?: Yes Plan: Resolved; patient has remained afebrile 48 hours, remaining vital signs are normal, WBCs and lactic acid are normal. Sepsis due to HAP and UTI, present on arrival, evidenced by fever (101.7), hypotension (94/52), tachypnea (40), and left lower lobe pneumonia by chest x- ray. Initial blood culture positive for Staphylococcus simulans with multiple resistances one set (2 of 4 bottles). Considering resistance pattern this is unlikely to be contaminant. Fortunately the staff stimulant is sensitive to the Bactrim the patient was empirically placed on. Sputum and stool cultures are pending. Urine culture positive for C albicans. Repeat blood cultures are pending. The patient is admitted to [facility] on continuous cardiac telemetry. He is provided IV fluids. He did receive IV azithromycin, Zosyn, and vancomycin by the ED provider. Antibiotics are adjusted to continue IV Zosyn and IV Bactrim based upon previous sputum and urine culture results. The patient has multidrug resistant E. coli; only sensitive to amikacin, tetracycline, and Bactrim. Will consult infectious disease. (2) Left lower lobe pneumonia Qualifiers: Pneumonia type: due to unspecified organism Qualified Code(s): J18.1 - Lobar pneumonia, unspecified organism Is this a current diagnosis for this admission?: Yes Plan: Improving; the patient's fever has resolved, he is no longer tachypneic or hypoxic on his baseline oxygen requirement. CXR reveals moderate left lower pneumonia. Cultures as above. The patient did receive IV azithromycin, vancomycin, and Zosyn by ED provider. His antibiotic's are adjusted to IV Zosyn and IV Bactrim based upon previous sputum culture results (Sputum culture from 10/2017 revealed multidrug-resistant E. coli sensitive only to amikacin and bactrim). Will consult Infectious Disease. He is provided supplemental oxygen as needed to maintain oxygen saturations. Trach care as needed. Continued scheduled and as needed nebulizer treatments. Mucomyst nebulizer twice daily Mucinex twice daily. Chest physiotherapy by RT. (3) UTI (urinary tract infection) Qualifiers: Urinary tract infection type: catheter-associated UTI Indwelling urinary catheter type: indwelling urethral catheter Is this a current diagnosis for this admission?: Yes Plan: Urinalysis is positive for UTI. Urine cultures positive for C albicans. Colon catheter has been replaced. Continue Diflucan 200 mg daily x14 days. (4) Hematuria Qualifiers: Hematuria type: gross Qualified Code(s): R31.0 - Gross hematuria Is this a current diagnosis for this admission?: Yes Plan: Resolved; secondary to traumatic Colon insertion although urinalysis is positive for UTI. Nursing was unable to flush the catheter. Catheter was removed and attempts to replace were unsuccessful. Surgery was consulted; Dr. Roy was able to place a three-way catheter should the patient require CBI. We will continue to monitor and institute CBI as necessary. (5) Diarrhea Qualifiers: Diarrhea type: unspecified type Qualified Code(s): R19.7 - Diarrhea, unspecified Is this a current diagnosis for this admission?: Yes Plan: Improved. The patient continues to have loose stools, though less in frequency and volume. C. difficile is negative. Stool WBCs are negative. Stool culture is pending. (6) Chronic respiratory failure Qualifiers: Respiratory failure complication: unspecified whether with hypoxia or hypercapnia Qualified Code(s): J96.10 - Chronic respiratory failure, unspecified whether with hypoxia or hypercapnia Is this a current diagnosis for this admission?: Yes Plan: Poor prognosis; multiple recent admissions for sepsis r/t pneumonia. Will need to discuss with POA ([facility] of the [facility]) regarding possible transfer to higher level of care at discharge (may benefit from LTAC) versus transition to Hospice services. (7) Sacral decubitus ulcer Qualifiers: Pressure injury stage: unstageable Qualified Code(s): L89.150 - Pressure ulcer of sacral region, unstageable Is this a current diagnosis for this admission?: Yes Plan: The patient has a sacral decubitus ulcer; area of eschar measures approximately 4 cm round. He has a surrounding area of erythema and macerated tissue. Surgery was consulted; appreciate Dr. Gar's evaluation recommendations. No indication for surgical intervention at this time. We will begin Santyl dressing changes. (8) Severe protein-calorie malnutrition Is this a current diagnosis for this admission?: Yes Plan: Evidenced by BMI of 19.6, loss of subcutaneous fat and muscle. The patient requires tube feeding by PEG. Registered dietitian has been consulted; they are not available emergency staffing only at this time. Have resumed the diet ordered during his previous admission; Opexa 1.5: begin 35 mL's per hour and increase by 10 mL's every 12 hours to goal of 50 mL's per hour. - Time Time Spent with patient: 25-34 minutes Medications reviewed and adjusted accordingly: Yes Anticipated discharge: Other - LTAC Within: when bed available
[2017-11-17] MEDS ORDERED: GLYCOPYRROLATE 2 MG GT SCH (14:00)
--- NOTE | 2017-11-17 19:39 | PDOC CONSULTATION ---
Consultation Consult Date: 11/17/17 Consult reason:: Sacral decubitus ulcer History of Present Illness Admission Date/PCP: 11/15/17 00:43 RALEIGH GARCIA DO History of Present Illness: CECILIA MARTINEZ is a 57 year old male seen at the request of the hospitalist service. The patient suffered a traumatic brain injury many years ago and has been bedridden since that time. The patient has contractures and does not walk. He is cared for in a nursing facility. Patient has a long-standing sacral decubitus ulcer, which by report has been worsening. The patient is nonverbal and does not convey any portion of the review of systems. The review of systems and medical history is entirely obtained from the nursing staff, hospitalist service physician, and medical record. Past Medical History Pulmonary Medical History: Reports: Intubation, Pneumonia, Respiratory Failure Neurological Medical History: Reports: Seizures, Other - Traumatic brain injury with profound debility and unable to protect airway Endocrine Medical History: Reports: None Renal/ Medical History: Reports: None Malignancy Medical History: Reports: None GI Medical History: Reports: None Musculoskeltal Medical History: Reports: Other - Contractures 4 Skin Medical History: Reports: Other - Sacral decubiti Psychiatric Medical History: Reports: Depression Traumatic Medical History: Reports: Traumatic Brain Injury Hematology: Reports: Anemia Past Surgical History Past Surgical History: Reports: Other - Tracheostomy, G-tube Social History Lives with: Group Home Smoking Status: Unknown if Ever Smoked Frequency of Alcohol Use: None Hx Recreational Drug Use: No Drugs: None Hx Prescription Drug Abuse: No - Advance Directive Resuscitation Status: Do Not Resuscitate Family History Family History: Other - Unable to obtain secondary to patient's condition Parental Family History Reviewed: Yes Children Family History Reviewed: Yes Sibling(s) Family History Reviewed.: Yes Medication/Allergy Home Medications: Scopolamine [Transderm-Scop] 1 patch TD Q3D #5 patch.td.3 09/06/17 Apixaban [Eliquis 5 mg Tablet] 5 mg PEG Q12 10/12/17 Dextran 70/Hypromellose [Artificial Tears] 1 drop OU TID 10/12/17 Sennosides [Senokot] 17.2 mg PEG BID 10/12/17 Sodium Bicarbonate [Sodium Bicarbonate 650 mg Tablet] 650 mg PEG PRN PRN Acetylcysteine [Mucomist 20% Soln 800 mg/4 mL] 600 mg IH RTBID vial 10/22/17 Albuterol Sulfate [Ventolin 0.083% Neb 2.5 mg/3 mL Ampul] 2.5 mg NEB [id number] vial.neb 10/22/17 Bacitracin Zinc [Bacitracin Oint 15 gm] 1 applic TP BID tube 10/22/17 Nystatin [Mycostatin Topical Powder 15 gm] 1 applic TP BID bottle 10/22/17 Famotidine [Pepcid 20 mg Tablet] 20 mg PEG Q12 tablet 10/29/17 Acetaminophen [Tylenol 325 mg Tablet] 650 mg PEG Q4HP PRN 11/14/17 Glycopyrrolate [Robinul Forte] 2 mg GT Q8 11/14/17 Ipratropium/Albuterol Sulfate [Duoneb 3 ml Ampul] 3 ml NEB RTQ6HP PRN 11/14/17 Levetiracetam [Keppra 500 mg Tablet] 500 mg GT Q12 11/14/17 Allergies/Adverse Reactions: No Known Allergies Allergy (Verified 11/14/17 22:59) Review of Systems ROS unobtainable: Due to mental status Physical Exam Vital Signs: Temp Pulse Resp BP Pulse Ox 98.8 F 97 21 H 117/65 99 11/17/17 11:33 11/17/17 14:04 11/17/17 14:04 11/17/17 11:33 11/17/17 14:04 Intake & Output 11/16/17 11/17/17 11/18/17 06:59 06:59 06:59 Intake Total 4410.375 1741 931 Output Total 580 1950 Balance 3830.375 -209 931 Weight 58.5 kg 58.5 kg General appearance: PRESENT: no acute distress Head exam: PRESENT: atraumatic Eye exam: ABSENT: scleral icterus Mouth exam: PRESENT: moist, neck supple Neck exam: PRESENT: tracheostomy. ABSENT: meningismus, tenderness, thyromegaly , tracheal deviation Respiratory exam: PRESENT: crackles, unlabored. ABSENT: accessory muscle use, chest wall tenderness, retraction, wheezes Cardiovascular exam: PRESENT: RRR Pulses: PRESENT: normal radial pulses Vascular exam: PRESENT: normal capillary refill GI/Abdominal exam: PRESENT: soft, other - G-tube in place. ABSENT: distended, guarding, tenderness Extremities exam: PRESENT: clubbing. ABSENT: pedal edema Neurological exam: PRESENT: awake. ABSENT: alert, oriented to person, oriented to place, oriented to time, oriented to situation Psychiatric exam: PRESENT: other - Nonverbal Skin exam: PRESENT: pallor, rash - Perianal region, other - Deep stage II sacral decubitus. No active purulence or significant necrosis.. ABSENT: jaundice Results Laboratory Results: 11/17/17 04:57 11/17/17 04:57 11/17/17 11/17/17 04:57 04:57 WBC 7.0 RBC 2.67 L Hgb 8.1 L Hct 24.0 L MCV 90 MCH 30.3 MCHC 33.7 RDW 17.7 H Plt Count 351 Seg Neutrophils % 73.3 Lymphocytes % 16.4 Monocytes % 9.0 Eosinophils % 0.8 Basophils % 0.5 Absolute Neutrophils 5.1 Absolute Lymphocytes 1.1 Absolute Monocytes 0.6 Absolute Eosinophils 0.1 Absolute Basophils 0.0 Sodium 134.3 L Potassium 3.5 L Chloride 101 Carbon Dioxide 28 Anion Gap 5 BUN 9 Creatinine 0.45 L Est GFR ( Amer) > 60 Est GFR (Non-Af Amer) > 60 Glucose 86 Calcium 8.6 11/15/17 16:08 Colon Catheter Urine Culture - Final C.albicans/C.dubliniensis Impressions: Chest X-Ray 11/14/17 21:34 IMPRESSION: Moderate left lower lobar opacity. Interval worsening. Differential etiologies include infectious, inflammatory, and neoplastic processes. Assessment & Plan - Diagnosis (1) Sacral decubitus ulcer Qualifiers: Pressure injury stage: stage 2 Qualified Code(s): L89.152 - Pressure ulcer of sacral region, stage 2 Is this a current diagnosis for this admission?: Yes - Plan Summary Plan Summary: There is a 57-year-old male with multidrug resistant E. coli. Patient has a traumatic brain injury and is completely immobile. Patient has a sacral decubitus ulcer which is been deemed unstageable. Upon view of the ulcer, I do not see eschar. I do see partial thickness skin ulceration. There is bruising in the area indicative of progression. At this time I would stage the ulcer as a deep stage II, although it has features worrisome for progressing to stage III or IV. Patient should undergo an aggressive turning regimen, nutritional support, and dressing changes. Allevyn dressings would be appropriate. Change every day. No evidence of tres necrosis or purulence. I would delay surgical intervention at this time in an effort to allow the ulcerated area to heal.
[2017-11-17] MEDS: ACETYLCYSTEINE 20% SOLN 800 MG/4 ML VIAL.NEB NEB SCH (20:19)
[2017-11-17] MEDS: GLYCOPYRROLATE 1 MG TABLET GT SCH (22:26)
[2017-11-17] MEDS: FAMOTIDINE 20 MG TABLET PEG SCH (22:27)
[2017-11-18] MEDS: PIPERACILLIN SODIUM/TAZOBACTAM 4.5 GM in NORMAL SALINE 100 ML IV SCH ×5 (00:05→23:16)
[2017-11-18] MEDS: IPRATROPIUM/ALBUTEROL 0.5-2.5 MG/3 ML AMPUL NEB SCH ×4 (02:37→20:53)
[2017-11-18] MEDS: NORMAL SALINE 1000 ML 1,000 ML IV PRN (04:35)
[2017-11-18] MEDS: GLYCOPYRROLATE 1 MG TABLET GT SCH ×3 (05:01→22:03)
[2017-11-18 05:37] LABS: ABSOLUTE EOSINOPHILS # (AUTO) 0.1 10^3/uL (0.0-0.6); ABSOLUTE LYMPHOCYTES (AUTO) 1.1 10^3/uL (0.5-4.7); ABSOLUTE MONOCYTES (AUTO) 0.4 10^3/uL (0.1-1.4); ABSOLUTE NEUT (AUTO) 4.1 10^3/uL (1.7-8.2); BASOPHILS % (AUTO) 0.9 % (0-2); EOSINOPHILS % (AUTO) 1.2 % (0-6); HEMATOCRIT 25.2 % (37.9-51.0); HEMOGLOBIN 8.4 g/dL (13.5-17.0); LYMPHOCYTES % (AUTO) 19.3 % (13-45); MEAN CORPUSCULAR HGB CONC 33.3 g/dL (32.0-36.0); MEAN CORPUSCULAR VOLUME 90 fl (80-97); MONOCYTES % (AUTO) 7.1 % (3-13); PLATELET COUNT 382 10^3/uL (150-450); RED BLOOD COUNT 2.79 10^6/uL (4.35-5.55); RED CELL DISTRIBUTION WIDTH 17.4 % (11.5-14.0); SEGMENTED NEUTROPHILS % (AUTO) 71.5 % (42-78); TOTAL CELLS COUNTED % (AUTO) 100 %; WHITE BLOOD COUNT 5.7 10^3/uL (4.0-10.5)
[2017-11-18 06:18] LABS: ANION GAP 6 (5-19); BLOOD UREA NITROGEN 6 mg/dL (7-20); CALCIUM 8.7 mg/dL (8.4-10.2); CARBON DIOXIDE 28 mmol/L (22-30); CHLORIDE 102 mmol/L (98-107); GLUCOSE 93 mg/dL (75-110); POTASSIUM 4.1 mmol/L (3.6-5.0); SODIUM 135.8 mmol/L (137-145)
[2017-11-18] MEDS: ACETYLCYSTEINE 20% SOLN 800 MG/4 ML VIAL.NEB NEB SCH ×2 (09:10→20:53)
[2017-11-18] MEDS: SENNOSIDES/DOCUSATE 8.6-50 MG 1 EACH TABLET PEG SCH ×2 (09:22→17:20)
[2017-11-18] MEDS: NYSTATIN TOPICAL POWDER 15 GM TP SCH ×2 (09:34→17:25)
[2017-11-18] MEDS: LINEZOLID 600 MG/300 ML RTUPB IV SCH ×2 (09:43→22:03)
[2017-11-18] MEDS: SCOPOLAMINE HYDROBROMIDE 1.5 MG PATCH.TD72 TD SCH (09:45)
[2017-11-18] MEDS: CARBOXYMETHYLCELLULOSE SOD 0.5% 0.4 ML DROPERETTE OU SCH ×3 (09:48→17:24)
[2017-11-18] MEDS: LEVETIRACETAM ORAL SOLN 500 MG/5 ML UDCUP PEG SCH ×2 (09:49→22:08)
[2017-11-18] MEDS: FLUCONAZOLE 100 MG TABLET PO SCH (09:49)
[2017-11-18] MEDS: APIXABAN 5 MG TABLET PEG SCH ×2 (09:49→22:03)
[2017-11-18] MEDS: FAMOTIDINE 20 MG TABLET PEG SCH ×2 (09:49→22:03)
[2017-11-18] MEDS: COLLAGENASE CLOSTRIDIUM HIST. OINT 30 GM TP SCH (09:50)
--- NOTE | 2017-11-18 16:34 | Progress Note ---
Provider Note Provider Note: ID Consult Note Asked to review patient's chart. Pt not seen or examined. Mr. 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 He has PMH including TBI in 2017, s/p PEG, chronic respiratory failure s/p trach, multiple prior admissions secondary to aspiration pneumonitis or pneumonia, seizure disorder, and sacral decubitus ulcer. He presented overnight between - 11/15/17 to [facility] from his SNF for respiratory distress with tachypnea and increased oxygen demand. He was found to have fever to 101.7 F on presentation. Exam was notable for thick yellow green sputum from his trach, accessory muscle use with crackles, tachypnea and tachycardia, and a sacral decubitus ulcer. WBC, serum creatinine, and lactic acid were normal. AP single view CXR was read as showing moderate LLL opacity, worse than previous CXR two weeks ago. Pt was suspected of having pneumonia, health care associated , given residence in SNF with prior IV antibiotic exposure in the past 90 days, prior MDR E coli and Pseudomonas colonization or infection of the respiratory tract. Empirically a dose of vancomycin, Zosyn and azithromycin were given in the ED. Linezolid and Zosyn were continued as an inpatient from 11/15 onward. Blood cultures drawn in the ED yielded growth of Staphylococcus simulans from one set and no growth from the other set. Sputum gram stain has been preliminarily reported as showing few GPC and few GNRs. Pt received lactulose x 1 dose. He had loose stools. PCR for C diff was sent and is negative. Urinalysis and urine culture were obtained. Urinalysis had many WBCs. UCx sent on 11/15 grew Makenna albicans/dublinensis. Indwelling tejada catheter was replaced. Diflucan was started on 11/17. Repeat blood cultures on 11/16 have shown no growth x 48h. Pt has had resolution of fever - no recurrence since admission. He is reported to be at baseline oxygen requirement, no longer tachypneic or hypoxic. Impression/Recommendations 1. Suspected blood culture contamination or Pseudobacteremia with Staphylococcus simulans - Staph simulans grew from one set of blood cultures on admission. This is a coagulase negative staph species that is a rare cause of infection in humans. Like many coagulase negative staph (CoNS) species, distinguishing blood culture contamination from true bacteremia can be challenging. CoNS are common colonists of the skin and frequent blood culture contaminants, although they can also cause disease. Factors that might suggest true infection would be repeated isolation of the same organism in multiple blood cultures or endovascular prosthesis or intracardiac device. Pt has not had repeated isolation of the same organism, and he does not have a PPM/ICD. He has no history of prosthetic valve replacement I am aware of. Pt has an alternative explanation for presentation with fever, tachypnea, tachycardia, purulent sputum , CXR infiltrate - has been diagnosed with pneumonia. The CoNS species appears to be a blood culture contaminant based on the lack of a compatible clinical syndrome, clinical risk factors, microbiological factors to suggest otherwise. - Do not recommend any dedicated therapy. 2. Asymptomatic candiduria - Pt appears to have urinary colonization with Makenna. Pyuria on U/A in setting of chronic indwelling tejada is common and cannot be used to indicate infection. Number of colony forming units number of yeast does not distinguish fungal colonization from fungal infection either. In most patients, candiduria is asymptomatic and benign, representing colonization, particularly if patient has already received some antibiotic exposure prior to the culture being obtained. In absence of particular risk factors for dissemination - neutropenia , invasive urological procedure - treatment is not recommended. - Suggest discontinuing fluconazole. 3. Health care associated Pneumonia - Pt presented with CXR infiltrate in LLL more prominent than previous, purulent secretions, increased hypoxia, fever. He is being treated empirically for HCAP with Zosyn and linezolid while awaiting further information from tracheal aspirate, and he has clinically improved - reportedly back to baseline. It is also possible that the patient may not have a bacterial pneumonia, per se. Aspiration pneumonitis is difficult to distinguish from pneumonia clinically but tends to have quicker resolution and is often preceded by witnessed aspiration event. Based on patient's history of prior presentations , it may be a consideration, but more history may be helpful in determining whether there was a precipitant for the patient's respiratory distress. - However, it is reasonable to continue Zosyn and linezolid given the clinical overlap in syndromes, the patient's prior colonization hx with Pseudomonas and prior recent IV antibiotic exposure that might increase risk for MRSA. - Recommend f/u current tracheal aspirate in process and basing de-escalation of therapy on current tracheal aspirate results. - Aim to complete 7 days of treatment. Today is day 4. 4. Prior colonization or infection with MDR E coli - Hx of MDR E coli only sensitive to tetracycline, Bactrim, amikacin in tracheal aspirate. Distinguishing colonization from infection is challenging. Patients can become infected with colonizing organisms in the future also. - At the current time, with the patient clinically improved, continue linezolid/ Zosyn and await sputum cx to modify therapy, if needed. If pt grows same MDR E coli from tracheal aspirate, but has improved despite lack of therapy effective against this organism, it indicates colonization without infection, and in this situation, I would not recommend adding doxycycline as long as patient has clinically improved and returned to baseline. If pt is still colonized with this organism, consider including doxycycline empirically if he presents again for respiratory complaints in the future. Quan Ambrocio MD [facility] Infectious Diseases pager [phone]
--- NOTE | 2017-11-18 18:20 | PDOC TRANSFER SUMMARY ---
General - Admit/Disc Date/PCP Admission Date/Primary Care Provider: 11/15/17 00:43 RALEIGH Coral GARCIA, DO Discharge Date: 11/18/17 - Discharge Diagnosis (1) Sepsis Is this a current diagnosis for this admission?: Yes Summary: Resolved; patient has remained afebrile >48 hours, remaining vital signs are normal, WBCs and lactic acid are normal. Sepsis due to HAP and UTI, present on arrival, evidenced by fever (101.7), hypotension (94/52), tachypnea (40), and left lower lobe pneumonia by chest x- ray. Initial blood culture positive for Staphylococcus simulans with multiple resistances one set (2 of 4 bottles); likely contaminant. Sputum and stool cultures are pending. Urine culture positive for C albicans; likely colonized. Repeat blood cultures are negative at 48 hours. He did receive IV azithromycin, Zosyn, and vancomycin by the ED provider. Antibiotics are adjusted to continue IV Zosyn and IV Zyvox. Infectious disease was consulted; recommend completing a total of 7 days of therapy. Patient currently on day 4. (2) Left lower lobe pneumonia Is this a current diagnosis for this admission?: Yes Summary: Improving; the patient's fever has resolved, he is no longer tachypneic or hypoxic on his baseline oxygen requirement. CXR reveals moderate left lower pneumonia. Cultures and antibiotics as above. Recommend continuing scheduled and as needed nebulizer treatments, Mucomyst nebulizer twice daily, Mucinex twice daily, and Chest physiotherapy following discharge. If chest physiotherapy is not an option at his SNF, at minimum, patient should be repositioned every 2 hours with strict aspiration precautions and increased frequency of trach care. (3) UTI (urinary tract infection) Is this a current diagnosis for this admission?: Yes Summary: Urinalysis is positive for UTI. Urine cultures positive for C albicans. Colon catheter has been replaced. The patient was started on Diflucan; infectious disease has been consulted and advised that he is likely colonized. Recommend discontinuing Diflucan at this time. He did receive a total of 2 days of therapy. (4) Hematuria Is this a current diagnosis for this admission?: Yes Summary: Resolved; secondary to traumatic Colon insertion although urinalysis is positive for UTI. Cultures and antibiotics as above. (5) Diarrhea Is this a current diagnosis for this admission?: Yes Summary: Improved; possibly related to tube feeds. The patient continues to have loose stools, though less in frequency and volume. C. difficile is negative. Stool WBCs are negative. Stool culture is pending. (6) Chronic respiratory failure Is this a current diagnosis for this admission?: Yes Summary: Poor prognosis; multiple recent admissions for sepsis r/t pneumonia. Recommend consideration of transition to Hospice Care. (7) Sacral decubitus ulcer Is this a current diagnosis for this admission?: Yes Summary: The patient has a sacral decubitus ulcer; area of eschar measures approximately 4 cm round. He has a surrounding area of erythema and macerated tissue. Surgery was consulted; no indication for surgical intervention at this time. Recommends daily Santyl dressing changes. (8) Severe protein-calorie malnutrition Is this a current diagnosis for this admission?: Yes Summary: Evidenced by BMI of 19.6, loss of subcutaneous fat and muscle. The patient requires tube feeding by PEG. automatic driller and reamer was consulted with recommendations for Oxepa 1.5 at goal rate of 50 ml/hr and one package of [place] mixed with 8 oz water twice daily to aid in wound healing. - Additional Information Resuscitation Status: Do Not Resuscitate Home Medications: Scopolamine [Transderm-Scop] 1 patch TD Q3D #5 patch.td.3 09/06/17 Apixaban [Eliquis 5 mg Tablet] 5 mg PEG Q12 10/12/17 Dextran 70/Hypromellose [Artificial Tears] 1 drop OU TID 10/12/17 Sennosides [Senokot] 17.2 mg PEG BID 10/12/17 Sodium Bicarbonate [Sodium Bicarbonate 650 mg Tablet] 650 mg PEG PRN PRN Acetylcysteine [Mucomist 20% Soln 800 mg/4 mL] 600 mg IH RTBID vial 10/22/17 Albuterol Sulfate [Ventolin 0.083% Neb 2.5 mg/3 mL Ampul] 2.5 mg NEB [id number] vial.neb 10/22/17 Bacitracin Zinc [Bacitracin Oint 15 gm] 1 applic TP BID tube 10/22/17 Nystatin [Mycostatin Topical Powder 15 gm] 1 applic TP BID bottle 10/22/17 Famotidine [Pepcid 20 mg Tablet] 20 mg PEG Q12 tablet 10/29/17 Acetaminophen [Tylenol 325 mg Tablet] 650 mg PEG Q4HP PRN 11/14/17 Glycopyrrolate [Robinul Forte] 2 mg GT Q8 11/14/17 Ipratropium/Albuterol Sulfate [Duoneb 3 ml Ampul] 3 ml NEB RTQ6HP PRN 11/14/17 Levetiracetam [Keppra 500 mg Tablet] 500 mg GT Q12 11/14/17 History of Present Illness Admission Date/PCP: 11/15/17 00:43 RALEIGH GARCIA DO History of Present Illness: Per H&P by Dr. Hannah: CECILIA MARTINEZ is a 57 year old male [facility] resident with a past medical history of a remote traumatic brain injury, subsequent PEG and trach dependent with flexion contractures 4. He is noted by [facility] staff to have respiratory distress and brought to the emergency room for evaluation where he is found to be poorly responsive with tachypnea and purulent exudate about the tracheostomy, leukocytosis and a left-sided infiltrate on x-ray. He started on empiric antibiotics and referred to the hospitalist for admission. Patient is a [facility], unable to provide history. He is also noted to have a large unstageable decubitus eschar to the sacrum. Physical Exam Vital Signs: Temp Pulse Resp BP Pulse Ox 97.9 F 87 18 107/61 98 11/18/17 04:02 11/18/17 14:57 11/18/17 14:57 11/18/17 04:02 11/18/17 14:57 Intake & Output 11/17/17 11/18/17 11/19/17 06:59 06:59 06:59 Intake Total 1741 3750 400 Output Total 1950 3500 475 Balance -209 250 -75 Weight 58.5 kg 58.5 kg General appearance: PRESENT: no acute distress, well-developed, other - Cachectic, chronically ill-appearing Head exam: PRESENT: atraumatic, normocephalic Eye exam: PRESENT: conjunctiva pale, EOMI, PERRLA. ABSENT: scleral icterus Ear exam: PRESENT: normal external ear exam Mouth exam: PRESENT: moist, tongue midline Teeth exam: PRESENT: poor dentation Neck exam: PRESENT: tracheostomy - Supplemental oxygen via trach collar. ABSENT : carotid bruit, JVD, lymphadenopathy, thyromegaly Respiratory exam: PRESENT: rhonchi, symmetrical, unlabored. ABSENT: rales, wheezes Cardiovascular exam: PRESENT: RRR, +S1, +S2. ABSENT: diastolic murmur, rubs, systolic murmur Pulses: PRESENT: normal dorsalis pedis pul Vascular exam: PRESENT: normal capillary refill GI/Abdominal exam: PRESENT: normal bowel sounds, soft. ABSENT: distended, guarding, mass, organolmegaly, rebound, tenderness Rectal exam: PRESENT: deferred Extremities exam: PRESENT: other - Flexion contractures 4. ABSENT: calf tenderness, clubbing, pedal edema Neurological exam: PRESENT: awake, oriented to time, aphasic, other - At baseline mental status. ABSENT: motor sensory deficit Skin exam: PRESENT: dry, pallor, warm, other - Sacral wound with eschar; measures approximately 3 cm round with surrounding erythema and macerated tissue. No drainage present. ABSENT: cyanosis, rash Results Laboratory Results: 11/18/17 04:44 11/18/17 04:44 11/18/17 11/18/17 04:44 04:44 WBC 5.7 RBC 2.79 L Hgb 8.4 L Hct 25.2 L MCV 90 MCH 30.0 MCHC 33.3 RDW 17.4 H Plt Count 382 Seg Neutrophils % 71.5 Lymphocytes % 19.3 Monocytes % 7.1 Eosinophils % 1.2 Basophils % 0.9 Absolute Neutrophils 4.1 Absolute Lymphocytes 1.1 Absolute Monocytes 0.4 Absolute Eosinophils 0.1 Absolute Basophils 0.0 Sodium 135.8 L Potassium 4.1 Chloride 102 Carbon Dioxide 28 Anion Gap 6 BUN 6 L Creatinine 0.48 L Est GFR ( Amer) > 60 Est GFR (Non-Af Amer) > 60 Glucose 93 Calcium 8.7 Impressions: Chest X-Ray 11/14/17 21:34 IMPRESSION: Moderate left lower lobar opacity. Interval worsening. Differential etiologies include infectious, inflammatory, and neoplastic processes. Qualifiers - * PATIENT BEING DISCHARGED WITH ANY OF THE FOLLOWING DIAGNOSIS: No Plan Discharge Plan: Discharge to [facility] where the patient is an established resident. He will require an additional 3 days of Zyvox and Zosyn antibiotic therapy. Continue nebulizer treatments, Robinul, and pulmonary toilet. Strict aspiration precautions. Time Spent: Greater than 30 Minutes
[2017-11-19] MEDS: IPRATROPIUM/ALBUTEROL 0.5-2.5 MG/3 ML AMPUL NEB SCH ×3 (02:46→14:09)
[2017-11-19] MEDS: GLYCOPYRROLATE 1 MG TABLET GT SCH (05:02)
[2017-11-19] MEDS: PIPERACILLIN SODIUM/TAZOBACTAM 4.5 GM in NORMAL SALINE 100 ML IV SCH (05:03)
[2017-11-19] MEDS: ACETYLCYSTEINE 20% SOLN 800 MG/4 ML VIAL.NEB NEB SCH (08:35)
[2017-11-19] MEDS: SENNOSIDES/DOCUSATE 8.6-50 MG 1 EACH TABLET PEG SCH (11:31)
[2017-11-19] MEDS: NORMAL SALINE 1000 ML 1,000 ML IV PRN (11:33)
[2017-11-19] MEDS: NYSTATIN TOPICAL POWDER 15 GM TP SCH (11:34)
[2017-11-19] MEDS: COLLAGENASE CLOSTRIDIUM HIST. OINT 30 GM TP SCH (11:39)
[2017-11-19] MEDS: FAMOTIDINE 20 MG TABLET PEG SCH (11:39)
[2017-11-19] MEDS: APIXABAN 5 MG TABLET PEG SCH (11:39)
[2017-11-19] MEDS: CARBOXYMETHYLCELLULOSE SOD 0.5% 0.4 ML DROPERETTE OU SCH (11:39)
[2017-11-19] MEDS: LINEZOLID 600 MG/300 ML RTUPB IV SCH (11:40)
[2017-11-19] MEDS: LEVETIRACETAM ORAL SOLN 500 MG/5 ML UDCUP PEG SCH (11:43)
[2017-11-19 13:40] VITALS: BP 121/72
== END 2017-11-19 14:40 | DRG 193 ==
LOC: ER 21:15 → EH 11-15 00:43 → 3S 11-15 02:07
PROVIDERS: ADMIT Internal Medicine; ATTEND Internal Medicine
PROC: 0T9B70Z Drainage of Bladder with Drainage Device, Via Natural or Artificial Opening (ICD-10-PCS; principal; 2017-11-15)
DX: J18.1 Lobar pneumonia, unspecified organism (principal); E43 Unspecified severe protein-calorie malnutrition; Z68.1 Body mass index [BMI] 19.9 or less, adult; J96.10 Chronic respiratory failure, unspecified whether with hypoxia or hypercapnia; B37.49 Other urogenital candidiasis; T83.83XA Hemorrhage due to genitourinary prosthetic devices, implants and grafts, initial encounter; R31.9 Hematuria, unspecified; B96.20 Unspecified Escherichia coli [E. coli] as the cause of diseases classified elsewhere; Z16.24 Resistance to multiple antibiotics; L89.152 Pressure ulcer of sacral region, stage 2; Z93.1 Gastrostomy status; Z93.0 Tracheostomy status; Z66 Do not resuscitate; Z74.01 Bed confinement status; D64.9 Anemia, unspecified; R19.7 Diarrhea, unspecified; G40.909 Epilepsy, unspecified, not intractable, without status epilepticus; F32.9 Major depressive disorder, single episode, unspecified; Z79.899 Other long term (current) drug therapy; Z87.820 Personal history of traumatic brain injury
CPT/HCPCS: 36415; 71045; 80048; 80053; 81001; 82803; 82962; 83605; 85025; 87040; 87045; 87070; 87077; 87086; 87186; 87205; 87493; 89055; 94667; 94668; C1758; J2020; J2543; J3370; J3490; J7060; J7620

== ENCOUNTER 2017-12-10 22:49 | Inpatient (IN) | payer MEDICARE, MEDICAID ==
[2017-12-10 23:18] LABS: VENOUS BLOOD BASE EXCESS 2.6 mmol/L; VENOUS BLOOD HCO3 26.4 mmol/L (20-32); VENOUS BLOOD PCO2 38.1 mmHg (35-63); VENOUS BLOOD PH 7.46 (7.30-7.42)
--- NOTE | 2017-12-10 23:21 | RADIOLOGY REPORT (SQ) ---
EXAM DESCRIPTION: XR CHEST 1 VIEW COMPLETED DATE/TME: 12/10/2017 22:58 CLINICAL HISTORY: 57 years Male, dyspnea COMPARISON:9.13.18 NUMBER OF VIEWS/TECHNIQUE: 1/AP FINDINGS: Left perihilar opacity, moderate bowel lucency of the left lower hemithorax suggestive of elevated/defective left hemidiaphragm, obscured left cardiac margin, tracheostomy, multiple rib deformities and wall the posterior lateral right midthoracic ribs. No pneumothorax. Scoliotic curvature. IMPRESSION: No significant change.
[2017-12-10] MEDS ORDERED: RINGERS SOLUTION,LACTATED 1,000 ML IV PRN (23:33)
[2017-12-10] MEDS ORDERED: PIPERACILLIN/TAZOBACTAM 3.375 GM VIAL IV ONE (23:33)
[2017-12-10] MEDS ORDERED: VANCOMYCIN HCL INJ 1000 MG VIAL IV ONE (23:33)
[2017-12-10 23:34] LABS: HEMOGLOBIN 11.1 g/dL (13.5-17.0); MEAN CORPUSCULAR HEMOGLOBIN 29.3 pg (27.0-33.4); MEAN CORPUSCULAR HGB CONC 33.8 g/dL (32.0-36.0); MEAN CORPUSCULAR VOLUME 87 fl (80-97); PLATELET COUNT 592 10^3/uL (150-450); RED CELL DISTRIBUTION WIDTH 17.7 % (11.5-14.0); WHITE BLOOD COUNT 17.6 10^3/uL (4.0-10.5)
[2017-12-10 23:41] LABS: ALANINE AMINOTRANSFERASE 21 U/L (21-72); ALBUMIN 3.1 g/dL (3.5-5.0); ALKALINE PHOSPHATASE 127 U/L (38-126); ANION GAP 12 (5-19); ASPARTATE AMINO TRANSFERASE 26 U/L (17-59); BILIRUBIN,DIRECT 0.2 mg/dL (0.0-0.4); BILIRUBIN,TOTAL 0.5 mg/dL (0.2-1.3); BLOOD UREA NITROGEN 50 mg/dL (7-20); CALCIUM 9.2 mg/dL (8.4-10.2); CARBON DIOXIDE 23 mmol/L (22-30); CHLORIDE 95 mmol/L (98-107); GLUCOSE 172 mg/dL (75-110); SODIUM 130.1 mmol/L (137-145); TOTAL PROTEIN 6.3 g/dL (6.3-8.2)
[2017-12-10 23:46] LABS: POTASSIUM 6.8 mmol/L (3.6-5.0)
[2017-12-10] MEDS ORDERED: NORMAL SALINE 1000 ML 1,000 ML IV ONE (23:49)
--- NOTE | 2017-12-10 23:50 | ER Document Report ---
ED General - General Stated Complaint: TROUBLE BREATHING Time Seen by Provider: 12/10/17 22:58 Notes: Patient is a 57-year-old male was presents from the long-term due to fever and difficulty breathing and hypoxemia. He has a chronic tracheostomy. He is chronically bedridden. He is nonverbal and therefore unable to contribute to history. Paramedics gave him rectal Tylenol in route. TRAVEL OUTSIDE OF THE [place] IN LAST 30 DAYS: No - Related Data Allergies/Adverse Reactions: No Known Allergies Allergy (Verified 11/14/17 22:59) Past Medical History - Social History Smoking Status: Unknown if Ever Smoked Frequency of alcohol use: None Drug Abuse: None Family History: Other - Unable to obtain secondary to patient's condition Pulmonary Medical History: Reports: Hx Pneumonia, Hx Intubation, Hx Respiratory Failure Neurological Medical History: Reports: Hx Seizures Renal/ Medical History: Denies: Hx Peritoneal Dialysis Psychiatric Medical History: Reports: Hx Depression Traumatic Medical History: Reports: Hx Traumatic Brain Injury Past Surgical History: Reports: Other - Tracheostomy, G-tube Review of Systems - Review of Systems -: Yes ROS unobtainable due to patient's medical condition - Patient is nonverbal Physical Exam - Vital signs Vitals: Pulse Ox 88 L 12/10/17 22:52 - Notes Notes: General Appearance: Story distress with tachypnea. Patient is sweating. Vitals: reviewed, See vital signs table. Head: no swelling or tenderness to the head Eyes: PERRL, EOMI, Conjuctiva clear Mouth: No decreasd moisture Throat: No tonsillar inflammation, No airway obstruction, No lymphadenopathy Neck: Supple, tracheostomy tube in place. When I suction the trach a large amount of what appears to be tube feedings is pulled out. After this the patient coughs and his O2 saturations to improve. Lungs: No wheezing, No rales, No rhonci, No accessory muscle use, good air exchange bilaterally. Heart: Normal rate, Regular rythm, No murmur, no rub Abdomen: Normal BS, soft, No rigidity, No abdominal tenderness, feeding tube, no guarding, no rebound, no abdominal masses, no organomegaly Extremities: All 4 extremities are held in a contracted state. No abnormal swelling. Skin: Patient has a stage III decubitus ulcer over the sacrum. He also has another ulcer over the upper back. No abnormal surrounding erythema. No signs of infection. Neuro: Nonverbal. Extremities held in a contracted state. Patient does not follow commands. Patient is awake and alert. Course - Re-evaluation Re-evalutation: 12/10/17 23:49 Patient's potassium came back at 6.8. Not convinced this is real at this time being that the patient's creatinine is completely normal; however, until I can get a recheck with potassium level I will give him normal saline instead of lactated Ringer's. Have changed the order to normal saline. Patient had only received 50 mL's of lactated Ringer's thus far. - Vital Signs Vital signs: Temp Pulse Resp BP Pulse Ox 98.7 F 130 H 32 H 96/55 L 97 12/11/17 04:16 12/11/17 04:16 12/11/17 04:16 12/11/17 04:16 12/11/17 04:16 - Laboratory Result Diagrams: 12/10/17 22:58 12/11/17 00:16 Laboratory results interpreted by me: 12/10/17 12/10/17 12/10/17 22:58 22:58 22:58 WBC 17.6 H RBC 3.80 L Hgb 11.1 L Hct 33.0 L RDW 17.7 H Plt Count 592 H Seg Neuts % (Manual) 86 H Band Neutrophils % 1 L Lymphocytes % (Manual) 5 L Abs Neuts (Manual) 15.3 H VBG pH 7.46 H Sodium 130.1 L Potassium 6.8 H* Chloride 95 L Carbon Dioxide BUN 50 H Creatinine Est GFR (Non-Af Amer) Glucose 172 H Alkaline Phosphatase 127 H Albumin 3.1 L Urine Protein Urine Blood Ur Leukocyte Esterase 12/11/17 12/11/17 00:16 01:15 WBC RBC Hgb Hct RDW Plt Count Seg Neuts % (Manual) Band Neutrophils % Lymphocytes % (Manual) Abs Neuts (Manual) VBG pH Sodium 130.4 L Potassium 6.3 H* Chloride 96 L Carbon Dioxide 21 L BUN 52 H Creatinine 1.28 H Est GFR (Non-Af Amer) 58 L Glucose 149 H Alkaline Phosphatase Albumin Urine Protein >=500 H Urine Blood LARGE H Ur Leukocyte Esterase LARGE H - EKG Interpretation by Me Additional EKG results interpreted by me: 12/11/17 00:10 EKG is reviewed and interpreted by me. EKG shows sinus tachycardia with a rate of [address] segment elevation or depression. No ischemic T wave inversions. CA interval, QRS duration, QTc intervals are within normal range. Old EKG for comparison is from October 31, 2017. Critical Care Note - Critical Care Note Total time excluding time spent on procedures (mins): 45 Comments: Critical care time for this patient not including time spent on procedures approximately 45 minutes due to management of respiratory distress, sepsis, frequent re-evaluations due to patient being in sepsis with rotatory distress. Discharge - Discharge Clinical Impression: Hyperkalemia, Respiratory distress, Sacral decubitus ulcer, stage III Sepsis Qualifiers: Sepsis type: sepsis due to unspecified organism Qualified Code(s): A41.9 - Sepsis, unspecified organism Fever Qualifiers: Fever type: unspecified Qualified Code(s): R50.9 - Fever, unspecified Condition: Stable Disposition: ADMITTED INPATIENT Admitting Provider: Hospitalist Unit Admitted: [facility]
[2017-12-10 23:57] LABS: ABSOLUTE LYMPHOCYTES# (MANUAL) 0.9 10^3/uL (0.5-4.7); ABSOLUTE MONOCYTES # (MANUAL) 1.4 10^3/uL (0.1-1.4); ABSOLUTE NEUTROPHILS# (MANUAL) 15.3 10^3/uL (1.7-8.2); ANISOCYTOSIS 1+; BAND NEUTROPHILS % (MANUAL) 1 % (3-5); BASOPHILS % (MANUAL) 0 % (0-2); EOSINOPHILS % (MANUAL) 0 % (0-6); LYMPHOCYTES % (MANUAL) 5 % (13-45); MONOCYTES % (MANUAL) 8 % (3-13); NUCLEATED RED BLOOD CELLS 1 /100 WBC (0); PLATELET COMMENT INCREASED; PLATELET GIANT PRESENT; PLATELET LARGE PRESENT; SEGMENTED NEUTROPHILS % (MAN) 86 % (42-78); TOTAL CELLS COUNTED 100; TOXIC VACUOLATION PRESENT
[2017-12-11 00:36] LABS: ANION GAP 13 (5-19); BLOOD UREA NITROGEN 52 mg/dL (7-20); CALCIUM 8.9 mg/dL (8.4-10.2); CARBON DIOXIDE 21 mmol/L (22-30); CHLORIDE 96 mmol/L (98-107); GLUCOSE 149 mg/dL (75-110); SODIUM 130.4 mmol/L (137-145)
[2017-12-11 00:39] LABS: POTASSIUM 6.3 mmol/L (3.6-5.0)
[2017-12-11] MEDS ORDERED: ACETAMINOPHEN 325 MG TABLET PEG PRN (01:08)
[2017-12-11] MEDS ORDERED: IPRATROPIUM/ALBUTEROL 0.5-2.5 MG/3 ML AMPUL NEB PRN (01:08)
[2017-12-11] MEDS ORDERED: FENTANYL CITRATE INJ/PF 100 MCG/2 ML AMPUL IV PRN (01:13)
[2017-12-11] MEDS ORDERED: VANCOMYCIN HCL 0 MG in DEXTROSE 5%-WATER 250 ML IV NR (01:15)
[2017-12-11] MEDS ORDERED: LEVOFLOXACIN 750 MG/D5W RTU 750 MG/150 ML RTUPB IV ONE (02:00)
[2017-12-11 02:07] LABS: APPEARANCE,URINE CLOUDY; BILIRUBIN,URINE NEGATIVE (NEGATIVE); COLOR,URINE AMBER; GLUCOSE, URINE NEGATIVE (NEGATIVE); KETONES,URINE NEGATIVE (NEGATIVE); LEUKOCYTE ESTERASE,URINE LARGE (NEGATIVE); NITRITE,URINE NEGATIVE (NEGATIVE); PROTEIN,URINE >=500 mg/dL (NEGATIVE); UROBILINOGEN,URINE NEGATIVE mg/dL (<2.0)
[2017-12-11] MEDS: IPRATROPIUM/ALBUTEROL 0.5-2.5 MG/3 ML AMPUL NEB SCH ×4 (02:16→20:10)
[2017-12-11] MEDS: NORMAL SALINE 1000 ML 1,000 ML IV PRN ×2 (04:31→11:55)
[2017-12-11] MEDS: HEPARIN SOD (PORCINE) 5,000 UNIT/ML 1 ML SYRINGE SUBCUT SCH ×3 (06:27→21:19)
--- NOTE | 2017-12-11 06:33 | PDOC H&P ---
History of Present Illness Admission Date/PCP: 12/11/17 01:58 RALEIGH GARCIA DO Patient complains of: Respiratory distress History of Present Illness: CECILIA MARTINEZ is a 57 year old male residential resident with a past medical history of a remote traumatic brain injury, subsequent PEG and trach with flexion contractures x4. He is brought to the emergency room after noted by residential staff. In the emergency room he is found to have unstageable sacral decubiti, sepsis, pneumonia, acute respiratory failure with copious tracheostomy exudate. He is started on empiric antibiotics and referred to the hospitalist for admission. Patient is a salas of the [facility] and unable to provide history. Past Medical History Pulmonary Medical History: Reports: Intubation, Pneumonia, Respiratory Failure Neurological Medical History: Reports: Seizures Psychiatric Medical History: Reports: Depression Traumatic Medical History: Reports: Traumatic Brain Injury Hematology: Reports: Anemia Past Surgical History Past Surgical History: Reports: Other - Tracheostomy, G-tube Social History Information Source: [facility], [facility] Records Lives with: Custodial Smoking Status: Unknown if Ever Smoked Frequency of Alcohol Use: None Hx Recreational Drug Use: No Drugs: None Hx Prescription Drug Abuse: No - Advance Directive Resuscitation Status: Do Not Resuscitate Family History Family History: Other - Unable to obtain secondary to patient's condition Parental Family History Reviewed: No - Unobtainable Children Family History Reviewed: No - Unobtainable Sibling(s) Family History Reviewed.: No - Unobtainable Medication/Allergy Home Medications: Scopolamine [Transderm-Scop] 1 patch TD Q3D #5 patch.td.3 09/06/17 Apixaban [Eliquis 5 mg Tablet] 5 mg PEG Q12 10/12/17 Dextran 70/Hypromellose [Artificial Tears] 1 drop OU TID 10/12/17 Sennosides [Senokot] 17.2 mg PEG BID 10/12/17 Sodium Bicarbonate [Sodium Bicarbonate 650 mg Tablet] 650 mg PEG PRN PRN Acetylcysteine [Mucomist 20% Soln 800 mg/4 mL] 600 mg IH RTBID vial 10/22/17 Albuterol Sulfate [Ventolin 0.083% Neb 2.5 mg/3 mL Ampul] 2.5 mg NEB [id number] vial.neb 10/22/17 Bacitracin Zinc [Bacitracin Oint 15 gm] 1 applic TP BID tube 10/22/17 Famotidine [Pepcid 20 mg Tablet] 20 mg PEG Q12 tablet 10/29/17 Acetaminophen [Tylenol 325 mg Tablet] 650 mg PEG Q4HP PRN 11/14/17 Glycopyrrolate [Robinul Forte] 2 mg GT Q8 11/14/17 Ipratropium/Albuterol Sulfate [Duoneb 3 ml Ampul] 3 ml NEB RTQ6HP PRN 11/14/17 Levetiracetam [Keppra 500 mg Tablet] 500 mg GT Q12 11/14/17 Acetaminophen [Tylenol 325 mg Tablet] 650 mg PO Q4HP PRN tablet 11/18/17 Acetylcysteine [Mucomist 20% Soln 800 mg/4 mL] 600 mg NEB RTBID vial 11/18/17 Ipratropium/Albuterol Sulfate [Duoneb 3 ml Ampul] 3 ml NEB RTQ6HP PRN #0 vial.neb 11/18/17 Collagenase Clostridium Hist. [Santyl Ointment 30 gm] 1 applic TP DAILY #1 tube 11/19/17 Linezolid in Dextrose 5% [Zyvox 600 mg/300 ml-D5w] 600 mg IV Q12 #6 piggyback Nystatin [Mycostatin Topical Powder 15 gm] 1 applic TP BID #1 bottle 11/19/17 Piperacillin Sodium/Tazobactam [Zosyn Inj 4.5 gm Vial] 4.5 gm IV Q6 #12 vial Allergies/Adverse Reactions: No Known Allergies Allergy (Verified 11/14/17 22:59) Review of Systems ROS unobtainable: Due to mental status Physical Exam Vital Signs: Temp Pulse Resp BP Pulse Ox 98.7 F 130 H 32 H 96/55 L 97 12/11/17 05:05 12/11/17 05:05 12/11/17 05:05 12/11/17 05:05 12/11/17 05:05 Intake & Output 12/09/17 12/10/17 12/11/17 11:59 11:59 11:59 Intake Total 1150 Output Total 550 Balance 600 Weight 54.1 kg General appearance: PRESENT: disheveled, severe distress, thin Head exam: PRESENT: atraumatic, normocephalic Eye exam: PRESENT: conjunctiva pink, EOMI, PERRLA. ABSENT: scleral icterus Ear exam: PRESENT: normal external ear exam Mouth exam: PRESENT: dry mucosa, tongue midline Neck exam: PRESENT: tracheostomy - Copious purulent sputum Respiratory exam: PRESENT: accessory muscle use, clear to auscultation [place], crackles, prolonged expiratory phas, rhonchi, tachypnea. ABSENT: rales, wheezes Cardiovascular exam: PRESENT: tachycardia. ABSENT: diastolic murmur, rubs, systolic murmur Pulses: PRESENT: normal dorsalis pedis pul Vascular exam: PRESENT: normal capillary refill GI/Abdominal exam: PRESENT: normal bowel sounds, soft. ABSENT: distended, guarding, mass, organolmegaly, rebound, tenderness Rectal exam: PRESENT: deferred Extremities exam: PRESENT: other - Global muscular atrophy and contractures Neurological exam: PRESENT: alert, awake. ABSENT: altered, oriented to person, oriented to place, oriented to time, oriented to situation, ataxia, CN II-XII grossly intact Psychiatric exam: PRESENT: appropriate affect, normal mood. ABSENT: homicidal ideation, suicidal ideation Skin exam: PRESENT: other - Large unstageable sacral decubiti with necrotic exudate Results Impressions: Chest X-Ray 12/10/17 22:58 IMPRESSION: No significant change. Assessment & Plan - Diagnosis (1) Bacterial pneumonia Is this a current diagnosis for this admission?: Yes Plan: Healthcare associated, pneumonia care set, supportive care, follow-up CBC and culture (2) Acute and chronic respiratory failure with hypoxia Is this a current diagnosis for this admission?: Yes Plan: Secondary to #1, complicated by long-term trach, optimize pulmonary toilet, ventilator assistance as needed (3) Stage IV decubitus ulcer Is this a current diagnosis for this admission?: Yes Plan: Culture, surgical consult (4) Hyperkalemia Is this a current diagnosis for this admission?: Yes Plan: Without peaked T waves likely secondary to sepsis, reevaluate chemistry after hydration (5) Sepsis Qualifiers: Sepsis type: sepsis due to unspecified organism Qualified Code(s): A41.9 - Sepsis, unspecified organism Is this a current diagnosis for this admission?: Yes Plan: Secondary to #1, follow-up lactic acid CBC and cultures. - Time Time Spent: 50 to 70 Minutes - Inpatient Certification Medical Necessity: Need Close Monitoring Due to Risk of Patient Decompensation
[2017-12-11] MEDS ORDERED: CALCIUM GLUCONATE 1,000 MG in DEXTROSE 5%-WATER 50 ML IV ONE (09:29)
[2017-12-11] MEDS ORDERED: INSULIN REGULAR IV PRN ×2 (09:29)
[2017-12-11] MEDS ORDERED: WATER IV PRN ×2 (09:29)
[2017-12-11] MEDS ORDERED: HUMAN IV PRN ×2 (09:29)
[2017-12-11] MEDS ORDERED: DEXTROSE 10% IV PRN ×2 (09:29)
[2017-12-11] MEDS ORDERED: (PENDING PHARMACY ID) (Sennosides [Senokot] 17.2 MG) PEG SCH (10:00)
[2017-12-11] MEDS ORDERED: SENNOSIDES/DOCUSATE 8.6-50 MG 1 EACH TABLET PO SCH (10:00)
[2017-12-11] MEDS ORDERED: POLYVINYL ALCOHOL 1.4% OPH SOLN 15 ML OU SCH (10:00)
[2017-12-11] MEDS ORDERED: (PENDING PHARMACY ID) (Dextran 70/Hypromellose [Artificial Tears] 1 DROP) OU SCH (10:00)
--- NOTE | 2017-12-11 10:11 | EKG REPORT ---
SEVERITY:- OTHERWISE NORMAL ECG - SINUS TACHYCARDIA : Confirmed by: Anastasia Scott MD 11-Dec-2017 10:11:11
[2017-12-11 10:29] LABS: ARTERIAL BLOOD BASE EXCESS -0.9 mmol/L; ARTERIAL BLOOD H2CO3 0.98 mmol/L (1.05-1.35); ARTERIAL BLOOD HCO3 22.5 mmol/L (20-24); ARTERIAL BLOOD O2 SATURATION 95.2 % (94-98); ARTERIAL BLOOD PCO2 32.5 mmHg (35-45); ARTERIAL BLOOD PH 7.46 (7.35-7.45); ARTERIAL BLOOD PO2 70.6 mmHg (80-100); ARTERIAL BLOOD TOTAL CO2 23.5 mmol/L (23-27)
[2017-12-11] MEDS ORDERED: CALCIUM GLUCONATE 1000 MG/10 ML INJ IV ONE (10:30)
[2017-12-11 10:33] LABS: ARTERIAL BLOOD FIO2 6 L
[2017-12-11 11:11] LABS: ANION GAP 11 (5-19); BLOOD UREA NITROGEN 34 mg/dL (7-20); CALCIUM 8.9 mg/dL (8.4-10.2); CARBON DIOXIDE 22 mmol/L (22-30); CHLORIDE 104 mmol/L (98-107); GLUCOSE 108 mg/dL (75-110); SODIUM 136.6 mmol/L (137-145)
[2017-12-11] MEDS: PANTOPRAZOLE SODIUM 40 MG VIAL IV SCH (11:16)
[2017-12-11] MEDS: SENNOSIDES/DOCUSATE 8.6-50 MG 1 EACH TABLET PEG SCH ×2 (11:18→18:07)
[2017-12-11] MEDS: LEVETIRACETAM ORAL SOLN 500 MG/5 ML UDCUP PEG SCH ×2 (11:18→21:17)
[2017-12-11] MEDS: SCOPOLAMINE HYDROBROMIDE 1.5 MG PATCH.TD72 TD SCH (11:20)
[2017-12-11] MEDS: NYSTATIN TOPICAL POWDER 15 GM TP SCH ×2 (11:22→17:52)
[2017-12-11 11:23] LABS: POTASSIUM 4.3 mmol/L (3.6-5.0)
[2017-12-11] MEDS ORDERED: DEXTROSE 5%-1/2 NORMAL SALINE 1,000 ML IV ONE (12:16)
--- NOTE | 2017-12-11 17:10 | PDOC PROGRESS REPORT ---
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 The patient was seen on morning rounds. He was found resting in bed on supplemental oxygen at 6 L/min to his tracheostomy collar. The patient is chronically ill-appearing, cachectic, and compared to his last admission appears to be significantly more ill this time. He is noted to be tachypneic with a respiratory rate in the mid 30s, heart rate of 120-180 with minimal stimulation, with pallor and diaphoresis. He is arousable with gentle shake, but quickly closes his eyes and does not respond further. Typically, the patient does make eye contact but is unable to participate in exam or answer yes or no questions with head nod or blinking. ROS is limited secondary to his mental status. No specific concerns per nursing at this time. Reason For Visit: SEPSIS, ENCEPHALOPATHY, HYPERKALEMIA Physical Exam Vital Signs: Temp Pulse Resp BP Pulse Ox 98.8 F 123 H 32 H 113/63 99 12/11/17 11:14 12/11/17 14:00 12/11/17 13:49 12/11/17 11:14 12/11/17 13:49 Pulse Oximeter Continuous Start: 12/11/17 09: 41 Freq: RTQ4 Status: Active Document 12/11/17 11:57 TPO (Rec: 12/11/17 11:57 [facility] [place] [id number] Pulse Oximetry Assessment Oxygen Saturation (92-100) 99 Oxygen Flow Rate (L/min) 6 Oxygen Delivery Method Trach Collar Fraction of Inspired Oxygen (FIO2) 32 Equipment Usage Equipment in Use Continuous SpO2 Machine # 5 Intake & Output 12/10/17 12/11/17 12/12/17 06:59 06:59 06:59 Intake Total 1150 2238 Output Total 314 625 Balance 300 1613 Weight 54.1 kg General appearance: PRESENT: mild distress, well-developed, other - Cachectic Head exam: PRESENT: atraumatic, normocephalic Eye exam: PRESENT: conjunctiva pink, EOMI, PERRLA. ABSENT: scleral icterus Ear exam: PRESENT: normal external ear exam Mouth exam: PRESENT: moist, tongue midline Neck exam: PRESENT: tracheostomy. ABSENT: carotid bruit, JVD, lymphadenopathy, thyromegaly Respiratory exam: PRESENT: accessory muscle use, decreased breath sounds - Bibasilar, prolonged expiratory phas, rhonchi - Throughout, symmetrical, tachypnea - Mid 30s, wheezes - Occasional expiratory wheeze, other - Supplemental oxygen via. ABSENT: rales Cardiovascular exam: PRESENT: +S1, +S2, tachycardia. ABSENT: diastolic murmur, rubs Pulses: PRESENT: +1 pedal pulses bilateral Vascular exam: PRESENT: normal capillary refill GI/Abdominal exam: PRESENT: normal bowel sounds, soft, other - PEG. ABSENT: distended, guarding, mass, organolmegaly, rebound, tenderness Rectal exam: PRESENT: deferred Gentrourinary exam: PRESENT: indwelling catheter Extremities exam: PRESENT: other - Contractures x4. ABSENT: calf tenderness, clubbing, pedal edema Neurological exam: PRESENT: other - Arousable; nonverbal at baseline. ABSENT: motor sensory deficit Skin exam: PRESENT: dry, pallor, warm, other - The patient has a stage IV pressure ulcer (present on arrival) to his sacrum; an unstageable, 1 cm round, wound to the dorsal portion of his left foot with slough present; unstageable 1 x 2 cm pressure wound to his left lateral foot at the MIP jointwith old drainage present. ABSENT: cyanosis, rash Results Laboratory Results: 12/11/17 10:10 12/11/17 12/11/17 12/11/17 07:00 10:01 10:10 Carbonic Acid 0.98 L HCO3/H2CO3 Ratio 22:1 ABG pH 7.46 H ABG pCO2 32.5 L ABG pO2 70.6 L ABG HCO3 22.5 ABG O2 Saturation 95.2 ABG Base Excess -0.9 FiO2 6 L Sodium 136.6 L Potassium 4.3 D Chloride 104 Carbon Dioxide 22 Anion Gap 11 BUN 34 H Creatinine 0.77 Est GFR ( Amer) > 60 Est GFR (Non-Af Amer) > 60 Glucose 108 Lactic Acid 1.0 Calcium 8.9 Impressions: Chest X-Ray 12/10/17 22:58 IMPRESSION: No significant change. Assessment & Plan - Diagnosis (1) Bacterial pneumonia Is this a current diagnosis for this admission?: Yes Plan: The patient is admitted with a healthcare associated pneumonia; previous sputum cultures reviewed, most recently pansensitive Pseudomonas. However, less than 6 weeks ago, the patient had multidrug-resistant E. coli ESBL in his sputum. CXR demonstrated a left perihilar opacity. Blood and sputum cultures are pending. The patient is admitted to [facility]. The patient was empirically placed on IV Levaquin and vancomycin. Supplemental oxygen as needed to maintain oxygen saturations greater than 90%. Scheduled and as needed nebulizer treatments. Twice daily Mucomyst nebulizer treatments. Mucinex twice daily. (2) Acute and chronic respiratory failure with hypoxia Is this a current diagnosis for this admission?: Yes Plan: Secondary to #1. ABG reveals respiratory alkalosis with hypoxia secondary to pneumonia. Plan as above. (3) Sepsis Qualifiers: Sepsis type: sepsis due to unspecified organism Qualified Code(s): A41.9 - Sepsis, unspecified organism Is this a current diagnosis for this admission?: Yes Plan: The patient was admitted with sepsis, present on arrival, multifactorial secondary to healthcare associated pneumonia, UTI, and multiple unstageable wounds evidenced by fever, tachypnea, tachycardia, hypotension, leukocytosis, and acute kidney injury. Blood, urine, sputum cultures are pending. IV fluid resuscitation was limited secondary to poor IV access; has received 2.2 L accommodation of IV fluids and antibiotics. Fortunately, surgery was able to obtain additional large bore IVs. Continue maintenance IV fluids. Continue antibiotics as above; will adjust as culture and sensitivities result. Consider reconsultation with infectious disease; Dr. Ambrocio was consulted during a recent previous admission. (4) Hyperkalemia Is this a current diagnosis for this admission?: Yes Plan: Resolved following IV fluids; likely secondary to sepsis. We will continue to trend chemistries. (5) Stage IV decubitus ulcer Qualifiers: Pressure injury location: sacral region Qualified Code(s): L89.154 - Pressure ulcer of sacral region, stage 4 Is this a current diagnosis for this admission?: Yes Plan: Present on arrival; worsened since previous admission. Cultures and antibiotics as above. Surgery has been consulted; appreciate their evaluation and recommendations. (6) Anemia Qualifiers: Anemia type: unspecified type Qualified Code(s): D64.9 - Anemia, unspecified Is this a current diagnosis for this admission?: Yes Plan: Hemoglobin on admission is 11.1. This is slightly improved from his previous admission, however, likely is related to dehydration. The patient was noted to have gross hematuria; Colon catheter has been changed. We will continue to monitor with daily CBCs; anticipate he will have trended downward by tomorrow morning secondary to IV fluid resuscitation. (7) UTI (urinary tract infection) Qualifiers: Urinary tract infection type: catheter-associated UTI Indwelling urinary catheter type: indwelling urethral catheter Is this a current diagnosis for this admission?: Yes Plan: Urine was noted to be grossly bloody in the emergency department; Colon catheter has Anil been exchanged. On assessment this morning, he is noted to have pink tinged urine with copious amounts of sediment. Urinalysis is grossly positive with high protein, large blood, large leuk esterase, large bacteria. Urine culture is pending. 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 We will continue empiric antibiotics as above. (8) DNR (do not resuscitate) Is this a current diagnosis for this admission?: Yes Plan: I spoke with the patient's group controller at [facility], Chakayajaira Young today. She was able to reach out to the patient's family members to discuss his multiple recent admissions and overall deteriorating health. She tells me that the family is strongly considering hospice and that her legal team has given approval. Per Ms. Young, family is requesting that he receive treatment for his current sepsis and upon discharge to [place] enter into hospice with a comfort care order set. Discharge planning has been consulted; appreciate their assistance in making these arrangements. - Time Time Spent with patient: 35 or more minutes Medications reviewed and adjusted accordingly: Yes Anticipated discharge: Hospice - Inpatient Certification Based on my medical assessment, after consideration of the patient's comorbidities, presenting symptoms, or acuity I expect that the services needed warrant INPATIENT care.: Yes I certify that my determination is in accordance with my understanding of Medicare's requirements for reasonable and necessary INPATIENT services [42 CFR 412.3e].: Yes Medical Necessity: Significant Comorbidiites Make Outpatient Treatment Too Risky , Need For IV Fluids, Need For Continuous Telemetry Monitoring, Need for IV Antibiotics
--- NOTE | 2017-12-11 18:23 | PDOC CONSULTATION ---
Consultation Consult Date: 12/11/17 Consult reason:: Sacral decubitus ulcer, stage IV History of Present Illness Admission Date/PCP: 12/11/17 01:58 RALEIGH GARCIA DO History of Present Illness: CECILIA MARTINEZ is a 57 year old male seen at the request of the hospitalist service. The patient is nonverbal. All pertinent history has been obtained from the medical record and nursing staff. The patient suffered a traumatic brain injury many years ago and has been bedridden since that time. The patient has contractures and does not walk. He is cared for in a nursing facility. The patient has a long-standing sacral decubitus ulcer, which has been worsening. Past Medical History Pulmonary Medical History: Reports: Intubation, Pneumonia, Respiratory Failure Neurological Medical History: Reports: Seizures Psychiatric Medical History: Reports: Depression Traumatic Medical History: Reports: Traumatic Brain Injury Hematology: Reports: Anemia Past Surgical History Past Surgical History: Reports: Other - Tracheostomy, G-tube Social History Lives with: Intermediate Smoking Status: Unknown if Ever Smoked Frequency of Alcohol Use: None Hx Recreational Drug Use: No Drugs: None Hx Prescription Drug Abuse: No - Advance Directive Resuscitation Status: Do Not Resuscitate Family History Family History: Other - Unable to obtain secondary to patient's condition Parental Family History Reviewed: Yes Children Family History Reviewed: Yes Sibling(s) Family History Reviewed.: Yes Medication/Allergy Home Medications: Scopolamine [Transderm-Scop] 1 patch TD Q3D #5 patch.td.3 09/06/17 Apixaban [Eliquis 5 mg Tablet] 5 mg PEG Q12 10/12/17 Dextran 70/Hypromellose [Artificial Tears] 1 drop OU TID 10/12/17 Sennosides [Senokot] 17.2 mg PEG BID 10/12/17 Sodium Bicarbonate [Sodium Bicarbonate 650 mg Tablet] 650 mg PEG PRN PRN Albuterol Sulfate [Ventolin 0.083% Neb 2.5 mg/3 mL Ampul] 2.5 mg NEB [id number] vial.neb 10/22/17 Bacitracin Zinc [Bacitracin Oint 15 gm] 1 applic TP BID tube 10/22/17 Famotidine [Pepcid 20 mg Tablet] 20 mg PEG Q12 tablet 10/29/17 Acetaminophen [Tylenol 325 mg Tablet] 650 mg PEG Q4HP PRN 11/14/17 Glycopyrrolate [Robinul Forte] 2 mg GT Q8 11/14/17 Levetiracetam [Keppra 500 mg Tablet] 500 mg GT Q12 11/14/17 Acetylcysteine [Mucomist 20% Soln 800 mg/4 mL] 600 mg NEB RTBID vial 11/18/17 Ipratropium/Albuterol Sulfate [Duoneb 3 ml Ampul] 3 ml NEB RTQ6HP PRN #0 vial.neb 11/18/17 Nystatin [Mycostatin Topical Powder 15 gm] 1 applic TP BID #1 bottle 11/19/17 Allergies/Adverse Reactions: No Known Allergies Allergy (Verified 11/14/17 22:59) Review of Systems ROS unobtainable: Due to mental status Physical Exam Vital Signs: Temp Pulse Resp BP Pulse Ox 98.8 F 123 H 32 H 113/63 99 12/11/17 11:14 12/11/17 14:00 12/11/17 13:49 12/11/17 11:14 12/11/17 17:12 Pulse Oximeter Continuous Start: 12/11/17 09: 41 Freq: RTQ4 Status: Active Document 12/11/17 17:12 [facility] (Rec: 12/11/17 17:13 [facility] [id number]) Pulse Oximetry Assessment Oxygen Saturation (92-100) 99 Oxygen Flow Rate (L/min) 5 Oxygen Delivery Method Trach Collar Fraction of Inspired Oxygen (FIO2) 35 Equipment Usage Equipment in Use Continuous SpO2 Machine # [id number] Intake & Output 12/10/17 12/11/17 12/12/17 06:59 06:59 06:59 Intake Total 1150 2238 Output Total 850 625 Balance 300 1613 Weight 54.1 kg General appearance: PRESENT: no acute distress Head exam: PRESENT: atraumatic Eye exam: PRESENT: PERRLA Mouth exam: PRESENT: neck supple Teeth exam: PRESENT: poor dentation Neck exam: ABSENT: meningismus, tenderness, thyromegaly, tracheal deviation Respiratory exam: PRESENT: rhonchi, unlabored, other - Tracheostomy in place. ABSENT: chest wall tenderness, wheezes Cardiovascular exam: PRESENT: RRR Pulses: PRESENT: normal radial pulses Vascular exam: PRESENT: normal capillary refill. ABSENT: pallor GI/Abdominal exam: PRESENT: soft. ABSENT: distended, firm, guarding, tenderness Rectal exam: PRESENT: deferred Extremities exam: ABSENT: pedal edema Musculoskeletal exam: PRESENT: other - Upper and lower extremity contractures Neurological exam: ABSENT: alert, awake, oriented to person, oriented to place, oriented to time, oriented to situation Psychiatric exam: ABSENT: agitated, anxious, depressed Additional comments: Stage IV sacral decubitus ulcer with necrotic debris in the base. No active purulence Results Laboratory Results: 12/11/17 10:10 12/11/17 12/11/17 12/11/17 07:00 10:01 10:10 Carbonic Acid 0.98 L HCO3/H2CO3 Ratio 22:1 ABG pH 7.46 H ABG pCO2 32.5 L ABG pO2 70.6 L ABG HCO3 22.5 ABG O2 Saturation 95.2 ABG Base Excess -0.9 FiO2 6 L Sodium 136.6 L Potassium 4.3 D Chloride 104 Carbon Dioxide 22 Anion Gap 11 BUN 34 H Creatinine 0.77 Est GFR ( Amer) > 60 Est GFR (Non-Af Amer) > 60 Glucose 108 Lactic Acid 1.0 Calcium 8.9 Impressions: Chest X-Ray 12/10/17 22:58 IMPRESSION: No significant change. Assessment & Plan - Diagnosis (1) Stage IV decubitus ulcer Qualifiers: Pressure injury location: sacral region Qualified Code(s): L89.154 - Pressure ulcer of sacral region, stage 4 Is this a current diagnosis for this admission?: Yes - Plan Summary Plan Summary: This is a 57-year-old male with a stage IV sacral decubitus ulcer. He has necrotic debris in the base. The patient will require debridement. I will plan for operative debridement tomorrow. N.p.o. after midnight.
[2017-12-11] MEDS: ACETYLCYSTEINE 20% SOLN 800 MG/4 ML VIAL.NEB NEB SCH (20:10)
[2017-12-11] MEDS: LEVOFLOXACIN 750 MG/D5W RTU 750 MG/150 ML RTUPB IV SCH (21:19)
[2017-12-11] MEDS: VANCOMYCIN HCL 1,000 MG in DEXTROSE 5%-WATER 250 ML IV SCH (22:49)
[2017-12-12] MEDS: IPRATROPIUM/ALBUTEROL 0.5-2.5 MG/3 ML AMPUL NEB SCH ×4 (02:21→20:19)
[2017-12-12 05:16] LABS: ABSOLUTE LYMPHOCYTES (AUTO) 0.7 10^3/uL (0.5-4.7); ABSOLUTE MONOCYTES (AUTO) 0.7 10^3/uL (0.1-1.4); ABSOLUTE NEUT (AUTO) 8.5 10^3/uL (1.7-8.2); BASOPHILS % (AUTO) 0.2 % (0-2); EOSINOPHILS % (AUTO) 0.1 % (0-6); HEMATOCRIT 24.5 % (37.9-51.0); LYMPHOCYTES % (AUTO) 7.3 % (13-45); MEAN CORPUSCULAR HGB CONC 33.4 g/dL (32.0-36.0); MEAN CORPUSCULAR VOLUME 87 fl (80-97); MONOCYTES % (AUTO) 6.9 % (3-13); PLATELET COUNT 406 10^3/uL (150-450); RED BLOOD COUNT 2.82 10^6/uL (4.35-5.55); RED CELL DISTRIBUTION WIDTH 17.3 % (11.5-14.0); SEGMENTED NEUTROPHILS % (AUTO) 85.5 % (42-78); TOTAL CELLS COUNTED % (AUTO) 100 %
[2017-12-12 05:19] LABS: HEMOGLOBIN 8.2 g/dL (13.5-17.0)
[2017-12-12] MEDS: HEPARIN SOD (PORCINE) 5,000 UNIT/ML 1 ML SYRINGE SUBCUT SCH ×3 (05:29→23:24)
[2017-12-12 05:33] LABS: ANION GAP 10 (5-19); BLOOD UREA NITROGEN 26 mg/dL (7-20); CARBON DIOXIDE 22 mmol/L (22-30); CHLORIDE 103 mmol/L (98-107); GLUCOSE 100 mg/dL (75-110); POTASSIUM 3.6 mmol/L (3.6-5.0); SODIUM 134.6 mmol/L (137-145)
[2017-12-12] MEDS: ACETYLCYSTEINE 20% SOLN 800 MG/4 ML VIAL.NEB NEB SCH ×2 (08:21→20:19)
[2017-12-12] MEDS ORDERED: ONDANSETRON HCL INJ/PF 4 MG/2 ML SDV ONE (09:02)
[2017-12-12] MEDS ORDERED: DEXAMETHASONE SOD PHOSPHATE INJ 4 MG/1 ML VIAL ONE (09:02)
[2017-12-12] MEDS: NYSTATIN TOPICAL POWDER 15 GM TP SCH ×2 (09:41→18:26)
[2017-12-12] MEDS: PANTOPRAZOLE SODIUM 40 MG VIAL IV SCH (09:41)
[2017-12-12] MEDS: LEVETIRACETAM ORAL SOLN 500 MG/5 ML UDCUP PEG SCH ×2 (09:41→23:22)
[2017-12-12] MEDS: SENNOSIDES/DOCUSATE 8.6-50 MG 1 EACH TABLET PEG SCH ×2 (09:42→18:27)
[2017-12-12] MEDS ORDERED: LIDOCAINE 0.5% INJ-PF (5 MG/ML) 50 ML SDV ONE (12:58)
[2017-12-12] MEDS ORDERED: FENTANYL CITRATE INJ/PF 100 MCG/2 ML AMPUL ONE (13:13)
[2017-12-12] MEDS ORDERED: MIDAZOLAM 2 MG/2 ML INJ ONE (13:13)
[2017-12-12] MEDS ORDERED: LIDOCAINE 2% INJ-PF (20 MG/ML) 10 ML AMPUL ONE (13:13)
[2017-12-12] MEDS ORDERED: KETAMINE HCL INJ 500 MG/10 ML VIAL ONE (13:13)
[2017-12-12] MEDS ORDERED: PROPOFOL INJ 200 MG/20 ML VIAL IV ONE (13:13)
[2017-12-12] MEDS ORDERED: MORPHINE SULFATE 10 MG/ML INJ IV PRN (13:41)
[2017-12-12] MEDS ORDERED: MEPERIDINE HCL/PF INJ 25 MG/1 ML DISP.SYRIN IV PRN (13:41)
[2017-12-12] MEDS ORDERED: DIPHENHYDRAMINE HCL 50 MG/ML VIAL IV PRN (13:41)
[2017-12-12] MEDS ORDERED: FENTANYL CITRATE INJ/PF 100 MCG/2 ML AMPUL IV PRN ×3 (13:41)
[2017-12-12] MEDS ORDERED: ONDANSETRON HCL INJ/PF 4 MG/2 ML SDV IV PRN (13:41)
[2017-12-12] MEDS ORDERED: PROMETHAZINE HCL INJ 25 MG/1 ML VIAL IV PRN ×2 (13:41)
--- NOTE | 2017-12-12 14:44 | OPERATIVE REPORT E ---
Operative Report NAME: CECILIA MARTINEZ : 1960 AGE: 57Y DATE OF SURGERY: 12/12/2017 ROOM: 334 PREOPERATIVE DIAGNOSIS: SACRAL DECUBITUS, STAGE IV. POSTOPERATIVE DIAGNOSIS: SACRAL DECUBITUS, STAGE IV. OPERATION: Debridement of sacral decubitus down to the bone. Ulcer roughly measured about 5.5 x 4.5 cm after completion of the procedure. SURGEON: BINA RUDD M.D. ANESTHESIA: Local MAC. INDICATION: This is a 57-year-old male with known contractures of extremities and noted to have a decubitus ulcer along the sacral area. PROCEDURE: Patient was placed in left side down, right side up position in patient's hospital bed. Patient given IV sedation. Appropriate timeout was called. Next, the sacral area was then prepped and draped in the usual sterile fashion. Local anesthesia infiltrated around the area. The necrotic skin was then excised down to the bone. A small amount of purulent material noted and cultures were obtained. The necrotic tissue was practically completely excised. Hemostasis was then controlled with cautery. After completion of the debridement, the size of the ulcer was roughly about 5.5 x 4.5 cm down to the bone. Sacral bone was partially exposed. After adequate hemostasis noted, the operative site was then packed with Iodoform gauze. Sterile dressing was placed over the operative site. Needle, instrument and sponge counts were all correct. Estimated blood loss was less than 5 mL. DICTATING PHYSICIAN: BINA RUDD M.D. [id number] PHY#: [id number] ID: [id number] JOB#: [id number] ACCT: [id number] cc:BINA RUDD M.D. >
[2017-12-12] MEDS: LEVOFLOXACIN 750 MG/D5W RTU 750 MG/150 ML RTUPB IV SCH (23:22)
[2017-12-12] MEDS: VANCOMYCIN HCL 1,000 MG in DEXTROSE 5%-WATER 250 ML IV SCH (23:23)
[2017-12-13] MEDS: IPRATROPIUM/ALBUTEROL 0.5-2.5 MG/3 ML AMPUL NEB SCH ×4 (02:27→19:54)
[2017-12-13] MEDS: HEPARIN SOD (PORCINE) 5,000 UNIT/ML 1 ML SYRINGE SUBCUT SCH ×2 (05:28→14:23)
[2017-12-13 05:58] LABS: ABSOLUTE LYMPHOCYTES (AUTO) 1.1 10^3/uL (0.5-4.7); ABSOLUTE MONOCYTES (AUTO) 0.6 10^3/uL (0.1-1.4); ABSOLUTE NEUT (AUTO) 7.3 10^3/uL (1.7-8.2); BASOPHILS % (AUTO) 0.2 % (0-2); HEMATOCRIT 24.3 % (37.9-51.0); HEMOGLOBIN 8.1 g/dL (13.5-17.0); LYMPHOCYTES % (AUTO) 12.5 % (13-45); MEAN CORPUSCULAR HEMOGLOBIN 28.8 pg (27.0-33.4); MEAN CORPUSCULAR HGB CONC 33.3 g/dL (32.0-36.0); MEAN CORPUSCULAR VOLUME 87 fl (80-97); MONOCYTES % (AUTO) 6.8 % (3-13); PLATELET COUNT 431 10^3/uL (150-450); RED BLOOD COUNT 2.81 10^6/uL (4.35-5.55); RED CELL DISTRIBUTION WIDTH 17.3 % (11.5-14.0); SEGMENTED NEUTROPHILS % (AUTO) 80.5 % (42-78); TOTAL CELLS COUNTED % (AUTO) 100 %; WHITE BLOOD COUNT 9.1 10^3/uL (4.0-10.5)
[2017-12-13 06:12] LABS: ANION GAP 10 (5-19); BLOOD UREA NITROGEN 21 mg/dL (7-20); CARBON DIOXIDE 23 mmol/L (22-30); CHLORIDE 102 mmol/L (98-107); GLUCOSE 88 mg/dL (75-110); SODIUM 135.4 mmol/L (137-145)
[2017-12-13] MEDS: ACETYLCYSTEINE 20% SOLN 800 MG/4 ML VIAL.NEB NEB SCH ×2 (07:57→19:54)
[2017-12-13] MEDS: PANTOPRAZOLE SODIUM 40 MG VIAL IV SCH (09:57)
[2017-12-13] MEDS: SENNOSIDES/DOCUSATE 8.6-50 MG 1 EACH TABLET PEG SCH ×2 (09:57→17:03)
[2017-12-13] MEDS: LEVETIRACETAM ORAL SOLN 500 MG/5 ML UDCUP PEG SCH (09:58)
[2017-12-13] MEDS: NYSTATIN TOPICAL POWDER 15 GM TP SCH ×2 (09:58→17:04)
--- NOTE | 2017-12-13 15:10 | PDOC PROGRESS REPORT ---
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 The patient was seen on morning rounds. He was found resting in bed on supplemental oxygen at 6 L/min to his tracheostomy collar. The patient is chronically ill-appearing and cachectic. The patient continues to appear acutely ill with pallor/bermeo skin tone, diaphoresis, third spacing of his lower extremities, tachycardia and tachypnea. He is arousable with gentle shake but does not make eye contact. At baseline, the patient is nonverbal but does track movements and make eye contact; however , he does not make facial expressions, blink, or otherwise attempt to communicate. ROS is limited secondary to his mental status. No specific concerns per nursing at this time. Reason For Visit: SEPSIS, ENCEPHALOPATHY, HYPERKALEMIA Physical Exam Vital Signs: Temp Pulse Resp BP Pulse Ox 98.4 F 116 H 18 137/90 H 98 12/13/17 11:34 12/13/17 14:09 12/13/17 14:09 12/13/17 11:34 12/13/17 14:09 Pulse Oximeter Continuous Start: 12/11/17 09: 41 Freq: RTQ4 Status: Active Document 12/13/17 12:00 [facility] (Rec: 12/13/17 14:09 [facility] [id number]) Pulse Oximetry Assessment Oxygen Saturation (92-100) 100 Oxygen Flow Rate (L/min) 6 Oxygen Delivery Method Trach Collar Fraction of Inspired Oxygen (FIO2) 28 Equipment Usage Equipment in Use Continuous SpO2 Machine # 5 Intake & Output 12/12/17 12/13/17 12/14/17 06:59 06:59 06:59 Intake Total 3166 2138.1 460 Output Total 1225 660 Balance 1941 1478.1 460 Weight 53.9 kg 52.9 kg General appearance: PRESENT: mild distress, well-developed, other - Cachectic, chronically ill-appearing Head exam: PRESENT: atraumatic, normocephalic Eye exam: PRESENT: conjunctiva pink, EOMI, PERRLA. ABSENT: scleral icterus Ear exam: PRESENT: normal external ear exam Mouth exam: PRESENT: moist, tongue midline Teeth exam: PRESENT: edentulous Neck exam: PRESENT: tracheostomy. ABSENT: carotid bruit, JVD, lymphadenopathy, thyromegaly Respiratory exam: PRESENT: decreased breath sounds, prolonged expiratory phas, rhonchi - Bibasilar throughout, symmetrical, tachypnea, other - Supplemental oxygen to trach collar. ABSENT: rales, wheezes Cardiovascular exam: PRESENT: RRR, tachycardia. ABSENT: diastolic murmur, rubs , systolic murmur Pulses: PRESENT: +1 pedal pulses bilateral Vascular exam: PRESENT: pallor GI/Abdominal exam: PRESENT: normal bowel sounds, soft, other - Pack. ABSENT: distended, guarding, mass, organolmegaly, rebound, tenderness Rectal exam: PRESENT: deferred Gentrourinary exam: PRESENT: indwelling catheter - Gross hematuria Extremities exam: PRESENT: +1 edema - BLE, other - Contractures x4. ABSENT: calf tenderness, clubbing, pedal edema Neurological exam: PRESENT: other - Arousable; nonverbal at baseline. ABSENT: motor sensory deficit Skin exam: PRESENT: dry, pallor, warm, other - The patient has a stage IV pressure ulcer to his sacrum now s/p surgical debridement to the bone; unstageable, 1 cm round, wound to the dorsal portion of his left foot with slough present; unstageable 1 x 2 cm pressure wound to his left lateral foot at the MIP joint. ABSENT: cyanosis, rash Results Laboratory Results: 12/13/17 05:29 12/13/17 05:29 12/13/17 12/13/17 05:29 05:29 WBC 9.1 RBC 2.81 L Hgb 8.1 L Hct 24.3 L MCV 87 MCH 28.8 MCHC 33.3 RDW 17.3 H Plt Count 431 Seg Neutrophils % 80.5 H Lymphocytes % 12.5 L Monocytes % 6.8 Eosinophils % 0.0 Basophils % 0.2 Absolute Neutrophils 7.3 Absolute Lymphocytes 1.1 Absolute Monocytes 0.6 Absolute Eosinophils 0.0 Absolute Basophils 0.0 Sodium 135.4 L Potassium 4.0 Chloride 102 Carbon Dioxide 23 Anion Gap 10 BUN 21 H Creatinine 0.49 L Est GFR ( Amer) > 60 Est GFR (Non-Af Amer) > 60 Glucose 88 Calcium 9.0 Impressions: Chest X-Ray 12/10/17 22:58 IMPRESSION: No significant change. Assessment & Plan - Diagnosis (1) Bacterial pneumonia Is this a current diagnosis for this admission?: Yes Plan: The patient is admitted with a healthcare associated pneumonia; previous sputum cultures reviewed, most recently pansensitive Pseudomonas. However, less than 6 weeks ago, the patient had multidrug-resistant E. coli ESBL in his sputum. CXR demonstrated a left perihilar opacity. Initial blood culture set has 1 bottle growing gram-positive cocci. Repeat blood cultures are negative at 24 hours. Trachea aspirate positive for E. coli ESBL; likely colonized. The patient is admitted to [facility]. The patient was empirically placed on IV Levaquin and vancomycin. Supplemental oxygen as needed to maintain oxygen saturations greater than 90%. Scheduled and as needed nebulizer treatments. Twice daily Mucomyst nebulizer treatments. Mucinex twice daily. (2) Acute and chronic respiratory failure with hypoxia Is this a current diagnosis for this admission?: Yes Plan: Secondary to #1. Improved; although he remains tachycardic his heart rate is much improved (140s down to 110) and is no longer tachypneic. Maintaining oxygen saturations in the high 90s-100 on 6 L to his trach collar. ABG reveals respiratory alkalosis with hypoxia secondary to pneumonia. Plan as above. (3) Sepsis Qualifiers: Sepsis type: sepsis due to unspecified organism Qualified Code(s): A41.9 - Sepsis, unspecified organism Is this a current diagnosis for this admission?: Yes Plan: Improved; the patient is afebrile, leukocytosis, tachypnea, hypotension have all resolved and tachycardia has improved. However, the patient continues to appear acutely ill. Guarded condition. The patient was admitted with sepsis, present on arrival, multifactorial secondary to healthcare associated pneumonia, UTI, and multiple unstageable wounds evidenced by fever, tachypnea, tachycardia, hypotension, leukocytosis, and acute kidney injury. Repeat blood cultures are negative at 24 hours; 1 bottle of the first culture set is likely contaminated. Sputum culture positive for ESBL E. coli similar to previous micro patterns. Wound culture obtained by surgery after debridement is positive for gram-positive cocci and gram-negative rods. Continue maintenance IV fluids. Continue antibiotics as above; will adjust as culture and sensitivities result. Consider reconsultation with infectious disease; Dr. Ambrocio was consulted during a recent previous admission. (4) Hyperkalemia Is this a current diagnosis for this admission?: Yes Plan: Resolved following IV fluids; likely secondary to sepsis. We will continue to trend chemistries. (5) Stage IV decubitus ulcer Qualifiers: Pressure injury location: sacral region Qualified Code(s): L89.154 - Pressure ulcer of sacral region, stage 4 Is this a current diagnosis for this admission?: Yes Plan: Present on arrival; worsened since previous admission. Now status post surgical debridement. Cultures and antibiotics as above. Surgery has been consulted; appreciate their evaluation and recommendations. (6) Anemia Qualifiers: Anemia type: unspecified type Qualified Code(s): D64.9 - Anemia, unspecified Is this a current diagnosis for this admission?: Yes Plan: Hemoglobin on admission is 11.1. This is slightly improved from his previous admission, however, likely was related to dehydration. Hemoglobin has trended down to 8.1. The patient was noted to have gross hematuria; Colon catheter has been changed. We will continue to monitor with daily CBCs; the patient has been blood banded. No evidence of acute bleeding. (7) UTI (urinary tract infection) Qualifiers: Urinary tract infection type: catheter-associated UTI Indwelling urinary catheter type: indwelling urethral catheter Is this a current diagnosis for this admission?: Yes Plan: Urine was noted to be grossly bloody in the emergency department; Colon catheter has Anil been exchanged. On assessment this morning, he is noted to have pink tinged urine with copious amounts of sediment. Urinalysis is grossly positive with high protein, large blood, large leuk esterase, large bacteria. Urine culture is pending. 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 We will continue empiric antibiotics as above. (8) DNR (do not resuscitate) Is this a current diagnosis for this admission?: Yes Plan: I spoke with the patient's seafood service team member at [facility], Chaka Young this admission. She was able to reach out to the patient's family members to discuss his multiple recent admissions and overall deteriorating health. Per Ms. Young, family is requesting that he receive treatment for his current sepsis and upon discharge to [place] enter into hospice with a comfort care order set. Discharge planning has been consulted; appreciate their assistance in making these arrangements. - Time Time Spent with patient: 25-34 minutes Medications reviewed and adjusted accordingly: Yes Anticipated discharge: Hospice - at [facility] where he is an established resident.
[2017-12-13] MEDS: LEVOFLOXACIN 750 MG/D5W RTU 750 MG/150 ML RTUPB IV SCH (22:30)
[2017-12-13 23:12] LABS: VANCOMYCIN,TROUGH 5.3 ug/mL (5.0-20.0)
[2017-12-14] MEDS: VANCOMYCIN HCL 1,000 MG in DEXTROSE 5%-WATER 250 ML IV SCH (00:01)
[2017-12-14] MEDS: HEPARIN SOD (PORCINE) 5,000 UNIT/ML 1 ML SYRINGE SUBCUT SCH ×4 (00:04→21:06)
[2017-12-14] MEDS: IPRATROPIUM/ALBUTEROL 0.5-2.5 MG/3 ML AMPUL NEB SCH ×4 (01:50→20:29)
[2017-12-14 05:13] LABS: ABSOLUTE LYMPHOCYTES (AUTO) 1.1 10^3/uL (0.5-4.7); ABSOLUTE MONOCYTES (AUTO) 0.7 10^3/uL (0.1-1.4); ABSOLUTE NEUT (AUTO) 7.6 10^3/uL (1.7-8.2); BASOPHILS % (AUTO) 0.2 % (0-2); EOSINOPHILS % (AUTO) 0.1 % (0-6); HEMATOCRIT 26.1 % (37.9-51.0); HEMOGLOBIN 8.7 g/dL (13.5-17.0); LYMPHOCYTES % (AUTO) 11.6 % (13-45); MEAN CORPUSCULAR HEMOGLOBIN 28.8 pg (27.0-33.4); MEAN CORPUSCULAR HGB CONC 33.2 g/dL (32.0-36.0); MEAN CORPUSCULAR VOLUME 87 fl (80-97); MONOCYTES % (AUTO) 7.5 % (3-13); PLATELET COUNT 436 10^3/uL (150-450); RED BLOOD COUNT 3.02 10^6/uL (4.35-5.55); RED CELL DISTRIBUTION WIDTH 17.2 % (11.5-14.0); SEGMENTED NEUTROPHILS % (AUTO) 80.6 % (42-78); TOTAL CELLS COUNTED % (AUTO) 100 %; WHITE BLOOD COUNT 9.4 10^3/uL (4.0-10.5)
[2017-12-14 05:35] LABS: ANION GAP 6 (5-19); BLOOD UREA NITROGEN 18 mg/dL (7-20); CALCIUM 8.7 mg/dL (8.4-10.2); CARBON DIOXIDE 28 mmol/L (22-30); CHLORIDE 102 mmol/L (98-107); GLUCOSE 96 mg/dL (75-110); POTASSIUM 4.1 mmol/L (3.6-5.0); SODIUM 135.8 mmol/L (137-145)
[2017-12-14] MEDS: ACETYLCYSTEINE 20% SOLN 800 MG/4 ML VIAL.NEB NEB SCH ×2 (07:54→20:29)
[2017-12-14] MEDS ORDERED: MORPHINE SULFATE 10 MG/5 ML ORAL SOLUTION UDCUP PO PRN (08:18)
[2017-12-14] MEDS: SCOPOLAMINE HYDROBROMIDE 1.5 MG PATCH.TD72 TD SCH (09:36)
[2017-12-14] MEDS: NYSTATIN TOPICAL POWDER 15 GM TP SCH ×2 (09:36→18:04)
[2017-12-14] MEDS: LEVETIRACETAM ORAL SOLN 500 MG/5 ML UDCUP PEG SCH ×3 (09:36→21:06)
[2017-12-14] MEDS: SENNOSIDES/DOCUSATE 8.6-50 MG 1 EACH TABLET PEG SCH ×2 (09:37→18:04)
[2017-12-14] MEDS: VANCOMYCIN HCL 750 MG in DEXTROSE 5%-WATER 250 ML IV SCH ×2 (10:38→18:04)
--- NOTE | 2017-12-14 15:02 | PDOC PROGRESS REPORT ---
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 The patient was seen on morning rounds with nursing present. He was found resting in bed on supplemental oxygen at 6 L/min to his tracheostomy collar. The patient is chronically ill-appearing and cachectic. The patient continues to appear acutely ill with pallor/bermeo skin tone, diaphoresis, third spacing of his lower extremities, tachycardia and tachypnea. He is awake but does not make eye contact. At baseline, the patient is nonverbal but does track movements and make eye contact; however, he does not make facial expressions, blink, or otherwise attempt to communicate. ROS is limited secondary to his mental status. No specific concerns per nursing at this time. Reason For Visit: SEPSIS, ENCEPHALOPATHY, HYPERKALEMIA Physical Exam Vital Signs: Temp Pulse Resp BP Pulse Ox 97.6 F 95 18 131/82 H 97 12/14/17 11:40 12/14/17 14:00 12/14/17 13:45 12/14/17 11:40 12/14/17 13:45 Pulse Oximeter Continuous Start: 12/11/17 09: 41 Freq: RTQ4 Status: Active Document 12/14/17 12:00 [facility] (Rec: 12/14/17 13:45 [facility] [id number]) Pulse Oximetry Assessment Oxygen Saturation (92-100) 97 Oxygen Flow Rate (L/min) 6 Oxygen Delivery Method T-piece Fraction of Inspired Oxygen (FIO2) 28 Equipment Usage Equipment in Use Continuous SpO2 Machine # 5 Intake & Output 12/13/17 12/14/17 12/15/17 06:59 06:59 06:59 Intake Total 2138.1 1417 900 Output Total 660 425 300 Balance 1478.1 992 600 Weight 52.9 kg 52.8 kg General appearance: PRESENT: mild distress, well-developed, other - Cachectic, chronically and acutely ill-appearing. Head exam: PRESENT: atraumatic, normocephalic Eye exam: PRESENT: conjunctiva pink, PERRLA. ABSENT: scleral icterus Ear exam: PRESENT: normal external ear exam Mouth exam: PRESENT: moist, tongue midline Teeth exam: PRESENT: edentulous Neck exam: PRESENT: tracheostomy. ABSENT: carotid bruit, JVD, lymphadenopathy, thyromegaly Respiratory exam: PRESENT: decreased breath sounds - L>R, prolonged expiratory phas, rhonchi, tachypnea, other - Supplemental oxygen to trach collar; copious purulent sputum. ABSENT: rales, wheezes Cardiovascular exam: PRESENT: RRR, tachycardia. ABSENT: diastolic murmur, rubs , systolic murmur Pulses: PRESENT: +1 pedal pulses bilateral Vascular exam: PRESENT: pallor GI/Abdominal exam: PRESENT: normal bowel sounds, soft, other - PEG tube. ABSENT : distended, guarding, mass, organolmegaly, rebound, tenderness Rectal exam: PRESENT: deferred Gentrourinary exam: PRESENT: indwelling catheter Extremities exam: PRESENT: +1 edema - BLE, other - Contractures x4. ABSENT: calf tenderness, clubbing, pedal edema Neurological exam: PRESENT: awake, other - Nonverbal at baseline. ABSENT: motor sensory deficit Skin exam: PRESENT: dry, pallor, warm, other - Stage IV pressure ulcer (POA) to his sacrum now s/p surgical debridement to the bone with 0.5 edge of echymotic tissue and errythema extending an additional 2-3 cm around wound. Unstageable, 1 cm round, wound (POA) to the dorsal portion of his left foot with slough present. Unstageable 1 x 2 cm pressure wound (POA) to his left lateral foot at the MIP joint with serosanguineous drainage. 3 cm round pressure wound (POA) with slough to his left mid back. Stage I pressure wound to bilateral mid- upper back r/t to creased sheets; shallow skin excoriation to right mid-back w/ active bleeding. ABSENT: cyanosis, rash Results Laboratory Results: 12/14/17 04:46 12/14/17 04:46 12/14/17 12/14/17 04:46 04:46 WBC 9.4 RBC 3.02 L Hgb 8.7 L Hct 26.1 L MCV 87 MCH 28.8 MCHC 33.2 RDW 17.2 H Plt Count 436 Seg Neutrophils % 80.6 H Lymphocytes % 11.6 L Monocytes % 7.5 Eosinophils % 0.1 Basophils % 0.2 Absolute Neutrophils 7.6 Absolute Lymphocytes 1.1 Absolute Monocytes 0.7 Absolute Eosinophils 0.0 Absolute Basophils 0.0 Sodium 135.8 L Potassium 4.1 Chloride 102 Carbon Dioxide 28 Anion Gap 6 BUN 18 Creatinine 0.41 L Est GFR ( Amer) > 60 Est GFR (Non-Af Amer) > 60 Glucose 96 Calcium 8.7 Impressions: Chest X-Ray 12/10/17 22:58 IMPRESSION: No significant change. Assessment & Plan - Diagnosis (1) Bacterial pneumonia Is this a current diagnosis for this admission?: Yes Plan: The patient is admitted with a healthcare associated pneumonia; previous sputum cultures reviewed, most recently pansensitive Pseudomonas. However, less than 6 weeks ago, the patient had multidrug-resistant E. coli ESBL in his sputum. CXR demonstrated a left perihilar opacity. Initial blood culture set has 1 bottle positive for staph epidermidis; determined to be contaminant. Repeat blood cultures are negative at 48 hours. Trachea aspirate positive for E. coli ESBL; likely colonized. Initial superficial wound culture positive for Proteus maribelis, gram-negative sudeep, gram-positive cocci. Surgical wound culture positive for Morganella morganii and gram-positive cocci. The patient is admitted to [facility]. The patient was empirically placed on IV Levaquin and vancomycin; currently day #3. Levaquin is discontinued after 3 days. Start IV Rocephin for coverage of Proteus maribelis and Morganella morganii. Supplemental oxygen as needed to maintain oxygen saturations greater than 90%. Scheduled and as needed nebulizer treatments. Twice daily Mucomyst nebulizer treatments. Mucinex twice daily. (2) Acute and chronic respiratory failure with hypoxia Is this a current diagnosis for this admission?: Yes Plan: Secondary to #1. Improved; although he remains tachycardic his heart rate is much improved (140s down to 100) and is no longer tachypneic. Maintaining oxygen saturations in the high 90s-100 on 6 L to his trach collar. ABG reveals respiratory alkalosis with hypoxia secondary to pneumonia. Plan as above. (3) Sepsis Qualifiers: Sepsis type: sepsis due to unspecified organism Qualified Code(s): A41.9 - Sepsis, unspecified organism Is this a current diagnosis for this admission?: Yes Plan: Improved; the patient is afebrile, leukocytosis, tachypnea, hypotension have all resolved and tachycardia has improved. However, the patient continues to appear acutely ill. Guarded condition. The patient was admitted with sepsis, present on arrival, multifactorial secondary to healthcare associated pneumonia, UTI, and multiple unstageable wounds evidenced by fever, tachypnea, tachycardia, hypotension, leukocytosis, and acute kidney injury. Initial blood culture set has 1 bottle positive for staph epidermidis; determined to be contaminant. Repeat blood cultures are negative at 48 hours. Trachea aspirate positive for E. coli ESBL; likely colonized. Initial superficial wound culture positive for Proteus maribelis, gram-negative sudeep, gram-positive cocci. Surgical wound culture positive for Morganella morganii and gram-positive cocci. The patient was empirically placed on IV Levaquin and vancomycin; currently day #3. Levaquin is discontinued after 3 days. Start IV Rocephin for coverage of Proteus maribelis and Morganella morganii. Consider reconsultation with infectious disease; Dr. Ambrocio was consulted during a recent previous admission. (4) Stage IV decubitus ulcer Qualifiers: Pressure injury location: sacral region Qualified Code(s): L89.154 - Pressure ulcer of sacral region, stage 4 Is this a current diagnosis for this admission?: Yes Plan: Present on arrival; worsened since previous admission. Now status post surgical debridement. Cultures and antibiotics as above. Surgery has been consulted; appreciate their evaluation and recommendations. (5) Anemia Qualifiers: Anemia type: unspecified type Qualified Code(s): D64.9 - Anemia, unspecified Is this a current diagnosis for this admission?: Yes Plan: Hemoglobin on admission is 11.1. This is slightly improved from his previous admission, however, likely was related to dehydration. Hemoglobin trended down to 8.1, now slightly improved at 8.7 The patient was noted to have gross hematuria; Colon catheter has been changed. We will continue to monitor with daily CBCs; the patient has been blood banded. No evidence of acute bleeding. (6) UTI (urinary tract infection) Qualifiers: Urinary tract infection type: catheter-associated UTI Indwelling urinary catheter type: indwelling urethral catheter Is this a current diagnosis for this admission?: Yes Plan: Urine was noted to be grossly bloody in the emergency department; Colon catheter has been exchanged. Siria to have pink tinged urine with sediment; somewhat improved on appearance. Urinalysis is grossly positive with high protein, large blood, large leuk esterase, large bacteria. Urine culture is pending. 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 We will continue empiric antibiotics as above. (7) DNR (do not resuscitate) Is this a current diagnosis for this admission?: Yes Plan: I spoke with the patient's sign language teacher at [facility], Chaka Hannah this admission. She was able to reach out to the patient's family members to discuss his multiple recent admissions and overall deteriorating health. Per Ms. Young, family is requesting that he receive treatment for his current sepsis and upon discharge to [place] enter into hospice with a comfort care order set. Discharge planning has been consulted; appreciate their assistance in making these arrangements. (8) Hyperkalemia Is this a current diagnosis for this admission?: Yes Plan: Resolved following IV fluids; likely secondary to sepsis. We will continue to trend chemistries. (9) Cachectic Is this a current diagnosis for this admission?: Yes Plan: Evidenced by decreased muscle mass, loss of subcutaneous fat, and low albumin. Continue tube feedings; Opexa 1.5. Aspiration precautions. Specialty mattress with q2 hour turns. felt finishing supervisor has been consulted; appreciate her assistance. - Time Time Spent with patient: 15-24 minutes Medications reviewed and adjusted accordingly: Yes Anticipated discharge: SNF - [facility] with hospice. Within: Other - Pending culture identification and sensitivities to determine appropriate length of abx therapy.
[2017-12-15] MEDS: IPRATROPIUM/ALBUTEROL 0.5-2.5 MG/3 ML AMPUL NEB SCH ×4 (01:28→20:25)
[2017-12-15] MEDS: VANCOMYCIN HCL 750 MG in DEXTROSE 5%-WATER 250 ML IV SCH ×2 (04:30→10:24)
[2017-12-15 05:29] LABS: HEMATOCRIT 26.1 % (37.9-51.0); HEMOGLOBIN 8.8 g/dL (13.5-17.0); MEAN CORPUSCULAR HGB CONC 33.7 g/dL (32.0-36.0); MEAN CORPUSCULAR VOLUME 86 fl (80-97); PLATELET COUNT 441 10^3/uL (150-450); RED BLOOD COUNT 3.02 10^6/uL (4.35-5.55); RED CELL DISTRIBUTION WIDTH 17.5 % (11.5-14.0); WHITE BLOOD COUNT 9.4 10^3/uL (4.0-10.5)
[2017-12-15 05:46] LABS: ANION GAP 8 (5-19); BLOOD UREA NITROGEN 15 mg/dL (7-20); CALCIUM 8.8 mg/dL (8.4-10.2); CARBON DIOXIDE 26 mmol/L (22-30); CHLORIDE 100 mmol/L (98-107); GLUCOSE 105 mg/dL (75-110); POTASSIUM 4.2 mmol/L (3.6-5.0); SODIUM 134.1 mmol/L (137-145)
[2017-12-15] MEDS: HEPARIN SOD (PORCINE) 5,000 UNIT/ML 1 ML SYRINGE SUBCUT SCH ×3 (05:58→22:12)
[2017-12-15] MEDS ORDERED: MORPHINE SULFATE 10 MG/5 ML ORAL SOLUTION UDCUP PO PRN (07:34)
[2017-12-15] MEDS: ACETYLCYSTEINE 20% SOLN 800 MG/4 ML VIAL.NEB NEB SCH ×2 (07:50→20:25)
[2017-12-15] MEDS ORDERED: CEFTRIAXONE 2 GM/D5W RTU 2 GM/50 ML RTUPB IV SCH (10:00)
[2017-12-15] MEDS: LEVETIRACETAM ORAL SOLN 500 MG/5 ML UDCUP PEG SCH ×2 (10:25→22:12)
[2017-12-15] MEDS: SENNOSIDES/DOCUSATE 8.6-50 MG 1 EACH TABLET PEG SCH ×2 (10:25→18:10)
[2017-12-15] MEDS: NYSTATIN TOPICAL POWDER 15 GM TP SCH ×2 (10:26→18:11)
[2017-12-15 10:59] LABS: VANCOMYCIN,TROUGH 12.4 ug/mL (5.0-20.0)
[2017-12-15] MEDS: CEFTRIAXONE SODIUM 2,000 MG in DEXTROSE 5%-WATER 100 ML IV SCH (11:44)
--- NOTE | 2017-12-15 14:30 | PDOC PROGRESS REPORT ---
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 The patient was seen on morning rounds with nursing present. He was found resting in bed on supplemental oxygen at 6 L/min to his tracheostomy collar. The patient is chronically ill-appearing and cachectic. The patient appears slightly improved today as compared to yesterday. He continues to have pallor and tachypnea, but is no longer noted to be diaphoretic and his generalized edema has improved slightly. He is awake but does not make eye contact. At baseline, the patient is nonverbal but does track movements and make eye contact; however, he does not make facial expressions, blink, or otherwise attempt to communicate. ROS is limited secondary to his mental status. No specific concerns per nursing at this time. Reason For Visit: SEPSIS, ENCEPHALOPATHY, HYPERKALEMIA Physical Exam Vital Signs: Temp Pulse Resp BP Pulse Ox 98.6 F 100 30 H 133/70 H 96 12/15/17 11:23 12/15/17 11:23 12/15/17 11:23 12/15/17 11:23 12/15/17 12:00 Pulse Oximeter Continuous Start: 12/11/17 09: 41 Freq: RTQ4 Status: Active Document 12/15/17 12:00 [facility] (Rec: 12/15/17 13:50 [facility] [id number]) Pulse Oximetry Assessment Oxygen Saturation (92-100) 96 Oxygen Flow Rate (L/min) 6 Oxygen Delivery Method T-piece Equipment Usage Equipment in Use Continuous SpO2 Machine # 5 Intake & Output 12/14/17 12/15/17 12/16/17 06:59 06:59 06:59 Intake Total 1417 1715 350 Output Total 425 700 150 Balance 992 1015 200 Weight 52.8 kg 54.5 kg General appearance: PRESENT: no acute distress, well-developed, other - Cachectic, chronically ill-appearing. Head exam: PRESENT: atraumatic, normocephalic Eye exam: PRESENT: conjunctiva pink, EOMI, PERRLA. ABSENT: scleral icterus Ear exam: PRESENT: normal external ear exam Mouth exam: PRESENT: moist Teeth exam: PRESENT: edentulous Neck exam: PRESENT: tracheostomy. ABSENT: carotid bruit, JVD, lymphadenopathy, thyromegaly Respiratory exam: PRESENT: decreased breath sounds - L>R, prolonged expiratory phas, symmetrical, tachypnea, other - supplemental oxygen via trach collar. ABSENT: rales, rhonchi, wheezes Cardiovascular exam: PRESENT: RRR. ABSENT: diastolic murmur, rubs, systolic murmur Pulses: PRESENT: +1 pedal pulses bilateral Vascular exam: PRESENT: normal capillary refill GI/Abdominal exam: PRESENT: normal bowel sounds, soft, other - Chronic PEG tube. ABSENT: distended, guarding, mass, organolmegaly, rebound, tenderness Rectal exam: PRESENT: deferred Gentrourinary exam: PRESENT: indwelling catheter Extremities exam: PRESENT: other - Trace bilateral lower extremity edema; contractures x4. ABSENT: calf tenderness, clubbing, pedal edema Neurological exam: PRESENT: awake, other - Nonverbal at baseline. ABSENT: motor sensory deficit Skin exam: PRESENT: dry, pallor, warm, other - Stage IV pressure ulcer (POA) to his sacrum now s/p surgical debridement to the bone with 0.5 edge of echymotic tissue and errythema extending an additional 2-3 cm around wound. Unstageable, 1 cm round, wound (POA) to the dorsal portion of his left foot with slough present. Unstageable 1 x 2 cm pressure wound (POA) to his left lateral foot at the MIP joint with serosanguineous drainage. 3 cm round pressure wound (POA) with slough to his left mid back. Stage I pressure wound to bilateral mid- upper back r/t to creased sheets; shallow skin excoriation to right mid-back. ABSENT: cyanosis, rash Results Laboratory Results: 12/15/17 05:10 12/15/17 10:03 12/15/17 12/15/17 12/15/17 05:10 05:10 10:03 WBC 9.4 RBC 3.02 L Hgb 8.8 L Hct 26.1 L MCV 86 MCH 29.0 MCHC 33.7 RDW 17.5 H Plt Count 441 Sodium 134.1 L Potassium 4.2 Chloride 100 Carbon Dioxide 26 Anion Gap 8 BUN 15 Creatinine 0.35 L 0.32 L Est GFR ( Amer) > 60 > 60 Est GFR (Non-Af Amer) > 60 > 60 Glucose 105 Calcium 8.8 12/12/17 13:52 Sacrum - Decubitis Ulcer Gram Stain - Final 12/12/17 13:52 Sacrum - Decubitis Ulcer Wound Culture - Final Enterococcus Faecalis(Group D) Morganella Morganii No Anaerobic Organisms 12/12/17 04:50 Coccyx - Decubitis Ulcer Gram Stain - Final 12/12/17 04:50 Coccyx - Decubitis Ulcer Wound Culture - Final Proteus Mirabilis Klebsiella Pneumoniae-Esbl Staphylococcus Aureus Impressions: Chest X-Ray 12/10/17 22:58 IMPRESSION: No significant change. Assessment & Plan - Diagnosis (1) Bacterial pneumonia Is this a current diagnosis for this admission?: Yes Plan: The patient is admitted with a healthcare associated pneumonia; previous sputum cultures reviewed, most recently pansensitive Pseudomonas. However, less than 6 weeks ago, the patient had multidrug-resistant E. coli ESBL in his sputum. CXR demonstrated a left perihilar opacity. Initial blood culture set has 1 bottle positive for staph epidermidis; determined to be contaminant. Repeat blood cultures are negative at 72 hours. Trachea aspirate positive for E. coli ESBL; likely colonized. The patient is admitted to [facility]. The patient was empirically placed on IV Levaquin and vancomycin. Levaquin is discontinued after 3 days. Vancomycin discontinued on day 4. Supplemental oxygen as needed to maintain oxygen saturations greater than 90%. Scheduled and as needed nebulizer treatments. Twice daily Mucomyst nebulizer treatments. Mucinex twice daily. (2) Acute and chronic respiratory failure with hypoxia Is this a current diagnosis for this admission?: Yes Plan: Secondary to #1. Improved; tachycardia has resolved, continues to have intermittent tachypnea although improved at RR of 20-24. Maintaining oxygen saturations in the high 90s-100 on 6 L to his trach collar. ABG reveals respiratory alkalosis with hypoxia secondary to pneumonia. Plan as above. (3) Sepsis Qualifiers: Sepsis type: sepsis due to unspecified organism Qualified Code(s): A41.9 - Sepsis, unspecified organism Is this a current diagnosis for this admission?: Yes Plan: Resolved; the patient is afebrile, leukocytosis, tachypnea, hypotension have all resolved and tachycardia has improved. The patient was admitted with sepsis, present on arrival, multifactorial secondary to healthcare associated pneumonia, UTI, and multiple unstageable wounds evidenced by fever, tachypnea, tachycardia, hypotension, leukocytosis, and acute kidney injury. Initial blood culture set has 1 bottle positive for staph epidermidis; determined to be contaminant. Repeat blood cultures are negative at 72 hours. Trachea aspirate positive for E. coli ESBL; likely colonized. Initial superficial wound culture positive for Proteus maribelis, ESBL Klebsiella pneumonia, and staph aureus.. Surgical wound culture positive for Morganella morganii and enterococcus facialis (D). The patient was empirically placed on IV Levaquin and vancomycin; Rocephin discontinued on day 3, vancomycin discontinued day 4. He has been transitioned to IV Rocephin and Zosyn which covers all of the above- mentioned microbes. Consider reconsultation with infectious disease; Dr. Ambrocio was consulted during a recent previous admission. (4) Stage IV decubitus ulcer Qualifiers: Pressure injury location: sacral region Qualified Code(s): L89.154 - Pressure ulcer of sacral region, stage 4 Is this a current diagnosis for this admission?: Yes Plan: Initial superficial wound culture positive for Proteus maribelis, gram-negative sudeep, gram-positive cocci. Surgical wound culture positive for Morganella morganii and gram-positive cocci. Present on arrival; worsened since previous admission. Now status post surgical debridement. The patient was empirically placed on IV Levaquin and vancomycin; these have been discontinued as cultures result. IV Rocephin started yesterday for coverage of Proteus mirabilis, Morganella morganii, and staph aureus. Zosyn started today for coverage of enterococcus facialis (D), ESBL Klebsiella pneumoniae. Surgery has been consulted; appreciate their evaluation and recommendations. Daily wet-to-dry dressing changes. Will observe patient overnight on new antibiotic regimen, if remains clinically improved, afebrile, with appropriate WBCs; will discharge to [facility] on continued antibiotic therapy for an additional 10 days. (5) Anemia Qualifiers: Anemia type: unspecified type Qualified Code(s): D64.9 - Anemia, unspecified Is this a current diagnosis for this admission?: Yes Plan: Hemoglobin on admission is 11.1. This is slightly improved from his previous admission, however, likely was related to dehydration. Hemoglobin trended down to 8.1, now slightly improved at 8.8 The patient was noted to have gross hematuria; Colon catheter has been changed. We will continue to monitor with daily CBCs; the patient has been blood banded. No evidence of acute bleeding. (6) UTI (urinary tract infection) Qualifiers: Urinary tract infection type: catheter-associated UTI Indwelling urinary catheter type: indwelling urethral catheter Is this a current diagnosis for this admission?: Yes Plan: Urine was noted to be grossly bloody in the emergency department; Colon catheter has been exchanged. Gross hematuria appears to have resolved. Urinalysis is grossly positive with high protein, large blood, large leuk esterase, large bacteria. Urine culture is pending. 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 We will continue empiric antibiotics as above. (7) DNR (do not resuscitate) Is this a current diagnosis for this admission?: Yes Plan: I spoke with the patient's newscast director at [facility], Chaka Young this admission. She was able to reach out to the patient's family members to discuss his multiple recent admissions and overall deteriorating health. Per Ms. Young, family is requesting that he receive treatment for his current sepsis and upon discharge to [place] enter into hospice with a comfort care order set. Discharge planning has been consulted; appreciate their assistance in making these arrangements. (8) Hyperkalemia Is this a current diagnosis for this admission?: Yes Plan: Resolved following IV fluids; likely secondary to sepsis. We will continue to trend chemistries. (9) Cachectic Is this a current diagnosis for this admission?: Yes Plan: Evidenced by decreased muscle mass, loss of subcutaneous fat, and low albumin. Continue tube feedings; Opexa 1.5. Aspiration precautions. Specialty mattress with q2 hour turns. orbitread operator has been consulted; appreciate her assistance. - Time Time Spent with patient: 25-34 minutes Medications reviewed and adjusted accordingly: Yes Anticipated discharge: SNF [facility] for the patient is an established resident. Within: within 24 hours
[2017-12-15] MEDS: PIPERACILLIN SODIUM/TAZOBACTAM 3.375 GM in NORMAL SALINE 100 ML IV SCH (18:10)
[2017-12-16] MEDS: IPRATROPIUM/ALBUTEROL 0.5-2.5 MG/3 ML AMPUL NEB SCH ×4 (02:11→19:41)
[2017-12-16] MEDS: PIPERACILLIN SODIUM/TAZOBACTAM 3.375 GM in NORMAL SALINE 100 ML IV SCH ×5 (02:29→23:27)
[2017-12-16] MEDS: HEPARIN SOD (PORCINE) 5,000 UNIT/ML 1 ML SYRINGE SUBCUT SCH ×3 (05:45→21:14)
[2017-12-16 07:00] LABS: HEMOGLOBIN 9.8 g/dL (13.5-17.0); MEAN CORPUSCULAR HEMOGLOBIN 28.2 pg (27.0-33.4); MEAN CORPUSCULAR HGB CONC 32.5 g/dL (32.0-36.0); MEAN CORPUSCULAR VOLUME 87 fl (80-97); PLATELET COUNT 406 10^3/uL (150-450); RED BLOOD COUNT 3.46 10^6/uL (4.35-5.55); RED CELL DISTRIBUTION WIDTH 18.2 % (11.5-14.0); WHITE BLOOD COUNT 12.4 10^3/uL (4.0-10.5)
[2017-12-16 07:56] LABS: ANION GAP 8 (5-19); BLOOD UREA NITROGEN 13 mg/dL (7-20); CALCIUM 8.8 mg/dL (8.4-10.2); CARBON DIOXIDE 28 mmol/L (22-30); CHLORIDE 99 mmol/L (98-107); GLUCOSE 104 mg/dL (75-110); POTASSIUM 4.5 mmol/L (3.6-5.0); SODIUM 134.6 mmol/L (137-145)
[2017-12-16] MEDS: ACETYLCYSTEINE 20% SOLN 800 MG/4 ML VIAL.NEB NEB SCH ×2 (08:29→19:41)
[2017-12-16] MEDS: LEVETIRACETAM ORAL SOLN 500 MG/5 ML UDCUP PEG SCH ×2 (09:23→21:13)
[2017-12-16] MEDS: NYSTATIN TOPICAL POWDER 15 GM TP SCH ×2 (09:23→17:25)
[2017-12-16] MEDS: CEFTRIAXONE SODIUM 2,000 MG in DEXTROSE 5%-WATER 100 ML IV SCH (09:23)
[2017-12-16] MEDS: SENNOSIDES/DOCUSATE 8.6-50 MG 1 EACH TABLET PEG SCH ×2 (09:23→17:25)
--- NOTE | 2017-12-16 15:52 | Progress Note ---
Provider Note Provider Note: ID Consult Note I was asked to make recommendations regarding antibiotic therapy in this patient with a sacral wound infection. The patient has had surgical debridement. Cultures from the OR grew a variety of organisms, including both enteric GNRs and meticillin-susceptible Staphylococcus aureus (MSSA). One of the GNRs was an ESBL (Extended Spectrum Beta-lactamase) inducing organism, but it was susceptible to piperacillin-tazobactam, which the patient is receiving. All of the organisms are susceptible to pip-tazobactam. Recommend continuing this medication for 7-10 days. Longer therapy is not necessary given that the infected bone has been debrided. Recommend discontinuing ceftriaxone as it is not necessary in this patient. Rayo Lucio MD Pager: [phone]
--- NOTE | 2017-12-16 15:54 | PDOC TRANSFER SUMMARY ---
General - Admit/Disc Date/PCP Admission Date/Primary Care Provider: 12/11/17 01:58 RALEIGH Coral GARCIA, Discharge Date: 12/17/17 - Anticipated discharge to SNF on 12/17/17 following placement of PICC line. - Discharge Diagnosis (1) Bacterial pneumonia Is this a current diagnosis for this admission?: Yes Summary: CXR demonstrated a left perihilar opacity. Initial blood culture set has 1 bottle positive for staph epidermidis; determined to be contaminant. Repeat blood cultures are negative at 4 days. Trachea aspirate positive for E. coli ESBL; likely colonized. The patient is admitted to [facility]. He was e is mpirically placed on IV Levaquin ( discontinued after 3 days) and vancomycin (discontinued after 4 days). He was provided supplemental oxygen, scheduled and as needed nebulizer treatments, twice daily Mucomyst nebulizer treatments, and Mucinex twice daily to maintain oxygen saturations greater than 90%. His respiratory status is gradually improved; lung sounds are now diminished, but clear, sputum production has decreased, and he appears clinically improved. (2) Acute and chronic respiratory failure with hypoxia Is this a current diagnosis for this admission?: Yes Summary: Improved; now at baseline respiratory status. (3) Sepsis Is this a current diagnosis for this admission?: Yes Summary: Resolved; the patient is afebrile, hypotension hasl resolved, tachypnea and tachycardia has improved. The patient was admitted with sepsis, present on arrival, multifactorial secondary to healthcare associated pneumonia, UTI, and multiple unstageable wounds evidenced by fever, tachypnea, tachycardia, hypotension, leukocytosis, and acute kidney injury. Initial blood culture set has 1 bottle positive for staph epidermidis; determined to be contaminant. Repeat blood cultures are negative at 4 days. Trachea aspirate positive for E. coli ESBL; likely colonized. Initial superficial wound culture positive for Proteus maribelis, ESBL Klebsiella pneumonia, and staph aureus.. Surgical wound culture positive for Morganella morganii and enterococcus facialis (D). The patient was empirically placed on IV Levaquin and vancomycin; Rocephin discontinued on day 3, vancomycin discontinued day 4. Infectious disease was consulted; spoke with Dr. Lucio today. He recommends continuing IV Zosyn for total of 10 days of therapy. Antibiotics will be completed on 12/25/18. Pt is awaiting PICC line placement; once in place, will be discharged to SNF for completion of antibiotic therapy. (4) Stage IV decubitus ulcer Is this a current diagnosis for this admission?: Yes Summary: Initial superficial wound culture positive for Proteus maribelis, gram-negative sudeep, gram-positive cocci. Surgical wound culture positive for Morganella morganii and gram-positive cocci. Present on arrival; worsened since previous admission. Now status post surgical debridement. Surgery was consulted; pt had surgical debridement on 12/11/17 with recommendations for daily wet-to-dry dressing changes. ID was consulted; antibiotics as above. (5) Anemia Is this a current diagnosis for this admission?: Yes Summary: Stable and trending up. Hgb currently 9.8 No evidence of active bleeding. (6) UTI (urinary tract infection) Is this a current diagnosis for this admission?: Yes Summary: Urine was noted to be grossly bloody in the emergency department; Colon catheter has been exchanged. Gross hematuria appears to have resolved. Urinalysis is grossly positive with high protein, large blood, large leuk esterase, large bacteria. 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 Antibiotics as described above. (7) DNR (do not resuscitate) Is this a current diagnosis for this admission?: Yes Summary: Patient's case discussed with lock stitch channeler at [facility], Chaka Young this admission. She was able to reach out to the patient's family members to discuss his multiple recent admissions and overall deteriorating health. Per Ms. Young, family is requesting that he receive treatment for his current sepsis and upon discharge to [place] enter into hospice with a comfort care order set. (8) Hyperkalemia Is this a current diagnosis for this admission?: Yes Summary: Resolved. (9) Cachectic Is this a current diagnosis for this admission?: Yes Summary: Evidenced by decreased muscle mass, loss of subcutaneous fat, and low albumin. Recommend continuing tube feedings with aspiration precautions and specialty mattress with q2 hour turns. - Additional Information Resuscitation Status: Do Not Resuscitate Prescriptions: Morphine Sulfate [Morphine 10 mg/5 ml Oral Soln Udcup] 2.5 mg PO Q4HP PRN #10 udc PRN Reason: Piperacillin Sodium/Tazobactam [Zosyn Inj 3.375 gm Vial] 3.375 gm IV Q6 #34 vial Home Medications: Scopolamine [Transderm-Scop] 1 patch TD Q3D #5 patch.td.3 09/06/17 Apixaban [Eliquis 5 mg Tablet] 5 mg PEG Q12 10/12/17 Dextran 70/Hypromellose [Artificial Tears] 1 drop OU TID 10/12/17 Sennosides [Senokot] 17.2 mg PEG BID 10/12/17 Sodium Bicarbonate [Sodium Bicarbonate 650 mg Tablet] 650 mg PEG PRN PRN Albuterol Sulfate [Ventolin 0.083% Neb 2.5 mg/3 mL Ampul] 2.5 mg NEB [id number] vial.neb 10/22/17 Bacitracin Zinc [Bacitracin Oint 15 gm] 1 applic TP BID tube 10/22/17 Famotidine [Pepcid 20 mg Tablet] 20 mg PEG Q12 tablet 10/29/17 Acetaminophen [Tylenol 325 mg Tablet] 650 mg PEG Q4HP PRN 11/14/17 Glycopyrrolate [Robinul Forte] 2 mg GT Q8 11/14/17 Levetiracetam [Keppra 500 mg Tablet] 500 mg GT Q12 11/14/17 Acetylcysteine [Mucomist 20% Soln 800 mg/4 mL] 600 mg NEB RTBID vial 11/18/17 Ipratropium/Albuterol Sulfate [Duoneb 3 ml Ampul] 3 ml NEB RTQ6HP PRN #0 vial.neb 11/18/17 Nystatin [Mycostatin Topical Powder 15 gm] 1 applic TP BID #1 bottle 11/19/17 Acetaminophen [Tylenol 325 mg Tablet] 650 mg PEG Q4HP PRN tablet 12/16/17 Morphine Sulfate [Morphine 10 mg/5 ml Oral Soln Udcup] 2.5 mg PO Q4HP PRN #10 udc 12/16/17 Piperacillin Sodium/Tazobactam [Zosyn Inj 3.375 gm Vial] 3.375 gm IV Q6 #34 vial 12/16/17 History of Present Illness Admission Date/PCP: 12/11/17 01:58 RALEIGH GARCIA DO History of Present Illness: H&P per Dr. Hannah: CECILIA MARTINEZ is a 57 year old male long term resident with a past medical history of a remote traumatic brain injury, subsequent PEG and trach with flexion contractures x4. He is brought to the emergency room after noted by long term staff. In the emergency room he is found to have unstageable sacral decubiti, sepsis, pneumonia, acute respiratory failure with copious tracheostomy exudate. He is started on empiric antibiotics and referred to the hospitalist for admission. Patient is a salas of the formerly [facility] and unable to provide history. Hospital Course Hospital Course: The patient was admitted with acute on chronic respiratory failure and hypoxia with sepsis secondary to bacterial pneumonia and stage IV decubitus ulcer. He was empirically placed on IV Levaquin and vancomycin pending culture results. On 12/12/17, the patient was taken to the operative room by Dr. Manuela calderón for surgical debridement of his chronic decubitus ulcer which extended to the bone. Wound cultures were obtained during the procedure. The patient was supported with standard care: Supplemental oxygen schedule and as needed nebulizer treatments, suctioning as needed, frequent repositioning. His respiratory status gradually improved and his sepsis has subsequently resolved. Infectious disease was consulted for antibiotic recommendations; confirm appropriateness of Zosyn every 6 hours times an additional 9 days. Discharge planning was consulted, discussed with the patient's lock stitch channeler, Chaka Young, who is able to talk with the family members about the appropriateness for transition to hospice services. The family has agreed to hospice referral with plan to transition into comfort care upon completion of antibiotic therapy. At time of this dictation, the patient is in stable condition and is awaiting placement of a PICC line to continue his IV antibiotic therapy. Following placement, he will be discharged to [place] [facility] where he is an established resident. Following antibiotic completion on 12/25/17, the patient will be admitted into [facility]. Physical Exam Vital Signs: Temp Pulse Resp BP Pulse Ox 98.5 F 103 H 18 107/66 96 12/16/17 11:54 12/16/17 14:14 12/16/17 14:14 12/16/17 11:54 12/16/17 14:14 Pulse Oximeter Continuous Start: 12/11/17 09: 41 Freq: RTQ4 Status: Active Document 12/16/17 11:22 [facility] (Rec: 12/16/17 11:22 [facility] [id number]) Pulse Oximetry Assessment Oxygen Saturation (92-100) 96 Oxygen Flow Rate (L/min) 6 Oxygen Delivery Method Trach Collar Fraction of Inspired Oxygen (FIO2) 28 Equipment Usage Equipment in Use Continuous SpO2 Machine # 6 Intake & Output 12/15/17 12/16/17 12/17/17 06:59 06:59 06:59 Intake Total 1715 2119 485 Output Total 700 1050 225 Balance 1015 1069 260 Weight 54.5 kg 55.9 kg General appearance: PRESENT: no acute distress, well-developed, other - Cachectic Head exam: PRESENT: atraumatic, normocephalic Eye exam: PRESENT: conjunctiva pink, EOMI, PERRLA. ABSENT: scleral icterus Ear exam: PRESENT: normal external ear exam Mouth exam: PRESENT: moist, tongue midline Teeth exam: PRESENT: edentulous Neck exam: PRESENT: tracheostomy. ABSENT: carotid bruit, JVD, lymphadenopathy, thyromegaly Respiratory exam: PRESENT: decreased breath sounds - Bibasilar, L>R, prolonged expiratory phas, symmetrical, tachypnea. ABSENT: rales, rhonchi, wheezes Cardiovascular exam: PRESENT: RRR. ABSENT: diastolic murmur, rubs, systolic murmur Pulses: PRESENT: +1 pedal pulses bilateral Vascular exam: PRESENT: normal capillary refill GI/Abdominal exam: PRESENT: normal bowel sounds, soft, other - PEG is. ABSENT: distended, guarding, mass, organolmegaly, rebound, tenderness Rectal exam: PRESENT: deferred Gentrourinary exam: PRESENT: indwelling catheter Extremities exam: PRESENT: other - Contractures x4. ABSENT: calf tenderness, clubbing, pedal edema Neurological exam: PRESENT: awake, other - Nonverbal at baseline Psychiatric exam: PRESENT: appropriate affect, normal mood. ABSENT: homicidal ideation, suicidal ideation Skin exam: PRESENT: dry, warm, other - Stage IV pressure ulcer (POA) to his sacrum now s/p surgical debridement to the bone with now with 0.5 edge of echymosis and macerated tissue extending an addition 2-3 cm around wound. Unstageable, 1 cm round, wound (POA) to the dorsal portion of his left foot with slough present. Unstageable 1 x 2 cm pressure wound (POA) to his left lateral foot at the MIP joint with serosanguineous is 1 drainage. 3 cm round pressure wound (POA) with slough to his left mid back. Stage I pressure wound to bilateral mid-upper back r/t to creased sheets; appears to be improved with decreased area of erythema. Shallow skin excoriation to right mid-back (? shear ). ABSENT: cyanosis, rash Results Laboratory Results: 12/16/17 06:11 12/16/17 07:20 12/16/17 12/16/17 12/16/17 06:11 06:11 07:20 WBC 12.4 H RBC 3.46 L Hgb 9.8 L Hct 30.0 L MCV 87 MCH 28.2 MCHC 32.5 RDW 18.2 H Plt Count 406 Sodium Cancelled 134.6 L Potassium Cancelled 4.5 Chloride Cancelled 99 Carbon Dioxide Cancelled 28 Anion Gap Cancelled 8 BUN Cancelled 13 Creatinine Cancelled 0.42 L Est GFR ( Amer) Cancelled > 60 Est GFR (Non-Af Amer) Cancelled > 60 Glucose Cancelled 104 Calcium Cancelled 8.8 12/12/17 13:52 Sacrum - Decubitis Ulcer Gram Stain - Final 12/12/17 13:52 Sacrum - Decubitis Ulcer Wound Culture - Final Enterococcus Faecalis(Group D) Morganella Morganii No Anaerobic Organisms 12/12/17 04:50 Coccyx - Decubitis Ulcer Gram Stain - Final 12/12/17 04:50 Coccyx - Decubitis Ulcer Wound Culture - Final Proteus Mirabilis Klebsiella Pneumoniae-Esbl Staphylococcus Aureus Impressions: Chest X-Ray 12/10/17 22:58 IMPRESSION: No significant change. Transfer Plan - Time Spent with Patient Time spent with patient: Less than 30 Minutes Qualifiers - * PATIENT BEING DISCHARGED WITH ANY OF THE FOLLOWING DIAGNOSIS: No Plan Discharge Plan: Discharge to [facility] for the patient is a long-term resident. Continue IV Zosyn 3.375 g every 6 hours times 9 days. At that time, discontinue antibiotic therapy, and transition to [facility]. Time Spent: Greater than 30 Minutes
--- NOTE | 2017-12-16 17:12 | PDOC PROGRESS REPORT ---
Subjective Progress Note for:: 12/16/17 Subjective:: Asked by the hospitalist to reevaluate patient's sacral decubitus ulcer that had been debrided by Dr. Roy several days ago. Reason For Visit: SEPSIS, ENCEPHALOPATHY, HYPERKALEMIA Physical Exam Vital Signs: Temp Pulse Resp BP Pulse Ox 100.1 F 115 H 38 H 110/70 96 12/16/17 15:23 12/16/17 15:23 12/16/17 15:23 12/16/17 15:23 12/16/17 15:56 Pulse Oximeter Continuous Start: 12/11/17 09: 41 Freq: RTQ4 Status: Active Document 12/16/17 15:56 [facility] (Rec: 12/16/17 15:57 [id number]) Pulse Oximetry Assessment Oxygen Saturation (92-100) 96 Oxygen Flow Rate (L/min) 6 Oxygen Delivery Method Trach Collar Fraction of Inspired Oxygen (FIO2) 28 Equipment Usage Equipment in Use Continuous SpO2 Machine # 6 Intake & Output 12/15/17 12/16/17 12/17/17 06:59 06:59 06:59 Intake Total 1715 2119 768 Output Total 700 1050 225 Balance 1015 1069 543 Weight 54.5 kg 55.9 kg General appearance: PRESENT: no acute distress - Awake but not responsive. Neck exam: PRESENT: tracheostomy Respiratory exam: PRESENT: rhonchi Cardiovascular exam: PRESENT: RRR Skin exam: PRESENT: other - Sacral region with approximately 5 x 6 cm decubitus ulcer extending to the bone with necrotic edges but no purulent drainage and some necrotic tissue at the base as well. Results Laboratory Results: 12/16/17 06:11 12/16/17 07:20 12/16/17 12/16/17 12/16/17 06:11 06:11 07:20 WBC 12.4 H RBC 3.46 L Hgb 9.8 L Hct 30.0 L MCV 87 MCH 28.2 MCHC 32.5 RDW 18.2 H Plt Count 406 Sodium Cancelled 134.6 L Potassium Cancelled 4.5 Chloride Cancelled 99 Carbon Dioxide Cancelled 28 Anion Gap Cancelled 8 BUN Cancelled 13 Creatinine Cancelled 0.42 L Est GFR ( Amer) Cancelled > 60 Est GFR (Non-Af Amer) Cancelled > 60 Glucose Cancelled 104 Calcium Cancelled 8.8 12/12/17 13:52 Sacrum - Decubitis Ulcer Gram Stain - Final 12/12/17 13:52 Sacrum - Decubitis Ulcer Wound Culture - Final Enterococcus Faecalis(Group D) Morganella Morganii No Anaerobic Organisms 12/12/17 04:50 Coccyx - Decubitis Ulcer Gram Stain - Final 12/12/17 04:50 Coccyx - Decubitis Ulcer Wound Culture - Final Proteus Mirabilis Klebsiella Pneumoniae-Esbl Staphylococcus Aureus Impressions: Chest X-Ray 12/10/17 22:58 IMPRESSION: No significant change. Assessment & Plan - Diagnosis (1) Stage IV decubitus ulcer Qualifiers: Pressure injury location: sacral region Qualified Code(s): L89.154 - Pressure ulcer of sacral region, stage 4 Is this a current diagnosis for this admission?: Yes Plan: Patient would benefit from further debridement. There is some necrotic tissue at the edges and at the base. I have left a message with his medical power of divorce attorney and will await phone call back prior to proceeding with surgery.
[2017-12-17] MEDS: IPRATROPIUM/ALBUTEROL 0.5-2.5 MG/3 ML AMPUL NEB SCH ×4 (01:49→19:42)
[2017-12-17] MEDS: PIPERACILLIN SODIUM/TAZOBACTAM 3.375 GM in NORMAL SALINE 100 ML IV SCH ×5 (05:34→23:46)
[2017-12-17] MEDS: HEPARIN SOD (PORCINE) 5,000 UNIT/ML 1 ML SYRINGE SUBCUT SCH ×3 (05:36→22:19)
[2017-12-17] MEDS: ACETYLCYSTEINE 20% SOLN 800 MG/4 ML VIAL.NEB NEB SCH ×2 (08:19→19:41)
[2017-12-17] MEDS: SENNOSIDES/DOCUSATE 8.6-50 MG 1 EACH TABLET PEG SCH ×2 (10:24→18:04)
[2017-12-17] MEDS: SCOPOLAMINE HYDROBROMIDE 1.5 MG PATCH.TD72 TD SCH (10:30)
[2017-12-17] MEDS: LEVETIRACETAM ORAL SOLN 500 MG/5 ML UDCUP PEG SCH ×2 (10:30→22:19)
[2017-12-17] MEDS: NYSTATIN TOPICAL POWDER 15 GM TP SCH ×2 (10:30→18:04)
[2017-12-17] MEDS: DEXTROSE 5%-1/2 NORMAL SALINE 1,000 ML IV PRN (11:31)
[2017-12-17] MEDS ORDERED: BUPIVACAINE HCL 0.5 % INJ/PF 30 ML SDV ONE (14:42)
[2017-12-17] MEDS ORDERED: NORMAL SALINE 10 ML SDV (AFTER EACH USE) IV PRN (14:54)
--- NOTE | 2017-12-17 14:57 | RADIOLOGY REPORT (SQ) ---
EXAM DESCRIPTION: PICC INSERTION; U/S GUIDE FOR VASCULAR ACCESS; FLUORO/CV PLACEMENT COMPLETED DATE/TIME: 12/17/2017 2:34 pm REASON FOR STUDY: pt to d/c on IV abx; IV ABX COMPARISON: Chest film 12/10/2017 FLUOROSCOPY TIME: 8 minutes 36 seconds 4 digital chest fluoro images and 1 ultrasound image saved to PACS. TECHNIQUE: Fluoroscopic and ultrasound guided PICC placement. LIMITATIONS: None. PROCEDURE: After written consent and assessment were obtained, the patient was brought into the fluo roscopy room and placed supine on the table. Ultrasound evaluation of potential access sites were per formed. After successfully identifying a patent left basilic vein, the left arm was prepped and drape d in a sterile fashion along with the ultrasound probe. The entry site was anesthetized with 1% lidoc maite. A 21 gauge 7 cm needle was advanced through the skin and into the basilic vein under live ultra sound guidance. An ultrasound image was saved to PACS confirming access site. A .018 guide wire was then inserted through the needle and into the venous system. The needle was then removed and an 11 b lade scalpel was used to make a 1cm skin incision. A 5 fr peel-away sheath was advanced over the wir e and into the venous system. A measurement was then made using the existing wire and live fluoroscop ic guidance. The wire was then removed and trimmed. The PICC was advanced through the peel-away sheat h and into the venous system. The peel-away sheath was removed and the catheter was adhered to the pa tients arm with a stat lock. The catheter was then aspirated and flushed and a sterile bandage was pl aced over the access site. A fluoroscopic spot image was saved to PACS confirming the catheter tip w ithin the superior vena cava. This PICC placement was difficult, patient has contractures in both upper extremities. IMPRESSION: SUCCESSFUL PLACEMENT OF A 5 FR DUAL LUMEN 42 CM PICC IN THE LEFT BASILIC VEIN. COMMENT: Patient medication list reviewed: Yes- Quality ID# 130:Eligible professional attests to doc umenting in the medical record they obtained, updated, or reviewed the patient's current medications. . Quality ID 145: Final reports for procedures using fluoroscopy that document radiation exposure leon jose, or exposure time and number of fluorographic images (if radiation exposure indices are not avail able) Quality ID #76: The patient was prepped and draped using maximum sterile barrier technique including cap, mask, sterile gown, sterile gloves, a large sterile sheet, hand hygiene, and 2% Chlorhexidine fo r cutaneous antisepsis. When ultrasound is used, sterile ultrasound techniques are followed requiring sterile gel and sterile probes. TECHNICAL DOCUMENTATION: JOB ID: [id number] [employer]- All Rights Reserved rev-07/19 Reading location - IP/workstation name: [email or web address] [id number]
[2017-12-17] MEDS ORDERED: MIDAZOLAM 2 MG/2 ML INJ ONE (16:17)
[2017-12-17] MEDS ORDERED: PROPOFOL INJ 200 MG/20 ML VIAL IV ONE (16:17)
[2017-12-17] MEDS ORDERED: FENTANYL CITRATE INJ/PF 100 MCG/2 ML AMPUL ONE (16:17)
[2017-12-17] MEDS ORDERED: KETAMINE HCL INJ 500 MG/10 ML VIAL ONE (16:28)
[2017-12-17] MEDS ORDERED: MEPERIDINE HCL/PF INJ 25 MG/1 ML DISP.SYRIN IV PRN (16:31)
[2017-12-17] MEDS ORDERED: MORPHINE SULFATE 10 MG/ML INJ IV PRN ×2 (16:31→17:37)
[2017-12-17] MEDS ORDERED: ONDANSETRON HCL INJ/PF 4 MG/2 ML SDV IV PRN (16:31)
[2017-12-17] MEDS ORDERED: DIPHENHYDRAMINE HCL 50 MG/ML VIAL IV PRN (16:31)
[2017-12-17] MEDS ORDERED: FENTANYL CITRATE INJ/PF 100 MCG/2 ML AMPUL IV PRN ×3 (16:31)
[2017-12-17] MEDS ORDERED: PROMETHAZINE HCL INJ 25 MG/1 ML VIAL IV PRN ×2 (16:31)
--- NOTE | 2017-12-17 17:37 | Operative Report ---
Operative Report DATE OF SURGERY: 12/17/17 PREOPERATIVE DIAGNOSIS: Sacral decubitus ulcer. POSTOPERATIVE DIAGNOSIS: Sacral decubitus ulcer. OPERATION: Sacral decubitus ulcer excisional debridement. region of debridement about 6 x 7 cm in size. SURGEON: KURTIS LOFTON ANESTHESIA: Other - Ketamine TISSUE REMOVED OR ALTERED: Sacral decubitus ulcer necrotic tissue. COMPLICATIONS: None ESTIMATED BLOOD LOSS: 100 cc INTRAOPERATIVE FINDINGS: Necrotic tissue at the ulcer periphery and at the base of stage IV ulcer. The entire wound measuring about 7 x 6 cm in size PROCEDURE: Informed consent was obtained from the patient's cloud engagement partner. Patient was brought to the operating room. IV anesthesia with ketamine was administered. Patient's sacral region was prepped and draped in the usual sterile fashion. Patient had an ulcer measuring about 5 x 6 cm in size with the necrotic edges and necrotic tissue at the base. The necrotic edges were sharply debrided with a scalpel going to viable bleeding wound edge. There was necrotic tissue at the base of this stage IV ulcer and the necrotic tissue was sharply debrided with a scalpel going to viable tissue. Hemostasis was achieved with electrocautery. The wound appeared clean with no more necrotic tissue. The final wound size measured about 6 x 7 cm in size. The wound was packed. Patient tolerated procedure well with no apparent complications.
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
--- NOTE | 2017-12-17 20:30 | PDOC PROGRESS REPORT ---
Subjective Progress Note for:: 12/17/17 Subjective:: Awake with no apparent distress. Reason For Visit: SEPSIS, ENCEPHALOPATHY, HYPERKALEMIA Physical Exam Vital Signs: Temp Pulse Resp BP Pulse Ox 98.2 F 120 H 18 92/59 L 98 12/17/17 18:04 12/17/17 19:42 12/17/17 19:42 12/17/17 18:04 12/17/17 19:42 Pulse Oximeter Continuous Start: 12/11/17 09: 41 Freq: RTQ4 Status: Active Document 12/17/17 19:42 [facility] (Rec: 12/17/17 19:49 [facility] [id number]) Pulse Oximetry Assessment Oxygen Saturation (92-100) 98 Oxygen Flow Rate (L/min) 5 Oxygen Delivery Method T-piece Equipment Usage Equipment in Use Continuous SpO2 Machine # 6 Intake & Output 12/16/17 12/17/17 12/18/17 06:59 06:59 06:59 Intake Total 2119 2039 563 Output Total 1050 1350 552 Balance 1069 689 11 Weight 55.9 kg 54.6 kg General appearance: PRESENT: no acute distress Respiratory exam: PRESENT: clear to auscultation everett Cardiovascular exam: PRESENT: tachycardia Skin exam: PRESENT: other - Dressings in place. Results Laboratory Results: 12/16/17 06:11 12/16/17 07:20 12/11/17 05:25 Tracheal Aspirate Gram Stain - Final 12/11/17 05:25 Tracheal Aspirate Sputum Culture - Final Escherichia Coli Esbl Klebsiella Pneumoniae-Esbl Reduced Normal Hannah 12/12/17 09:00 Blood Blood Culture - Final NO GROWTH IN 5 DAYS 12/12/17 09:30 Blood Blood Culture - Final NO GROWTH IN 5 DAYS Impressions: Chest X-Ray 12/10/17 22:58 IMPRESSION: No significant change. Guidance Fluoroscopy 12/17/17 00:00 IMPRESSION: SUCCESSFUL PLACEMENT OF A 5 FR DUAL LUMEN 42 CM PICC IN THE LEFT BASILIC VEIN. Interventional Vascular Procedure 12/17/17 00:00 IMPRESSION: SUCCESSFUL PLACEMENT OF A 5 FR DUAL LUMEN 42 CM PICC IN THE LEFT BASILIC VEIN. PICC Line Insertion 12/17/17 00:00 IMPRESSION: SUCCESSFUL PLACEMENT OF A 5 FR DUAL LUMEN 42 CM PICC IN THE LEFT BASILIC VEIN. Assessment & Plan - Diagnosis (1) Stage IV decubitus ulcer Qualifiers: Pressure injury location: sacral region Qualified Code(s): L89.154 - Pressure ulcer of sacral region, stage 4 Is this a current diagnosis for this admission?: Yes Plan: Status post excisional debridement. Appears stable postoperatively. Will try to place a wound VAC tomorrow if there is no evidence of bleeding..
[2017-12-17] MEDS: NORMAL SALINE 10 ML SDV (SCHEDULED) IV SCH (22:19)
[2017-12-18] MEDS: IPRATROPIUM/ALBUTEROL 0.5-2.5 MG/3 ML AMPUL NEB SCH ×3 (02:36→13:18)
[2017-12-18] MEDS: HEPARIN SOD (PORCINE) 5,000 UNIT/ML 1 ML SYRINGE SUBCUT SCH ×2 (05:33→14:22)
[2017-12-18] MEDS: PIPERACILLIN SODIUM/TAZOBACTAM 3.375 GM in NORMAL SALINE 100 ML IV SCH ×2 (05:33→14:23)
[2017-12-18] MEDS: DEXTROSE 5%-1/2 NORMAL SALINE 1,000 ML IV PRN (05:38)
[2017-12-18] MEDS: ACETYLCYSTEINE 20% SOLN 800 MG/4 ML VIAL.NEB NEB SCH (08:23)
[2017-12-18] MEDS: NORMAL SALINE 10 ML SDV (SCHEDULED) IV SCH (10:08)
[2017-12-18] MEDS: LEVETIRACETAM ORAL SOLN 500 MG/5 ML UDCUP PEG SCH (10:08)
[2017-12-18] MEDS: SENNOSIDES/DOCUSATE 8.6-50 MG 1 EACH TABLET PEG SCH (10:08)
--- NOTE | 2017-12-18 12:12 | PDOC PROGRESS REPORT ---
Subjective Progress Note for:: 12/18/17 Reason For Visit: SEPSIS, ENCEPHALOPATHY, HYPERKALEMIA Physical Exam Vital Signs: Temp Pulse Resp BP Pulse Ox 97.4 F 105 H 18 130/97 H 98 12/18/17 03:41 12/18/17 08:23 12/18/17 08:23 12/18/17 03:41 12/18/17 12:02 Pulse Oximeter Continuous Start: 12/11/17 09: 41 Freq: RTQ4 Status: Active Document 12/18/17 12:02 [facility] (Rec: 12/18/17 12:03 [facility] [id number]) Pulse Oximetry Assessment Oxygen Saturation (92-100) 98 Oxygen Flow Rate (L/min) 5 Oxygen Delivery Method T-piece Fraction of Inspired Oxygen (FIO2) 28 Equipment Usage Equipment in Use Continuous SpO2 Machine # 6 Intake & Output 12/17/17 12/18/17 12/19/17 06:59 06:59 06:59 Intake Total 2039 1763 Output Total 1350 1127 Balance 689 636 Weight 54.6 kg 55.3 kg Results Laboratory Results: 12/16/17 06:11 12/16/17 07:20 12/11/17 05:25 Tracheal Aspirate Gram Stain - Final 12/11/17 05:25 Tracheal Aspirate Sputum Culture - Final Escherichia Coli Esbl Klebsiella Pneumoniae-Esbl Reduced Normal Hannah 12/12/17 09:00 Blood Blood Culture - Final NO GROWTH IN 5 DAYS 12/12/17 09:30 Blood Blood Culture - Final NO GROWTH IN 5 DAYS Impressions: Chest X-Ray 12/10/17 22:58 IMPRESSION: No significant change. Guidance Fluoroscopy 12/17/17 00:00 IMPRESSION: SUCCESSFUL PLACEMENT OF A 5 FR DUAL LUMEN 42 CM PICC IN THE LEFT BASILIC VEIN. Interventional Vascular Procedure 12/17/17 00:00 IMPRESSION: SUCCESSFUL PLACEMENT OF A 5 FR DUAL LUMEN 42 CM PICC IN THE LEFT BASILIC VEIN. PICC Line Insertion 12/17/17 00:00 IMPRESSION: SUCCESSFUL PLACEMENT OF A 5 FR DUAL LUMEN 42 CM PICC IN THE LEFT BASILIC VEIN. Assessment & Plan - Diagnosis (1) Stage IV decubitus ulcer Qualifiers: Pressure injury location: sacral region Qualified Code(s): L89.154 - Pressure ulcer of sacral region, stage 4 Is this a current diagnosis for this admission?: Yes - Plan Summary Plan Summary: This is a 57-year-old male with a large stage IV decubitus ulcer. The patient has undergone serial debridements. I have been informed that the patient will be discharged today with hospice. In light of this, I have recommended damp dressing changes to the sacral wound 3 times daily. I will see the patient again on an as-needed basis. Please renotify with any questions or concerns.
[2017-12-18 15:52] VITALS: BP 109/71
== END 2017-12-18 16:55 | DRG 853 ==
LOC: ER 22:49 → EH 12-11 01:58 → 3S 12-11 04:15
PROVIDERS: ADMIT Internal Medicine; ATTEND Internal Medicine
PROC: 5A1955Z Respiratory Ventilation, Greater than 96 Consecutive Hours (ICD-10-PCS; 2017-12-11)
PROC: B518ZZA Fluoroscopy of Superior Vena Cava, Guidance (ICD-10-PCS; 2017-12-11)
PROC: 02HV33Z Insertion of Infusion Device into Superior Vena Cava, Percutaneous Approach (ICD-10-PCS; 2017-12-12)
PROC: B548ZZA Ultrasonography of Superior Vena Cava, Guidance (ICD-10-PCS; 2017-12-12)
PROC: 0QB10ZZ Excision of Sacrum, Open Approach (ICD-10-PCS; principal; 2017-12-12 13:15)
PROC: 0JB70ZZ Excision of Back Subcutaneous Tissue and Fascia, Open Approach (ICD-10-PCS; 2017-12-17)
PROC: 3E02340 Introduction of Influenza Vaccine into Muscle, Percutaneous Approach (ICD-10-PCS; 2017-12-18)
DX: A41.9 Sepsis, unspecified organism (principal); L89.154 Pressure ulcer of sacral region, stage 4; J96.21 Acute and chronic respiratory failure with hypoxia; J15.5 Pneumonia due to Escherichia coli; T83.511A Infection and inflammatory reaction due to indwelling urethral catheter, initial encounter; R64 Cachexia; N39.0 Urinary tract infection, site not specified; N17.9 Acute kidney failure, unspecified; B96.4 Proteus (mirabilis) (morganii) as the cause of diseases classified elsewhere; E87.5 Hyperkalemia; L89.890 Pressure ulcer of other site, unstageable; Y84.6 Urinary catheterization as the cause of abnormal reaction of the patient, or of later complication, without mention of misadventure at the time of the procedure; R31.0 Gross hematuria; L89.121 Pressure ulcer of left upper back, stage 1; L89.111 Pressure ulcer of right upper back, stage 1; B95.2 Enterococcus as the cause of diseases classified elsewhere; B96.1 Klebsiella pneumoniae [K. pneumoniae] as the cause of diseases classified elsewhere; B95.61 Methicillin susceptible Staphylococcus aureus infection as the cause of diseases classified elsewhere; Z93.1 Gastrostomy status; Z93.0 Tracheostomy status; V89.2XXS Person injured in unspecified motor-vehicle accident, traffic, sequela; Z79.899 Other long term (current) drug therapy; Z87.820 Personal history of traumatic brain injury; Z66 Do not resuscitate; F32.9 Major depressive disorder, single episode, unspecified; Z74.01 Bed confinement status; D64.9 Anemia, unspecified; Z79.2 Long term (current) use of antibiotics; Z68.20 Body mass index [BMI] 20.0-20.9, adult; Z23 Encounter for immunization
CPT/HCPCS: 300; 36415; 36569; 36600; 71045; 76937; 77001; 80048; 80053; 80177; 80202; 81001; 82550; 82565; 82803; 82962; 83605; 85025; 85027; 87040; 87070; 87075; 87077; 87186; 87205; 90686; 93005; 93010; 94640; 94762; 96365; 96366; 96368; 99291; A6266; C1769; J0610; J0696; J1100; J1642; J1644; J1815; J1956; J2250; J2405; J2543; J2704; J3010; J3370; J3490; J7030; J7060; J7620; S0164